=== PATIENT | female | born 1945 | race Caucasian/White ===

== ENCOUNTER 2018-03-16 12:27 | Emergency (ER) | payer MEDICARE, SELFPAY ==
[2018-03-16] VITALS (16 sets, daily range): BP systolic 123–196; BP diastolic 74–99; PULSE 57–81; RESP 15–23; TEMP 36.7; O2SAT 93–97; BMI 28.3
--- NOTE | 2018-03-16 12:49 | CT_ITS ---
STUDY: CTA CHEST REASON FOR EXAM: Female, 73 years old. Sudden onset of severe back pain. Possible aortic dissection. RADIATION DOSAGE (If Supplied By Facility): CTDIvol = ( 11.83 ) mGy, DLP = ( 514.22 ) mGycm TECHNIQUE: The examination was performed with the intravenous administration of 100CC ml of Isovue 300 contrast material. Post-processing of the angiographic images was performed, with multiplanar reformation and 3D reconstruction. Individualized dose optimization techniques were used for this CT. COMPARISON: None. FINDINGS: Normal enhancement of the main pulmonary artery and right and left pulmonary arteries. Normal enhancement of the bilateral peripheral pulmonary arteries. There is no demonstrated pulmonary embolism. There is atherosclerotic calcification of the aortic arch with tortuosity. There is ectasia of the ascending thoracic aorta measuring about 4.1 cm in AP diameter. There is no demonstrated aortic dissection. There is however fluid likely representing clots around the descending thoracic aorta extending from the aortic arch to the upper abdomen. There is also fluid extending in the region of the superior pericardial recess. Normal heart and pericardium. There is no evidence of pericardial effusion. Normal mediastinum. Normal hilar regions. The trachea is somewhat tortuous. The lungs are well expanded. The lungs are emphysematous with scattered bullae bilaterally. No focal infiltrate is seen. There is mild stranding/atelectasis in the right lower lobe. There are no pleural effusions. Normal chest wall structures. There are degenerative changes of thoracic spine. The visualized portions of the upper abdomen demonstrate well-defined low-density lesion in the left lobe of the liver measuring by 3.5 cm low attenuation values system with cysts. The patient is status post cholecystectomy. CT/CTA Chest W/WO Contrast IMPRESSION: No evidence of aortic dissection however there is fluid around the aorta and in the superior pericardial recess. Correlation with echocardiogram is recommended. No evidence of acute extravasation of contrast. No evidence of pulmonary embolism. Emphysematous and bullous changes bilaterally. Electronically Signed: Riki Gill MD at 13:59 EDT Tel , Service support ,
--- NOTE | 2018-03-16 12:49 | EKG12_ITS ---
Test Reason : Blood Pressure : / mmHG Vent. Rate : 066 BPM Atrial Rate : 066 BPM P-R Int : 154 ms QRS Dur : 086 ms QT Int : 392 ms P-R-T Axes : 084 066 055 degrees QTc Int : 410 ms Normal sinus rhythm Normal ECG Confirmed by TAL TAYLOR, TORY ([id number]), proposal editor OLGA PARKS ([id number] on 03/19/2018 2:41:53 PM Referred By: SANDRA Confirmed By:TORY PARADA MD
[2018-03-16 12:57] LABS: Absolute Lymphocyte Count 1.65 X10^3/ul (0.83-4.51); Basophil# 0.04 X10^3/uL; Basophil% 0.5 % (0-1); Eosinophil# 0.14 X10^3/uL; Eosinophils% 1.9 % (0-5); Hemoglobin 15.3 g/dl (12.0-15.0); Lymphocyte # 1.65 X10^3/ul (4.0); Lymphocyte % 21.9 % (19-41); Mean Corp Hgb Conc 35.6 g/gl (32-36); Mean Corpuscular Hgb 32.9 pg (27.0-32.0); Mean Corpuscular Volume 92.5 fL (81-99); Mean Platelet Vol. 13.1 fl (6.2-12.0); Monocyte# 0.69 X10^3/uL; Monocyte% 9.2 % (0-10); Neutrophil # 4.99 X10^3/uL (2.7-7.7); Neutrophil % 66.1 % (47-70); Platelet Count 155 K/mm3 (150-450); RBC Distribution Width CV 12.6 % (11.6-14.6); RBC Distribution Width SD 41.9 fl (35.1-43.9); Red Blood Count 4.65 M/mm3 (4.2-5.4); White Blood Count 7.5 K/mm3 (4.4-11.0)
[2018-03-16 12:58] LABS: POSITIVE COUNT NO; POSITIVE DIFFERENTIAL NO; POSITIVE MORPHOLOGY NO
[2018-03-16] MEDS: HYDROmorphone 1 MG/ML Syringe IV (13:01)
[2018-03-16] MEDS: Ondansetron 4 MG/2 ML Vial IV ×2 (13:02→15:20)
[2018-03-16] MEDS: 0.9% Normal Saline 1,000 ML 1000 ML IV (13:02)
[2018-03-16 13:10] LABS: AST(SGOT) 37 U/L (15-37); Alanine Aminotransfer ALT/SGPT 18 U/L (13-56); Albumin, Serum 4.1 g/dL (3.2-5.0); Alkaline Phosphatase 82 U/L (45-117); Anion Gap 8 (5-15); BUN 10 mg/dL (7-18); Calcium,Total 9.3 mg/dL (8.5-10.1); Chloride 107 mmol/L (98-107); EST Glomerular Filtration Rate 58 mL/min (>60); Est Glom Filt Rate - Afr Amer 70 mL/min (>60); Estimated Creatinine Clearance 40.21 ml/min; Globulin 3.4 g/dL (2.2-4.2); Glucose 104 mg/dL (74-106); Lipase 211 U/L (73-393); Potassium 3.8 mmol/L (3.5-5.1); Protein, Total 7.5 g/dL (6.4-8.2); Sodium Level 140 mmol/L (136-145)
--- NOTE | 2018-03-16 13:18 | ED.VISSUMM ---
- ER Visit Summary Date of Service: 03/16/18 Chief Complaint: Upper back pain History of Present Illness: The patient is a [address] Giuseppe dangelo. She reports that she was taking a trash bag out to the garbage when she had the onset of a sharp upper back pain. Is 10 out of 10 at worst 910 currently. Is worsened by breathing or movement. Is relieved by nothing. She has never had anything like this before. States this is not unusual activity for her. Patient reports that she also has a sharp epigastric pain senna 10 severity that began at the same time. She denies any fever, chills, chest pain, cough. She does report that she is short of breath. Physical Examination: Vitals: Stable. Afebrile. General: Well-nourished and well-developed. Head: Normocephalic atraumatic. Neck: Supple, no lymphadenopathy. No JVD. Nontender. Cardiovascular: Regular rate and rhythm. No murmurs. Respiratory: No respiratory distress. Clear to auscultation bilaterally. Abdominal: Soft, mild epigastric tenderness to palpation, nondistended, normal bowel sounds. No guarding, rebound, or peritoneal signs. Back: Nontender. I am unable to reproduce her upper back pain with palpation. No vertebral tenderness. No paraspinous muscular tenderness. Extremities: Nontender, no edema. Skin: Normal color, no rash. Neurologic: Alert and oriented ?3. Cranial nerves II through XII are intact. Normal strength and sensation. Psych: Normal affect. Test Results: EKG is sinus at [address] changes. Troponin is negative. LFTs marked total bili 1.2. Lipase normal. Chem-7 is normal. CBC is marked for hemoglobin of 15.3. Clinical Impression(s) from Imaging Studies Chest CTA 03/16/18 12:49 IMPRESSION: No evidence of aortic dissection however there is fluid around the aorta and in the superior pericardial recess. Correlation with echocardiogram is recommended. No evidence of acute extravasation of contrast. No evidence of pulmonary embolism. Emphysematous and bullous changes bilaterally. Electronically Signed: Riki Gill MD at 13:59 EDT Tel , Service support , Emergency Department Course and Treatment: Patient had an IV placed. She is given a dose of Dilaudid and Zofran IV. Her pain has improved. She was given a dose of labetalol IV. Ultimately she was placed on a nipride drip. Treatment Plan: The patient asked for transfer to [facility]. She was discussed with them and giving the fact that this is from her ascending aneurysm they asked that she be transferred to [facility]. Patient was then discussed with Dr. Hancock at [facility] who asked that we bring her systolic blood pressure down in the 120s. Due to the weather the patient cannot be flown to [place]. Disposition: Transferred in serious condition. Impression: 1. Thoracic aortic aneurysm with leak. 2. Critical care time 30 minutes. This note was generated with [employer] dictation software. It may contain incorrect words, spelling, and punctuation that were not noted in review of the chart prior to signing ED Disposition - Plan for ED Patient: Chief Complaint: Back Referrals: Chicho Ronquillo MD [Primary Care Provider] -
[2018-03-16] MEDS: Morphine 4 MG/ML Syringe IV (14:00)
[2018-03-16 14:25] LABS: International Normalized Ratio 1.1; Prothrombin Time (Protime)PT. 13.8 SECONDS (11.7-14.9)
[2018-03-16 14:26] LABS: Partial Thromboplast Time 38.1 Seconds (24.1-36.2)
--- NOTE | 2018-03-16 15:07 | NURSING ---
[facility] MAIN [id number] BED 3 REPORT [phone] [facility] MOBILE ICU EN ROUTE
--- NOTE | 2018-03-16 16:23 | ED.RN ---
[facility] GROUND AT BEDSIDE AT 1600. 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 BEDSIDE REPORT GIVEN. STAFF DENIES QUESTIONS. PT DENIES NEEDS. DIRECTIONS GIVEN TO FAMILY. GROUND CREW DEPARTED AT 1613 WITH PATIENT.
--- NOTE | 2018-03-16 18:14 | ED.RN ---
Spoke with Nicky at [facility] to verify we were sending correct CD from [facility]. I was unable to give them an ETA.
== END 2018-03-16 16:13 | disposition short-term general hospital (02) ==
PROVIDERS: Emergency Provider Emergency Medicine; Family Provider Family Medicine; PCP Family Medicine
DX: I71.1 Thoracic aortic aneurysm, ruptured (principal); K59.00 Constipation, unspecified; J44.9 Chronic obstructive pulmonary disease, unspecified; I10 Essential (primary) hypertension; E78.00 Pure hypercholesterolemia, unspecified; Z90.89 Acquired absence of other organs; Z90.49 Acquired absence of other specified parts of digestive tract; Z90.710 Acquired absence of both cervix and uterus; F17.200 Nicotine dependence, unspecified, uncomplicated; Z79.82 Long term (current) use of aspirin; Z79.899 Other long term (current) drug therapy; R06.02 Shortness of breath
CPT/HCPCS: 71275; 80048; 80076; 83690; 84484; 85025; 85610; 85730; 93005; 96361; 96365; 96374; 96375; 96376; 99285; J7030; Q9967; A4216; J2405

== ENCOUNTER → 2018-08-19 08:21 | Outpatient (CLI) | payer MEDICARE, SELFPAY ==
[2018-08-19 09:43] LABS: Prothrombin Time (Protime)PT. 36.7 SECONDS (11.7-14.9)
[2018-08-19 09:49] LABS: International Normalized Ratio 3.7
== END ==
PROVIDERS: Family Provider Family Medicine; PCP Family Medicine; Referring Provider Family Medicine; Visit Provider Family Medicine
DX: I48.0 Paroxysmal atrial fibrillation (principal)
CPT/HCPCS: 85610

== ENCOUNTER 2018-11-17 11:30 | Emergency (ER) | payer MEDICARE, SELFPAY ==
[2018-11-17] VITALS (9 sets, daily range): BP systolic 149–192; BP diastolic 80–106; PULSE 60–69; RESP 15–26; TEMP 36.6–36.7; O2SAT 91–96; BMI 29.4
--- NOTE | 2018-11-17 11:40 | RAD_ITS ---
STUDY: X-RAY CHEST REASON FOR EXAM: Female, 73 years old. Coughing congestion TECHNIQUE: PA and lateral views of the chest. COMPARISON: None. FINDINGS: There is hyperinflation of the lungs consistent with chronic obstructive lung disease (COPD). There is nodule in the right upper lobe is compatible with a granuloma. Normal size heart. Normal mediastinum and larissa. Normal visualized pulmonary arteries. There is atherosclerotic calcification of the aortic arch with tortuosity. There are diffuse degenerative changes of the visualized thoracic spine. Normal visualized ribs, clavicles, and shoulders. There is no demonstrated abnormality of the visualized soft tissue structures of the upper abdomen. RAD/Chest PA and Lateral IMPRESSION: 1. No acute cardiopulmonary process. 2. Chronic obstructive airway disease. Electronically Signed: Gabe Charlton MD at 12:56 EST , Service support ,
--- NOTE | 2018-11-17 11:45 | ED.VISSUMM ---
- ER Visit Summary Date of Service: 11/17/18 Chief Complaint: Shortness of breath History of Present Illness: The patient is a 73 F with a history of COPD, not on home oxygen, presenting with 2 days of gradual onset cough, congestion, and wheezing. Her cough has been productive of yellow sputum. She denies recent antibiotic use. Denies chest pain. No lower extremity pain or swelling. Physical Examination: Vitals are within normal limits except for hypertension at 192/106. She denies chest pain, headache, or any confusion. Pulse ox is 96% on room air. She does have diffuse wheezing in all lung crespo but still moving air well. No clinical evidence of DVT Test Results: Observe within normal limits. INR 2.6. Chest x-ray negative for infiltrate Emergency Department Course and Treatment: No evidence of infiltrate on x-ray. She was given a full round of nebulizers and IV Medrol. On reexamination, she feels much better. Wheezing has resolved. No respiratory distress. She ambulated with a pulse oximeter on room air and she remained at 95% and feels well. 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 She had a productive cough and wheezing. No chest pain at all. Blood pressure was elevated on arrival but is 156/83 on reevaluation. She states that her aneurysm has been stable and she was cleared from her specialist except for yearly follow-ups. She is certain that this has nothing to do with her aneurysm. It does seem fairly classic for COPD and seems quite clearly infectious. No chest pain, clinical evidence of DVT, or other findings to suggest pulmonary embolism. Because she has had a change in her sputum production pattern, I do think treatment with antibiotics is reasonable. I will start her on doxycycline. She will also be treated with prednisone. She will follow closely with her doctor and return here if she is any worse. Disposition: Home stable Impression: Initial encounter COPD exacerbation, initial encounter lower respiratory tract infection This note was generated with [employer] dictation software. It may contain incorrect words, spelling, and punctuation that were not noted in review of the chart prior to signing ED Disposition - Plan for ED Patient: Chief Complaint: Shortness of Breath Instructions: ED COPD Flare, Acute Bronchitis Prescriptions: Prednisone [Deltasone] 40 mg PO DAILY #10 tablet Doxycycline Monohydrate 100 mg PO BID #14 tablet Referrals: Chicho Ronquillo MD [Primary Care Provider] -
[2018-11-17] MEDS: MethylPREDNISolone 125 MG/2 ML Vial IV (11:50)
[2018-11-17] MEDS: Ipratropium/Albuterol Sulfate 3 ML AMPUL.NEB INHALATION (11:55)
[2018-11-17] MEDS: Albuterol 2.5 MG/3 ML VIAL.NEB. INHALATION ×3 (11:55→12:17)
[2018-11-17 11:57] LABS: Absolute Lymphocyte Count 0.87 X10^3/ul (0.83-4.51); Absolute Neutrophil Count 2.8 X10^3/uL (2.0-7.7); Basophil# 0.03 X10^3/uL; Basophil% 0.7 % (0-1); Eosinophil# 0.14 X10^3/uL; Eosinophils% 3.1 % (0-5); Hematocrit 43.2 % (37-47); Hemoglobin 14.9 g/dl (12.0-15.0); Lymphocyte # 0.87 X10^3/ul (4.0); Lymphocyte % 19.4 % (19-41); Mean Corp Hgb Conc 34.5 g/gl (32-36); Mean Corpuscular Hgb 31.7 pg (27.0-32.0); Mean Corpuscular Volume 91.9 fL (81-99); Mean Platelet Vol. 12.6 fl (6.2-12.0); Monocyte# 0.63 X10^3/uL; Neutrophil # 2.81 X10^3/uL (2.7-7.7); Neutrophil % 62.6 % (47-70); Platelet Count 136 K/mm3 (150-450); RBC Distribution Width SD 42.7 fl (35.1-43.9); White Blood Count 4.5 K/mm3 (4.4-11.0)
[2018-11-17 11:58] LABS: POSITIVE COUNT NO; POSITIVE DIFFERENTIAL NO; POSITIVE MORPHOLOGY NO
[2018-11-17 12:08] LABS: Anion Gap 7 (5-15); BUN 11 mg/dL (7-18); BUN/Creat Ratio 13.6 RATIO (10-20); Calcium,Total 8.5 mg/dL (8.5-10.1); Chloride 108 mmol/L (98-107); Creatinine, Serum 0.81 mg/dL (0.55-1.02); EST Glomerular Filtration Rate 73 mL/min (>60); Est Glom Filt Rate - Afr Amer 89 mL/min (>60); Estimated Creatinine Clearance 49.64 ml/min; Glucose 85 mg/dL (74-106); Sodium Level 141 mmol/L (136-145)
[2018-11-17 13:35] LABS: International Normalized Ratio 2.6; Prothrombin Time (Protime)PT. 28.1 SECONDS (11.7-14.9)
[2018-11-17] MEDS: Doxycycline 100 MG CAPSULE PO (14:05)
--- OUTSIDE RECORDS SUMMARY | 2019-01-20 11:18 | XMS RPT_ITS ---
:1945 Author Organization OHIP Care Team Providers Name Role Phone PONCHO MARTÍNEZOPAL Admitting Unavailable SANDRINE BAPTISTE Attending Unavailable SANDRINE BAPTISTE Referring Unavailable DAVIS RONQUILLO) Attending Unavailable TABATHA GARCIA Referring Unavailable TIKATABATHA LOUIS Attending Unavailable TIKA, TABATHA Referring Unavailable PODKATELYN NEAL (WILBUR) Attending Unavailable KATELYN NUÑEZ (WILBUR) Referring Unavailable DAVIS RONQUILLO) Referring Unavailable DAVIS RONQUILLO) Referring Unavailable DAVIS RONQUILLO) Attending Unavailable DAVIS RONQUILLO) Referring Unavailable CALI ALY Attending Unavailable DAVIS RONQUILLO) Referring Unavailable DAVIS RONQUILLO) Referring Unavailable DAVIS RONQUILLO) Referring Unavailable DAVIS RONQUILLO) Referring Unavailable DAVIS RONQUILLO) Referring Unavailable DAVIS RONQUILLO) Referring Unavailable PODLOGKATELYN HOWELL (SCIENTIFIC RESEARCH ASSOCIATE) Attending Unavailable DAVIS RONQUILLO () Referring Unavailable BURSDAVIS VICTOR () Referring Unavailable BURSDAVIS VICTOR () Referring Unavailable PODLOGAR, KATELYN (SCIENTIFIC RESEARCH ASSOCIATE) Referring Unavailable DAVIS RONQUILLO () Referring Unavailable ALVARO CROWLEY (OD) Attending Unavailable DAVIS RONQUILLO () Referring Unavailable SHEEBA, CALI E Attending Unavailable CALI ALY E Referring Unavailable CALI ALY E Referring Unavailable TAVON TRONCOSO Attending Unavailable TAVON TRONCOSO Referring Unavailable PODLOGAR, KATELYN (SCIENTIFIC RESEARCH ASSOCIATE) Referring Unavailable PODLOGAR, KATELYN (SCIENTIFIC RESEARCH ASSOCIATE) Referring Unavailable BEACH, JAYJAY K Attending Unavailable MEFALVARO WYNN (OD) Referring Unavailable Bursley, Chicho Primary Care Unavailable Davis Car Attending Unavailable Bursley, Chicho Primary Care Unavailable Sebastien Lane Attending Unavailable Yg Chicho Attending Unavailable Bursluiza, Chicho Referring Unavailable Bursluiza, Chicho Primary Care Unavailable PROBLEMS PROBLEMS DATE TYPE CONDITION / CODE ATTENDING STATUS SOURCE 11/13/2018 Active Other abnormal and NA Active [facility] inconclusive [facility] Main findings on [place] diagnostic imaging Repository of breast / R92.8(ICD-10) 11/07/2018 Active Centrilobular NA Active [facility] emphysema / Clinic Main J43.2(ICD-10) [place] Repository 11/01/2018 Active Dizziness and NA Active [facility] giddiness / Clinic Main R42(ICD-10) [place] Repository 10/11/2018 Active Encounter for NA Active [facility] screening mammogram Clinic Main for malignant [place] neoplasm of breast Repository / Z12.31(ICD-10) 03/21/2018 Active Paroxysmal atrial NA Active [facility] fibrillation / Clinic Main I48.0(ICD-10) [place] Repository 08/19/2018 Unknown I48.0 - Paroxysmal Bursley, Active [place] atrial fibrillation [facility] / I48.0(ICD-10) Hospital Repository 04/15/2018 Active 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 After-cataract obscuring vision, right - ICD9: 366.53, ICD10: H26.491 Return 1 to 2 weeks for Yag laser right eye 3. Dry eye syndrome of both eyes - ICD9: 375.15, ICD10: H04.123 Continue Refresh Optive Artificial tears, 1 drop, three times a day, Both eyes 4. Pseudophakia, both eyes - ICD9: V43.1, ICD10: Z96.1 Jayjay Beach MD I have confirmed and edited as necessary the relevant ophthalmic history, review of systems, surgical history, and ophthalmological examination findings as obtained by the ophthalmic technical staff. I have seen and examined Elizabeth Méndez. I have discussed the examination findings, diagnosis, and treatment options with Elizabeth Méndez and/or her family. I have also reviewed and agree with the assessment and plan as stated above and agree with all its relevant components. I gave the patient the opportunity to ask questions about the findings, diagnosis, and treatment options. EMERGENCY DEPARTMENT Observed: 11/17/2018 Status: F Source: [place] SUMMARY 1:56 PM [facility] REPOSITORY [facility] Medical Records Department [address] [place] [id number] Emergency Department Summary 11/17/18 1145 MR#: [id number] Acct: [id number] Name: ELIZABETH MÉNDEZ Rep #: [id number] : 1945 73 From: Chicho Car MD PCP: Chicho Ronquillo MD Status: REG ER - ER Visit Summary Date of Service: 11/17/18 Chief Complaint: Shortness of breath History of Present Illness: The patient is a 73 F with a history of COPD, not on home oxygen, presenting with 2 days of gradual onset cough, congestion, and wheezing. Her cough has been productive of yellow sputum. She denies recent antibiotic use. Denies chest pain. No lower extremity pain or swelling. Physical Examination: Vitals are within normal limits except for hypertension at 192/106. She denies chest pain, headache, or any confusion. Pulse ox is 96% on room air. She does have diffuse wheezing in all lung crespo but still moving air well. No clinical evidence of DVT Test Results: Observe within normal limits. INR 2.6. Chest x-ray negative for infiltrate Emergency Department Course and Treatment: No evidence of infiltrate on x-ray. She was given a full round of nebulizers and IV Medrol. On reexamination, she feels much better. Wheezing has resolved. No respiratory distress. She ambulated with a pulse oximeter on room air and she remained at 95% and feels well. 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 She had a productive cough and wheezing. No chest pain at all. Blood pressure was elevated on arrival but is 156/83 on reevaluation. She states that her aneurysm has been stable and she was cleared from her specialist except for yearly follow-ups. She is certain that this has nothing to do with her aneurysm. It does seem fairly classic for COPD and seems quite clearly infectious. No chest pain, clinical evidence of DVT, or other findings to suggest pulmonary embolism. Because she has had a change in her sputum production pattern, I do think treatment with antibiotics is reasonable. I will start her on doxycycline. She will also be treated with prednisone. She will follow closely with her doctor and return here if she is any worse. Disposition: Home stable Impression: Initial encounter COPD exacerbation, initial encounter lower respiratory tract infection This note was generated with [employer] dictation software. It may contain incorrect words, spelling, and punctuation that were not noted in review of the chart prior to signing ED Disposition - Plan for ED Patient: Chief Complaint: Shortness of Breath Instructions: ED COPD Flare, Acute Bronchitis Prescriptions: Prednisone [Deltasone] 40 mg PO DAILY #10 tablet Doxycycline Monohydrate 100 mg PO BID #14 tablet Referrals: Chicho Ronquillo MD [Primary Care Provider] - What to do if you have Problems For any increased pain, shortness of breath, bleeding, nausea or vomiting, chest pain, or any unexpected problems, contact your Primary Care Provider. Call [facility] ([phone]) or report to the closest Emergency Room. Call 911 if necessary. 11/17/18 1356 <Electronically signed by Chicho Car MD> Date Chicho Car MD Cosigner Signature (If Indicated): Date CC: Chicho Ronquillo MD CBC W/DIFF, AUTOMATED Collected: 11/17/2018 Status: F Source: [place] 11:48 AM [facility] REPOSITORY TYPE CODE TESTS RESULT OUT OF RANGE REFERENCE UNITS LAB L100.1000 4.4-11.0 K/mm3 Normal WBC 4.5 LAB L100.1200 4.2-5.4 M/mm3 Normal RBC 4.70 LAB L100.1300 12.0-15.0 g/dl Normal HGB 14.9 LAB L100.1400 37-47 % Normal HCT 43.2 LAB L100.1500 81-99 fL Normal MCV 91.9 LAB L100.1600 27.0-32.0 pg Normal MCH 31.7 LAB L100.1700 32-36 g/gl Normal MCHC 34.5 LAB L100.1810 11.6-14.6 % Normal RDW CV 13.0 LAB L100.1820 35.1-43.9 fl Normal RDW SD 42.7 LAB L100.1900 150-450 K/mm3 Low PLT 136 LAB L100.2000 6.2-12.0 fl High MPV 12.6 LAB L100.2100 47-70 % Normal NEUT% 62.6 LAB L100.2200 19-41 % Normal LY% 19.4 LAB L100.2300 0-10 % High MONO% 14.0 LAB L100.2400 0-5 % Normal EO% 3.1 LAB L100.2500 0-1 % Normal BASO% 0.7 LAB L100.2550 0.0-0.9 % Normal IM GRAN % 0.200 Result Comment: IG% - Immature Granulocytes (promyelocytes, myelocytes and metamyelocytes) > 1% indicates that a LEFT SHIFT is Present. LAB L100.2620 2.0-7.7 X10 3/uL Normal Absolute Neut 2.8 LAB L100.2720 0.83-4.51 X10 3/ul Normal Absolute Lymph 0.87 Performed By: #### L100.0100 #### [facility] [address] [place], [place], [address] BASIC METABOLIC Collected: 11/17/2018 Status: F Source: [place] PROFILE (BMP) 11:48 AM [facility] REPOSITORY TYPE CODE TESTS RESULT OUT OF RANGE REFERENCE UNITS LAB L501.0100 74-106 mg/dL Normal GLU 85 Result Comment: Please note revised GLUCOSE reference range effective 2017. LAB L501.1000 7-18 mg/dL Normal BUN 11 LAB L501.1100 0.55-1.02 mg/dL Normal CREAT,SERUM 0.81 Result Comment: The validity of the calculated GFR AND GFRAA in patients over 70 years has not been determined. Clinical correlation is essential. LAB L501.1110 >60 mL/min Normal EST GFR 73 Result Comment: Non- GFR Calc LAB L501.1115 >60 mL/min Normal EST GFR - AA 89 Result Comment: GFR Calc LAB L501.1255 ml/min Normal Estimated CRCL 49.64 LAB L501.1300 10-20 RATIO Normal BUN/CRE 13.6 LAB L501.2200 8.5-10 mg/dL Normal .1 CA 8.5 LAB L501.5300 136-14 mmol/L Normal 5 NA 141 LAB L501.5600 3.5-5. mmol/L Normal 1 K 4.0 LAB L501.5900 98-107 mmol/L High CL 108 LAB L501.6100 21.0-3 mmol/L Normal 2.0 CO2 26.0 LAB L501.6200 5-15 Normal GAP 7 Performed By: #### L500.2500 #### [facility] [address] [place], [address] Observed: 11/17/2018 Status: F Source: [place] INFLUENZA A+B (RAPID 11:48 AM [facility]) REPOSITORY FLU A/B Rapid Negative test results should be confirmed with FLU PANEL MOLECULAR if indicated. Influenza Ag, Direct Presumptive NEGATIVE for Influenza A/B Antigen (See Note) Performed By: #### M101.0101 #### [facility] [address] [place], [address] PROTHROMBIN TIME W/INR Collected: 11/17/2018 Status: F Source: [place] 11:48 AM [facility] REPOSITORY TYPE CODE TESTS RESULT OUT OF RANGE REFERENCE UNITS LAB L300.4150 11.7-14.9 SECONDS High PROTIME 28.1 LAB L300.4200 Normal INR 2.6 Performed By: #### L300.3900 #### [facility] [address] [place], [address] CHEST PA AND LATERAL Observed: 11/17/2018 Status: F Source: [place] 11:41 AM [facility] REPOSITORY [facility] Imaging Services [address] [place] [address] Chest PA and Lateral MR#: [id number] Acct: [id number] Name: ELIZABETH MÉNDEZ Rep #: [id number] : 1945 F 73 From: Gabe Charlton MD PCP: Chicho Ronquillo MD Status: [facility] ER Study: Chest PA and Lateral Date of Exam: 11/17/18 Exam# [id number] Ordering Dr: Chicho Car MD STUDY: X-RAY CHEST REASON FOR EXAM: Female, 73 years old. Coughing congestion TECHNIQUE: PA and lateral views of the chest. COMPARISON: None. FINDINGS: There is hyperinflation of the lungs consistent with chronic obstructive lung disease (COPD). There is nodule in the right upper lobe is compatible with a granuloma. Normal size heart. Normal mediastinum and larissa. Normal visualized pulmonary arteries. There is atherosclerotic calcification of the aortic arch with tortuosity. There are diffuse degenerative changes of the visualized thoracic spine. Normal visualized ribs, clavicles, and shoulders. There is no demonstrated abnormality of the visualized soft tissue structures of the upper abdomen. RAD/Chest PA and Lateral IMPRESSION: 1. No acute cardiopulmonary process. 2. Chronic obstructive airway disease. Electronically Signed: Gabe Charlton MD at 12:56 EST , Service support , CC: Chicho Ronquillo MD; Davis Car MD 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: Signed PROGRESS Observed: 11/13/2018 Status: COMPLETED Source: [place] 11:41 AM [facility] REPOSITORY HNO ID: [id number] Author: Sweta Mcnulty Rdms Service: (none) Author Type: (none) Type: Progress Notes Filed: 11/13/2018 11:41 AM Note Text: Radiology Service Progress Note PATIENT NAME: Elizabeth Méndez DATE OF SERVICE: November 13, 2018 TIME: 11:41 AM PATIENT IDENTITY VERIFICATION COMPLETED USING TWO (2) METHODS: Patient confirmed name verbally and Date of . PATIENT GENDER DATA: Female. status: : No status: NO. PATIENT RELEVANT IMPLANT DATA REVIEWED: Not Applicable RADIOLOGY DEPARTMENT: Ultrasound PERIPHERAL IV DATA: Not applicable SIGNED BY: Sweta Mcnulty Rdms November 13, 2018 11:41 AM [facility] Observed: 11/13/2018 Status: COMPLETED Source: [place] 11:35 AM [facility] REPOSITORY HNO ID: [id number] Author: Mammography Coordinator Service: (none) Author Type: Physician Type: Letter Filed: 11/14/2018 11:31 PM Note Text: November 13, 2018 PID: [id number] Elizabeth Méndez [facility] [address] Dear Ms. Méndez, Your recent breast imaging examination performed on 11/13/2018 showed an area that we believe is probably benign (not cancer). A six month follow-up is recommended to ensure your breast health. Please call [phone] to schedule an appointment for these tests if you have not already done so. Early detection of cancer is very important. We also understand recommendations regarding breast cancer screening are controversial. Please discuss with your primary care provider which strategy is best for you and whether a mammogram is right for you. Your breast images and report will be kept on file here as part of your permanent medical record and are available for your continuing care. Thank you for allowing us to help in meeting your health care needs. Sincerely, Dr. Cardona Interpreting Radiologist [facility] (# mo Follow-up) [facility] Observed: 11/13/2018 Status: COMPLETED Source: [place] 11:35 AM [facility] REPOSITORY HNO ID: [id number] Author: Mammography Coordinator Service: (none) Author Type: Physician Type: Letter Filed: 11/14/2018 11:31 PM Note Text: November 13, 2018 PID: [id number] Elizabeth Santoscharias [address] [place] [address] Dear Sushant SantosHoney, Your recent breast imaging examination performed on 11/13/2018 showed an area that we believe is probably benign (not cancer). A six month follow-up is recommended to ensure your breast health. Please call [phone] to schedule an appointment for these tests if you have not already done so. Early detection of cancer is very important. We also understand recommendations regarding breast cancer screening are controversial. Please discuss with your primary care provider which strategy is best for you and whether a mammogram is right for you. Your breast images and report will be kept on file here as part of your permanent medical record and are available for your continuing care. Thank you for allowing us to help in meeting your health care needs. Sincerely, Dr. Cardona Interpreting Radiologist [facility] (# mo Follow-up) [facility] US BREAST LTD Observed: 11/13/2018 Status: F Source: [facility] 11:28 AM [facility] REPOSITORY * * *Final Report* * * DATE OF EXAM: Nov 13 2018 11:28AM [facility] [id number] - [facility] US BREAST LTD LT / PROCEDURE REASON: Abnormal mammogram * * * * Physician Interpretation * * * * #[id number] - [facility] DIAGNOSTIC LT #[id number] - [facility] US BREAST LTD LT UNILATERAL LEFT DIGITAL DIAGNOSTIC MAMMOGRAM WITH CAD: 11/13/2018 HISTORY: Diagnostic Mammogram /Call back/abnormal mamm: Left Abnormal Mammogram. RESULT: TECHNIQUE: The study was acquired using full field digital technology and interpreted from soft copy. Current study was also evaluated with a Computer Aided Detection (CAD). Comparison is made to exams dated: 10/11/2018 mammogram, 10/09/2017 mammogram, 09/28/2016 mammogram, and 09/27/2015 mammogram - [facility]. There are scattered fibroglandular elements in left breast. There is an 8 mm oval fat containing focal asymmetry with a circumscribed margin in the left breast at 2 o'clock posterior depth. The asymmetry is new since 2017. No other significant masses or calcifications are seen in the breast. IMPRESSION: PROBABLY BENIGN - SHORT TERM INTERVAL FOLLOW-UP RECOMMENDED The 8 mm oval fat containing focal asymmetry in the left breast resembles a lymph node and is probably benign. LIMITED ULTRASOUND OF LEFT BREAST: 11/13/2018 RESULT: Comparison is made to exams dated: 10/11/2018 mammogram, 10/09/2017 mammogram, 09/28/2016 mammogram, and 09/27/2015 mammogram - [facility]. Color flow and real-time ultrasound of the left breast upper outer quadrant were performed. Peters scale images of the real-time examination were reviewed. There is 0.8 cm x 0.3 cm x 0.5 cm oval lymph node with a circumscribed margin in the left breast at 2 o'clock 8 cm from the nipple. This oval lymph node displays fatty hilum. This correlates with mammography findings. IMPRESSION: PROBABLY BENIGN - SHORT TERM INTERVAL FOLLOW-UP RECOMMENDED The 0.8 cm x 0.3 cm x 0.5 cm oval lymph node in the left breast is consistent with a lymph node and is probably benign. A follow-up mammogram and an ultrasound in 6 months is recommended to demonstrate stability. Nils smith/cielo:11/13/2018 11:35:40 Multiple national specialty organizations have released breast cancer screening guidelines for women at average risk for developing breast cancer - guidelines that are based on both evidence and opinion, yet differ on when to start and how often to screen for breast cancer. With representation from Breast Imaging, Internal Medicine, Women's Health, Family Medicine, and Medical/Surgical Oncology, the [facility] has carefully reviewed the data and reached the following consensus: 1) All women should engage in shared decision-making with their providers to decide when to start and how often to screen; 2) All women should have the opportunity to start screening mammography at age 40; 3) For women ages 45-55, we recommend annual screening mammograms; 4) For women ages 55 and over, we support both the transition from an annual to a biennial interval if this aligns more with patient's values and preferences, or continuation with annual screening; 5) All women should discuss with their providers when to stop screening mammograms. Ship Pilot Dispatcher(s): RT Nain(R)(M), [facility]; Sweta Mcnulty, [facility] letter sent: # Mo FU OVERALL STUDY BIRADS: 3 Probably benign finding - short term interval follow-up recommended 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: Cielo Transcribe Date/Time: Nov 13 2018 10:53A Dictated by : NILS CARDONA MD This examination was interpreted and the report reviewed and electronically signed by: NILS CARDONA MD on Nov 13 2018 11:35AM EST [id number] Observed: 11/13/2018 Status: COMPLETED Source: [place] 11:14 AM [facility] REPOSITORY HNO ID: [id number] Author: Arely Jones Service: (none) Author Type: (none) Type: Progress Notes Filed: 11/13/2018 11:15 AM Note Text: Radiology Service Progress Note PATIENT NAME: Elizabeth Méndez DATE OF SERVICE: November 13, 2018 TIME: 11:14 AM PATIENT IDENTITY VERIFICATION COMPLETED USING TWO (2) METHODS: Patient confirmed name verbally and Date of . PATIENT GENDER DATA: Female. status: : No status: NO. PATIENT RELEVANT IMPLANT DATA REVIEWED: Not Applicable RADIOLOGY DEPARTMENT: [facility] diagnostic mammogram PERIPHERAL IV DATA: Not applicable SIGNED BY: Arely Jones November 13, 2018 11:14 AM [facility] DIAGNOSTIC LT Observed: 11/13/2018 Status: F Source: [place] 11:05 AM [facility] REPOSITORY * * *Final Report* * * DATE OF EXAM: Nov 13 2018 11:05AM [facility] 0621 - [facility] DIAGNOSTIC LT / PROCEDURE REASON: Abnormal mammogram * * * * Physician Interpretation * * * * RESULT: #[id number] - [facility] DIAGNOSTIC LT #[id number] - [facility] US BREAST LTD LT UNILATERAL LEFT DIGITAL DIAGNOSTIC MAMMOGRAM WITH CAD: 11/13/2018 HISTORY: Diagnostic Mammogram /Call back/abnormal mamm: Left Abnormal Mammogram. RESULT: TECHNIQUE: The study was acquired using full field digital technology and interpreted from soft copy. Current study was also evaluated with a Computer Aided Detection (CAD). Comparison is made to exams dated: 10/11/2018 mammogram, 10/09/2017 mammogram, 09/28/2016 mammogram, and 09/27/2015 mammogram - [facility]. There are scattered fibroglandular elements in left breast. There is an 8 mm oval fat containing focal asymmetry with a circumscribed margin in the left breast at 2 o'clock posterior depth. The asymmetry is new since 2017. No other significant masses or calcifications are seen in the breast. IMPRESSION: PROBABLY BENIGN - SHORT TERM INTERVAL FOLLOW-UP RECOMMENDED The 8 mm oval fat containing focal asymmetry in the left breast resembles a lymph node and is probably benign. LIMITED ULTRASOUND OF LEFT BREAST: 11/13/2018 RESULT: Comparison is made to exams dated: 10/11/2018 mammogram, 10/09/2017 mammogram, 09/28/2016 mammogram, and 09/27/2015 mammogram - [facility]. Color flow and real-time ultrasound of the left breast upper outer quadrant were performed. Peters scale images of the real-time examination were reviewed. There is 0.8 cm x 0.3 cm x 0.5 cm oval lymph node with a circumscribed margin in the left breast at 2 o'clock 8 cm from the nipple. This oval lymph node displays fatty hilum. This correlates with mammography findings. IMPRESSION: PROBABLY BENIGN - SHORT TERM INTERVAL FOLLOW-UP RECOMMENDED The 0.8 cm x 0.3 cm x 0.5 cm oval lymph node in the left breast is consistent with a lymph node and is probably benign. A follow-up mammogram and an ultrasound in 6 months is recommended to demonstrate stability. Nils smith/cielo:11/13/2018 11:35:40 Multiple national specialty organizations have released breast cancer screening guidelines for women at average risk for developing breast cancer - guidelines that are based on both evidence and opinion, yet differ on when to start and how often to screen for breast cancer. With representation from Breast Imaging, Internal Medicine, Women's Health, Family Medicine, and Medical/Surgical Oncology, the [facility] has carefully reviewed the data and reached the following consensus: 1) All women should engage in shared decision-making with their providers to decide when to start and how often to screen; 2) All women should have the opportunity to start screening mammography at age 40; 3) For women ages 45-55, we recommend annual screening mammograms; 4) For women ages 55 and over, we support both the transition from an annual to a biennial interval if this aligns more with patient's values and preferences, or continuation with annual screening; 5) All women should discuss with their providers when to stop screening mammograms. Ship Pilot Dispatcher(s): RT Nain(R)(M), [facility]; Sweta Mcnulty, [facility] Center letter sent: # Mo FU OVERALL STUDY BIRADS: 3 Probably benign finding - short term interval follow-up recommended 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: Cielo Transcribe Date/Time: Nov 13 2018 10:53A Dictated by: NILS CARDONA MD This examination was interpreted and the report reviewed and electronically signed by: NILS CARDONA MD on Nov 13 2018 11:35AM EST [id number] PROGRESS Observed: 11/07/2018 Status: COMPLETED Source: [place] 1:[address] [facility] REPOSITORY HNO ID: [id number] Author: Tavon Troncoso Service: (none) Author Type: Physician Type: Progress Notes Filed: 11/07/2018 4:50 PM Note Text: [facility] [place], 11/07/2018: HPI: The patient is here for follow up of COPD. The last Pulmonary Clinic visit was 04/2017. Since then the patient has not required ED or hospital admission for exacerbation. Claims to be consistently compliant with prescribed maintenance daily Spiriva. I know my COPD is a little worse, maybe it's the shortness of breath on stairs, paces housework. Little chronic cough. Sputum volume (small) and color(clear) have not changed. No wheezing. Ventolin is helpful, uses daily. Sometimes shortness of breath wakes from sleep. PMH: Updated with patient today. FAMH: Updated with patient today. SOCH: Updated with patient today. Immunization History Administered Date(s) Administered Influenza Seasonal - High Dose - Age 65+ 09/01/2014 07/20/2015 07/21/2016 07/29/2018 Pneumococcal-13 Vac Conjugate 12/29/2014 Pneumovax 01/30/2013 Tdap (Age 7+) 03/02/2014 ROS: Reviewed with patient, confirmed as documented by Reviewed with patient, confirmed as documented by Janie Ortiz LPN. TO . TO Allergies were reviewed and updated, and medications were reconciled with the patient. PHYSICAL EXAMINATION: BP 122/62 Pulse 62 Resp 15 Wt 167 lb (75.8kg) SpO2 95% at rest on room air. Gen: No acute distress. Cooperative with examination. ENT: Oral hygeine and dentition good. Pharynx clear. No halitosis. Resp: No stridor, accessory respiratory muscle use, supra- sternal or intercostal retractions. No wheezes, crackles. CV: Regular rythm. Heart tones normal. No carotid bruit. Radial pulses normal. Abd: Not distended. MSK: No kyphoscoliosis. Ext: Warm and well perfused. No clubbing, cyanosis, edema. Skin: No rash. Neuro: Mental status normal. Affect normal. No tremor. DATA REVIEW: PFT not repeated at this visit. CXR 03/21/2018 IMPRESSION: Lines, tubes, and devices: ?None. Lungs and pleura: ?Emphysema. ?Small pleural effusions and bibasilar atelectasis. ?Right mid lung calcified granuloma. ?No definite pneumothorax. Cardiomediastinal silhouette: ?Stable cardiomediastinal silhouette. Echocardiogram 02/2018 with good LV function and no pulmonary hypertension. PHYSICAL EXAMINATION: BP 122/62 Pulse 62 Resp 15 Wt 167 lb (75.8kg) SpO2 95% Gen: No acute distress. Cooperative with examination. Pleasant. ENT: Sclerae clear. Nares clear. Oral hygeine/dentition good. Pharynx clear. No halitosis. Resp: No stridor, accessory respiratory muscle use, supra- sternal or intercostal retractions. A-P diameter normal. No crackles, wheezes, rubs. CV: Regular rythm. Heart tones normal. No JVP, HJR, carotid bruit. Radial pulses normal. Abd: Non distended. MSK: No kyphoscoliosis, joint deformities. Ext: Warm and well perfused. No clubbing, cyanosis, edema. No sclerodactyly. No Raynaud's. Skin: Color normal. Texture normal. No rash, eczema, urticaria, petechiae, telangiectasia, ecchymoses. Lymph: No adenopathy in neck, supra-clavicular fossae. Endo: No goiter, exophthalmos, onycholysis. Neuro: Mental status normal. Affect normal. Muscle tone normal. No tremor. ? DATA REVIEW: No new PFTs today. CT chest 04/15/2018 IMPRESSION: 1. 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 ? Again seen is a very shallow ulcer on the lateral wall of the proximal descending aorta. ?Stable maximum dimensions in the retrocardiac segment (4.2 x 3.8 cm; 4.3 x 4.[address]). ?No rupture or new dissection. 2. ?Mildly ectatic ascending thoracic aorta 3. ?Stable infrarenal aortic ectasia (3.0cm) 4. ?Bilateral paraseptal and centrilobular emphysematous changes with diffuse bronchiectasis. ? IMPRESSION/RECOMMEND: 1. Chronic obstructive pulmonary disease, emphysema and bronchiectasis. Describing more exertional shortness of breath. - Continue Spiriva, and inhaling contents of 1 capsule once daily. - Continue Albuterol inhaler 2 puffs up to every 4 hours as needed for wheezing/shortness of breath. - Current spirometry in light of worsening shortness of breath. --> If significant decline measured, consider addition of long acting beta agonist bronchodilator to long acting anti-cholinergic bronchodilator (Spiriva). Anoro may be better choice. - Recommend annual influenza vaccination, ideally between August 12 and September 12. - Follow up based on current PFT. I addressed the questions of the patient, and she expressed understanding and acceptance of my answers. Tavon Troncoso MD, [facility] [place] [facility] [address] [place] [id number] P: [phone] F: [phone] ? Addendum, 11/07/2018: PFT 11/07/18 03/02/17 FVC ? ?Liters ? 3.17,?118% 3.43, 120% FEV1 Liters ? ? 1.57,?78% 1.90, 88% FEV1% ? ? ? 0.50 0.55 ? IMPRESSION AND RECOMMENDATIONS: No significant change in Pulmonary Function Testing results. No indication to change from single long acting anti-cholinergic bronchodilator Spiriva to combination long acting anti-cholinergic bronchodilator/long acting beta agonist bronchodilator Anoro at this time. Tavon Troncoso MD, [facility] [place] CNOV Observed: 11/07/2018 Status: COMPLETED Source: [place] 1:30 PM [facility] REPOSITORY Office Visit (PULMWS) ELIZABETH MÉNDEZ ([id number]) 1945 F Date Time Provider Department 11/07/18 1:30 PM TAVON TRONCOSO During your visit today, we recorded the following information about you: Pulse Respiration Blood pressure Weight 62/minute 15/minute 122/62 75.8 kg Janie Ortiz LPN 11/07/2018 1:51 PM Attested Attestation signed by Tavon Troncoso at 11/07/2018 1:57 PM Reviewed with patient, confirmed as documented by Janie Ortiz LPN. TO ROS: General: Generally feels well. Appetite good. Eyes, Ears, nose, throat: denies post nasal drip. denies rhinorrhea. denies purulent nasal discharge. denies epistaxis. denies hoarseness. Vision stable. Cardiac: denies angina, denies edema, denies orthopnea. GI: denies heartburn. denies dysphagia. denies diarrhea. 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 denies hesitancy. denies nocturia. Menses: post menopausal Musculoskeletal: denies pain. Neuro: denies headache, denies focal weakness. denies tremor. Skin: denies rash. Otherwise negative. Tavon Troncoso MD 11/07/2018 4:50 PM Signed [facility] [place], 11/07/2018: HPI: The patient is here for follow up of COPD. The last Pulmonary Clinic visit was 04/2017. Since then the patient has not required ED or hospital admission for exacerbation. Claims to be consistently compliant with prescribed maintenance daily Spiriva. I know my COPD is a little worse, maybe it's the shortness of breath on stairs, paces housework. Little chronic cough. Sputum volume (small) and color(clear) have not changed. No wheezing. Ventolin is helpful, uses daily. Sometimes shortness of breath wakes from sleep. PMH: Updated with patient today. FAMH: Updated with patient today. SOCH: Updated with patient today. Immunization History Administered Date(s) Administered Influenza Seasonal - High Dose - Age 65+ 09/01/2014 07/20/2015 07/21/2016 07/29/2018 Pneumococcal-13 Vac Conjugate 12/29/2014 Pneumovax 01/30/2013 Tdap (Age 7+) 03/02/2014 ROS: Reviewed with patient, confirmed as documented by Reviewed with patient, confirmed as documented by Janie Ortiz LPN. TO . TO Allergies were reviewed and updated, and medications were reconciled with the patient. PHYSICAL EXAMINATION: BP 122/62 Pulse 62 Resp 15 Wt 167 lb (75.8kg) SpO2 95% at rest on room air. Gen: No acute distress. Cooperative with examination. ENT: Oral hygeine and dentition good. Pharynx clear. No halitosis. Resp: No stridor, accessory respiratory muscle use, supra- sternal or intercostal retractions. No wheezes, crackles. CV: Regular rythm. Heart tones normal. No carotid bruit. Radial pulses normal. Abd: Not distended. MSK: No kyphoscoliosis. Ext: Warm and well perfused. No clubbing, cyanosis, edema. Skin: No rash. Neuro: Mental status normal. Affect normal. No tremor. DATA REVIEW: PFT not repeated at this visit. CXR 03/21/2018 IMPRESSION: Lines, tubes, and devices: ?None. Lungs and pleura: ?Emphysema. ?Small pleural effusions and bibasilar atelectasis. ?Right mid lung calcified granuloma. ?No definite pneumothorax. Cardiomediastinal silhouette: ?Stable cardiomediastinal silhouette. Echocardiogram 02/2018 with good LV function and no pulmonary hypertension. PHYSICAL EXAMINATION: BP 122/62 Pulse 62 Resp 15 Wt 167 lb (75.8kg) SpO2 95% Gen: No acute distress. Cooperative with examination. Pleasant. ENT: Sclerae clear. Nares clear. Oral hygeine/dentition good. Pharynx clear. No halitosis. Resp: No stridor, accessory respiratory muscle use, supra- sternal or intercostal retractions. A-P diameter normal. No crackles, wheezes, rubs. CV: Regular rythm. Heart tones normal. No JVP, HJR, carotid bruit. Radial pulses normal. Abd: Non distended. MSK: No kyphoscoliosis, joint deformities. Ext: Warm and well perfused. No clubbing, cyanosis, edema. No sclerodactyly. No Raynaud's. Skin: Color normal. Texture normal. No rash, eczema, urticaria, petechiae, telangiectasia, ecchymoses. Lymph: No adenopathy in neck, supra-clavicular fossae. Endo: No goiter, exophthalmos, onycholysis. Neuro: Mental status normal. Affect normal. Muscle tone normal. No tremor. ? DATA REVIEW: No new PFTs today. CT chest 04/15/2018 IMPRESSION: 1. 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 ? Again seen is a very shallow ulcer on the lateral wall of the proximal descending aorta. ?Stable maximum dimensions in the retrocardiac segment (4.2 x 3.8 cm; 4.3 x 4.[address]). ?No rupture or new dissection. 2. ?Mildly ectatic ascending thoracic aorta 3. ?Stable infrarenal aortic ectasia (3.0cm) 4. ?Bilateral paraseptal and centrilobular emphysematous changes with diffuse bronchiectasis. ? IMPRESSION/RECOMMEND: 1. Chronic obstructive pulmonary disease, emphysema and bronchiectasis. Describing more exertional shortness of breath. - Continue Spiriva, and inhaling contents of 1 capsule once daily. - Continue Albuterol inhaler 2 puffs up to every 4 hours as needed for wheezing/shortness of breath. - Current spirometry in light of worsening shortness of breath. --> If significant decline measured, consider addition of long acting beta agonist bronchodilator to long acting anti-cholinergic bronchodilator (Spiriva). Anoro may be better choice. - Recommend annual influenza vaccination, ideally between August 12 and September 12. - Follow up based on current PFT. I addressed the questions of the patient, and she expressed understanding and acceptance of my answers. Tavon Troncoso MD, [facility] [address] [place] [address] P: [phone] F: [phone] [email or web address] ? Addendum, 11/07/2018: PFT 11/07/18 03/02/17 FVC ? ?Liters ? 3.17,?118% 3.43, 120% FEV1 Liters ? ? 1.57,?78% 1.90, 88% FEV1% ? ? ? 0.50 0.55 ? IMPRESSION AND RECOMMENDATIONS: No significant change in Pulmonary Function Testing results. No indication to change from single long acting anti-cholinergic bronchodilator Spiriva to combination long acting anti-cholinergic bronchodilator/long acting beta agonist bronchodilator Anoro at this time. Tavon Troncoso MD, [facility] [place] Referring Provider: SELF [[id number]] Allergies As of Date: 11/07/2018 Noted Allergy Reaction CEFTIN (CEFUROXIME) 10/30/2008 1 - Mental Status Change LISINOPRIL 08/26/2009 3 - Cough VOLTAREN (DICLOFENAC) 05/17/2017 14 - Other: See Comments Comments: Increased liver enzymes. Date Reviewed: 11/07/2018 Reviewed by: Tavon Troncoso - Fully Assessed Reason for Visit: Established Patient [175] Cmt: cough Primary Visit Diagnosis:Centrilobular emphysema (HCC) [J43.2] Order(s):SPIROMETRY BASELINE ONLY [6984309] Order #: [id number] FUTURE Prescriptions as of 11/07/2018 Sig: WARFARIN 1 MG TABLET Take 1 tablet by mouth once d* ALBUTEROL SULFATE HFA 90 MCG/* Inhale 2 Puffs as instructed * CARVEDILOL 25 MG TABLET 25 mg in morning and 12.5mg i* HYDRALAZINE 10 MG TABLET Take 1 tablet by mouth every * WARFARIN 5 MG TABLET Take 1 tablet by mouth once d* SIMVASTATIN 10 MG TABLET TAKE 1 TABLET EVERY DAY AT BE* TIOTROPIUM BROMIDE 18 MCG CAP* Inhale 1 capsule as instructe* ACETAMINOPHEN 325 MG TABLET Take 2 tablets by mouth every* ASPIRIN 81 MG TABLET,DELAYED * Take 1 tablet by mouth once d* CALCIUM + D ORAL Take 2 tablets by mouth once * DOCUSATE SODIUM 100 MG CAPSULE Take 1 capsule by mouth twice* ESTRADIOL 0.01% (0.1 MG/GRAM)* Apply small amount at vaginal* Problem List As Of Date 11/07/2018 Noted Resolved SKIN DISORDER NOS [L98.9] INVALID FOR*01/12/2009 SEBORRHEIC KERATOSIS NOS [L82.1] INVALID FOR*01/12/2009 SCREENING MAL NEOP-COLON [Z12.11] INVALID FOR*01/12/2009 BENIGN NEOPLASM LG BOWEL [D12.6] INVALID FOR*01/12/2009 Diverticulosis of large intestine [K57.30] INVALID FOR* EXT HEMORRHOID W/O COMPL [K64.4] INVALID FOR* INT HEMORRHOID W/O COMPL [K64.8] INVALID FOR* Essential hypertension [I10] INVALID FOR* More... Mixed hyperlipidemia [E78.2] INVALID FOR* More... ATHEROSCLEROSIS NOS [I70.90] INVALID FOR* Hematoma [T14.8XXA] INVALID FOR*03/02/2014 COPD (chronic obstructive pulmonary disease) (H*INVALID FOR* More... Hyperplastic colon polyp [K63.5] INVALID FOR* More... 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*INVALID FOR* Posterior subcapsular polar senile cataract - B*INVALID FOR*11/16/2015 Growth of eyelid - Left Eye [D49.2] INVALID FOR*11/16/2015 Combined form of senile cataract of left eye [H*INVALID FOR*11/16/2015 Astigmatism of left eye [H52.202] INVALID FOR*11/16/2015 Dry eye syndrome [H04.129] INVALID FOR* Meibomian gland dysfunction [H02.889] INVALID FOR* Pseudophakia, right eye [Z96.1] INVALID FOR*11/16/2015 Pseudophakia of both eyes [Z96.1] INVALID FOR* Pseudophakia of left eye [Z96.1] INVALID FOR*11/16/2015 Postmenopausal atrophic vaginitis [N95.2] INVALID FOR* Vitreous floaters of both eyes [H43.393] INVALID FOR* After-cataract of both eyes [H26.40] INVALID FOR* DDD (degenerative disc disease), cervical [M50.*INVALID FOR* Cervical spondylosis with myelopathy [M47.12] INVALID FOR* After-cataract obscuring vision [H26.499] INVALID FOR* Thrombocytopenia (HCC) [D69.6] INVALID FOR* More... CKD (chronic kidney disease), stage III [N18.3] More... Intramural aortic hematoma (HCC) [I71.00] INVALID FOR* More... Thoracoabdominal aortic aneurysm (TAAA) (HCC) [*INVALID FOR* More... Nicotine use disorder, F17.2 [F17.200] INVALID FOR* Paroxysmal atrial fibrillation (HCC) [I48.0] INVALID FOR* More... Punctate keratitis, bilateral [H16.143] INVALID FOR* Notes for Staff Call patient with results Visit Notes: >> Janie Ortiz LPN [facility] Nov 07, 2018 1:42 PM Status: Attested ROS: General: Generally feels well. Appetite good. Eyes, Ears, nose, throat: denies post nasal drip. denies rhinorrhea. denies purulent nasal discharge. denies epistaxis. denies hoarseness. Vision stable. Cardiac: denies angina, denies edema, denies orthopnea. GI: denies heartburn. denies dysphagia. denies diarrhea. 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 denies hesitancy. denies nocturia. Menses: post menopausal Musculoskeletal: denies pain. Neuro: denies headache, denies focal weakness. denies tremor. Skin: denies rash. Otherwise negative. Follow Up: Call patient with results Disposition: Return in about 6 months (around 05/07/2019). Follow-up and Disposition History Recorded Encounter Status:Closed by TAVON TRONCOSO MD on 11/07/18 PROGRESS Observed: 11/01/2018 Status: COMPLETED Source: [place] 10:[address] [facility] [place] REPOSITORY HNO ID: [id number] Author: Cali Aly Service: (none) Author Type: Physician Type: Progress Notes Filed: 11/03/2018 1:19 PM Note Text: PERTINENT CARDIAC HISTORY PAF - C-V 3 Aortic dissection - type B Thoracic aortic aneurysm - 4.3 cm HTN HL ADHERENCE TO GUIDELINES UDAY-I or ARB for HF with prior LVEF<40 (NQF 0081) - N/A ASA or Plavix for ASHD (NQF 0067) - met Beta hardy for ASHD with prior NE or prior LVEF<40 (NQF 0070) - N/A Beta hardy for HF with prior LVEF<40 (NQF 0083) - N/A UDAY-I or ARB for ASHD with DM or prior LVEF<40 (NQF 0066) - N/A Statin therapy for ASHD or FHL or DM - met BMI documented and plan if >25 (NQF 0421) - lifestyle recommendation form Tobacco use screening and referral (NQF 0028) - lifestyle recommendation form Recommendation for whole food, plant based diet - lifestyle recommendation form CLINICAL IMPRESSION/PLAN: Elizabeth Méndez has stable aortic disease. She is tolerating anticoagulation well. She's had no abnormal bleeding. She has had no palpitations. INR is followed in primary care. She has follow-up planned with cardiothoracic surgery in March. She will undergo evaluation of her carotid and vertebral arteries. Subclavian flows will be assessed for evidence of possible steal. If these symptoms continue, further studies and neurologic evaluation may be helpful. I recommend 6 month follow-up visit. Written and verbal health teaching given to patient, patient verbalizes understanding and agrees with treatment plan. DIAGNOSIS FOR VISIT: PAF Hypertension HISTORY OF PRESENT ILLNESS Elizabeth Méndez returns for follow-up of her hypertension and aortic disease. She reports stable exercise tolerance. She has had some no orthopnea or edema. She denies syncope, palpitations, TIAs, amaurosis and claudication. She notes that she is occasionally having a feeling of lightheadedness when raising her arms above her head. These symptoms could not be reproduced today. ALLERGIES: ALLERGIES Allergen Reactions - Ceftin [Cefuroxime] Mental Status Change - Lisinopril Cough - Voltaren [Diclofena* Other: See Comments Increased liver enzymes. CURRENT OUTPATIENT MEDICATIONS: albuterol HFA (VENTOLIN HFA) 90 mcg/actuation inhaler Inhale 2 Puffs as instructed every 6 hours as needed. carvedilol (COREG) 25 mg tablet 25 mg in morning and 12.5mg in evening hydrALAZINE (APRESOLINE) 10 mg tablet Take 1 tablet by mouth every 8 hours. warfarin (COUMADIN) 5 mg tablet Take 1 tablet by mouth once daily. simvastatin (ZOCOR) 10 mg tablet TAKE 1 TABLET EVERY DAY AT BEDTIME tiotropium (SPIRIVA WITH HANDIHALER) 18 mcg inhalation capsule Inhale 1 capsule as instructed once daily. Use with handihaler. acetaminophen (TYLENOL) 325 mg tablet Take 2 tablets by mouth every 6 hours as needed. aspirin, enteric coated (ASPIR-81) 81 mg EC tablet Take 1 tablet by mouth once daily. CALCIUM CARBONATE/VITAMIN D3 (CALCIUM + D ORAL) Take 2 tablets by mouth once daily. Taking 550 + 2001 unit tablets docusate sodium (COLACE) 100 mg capsule Take 1 capsule by mouth twice daily as needed for Constipation. estradiol (ESTRACE) 0.01 % (0.1 mg/gram) vaginal cream Apply small amount at vaginal opening 3 nights per week warfarin (COUMADIN) 1 mg tablet Take 1 tablet by mouth once daily. PHYSICAL EXAMINATION: VITAL SIGNS: BP 139/79 Pulse 73 Ht 5' 3 (1.60m) Wt 168 lb 8 oz (76.4kg) BMI 29.86 kg/(m2). Chest: Clear to auscultation. Trachea is midline. Air entry is equal. Cardiac: Regular rhythm. S1 and S2 are normal. PMI is nondisplaced. There are no murmurs, rubs or gallops. Carotids are brisk without bruits. JVP is less than 10 cm. Abdomen: Soft and nontender. There are no pulsatile masses or bruits. No liver enlargement. Bowel sounds are active. Extremities: No edema. Pulses are intact and symmetrical. Blood pressures at home have been in the 120-130 systolic range. Electronically Signed: Cali Aly MD November 01, 2018 10:59 AM CC: Davis Ronquillo MD CNOV Observed: 11/01/2018 Status: COMPLETED Source: [place] 10:45 AM [facility] REPOSITORY Office Visit (CAWSTR) ELIZABETH MÉNDEZ ([id number]) 1945 F Date Time Provider Department 11/01/18 10:45 AM CALI ALY CAWSTR During your visit today, we recorded the following information about you: Pulse Blood pressure Weight Height 73/minute 139/79 76.4 kg 1.6 m Cali lAy MD 11/03/2018 1:19 PM Signed PERTINENT CARDIAC HISTORY PAF - C-V 3 Aortic dissection - type B Thoracic aortic aneurysm - 4.3 cm HTN HL ADHERENCE TO GUIDELINES UDAY-I or ARB for HF with prior LVEF<40 (NQF 0081) - N/A ASA or Plavix for ASHD (NQF 0067) - met Beta hardy for ASHD with prior NE or prior LVEF<40 (NQF 0070) - N/A Beta hardy for HF with prior LVEF<40 (NQF 0083) - N/A UDAY-I or ARB for ASHD with DM or prior LVEF<40 (NQF 0066) - N/A Statin therapy for ASHD or FHL or DM - met BMI documented and plan if >25 (NQF 0421) - lifestyle recommendation form Tobacco use screening and referral (NQF 0028) - lifestyle recommendation form Recommendation for whole food, plant based diet - lifestyle recommendation form CLINICAL IMPRESSION/PLAN: Elizabeth Méndez has stable aortic disease. She is tolerating anticoagulation well. She's had no abnormal bleeding. She has had no palpitations. INR is followed in primary care. She has follow-up planned with cardiothoracic surgery in March. She will undergo evaluation of her carotid and vertebral arteries. Subclavian flows will be assessed for evidence of possible steal. If these symptoms continue, further studies and neurologic evaluation may be helpful. I recommend 6 month follow-up visit. Written and verbal health teaching given to patient, patient verbalizes understanding and agrees with treatment plan. DIAGNOSIS FOR VISIT: PAF Hypertension HISTORY OF PRESENT ILLNESS Elizabeth Méndez returns for follow-up of her hypertension and aortic disease. She reports stable exercise tolerance. She has had some no orthopnea or edema. She denies syncope, palpitations, TIAs, amaurosis and claudication. She notes that she is occasionally having a feeling of lightheadedness when raising her arms above her head. These symptoms could not be reproduced today. ALLERGIES: ALLERGIES Allergen Reactions - Ceftin [Cefuroxime] Mental Status Change - Lisinopril Cough - Voltaren [Diclofena* Other: See Comments Increased liver enzymes. CURRENT OUTPATIENT MEDICATIONS: albuterol HFA (VENTOLIN HFA) 90 mcg/actuation inhaler Inhale 2 Puffs as instructed every 6 hours as needed. carvedilol (COREG) 25 mg tablet 25 mg in morning and 12.5mg in evening hydrALAZINE (APRESOLINE) 10 mg tablet Take 1 tablet by mouth every 8 hours. warfarin (COUMADIN) 5 mg tablet Take 1 tablet by mouth once daily. simvastatin (ZOCOR) 10 mg tablet TAKE 1 TABLET EVERY DAY AT BEDTIME tiotropium (SPIRIVA WITH HANDIHALER) 18 mcg inhalation capsule Inhale 1 capsule as instructed once daily. Use with handihaler. acetaminophen (TYLENOL) 325 mg tablet Take 2 tablets by mouth every 6 hours as needed. aspirin, enteric coated (ASPIR-81) 81 mg EC tablet Take 1 tablet by mouth once daily. CALCIUM CARBONATE/VITAMIN D3 (CALCIUM + D ORAL) Take 2 tablets by mouth once daily. Taking 550 + 2001 unit tablets docusate sodium (COLACE) 100 mg capsule Take 1 capsule by mouth twice daily as needed for Constipation. estradiol (ESTRACE) 0.01 % (0.1 mg/gram) vaginal cream Apply small amount at vaginal opening 3 nights per week warfarin (COUMADIN) 1 mg tablet Take 1 tablet by mouth once daily. PHYSICAL EXAMINATION: VITAL SIGNS: BP 139/79 Pulse 73 Ht 5' 3 (1.60m) Wt 168 lb 8 oz (76.4kg) BMI 29.86 kg/(m2). Chest: Clear to auscultation. Trachea is midline. Air entry is equal. Cardiac: Regular rhythm. S1 and S2 are normal. PMI is nondisplaced. There are no murmurs, rubs or gallops. Carotids are brisk without bruits. JVP is less than 10 cm. Abdomen: Soft and nontender. There are no pulsatile masses or bruits. No liver enlargement. Bowel sounds are active. Extremities: No edema. Pulses are intact and symmetrical. Blood pressures at home have been in the 120-130 systolic range. Electronically Signed: Cali Aly MD November 01, 2018 10:59 AM CC: MD Cali Ryan MD 11/01/2018 10:59 AM Signed LIFESTYLE CHANGE A healthy lifestyle is the most important component of your overall treatment plan. Please give serious thought to the following areas and commit to making rn long term care changes. EAT A WHOLE FOOD, PLANT BASED DIET The nutrition your body gets is more important than the medicine you take. What matters most is the overall way you eat. We encourage you to minimize the use of animal products (which include dairy and all meats except fatty fish) and use whole, unprocessed plant foods to provide your protein, vitamins and other nutrients. We have a lot of information to share with you on this topic. This is not a diet. It is a way of life that you will keep with you. EXERCISE REGULARLY It is not important to spend hours in the gym, lifting weights and perspiring heavily. A total of 2-3 hours per week of aerobic (causing you to be moderately short of breath) exercise is sufficient to improve your health. Talk to us before you begin a new exercise program, if you have heart disease or experience shortness of breath or chest pain. REDUCE STRESS Chronic emotional and physical stress leads to disease. Ways of reducing stress include meditation, visualization, prayer, yoga and other forms of relaxation therapy. Consistency is the mc. Find a technique that works for you and do it every day. CULTIVATE RELATIONSHIPS Loneliness and isolation have a major negative impact on health. Seek out others who can love, care for and nurture you. Avoid hurtful relationships. MAINTAIN IDEAL BODY WEIGHT The best way to do this is to do all the things above. Our bodies naturally find the right weight if we keep moving and feed ourselves the right food. If your BMI is greater than 25, we strongly recommend a referral to a weight management program. Please speak to us or your family physician about available programs. AVOID NICOTINE IN ALL FORMS This includes all tobacco products, whether chewed, smoked, vaped, or rubbed on the skin. Smoking cessation programs, which can make use of tobacco substitutes, medications to suppress cravings and behavior management, are available. Please contact your family physician about programs in your area. Referring Provider: CALI ALY [[id number]] Allergies As of Date: 11/01/2018 Noted Allergy Reaction CEFTIN (CEFUROXIME) 10/30/2008 1 - Mental Status Change LISINOPRIL 08/26/2009 3 - Cough VOLTAREN (DICLOFENAC) 05/17/2017 14 - Other: See Comments Comments: Increased liver enzymes. Date Reviewed: 11/01/2018 Reviewed by: Maddison Cornejo MA - Fully Assessed Reason for Visit: Established Patient [175] Primary Visit Diagnosis:Dizziness and giddiness [R42] Other Visit Diagnosis:PAF (paroxysmal atrial fibrillation) (FORMERLY [facility]) [I48.0] Order(s): CAROTID ARTERIES [facility] [[id number]] Order #: [id number] FUTURE Prescriptions as of 11/01/2018 Sig: ALBUTEROL SULFATE HFA 90 MCG/* Inhale 2 Puffs as instructed * CARVEDILOL 25 MG TABLET 25 mg in morning and 12.5mg i* HYDRALAZINE 10 MG TABLET Take 1 tablet by mouth every * WARFARIN 5 MG TABLET Take 1 tablet by mouth once d* SIMVASTATIN 10 MG TABLET TAKE 1 TABLET EVERY DAY AT BE* TIOTROPIUM BROMIDE 18 MCG CAP* Inhale 1 capsule as instructe* ACETAMINOPHEN 325 MG TABLET Take 2 tablets by mouth every* ASPIRIN 81 MG TABLET,DELAYED * Take 1 tablet by mouth once d* CALCIUM + D ORAL Take 2 tablets by mouth once * DOCUSATE SODIUM 100 MG CAPSULE Take 1 capsule by mouth twice* ESTRADIOL 0.01% (0.1 MG/GRAM)* Apply small amount at vaginal* WARFARIN 1 MG TABLET Take 1 tablet by mouth once d* Patient not taking: Reported on 10/23/2018 Problem List As Of Date 11/01/2018 Noted Resolved SKIN DISORDER NOS [L98.9] INVALID FOR*01/12/2009 SEBORRHEIC KERATOSIS NOS [L82.1] INVALID FOR*01/12/2009 SCREENING MAL NEOP-COLON [Z12.11] INVALID FOR*01/12/2009 BENIGN NEOPLASM LG BOWEL [D12.6] INVALID FOR*01/12/2009 Diverticulosis of large intestine [K57.30] INVALID FOR* EXT HEMORRHOID W/O COMPL [K64.4] INVALID FOR* INT HEMORRHOID W/O COMPL [K64.8] INVALID FOR* Essential hypertension [I10] INVALID FOR* More... Mixed hyperlipidemia [E78.2] INVALID FOR* More... ATHEROSCLEROSIS NOS [I70.90] INVALID FOR* Hematoma [T14.8XXA] INVALID FOR*03/02/2014 COPD (chronic obstructive pulmonary disease) (H*INVALID FOR* More... Hyperplastic colon polyp [K63.5] INVALID FOR* More... 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*INVALID FOR* Posterior subcapsular polar senile cataract - B*INVALID FOR*11/16/2015 Growth of eyelid - Left Eye [D49.2] INVALID FOR*11/16/2015 Combined form of senile cataract of left eye [H*INVALID FOR*11/16/2015 Astigmatism of left eye [H52.202] INVALID FOR*11/16/2015 Dry eye syndrome [H04.129] INVALID FOR* Meibomian gland dysfunction [H02.889] INVALID FOR* Pseudophakia, right eye [Z96.1] INVALID FOR*11/16/2015 Pseudophakia of both eyes [Z96.1] INVALID FOR* Pseudophakia of left eye [Z96.1] INVALID FOR*11/16/2015 Postmenopausal atrophic vaginitis [N95.2] INVALID FOR* Vitreous floaters of both eyes [H43.393] INVALID FOR* After-cataract of both eyes [H26.40] INVALID FOR* DDD (degenerative disc disease), cervical [M50.*INVALID FOR* Cervical spondylosis with myelopathy [M47.12] INVALID FOR* After-cataract obscuring vision [H26.499] INVALID FOR* Thrombocytopenia (HCC) [D69.6] INVALID FOR* More... CKD (chronic kidney disease), stage III [N18.3] More... Intramural aortic hematoma (HCC) [I71.00] INVALID FOR* More... Thoracoabdominal aortic aneurysm (TAAA) (HCC) [*INVALID FOR* More... Nicotine use disorder, F17.2 [F17.200] INVALID FOR* Paroxysmal atrial fibrillation (HCC) [I48.0] INVALID FOR* More... Punctate keratitis, bilateral [H16.143] INVALID FOR* Other instructions from your clinician: LIFESTYLE CHANGE A healthy lifestyle is the most important component of your overall treatment plan. Please give serious thought to the following areas and commit to making usp changes. EAT A WHOLE FOOD, PLANT BASED DIET The nutrition your body gets is more important than the medicine you take. What matters most is the overall way you eat. We encourage you to minimize the use of animal products (which include dairy and all meats except fatty fish) and use whole, unprocessed plant foods to provide your protein, vitamins and other nutrients. We have a lot of information to share with you on this topic. This is not a diet. It is a way of life that you will keep with you. EXERCISE REGULARLY It is not important to spend hours in the gym, lifting weights and perspiring heavily. A total of 2-3 hours per week of aerobic (causing you to be moderately short of breath) exercise is sufficient to improve your health. Talk to us before you begin a new exercise program, if you have heart disease or experience shortness of breath or chest pain. REDUCE STRESS Chronic emotional and physical stress leads to disease. Ways of reducing stress include meditation, visualization, prayer, yoga and other forms of relaxation therapy. Consistency is the mc. Find a technique that works for you and do it every day. CULTIVATE RELATIONSHIPS Loneliness and isolation have a major negative impact on health. Seek out others who can love, care for and nurture you. Avoid hurtful relationships. MAINTAIN IDEAL BODY WEIGHT The best way to do this is to do all the things above. Our bodies naturally find the right weight if we keep moving and feed ourselves the right food. If your BMI is greater than 25, we strongly recommend a referral to a weight management program. Please speak to us or your family physician about available programs. AVOID NICOTINE IN ALL FORMS This includes all tobacco products, whether chewed, smoked, vaped, or rubbed on the skin. Smoking cessation programs, which can make use of tobacco substitutes, medications to suppress cravings and behavior management, are available. Please contact your family physician about programs in your area. Encounter Status:Closed by CALI ALY MD on 11/03/18 PROGRESS Observed: 10/24/2018 Status: COMPLETED Source: [place] 5:53 PM [facility] REPOSITORY HNO ID: [id number] Author: Cesar Sharp Ma Service: (none) Author Type: (none) Type: Progress Notes Filed: 10/24/2018 5:53 PM Note Text: Patient notified - verbalized understanding. Rescheduled INR for 4 weeks. PROGRESS Observed: 10/24/2018 Status: COMPLETED Source: [place] 12:21 PM [facility] REPOSITORY HNO ID: [id number] Author: Davis Mclaughlin) Yg Service: (none) Author Type: Physician Type: Progress Notes Filed: 10/24/2018 12:21 PM Note Text: INR therapeutic. Continue current coumadin dosage and follow up in 4 weeks. PROGRESS Observed: 10/24/2018 Status: COMPLETED Source: [place] 11:48 AM [facility] REPOSITORY HNO ID: [id number] Author: Daniela Mg RN Service: (none) Author Type: (none) Type: Progress Notes Filed: 10/24/2018 11:50 AM Note Text: patient had inr completed at [facility] patients inr is 2.4 (patients inr range is 2.0-3.0) patient is currently taking 5mg daily patients last dose change was on 10/16/18 due to a low level of 1.9 (dose at that time was 3.5mg Tues and 5mg all other days) patient has had no changes in medication except for coumadin and no missed doses and no change in diet Advised patient to continue on the same dose(s) and that they would only be contacted regarding dosage and follow up instructions after review with provider, if a change is needed. Written instructions given and patient verbalized understanding. Presently scheduled in 2 weeks (11/05/18) for follow up INR since this is the first normal reading since dose change. PROGRESS Observed: 10/23/2018 Status: COMPLETED Source: [place] 9:33 AM [facility] REPOSITORY HNO ID: [id number] Author: Alvaro Crowley Service: (none) Author Type: PROPERTY ADJUSTER Type: Progress Notes Filed: 10/23/2018 9:35 AM Note Text: ASSESSMENT/PLAN: 1. After-cataract with vision obscured of both eyes - ICD9: 366.53, ICD10: H26.493 (primary diagnosis) Consult Dr. Beach for YAG Laser Capsulotomy both eyes 2. Punctate keratitis, bilateral - ICD9: 370.21, ICD10: H16.143 Continue: Refresh Optive Artificial Tears, 1 drop, three times a day, both eyes. 3. Vitreous floaters of both eyes - ICD9: 379.24, ICD10: H43.393 Patient was given both written and verbal information on flashes and floaters. Patient was instructed to call the office immediately upon noticing flashes of light, increase in floaters, or changes in vision. 4. Pseudophakia of both eyes - ICD9: V43.1, ICD10: Z96.1 Intraocular lens implant in good position both eyes. Alvaro Crowley, OD I have confirmed and edited as necessary the relevant ophthalmic history, review of systems, surgical history, and ophthalmological examination findings as obtained by the ophthalmic technical staff. I have seen and examined Elizabeth Méndez. I have discussed the examination findings, diagnosis, and treatment options with Elizabeth Méndez and/or her family. I have also reviewed and agree with the assessment and plan as stated above and agree with all its relevant components. I gave the patient the opportunity to ask questions about the findings, diagnosis, and treatment options. PROGRESS Observed: 10/16/2018 Status: COMPLETED Source: [place] 2:12 PM [facility] REPOSITORY HNO ID: [id number] Author: Yolanda Ng RN Service: (none) Author Type: (none) Type: Progress Notes Filed: 10/16/2018 2:14 PM Note Text: Patient notified of PCP instruction. Verbalized understanding. Yolanda Ng RN PROGRESS Observed: 10/16/2018 Status: COMPLETED Source: [place] 9:44 AM [facility] REPOSITORY HNO ID: [id number] Author: Davis Mclaughlin) Yg Service: (none) Author Type: Physician Type: Progress Notes Filed: 10/16/2018 9:45 AM Note Text: INR slightly subtherapeutic. Increase coumadin to 5 mg daily and recheck in 1 week. PROGRESS Observed: 10/16/2018 Status: COMPLETED Source: [place] 8:50 AM [facility] REPOSITORY HNO ID: [id number] Author: Yolanda Ng RN Service: (none) Author Type: (none) Type: Progress Notes Filed: 10/16/2018 8:51 AM Note Text: Patient had INR completed at [facility] Patient's INR is 1.9 Patient is currently taking 3.5mg Tues and 5mg all other days Patient's last dose change was 10/08/18 due to low INR at 1.8 Patient has had no medication and no change in diet. Advised patient that they would be contacted regarding medication dose and follow-up once reviewed by provider. After provider review, please contact patient with information and schedule follow-up appointment with coumadin clinic. Patient has been scheduled for 1 week follow up on 10/24/18. CNCO Observed: 10/11/2018 Status: COMPLETED Source: [place] 11:06 AM [facility] REPOSITORY HNO ID: [id number] Author: Mammography Coordinator Service: (none) Author Type: Physician Type: Letter Filed: 10/14/2018 11:33 PM Note Text: October 11, 2018 PID: [id number] Elizabeth Méndez [facility] [place] [id number] Dear Ms. Méndez, Your recent breast imaging exam on 10/11/2018 showed a possible finding that requires additional imaging studies for a complete evaluation. Most such findings are probably benign (not cancer). Please call [phone] or [phone] to schedule an appointment for your additional imaging if you have not already done so. Your breast images and report will be kept on file here as part of your permanent medical record and are available for your continuing care. Thank you for allowing us to help in meeting your health care needs. Sincerely, Dr. Parks Interpreting Radiologist [facility] (Additional imaging) [facility] SCREENING Observed: 10/11/2018 Status: F Source: [place] 8:[address] [facility] REPOSITORY * * *Final Report* * * DATE OF EXAM: Oct 11 2018 8:59AM WOW [id number] - [facility] SCREENING / PROCEDURE REASON: Encounter for screening mammogram for breast cancer * * * * Physician Interpretation * * * * RESULT: #[id number] - [facility] SCREENING BILATERAL DIGITAL SCREENING MAMMOGRAM WITH CAD: 10/11/2018 HISTORY: Encounter For Screening Mammogram For Breast Cancer /Screening Mammogram - patient reports NO breast symptoms /Priors available for comparison. RESULT: TECHNIQUE: The study was acquired using full field digital technology and interpreted from soft copy. Current study was also evaluated with a Computer Aided Detection (CAD). Comparison is made to exams dated: 10/09/2017 mammogram, 09/28/2016 mammogram, 09/27/2015 mammogram, 09/22/2014 mammogram, 08/29/2013 mammogram - [facility], and 08/29/2013 mammogram. There are scattered fibroglandular elements in both breasts. There is an asymmetry in the left breast posterior depth upper region seen on the mediolateral oblique view only. No other significant masses, calcifications, or other findings are seen in either breast. IMPRESSION: INCOMPLETE: NEEDS ADDITIONAL IMAGING EVALUATION The asymmetry in the left breast is indeterminate. Additional views are recommended. The exam was reviewed by a staff physician. Heaven Lopez M.D. ,[facility]/[place]:10/11/2018 11:06:51 Ship Pilot Dispatcher(s): RT Nain(R)(M), [facility] letter sent: Additional Imaging Needed Mammogram BI-RADS: 0 Incomplete: needs additional imaging evaluation If this report indicates you need additional imaging, and it has NOT yet been performed, please call , to schedule. We sincerely thank you for choosing the [facility] for your breast imaging needs. Multiple national specialty organizations have released breast cancer screening guidelines for women at average risk for developing breast cancer - guidelines that are based on both evidence and opinion, yet differ on when to start and how often to screen for breast cancer. With representation from Breast Imaging, Internal Medicine, Women's Health, Family Medicine, and Medical/Surgical Oncology, the [facility] has carefully reviewed the data and reached the following consensus: 1) All women should engage in shared decision-making with their providers to decide when to start and how often to screen; 2) All women should have the opportunity to start screening mammography at age 40; 3) For women ages 45-55, we recommend annual screening mammograms; 4) For women ages 55 and over, we support both the transition from an annual to a biennial interval if this aligns more with patient's values and preferences, or continuation with annual screening; 5) All women should discuss with their providers when to stop screening mammograms. 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: Cielo Transcribe Date/Time: Oct 11 2018 8:48A Dictated by: CARTER LOPEZ MD This examination was interpreted and the report reviewed and electronically signed by: HEAVEN PARKS MD on Oct 11 2018 11:06AM EST [id number] PROGRESS Observed: 10/08/2018 Status: COMPLETED Source: [place] 4:12 PM [facility] REPOSITORY HNO ID: [id number] Author: Divine Gay LPN Service: (none) Author Type: (none) Type: Progress Notes Filed: 10/08/2018 4:13 PM Note Text: patient notified with understanding, correctly stated new dose. Patient aware rx sent to pharmacy . Appointment scheduled for 1 week. PROGRESS Observed: 10/08/2018 Status: COMPLETED Source: [place] 11:49 AM [facility] REPOSITORY HNO ID: [id number] Author: Davis Ronquillo Service: (none) Author Type: Physician Type: Progress Notes Filed: 10/08/2018 11:50 AM Note Text: INR subtherapeutic. Increase coumadin to 3.5 mg Tues and 5 mg all other days. New rx for 1 mg coumadin called in. To take with 1/2 tablet of 5 mg coumadin for total of 3.5 mg. Recheck INR in 1 week. PROGRESS Observed: 10/08/2018 Status: COMPLETED Source: [place] 9:52 AM [facility] REPOSITORY HNO ID: [id number] Author: Daniela Mg RN Service: (none) Author Type: (none) Type: Progress Notes Filed: 10/08/2018 9:53 AM Note Text: patient had inr completed at [facility] patients inr is 1.8 (patients inr range is 2.0-3.0) patient is currently taking 2.5mg Tues and 5mg all other days patients last dose change was on 08/19/18 due to a high level of 4.9 (dose at that time was 5mg daily) patient has had no changes in medication and no missed doses and no change in diet Advised patient that they would be contacted regarding medication dose and when to follow up after information is reviewed by provider. After provider review please contact the patient with information and schedule follow up appointment with coumadin clinic. FYI - patient has been scheduled for a 2 week follow up inr on 10/24/18 PROGRESS Observed: 09/10/2018 Status: COMPLETED Source: [place] 10:55 AM [facility] REPOSITORY HNO ID: [id number] Author: Davis Ronquillo Service: (none) Author Type: Physician Type: Progress Notes Filed: 09/10/2018 10:55 AM Note Text: INR therapeutic. Continue current coumadin dosage and follow up in 4 weeks. PROGRESS Observed: 09/10/2018 Status: COMPLETED Source: [place] 8:26 AM [facility] REPOSITORY HNO ID: [id number] Author: Daniela Mg RN Service: (none) Author Type: (none) Type: Progress Notes Filed: 09/10/2018 8:27 AM Note Text: patient had inr completed at [facility] patients inr is 2.5 (patients inr range is 2.0-3.0) patient is currently taking 2.5mg Tues and 5mg all other days patients last dose change was on 08/19/18 due to a high level of 3.7 (dose at that time was 5mg daily) patient has had no changes in medication and no missed doses and no change in diet Advised patient to continue on the same dose(s) and that they would only be contacted regarding dosage and follow up instructions after review with provider, if a change is needed. Written instructions given and patient verbalized understanding. Presently scheduled in 4 weeks (10/08/18) for follow up INR. PROGRESS Observed: 09/05/2018 Status: COMPLETED Source: [place] 10:[address] [facility] REPOSITORY HNO ID: [id number] Author: Katelyn Molina) Podlogar Service: (none) Author Type: Nurse Practitioner Type: Progress Notes Filed: 09/05/2018 3:54 PM Note Text: 09/05/2018 Patient presents with: Recheck: month SUBJECTIVE: This is a 73 year old that is here today for Above Complaints. Last saw Dr. Ronquillo May 29, 2018. Has resumed blood pressure medications and reports feeling fine. Is requesting Symbicort inhaler that Dr. Santillan hs prescribed in past. Denies increased SOB, coughing, dyspnea, or wheezing Following with Dr. Aly for paroxysmal A-Fib and anticoagulation control. Last office visit on 07/23/2018. Denies chest pain, palpitations, leg swelling, bleeding gums, hematochezia, melena, hematuria or recent falls. Is to follow-up with vascular next year regarding type intramural aortic hematoma. Past medical history, appointment medications, and allergies reviewed. PAST MEDICAL HISTORY Diagnosis Date - Aortic aneurysm (HCC) - Benign neoplasm of colon 06/08/2008 - Cataracts, bilateral Seeing Dr. Beach - Cervical spondylosis without myelopathy Seeing Dr. jean - Chronic obstructive pulmonary disease (COPD) (HCC) mild - CKD (chronic kidney disease), stage III (HCC) - Diverticulosis of colon (without mention of hemorrhage) - Epistaxis 2/2 high dose ASA - Hemorrhoids - Hypertension - Osteopenia - Other seborrheic keratosis 01/24/2007 - Paroxysmal atrial fibrillation (HCC) 03/19/2018 - Snoring - Special screening for malignant neoplasms, colon 06/08/2008 - Unspecified disorder of skin and subcutaneous tissue 01/16/2007 - Varicose vein of leg ALLERGIES Ceftin [Cefuroxime]; Lisinopril; Voltaren [Diclofenac] MEDICATIONS Current Outpatient Prescriptions: carvedilol (COREG) 25 mg tablet 25 mg in morning and 12.5mg in evening hydrALAZINE (APRESOLINE) 10 mg tablet Take 1 tablet by mouth every 8 hours. warfarin (COUMADIN) 5 mg tablet Take 1 tablet by mouth once daily. simvastatin (ZOCOR) 10 mg tablet TAKE 1 TABLET EVERY DAY AT BEDTIME tiotropium (SPIRIVA WITH HANDIHALER) 18 mcg inhalation capsule Inhale 1 capsule as instructed once daily. Use with handihaler. acetaminophen (TYLENOL) 325 mg tablet Take 2 tablets by mouth every 6 hours as needed. aspirin, enteric coated (ASPIR-81) 81 mg EC tablet Take 1 tablet by mouth once daily. VENTOLIN HFA 90 mcg/actuation inhaler INHALE 2 PUFFS INSTRUCTED EVERY 6 HOURS NEEDED. CALCIUM CARBONATE/VITAMIN D3 (CALCIUM + D ORAL) Take 2 tablets by mouth once daily. Taking 550 + 2001 unit tablets docusate sodium (COLACE) 100 mg capsule Take 1 capsule by mouth twice daily as needed for Constipation. estradiol (ESTRACE) 0.01 % (0.1 mg/gram) vaginal cream Apply small amount at vaginal opening 3 nights per week No current facility-administered medications for this visit. Medications and allergies reviewed by this provider. SOCIAL HISTORY Social History Marital status: Spouse name: Years of education: Number of children: Social History Main Topics Smoking status: Former Smoker Packs/day: 0.50 Years: 0.00 Types: Cigarettes Start date: 1961 Quit date: 12/27/2015 Smokeless tobacco: Never Used Comment: Parents smoked in home; patient has cheated a few times and smoked; Smoked last week Alcohol use: Yes Comment: rarely Drug use: No Sexual activity: Yes Partners with: Male Comment: no concerns Social History Narrative No known exposure to TB. REVIEW OF SYSTEMS All other reviewed and negative other than HPI. OBJECTIVE: BP 136/72 (BP Site: Left Arm, BP Position: Sitting, BP Cuff Size: Regular Adult) Pulse 68 Resp 16 Wt 74.4 kg (164 lb 1.9 oz) BMI 29.07 kg/m? . Vital signs reviewed by this provider. APPEARANCE Well appearing, alert, in no acute distress, well-hydrated, well nourished. HEART RRR with normal S1 and S2, no murmurs, no gallops, no JVD appreciated LUNG clear to auscultation EXTREMITIES Extremities normal, No deformities, No skin discoloration and No edema Component Latest Ref Rng AND Units 03/16/2018 Cholesterol, Total <200 mg/dL 93 Triglyceride <150 mg/dL 50 HDL Cholesterol >39 mg/dL 44 LDL Cholesterol <100 mg/dL 39 Non HDL Cholesterol <130 mg/dL 49 Fasting Time hrs Unknown VLDL Cholesterol <30 mg/dL 10 TC:HDL Ratio <5.10 2.11 LDL:HDL Ratio <2.54 0.89 PAP EVERY 3 YEARS (65-80 YEARS OLD) due on 02/07/2008 SERUM CREATININE due on 03/21/2019 ANNUAL PCP TEAM CHRONIC DISEASE VISIT due on 05/29/2019 BP CONTROLLED (<130/80) due on 07/23/2019 DIABETES SCREEN due on 03/21/2021 LIPID SCREEN due on 03/16/2023 DTAP,TDAP,TD(2 - Td) due on 03/02/2024 COLORECTAL CANCER SCREENING,SEE MODIFIER due on 01/15/2027 BONE DENSITY Completed ADULT PREVNAR-13 Completed INFLUENZA Completed PNEUMOVAX AGE 65 AND OVER WITH 5YR LOOKBACK Completed ASSESSMENT/PLAN: 1. Chronic obstructive pulmonary disease, unspecified COPD type (HCC) - ICD9: 496, ICD10: J44.9 (primary diagnosis) _ last appointment with pulm was 03/02/2017- was recommended she have follow-up PFT in 1 year - SPIROMETRY WITH DILATOR IF OBSTRUCTED - ALBUTEROL SULFATE HFA 90 MCG/ACTUATION AEROSOL INHALE - follow-up in 6 months, sooner if needed 2. Essential hypertension - ICD9: 401.9, ICD10: I10 - good control - Continue current medication(s) - Encouraged dietary sodium restriction/DASH diet - Recommended regular aerobic exercise. - Recommend home blood pressure monitoring, to bring results in on next visit - Recheck in 6 months, sooner should new symptoms or problems arise. - Goal of BP <130/80 - Recommended no refined sugar, low refined starch, healthy oil intake (olive oil), healthy protein (fish) along the lines of the Mediterranean diet. 3. Paroxysmal atrial fibrillation (HCC) - ICD9: 427.31, ICD10: I48.0 - continue to follow with cardiology 4. Intramural aortic hematoma (HCC) - ICD9: 441.00, ICD10: I71.00 - continue to follow with vascular 6. Mixed hyperlipidemia - ICD9: 272.2, ICD10: E78.2 - good control - Encouraged following a low fat, low cholesterol diet. - Discussed the benefits of regular aerobic exercise and weight loss. - Follow up in 6 months. Katelyn Nuñez APRN.SCIENTIFIC RESEARCH ASSOCIATE Prescription instructions reviewed with patient as applicable. Patient advised if symptoms do not improve or if symptoms worsen sooner, to contact their primary care physician. Potential red flag symptoms discussed with the patient. Reviewed appropriate action plan to take if red flag symptoms occur. Patient agreeable to treatment plan. KIMMY Observed: 09/05/2018 Status: COMPLETED Source: [place] 9:40 AM [facility] REPOSITORY Office Visit (FAMPWS) HONEYELIZABETH Amezquita ([id number]) 1945 F Date Time Provider Department 09/05/18 9:40 AM KATELYN NU[facility]EZ [facility] During your visit today, we recorded the following information about you: Pulse Respiration Blood pressure Weight 68/minute 16/minute 136/72 74.4 kg Katelyn Nuñez APRN.CNP 09/05/2018 3:54 PM Signed 09/05/2018 Patient presents with: Recheck: month SUBJECTIVE: This is a 73 year old that is here today for Above Complaints. Last saw Dr. Ronquillo May 29, 2018. Has resumed blood pressure medications and reports feeling fine. Is requesting Symbicort inhaler that Dr. Santillan hs prescribed in past. Denies increased SOB, coughing, dyspnea, or wheezing Following with Dr. Aly for paroxysmal A-Fib and anticoagulation control. Last office visit on 07/23/2018. Denies chest pain, palpitations, leg swelling, bleeding gums, hematochezia, melena, hematuria or recent falls. Is to follow-up with vascular next year regarding type intramural aortic hematoma. Past medical history, appointment medications, and allergies reviewed. PAST MEDICAL HISTORY Diagnosis Date - Aortic aneurysm (HCC) - Benign neoplasm of colon 06/08/2008 - Cataracts, bilateral Seeing Dr. Beach - Cervical spondylosis without myelopathy Seeing Dr. jean - Chronic obstructive pulmonary disease (COPD) (HCC) mild - CKD (chronic kidney disease), stage III (HCC) - Diverticulosis of colon (without mention of hemorrhage) - Epistaxis 2/2 high dose ASA - Hemorrhoids - Hypertension - Osteopenia - Other seborrheic keratosis 01/24/2007 - Paroxysmal atrial fibrillation (HCC) 03/19/2018 - Snoring - Special screening for malignant neoplasms, colon 06/08/2008 - Unspecified disorder of skin and subcutaneous tissue 01/16/2007 - Varicose vein of leg ALLERGIES Ceftin [Cefuroxime]; Lisinopril; Voltaren [Diclofenac] MEDICATIONS Current Outpatient Prescriptions: carvedilol (COREG) 25 mg tablet 25 mg in morning and 12.5mg in evening hydrALAZINE (APRESOLINE) 10 mg tablet Take 1 tablet by mouth every 8 hours. warfarin (COUMADIN) 5 mg tablet Take 1 tablet by mouth once daily. simvastatin (ZOCOR) 10 mg tablet TAKE 1 TABLET EVERY DAY AT BEDTIME tiotropium (SPIRIVA WITH HANDIHALER) 18 mcg inhalation capsule Inhale 1 capsule as instructed once daily. Use with handihaler. acetaminophen (TYLENOL) 325 mg tablet Take 2 tablets by mouth every 6 hours as needed. aspirin, enteric coated (ASPIR-81) 81 mg EC tablet Take 1 tablet by mouth once daily. VENTOLIN HFA 90 mcg/actuation inhaler INHALE 2 PUFFS INSTRUCTED EVERY 6 HOURS NEEDED. CALCIUM CARBONATE/VITAMIN D3 (CALCIUM + D ORAL) Take 2 tablets by mouth once daily. Taking 550 + 2001 unit tablets docusate sodium (COLACE) 100 mg capsule Take 1 capsule by mouth twice daily as needed for Constipation. estradiol (ESTRACE) 0.01 % (0.1 mg/gram) vaginal cream Apply small amount at vaginal opening 3 nights per week No current facility-administered medications for this visit. Medications and allergies reviewed by this provider. SOCIAL HISTORY Social History Marital status: Spouse name: Years of education: Number of children: Social History Main Topics Smoking status: Former Smoker Packs/day: 0.50 Years: 0.00 Types: Cigarettes Start date: 1961 Quit date: 12/27/2015 Smokeless tobacco: Never Used Comment: Parents smoked in home; patient has cheated a few times and smoked; Smoked last week Alcohol use: Yes Comment: rarely Drug use: No Sexual activity: Yes Partners with: Male Comment: no concerns Social History Narrative No known exposure to TB. REVIEW OF SYSTEMS All other reviewed and negative other than HPI. OBJECTIVE: BP 136/72 (BP Site: Left Arm, BP Position: Sitting, BP Cuff Size: Regular Adult) Pulse 68 Resp 16 Wt 74.4 kg (164 lb 1.9 oz) BMI 29.07 kg/m? . Vital signs reviewed by this provider. APPEARANCE Well appearing, alert, in no acute distress, well- hydrated, well nourished. HEART RRR with normal S1 and S2, no murmurs, no gallops, no JVD appreciated LUNG clear to auscultation EXTREMITIES Extremities normal, No deformities, No skin discoloration and No edema Component Latest Ref Rng AND Units 03/16/2018 Cholesterol, Total <200 mg/dL 93 Triglyceride <150 mg/dL 50 HDL Cholesterol >39 mg/dL 44 LDL Cholesterol <100 mg/dL 39 Non HDL Cholesterol <130 mg/dL 49 Fasting Time hrs Unknown VLDL Cholesterol <30 mg/dL 10 TC:HDL Ratio <5.10 2.11 LDL:HDL Ratio <2.54 0.89 PAP EVERY 3 YEARS (65-80 YEARS OLD) due on 02/07/2008 SERUM CREATININE due on 03/21/2019 ANNUAL PCP TEAM CHRONIC DISEASE VISIT due on 05/29/2019 BP CONTROLLED (<130/80) due on 07/23/2019 DIABETES SCREEN due on 03/21/2021 LIPID SCREEN due on 03/16/2023 DTAP,TDAP,TD(2 - Td) due on 03/02/2024 COLORECTAL CANCER SCREENING,SEE MODIFIER due on 01/15/2027 BONE DENSITY Completed ADULT PREVNAR-13 Completed INFLUENZA Completed PNEUMOVAX AGE 65 AND OVER WITH 5YR LOOKBACK Completed ASSESSMENT/PLAN: 1. Chronic obstructive pulmonary disease, unspecified COPD type (HCC) - ICD9: 496, ICD10: J44.9 (primary diagnosis) _ last appointment with pulm was 03/02/2017- was recommended she have follow-up PFT in 1 year - SPIROMETRY WITH DILATOR IF OBSTRUCTED - ALBUTEROL SULFATE HFA 90 MCG/ACTUATION AEROSOL INHALE - follow-up in 6 months, sooner if needed 2. Essential hypertension - ICD9: 401.9, ICD10: I10 - good control - Continue current medication(s) - Encouraged dietary sodium restriction/DASH diet - Recommended regular aerobic exercise. - Recommend home blood pressure monitoring, to bring results in on next visit - Recheck in 6 months, sooner should new symptoms or problems arise. - Goal of BP <130/80 - Recommended no refined sugar, low refined starch, healthy oil intake (olive oil), healthy protein (fish) along the lines of the Mediterranean diet. 3. Paroxysmal atrial fibrillation (HCC) - ICD9: 427.31, ICD10: I48.0 - continue to follow with cardiology 4. Intramural aortic hematoma (HCC) - ICD9: 441.00, ICD10: I71.00 - continue to follow with vascular 6. Mixed hyperlipidemia - ICD9: 272.2, ICD10: E78.2 - good control - Encouraged following a low fat, low cholesterol diet. - Discussed the benefits of regular aerobic exercise and weight loss. - Follow up in 6 months. Katelyn LemuslogNEGRITO howell.SCIENTIFIC RESEARCH ASSOCIATE Prescription instructions reviewed with patient as applicable. Patient advised if symptoms do not improve or if symptoms worsen sooner, to contact their primary care physician. Potential red flag symptoms discussed with the patient. Reviewed appropriate action plan to take if red flag symptoms occur. Patient agreeable to treatment plan. Referring Provider: DAVIS RONQUILLO) [[id number]] Allergies As of Date: 09/05/2018 Noted Allergy Reaction CEFTIN (CEFUROXIME) 10/30/2008 1 - Mental Status Change LISINOPRIL 08/26/2009 3 - Cough VOLTAREN (DICLOFENAC) 05/17/2017 14 - Other: See Comments Comments: Increased liver enzymes. Date Reviewed: 09/05/2018 Reviewed by: Rachel Frost ([place]) FORD Deleon - Fully Assessed Reason for Visit: Recheck [92] Cmt: month Primary Visit Diagnosis:Chronic obstructive pulmonary disease, unspecified COPD type (HCC) [J44.9] Other Visit Diagnoses:Essential hypertension [I10] Paroxysmal atrial fibrillation (HCC) [I48.0] Intramural aortic hematoma (HCC) [I71.00] Mixed hyperlipidemia [E78.2] Order(s):SPIROMETRY WITH DILATOR IF OBSTRUCTED [[id number]] Order #: [id number] FUTURE albuterol HFA (VENTOLIN HFA) 90 mcg/actuation inhalerInhale 2 Puffs as instructed every 6 hours as needed.Disp: 54 gRfl: 3 Prescriptions as of 09/05/2018 Sig: CARVEDILOL 25 MG TABLET 25 mg in morning and 12.5mg i* HYDRALAZINE 10 MG TABLET Take 1 tablet by mouth every * WARFARIN 5 MG TABLET Take 1 tablet by mouth once d* SIMVASTATIN 10 MG TABLET TAKE 1 TABLET EVERY DAY AT BE* TIOTROPIUM BROMIDE 18 MCG CAP* Inhale 1 capsule as instructe* ACETAMINOPHEN 325 MG TABLET Take 2 tablets by mouth every* ASPIRIN 81 MG TABLET,DELAYED * Take 1 tablet by mouth once d* CALCIUM + D ORAL Take 2 tablets by mouth once * DOCUSATE SODIUM 100 MG CAPSULE Take 1 capsule by mouth twice* ESTRADIOL 0.01% (0.1 MG/GRAM)* Apply small amount at vaginal* ALBUTEROL SULFATE HFA 90 MCG/* Inhale 2 Puffs as instructed * Problem List As Of Date 09/05/2018 Noted Resolved SKIN DISORDER NOS [L98.9] INVALID FOR*01/12/2009 SEBORRHEIC KERATOSIS NOS [L82.1] INVALID FOR*01/12/2009 SCREENING MAL NEOP-COLON [Z12.11] INVALID FOR*01/12/2009 BENIGN NEOPLASM LG BOWEL [D12.6] INVALID FOR*01/12/2009 Diverticulosis of large intestine [K57.30] INVALID FOR* EXT HEMORRHOID W/O COMPL [K64.4] INVALID FOR* INT HEMORRHOID W/O COMPL [K64.8] INVALID FOR* Essential hypertension [I10] INVALID FOR* Priority: Mild More... Mixed hyperlipidemia [E78.2] INVALID FOR* More... ATHEROSCLEROSIS NOS [I70.90] INVALID FOR* Hematoma [T14.8XXA] INVALID FOR*03/02/2014 COPD (chronic obstructive pulmonary disease) (H*INVALID FOR* Priority: E More... Hyperplastic colon polyp [K63.5] INVALID FOR* More... 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*INVALID FOR* Priority: B Posterior subcapsular polar senile cataract - B*INVALID FOR*11/16/2015 Growth of eyelid - Left Eye [D49.2] INVALID FOR*11/16/2015 Combined form of senile cataract of left eye [H*INVALID FOR*11/16/2015 Astigmatism of left eye [H52.202] INVALID FOR*11/16/2015 Dry eye syndrome [H04.129] INVALID FOR* Meibomian gland dysfunction [H02.889] INVALID FOR* Pseudophakia, right eye [Z96.1] INVALID FOR*11/16/2015 Pseudophakia of both eyes [Z96.1] INVALID FOR* Pseudophakia of left eye [Z96.1] INVALID FOR*11/16/2015 Postmenopausal atrophic vaginitis [N95.2] INVALID FOR* Vitreous floaters of both eyes [H43.393] INVALID FOR* After-cataract of both eyes [H26.40] INVALID FOR* DDD (degenerative disc disease), cervical [M50.*INVALID FOR* Cervical spondylosis with myelopathy [M47.12] INVALID FOR* After-cataract obscuring vision [H26.499] INVALID FOR* Thrombocytopenia (HCC) [D69.6] INVALID FOR* Priority: A More... CKD (chronic kidney disease), stage III [N18.3] Priority: C More... Intramural aortic hematoma (HCC) [I71.00] INVALID FOR* Priority: Severe More... Thoracoabdominal aortic aneurysm (TAAA) (HCC) [*INVALID FOR* Priority: Moderate More... Nicotine use disorder, F17.2 [F17.200] INVALID FOR* Paroxysmal atrial fibrillation (HCC) [I48.0] INVALID FOR* More... Prescriptions ordered this encounter Disp Refills Start End ALBUTEROL SULFATE HFA 90 MCG/ACTUATI* 54 g 3 09/05/2018 09/05/2018 Route: INHALATION Sig: Inhale 2 Puffs as instructed every 6 hours as needed. Disc: Other ALBUTEROL SULFATE HFA 90 MCG/ACTUATI* 54 g 3 09/05/2018 Route: INHALATION Sig: Inhale 2 Puffs as instructed every 6 hours as needed. Medications Discontinued During This Encounter VENTOLIN HFA 90 mcg/actuation inhaler 54 g 3 12/17/2017 09/05/2018 Sig: INHALE 2 PUFFS INSTRUCTED EVERY 6 HOURS NEEDED. Disc: Reason for discontinue is not on file. albuterol HFA (VENTOLIN HFA) 90 mcg/* 54 g 3 09/05/2018 09/05/2018 Route: INHALATION Sig: Inhale 2 Puffs as instructed every 6 hours as needed. Disc: Other Follow-up and Disposition History Recorded Encounter Status:Closed by ZAINALOGKATELYN HOWELL CNP on 09/05/18 PROGRESS Observed: 08/26/2018 Status: COMPLETED Source: [place] 10:27 AM [facility] HNO ID: [id number] Author: Davis Ronquillo Service: (none) Author Type: Physician Type: Progress Notes Filed: 08/26/2018 10:27 AM Note Text: INR therapeutic. Continue current coumadin dosage and follow up in 2 weeks. PROGRESS Observed: 08/26/2018 Status: COMPLETED Source: [place] 9:54 AM [facility] RE[facility] HNO ID: [id number] Author: Daniela Mg RN Service: (none) Author Type: (none) Type: Progress Notes Filed: 08/26/2018 9:54 AM Note Text: patient had inr completed at [facility] patients inr is 3.0 (patients inr range is 2.0-3.0) patient is currently taking 2.5mg Tues and 5mg all other days patients last dose change was on 08/19/18 due to a high level of 3.7 (dose at that time was 5mg daily) patient has had no changes in medication except for coumadin and no missed doses and no change in diet Advised patient to continue on the same dose(s) and that they would only be contacted regarding dosage and follow up instructions after review with provider, if a change is needed. Written instructions given and patient verbalized understanding. Presently scheduled in 2 weeks (09/10/18) for follow up INR. PROGRESS Observed: 08/19/2018 Status: COMPLETED Source: [place] 4:36 PM [facility] HNO ID: [id number] Author: Daniela Mg RN Service: (none) Author Type: (none) Type: Progress Notes Filed: 08/19/2018 4:36 PM Note Text: see phone message PROGRESS Observed: 08/19/2018 Status: COMPLETED Source: [place] 9:53 AM [facility] HNO ID: [id number] Author: Deyanira Ordaz MA Service: (none) Author Type: Manager Contact Type: Progress Notes Filed: 08/19/2018 4:36 PM Note Text: Critical Values Notification Note ? [facility] ([place]) called and notified of the Critical Test AND result of Pro time AND INR ? These results were received (date) 08/19/2018 at (time) 9:50am. PROTIME:36.7 INR: 3.7 Signature: Deyanira Ordaz MA Date: August 19, 2018 Time: 9:53 AM PROGRESS Observed: 08/19/2018 Status: COMPLETED Source: [place] 8:53 AM [facility] HNO ID: [id number] Author: Daniela Mg RN Service: (none) Author Type: (none) Type: Progress Notes Filed: 08/19/2018 8:55 AM Note Text: patient had inr completed at [facility] patients inr is 4.9 (patients inr range is 2.0-3.0) patient is currently taking 5mg daily patients last dose change no change at this time as patient is a new start to coumadin on 07/31/18 on 5mg daily patient has had no changes in medication and no missed doses and no change in diet FYI - Patient has been sent to the lab for a stat lab draw pre new protocol with the current test strips we are using. Protocol right now states that any level over 4.5 must have a follow up lab draw to confirm out of range level. Patient has been been sent for a stat lab draw and notified he would be contacted later today with information. Patient has been instructed on bleeding precautions and to hold coumadin until contacted PROTHROMBIN TIME W/INR Collected: 08/19/2018 Status: F Source: [place] 8:50 AM [facility] REPOSITORY TYPE CODE TESTS RESULT OUT OF REFERENCE UNITS RANGE LAB L300.4150 11.7-14.9 SECONDS High PROTIME 36.7 LAB L300.4200 High alert INR 3.7 Result Comment: CRITICAL VALUE VERIFIED. CALLED TO KEVIN MIRAMONTES. 08/19/18 0949 Abraham De Leon. RESULTS READ BACK BY SAME. Performed By: #### L300.3900 #### [facility] [address] [place], [place], [id number] PROTIME Collected: 08/19/2018 Status: F Source: [place] 8:35 AM [facility] RE[facility] TYPE CODE TESTS RESULT OUT OF REFERENCE UNITS RANGE LAB PSEC 9.7-13.0 sec Test PT sent to [facility]. Result Comment: Account Credited HIDE LAB INR 0.9-1.3 Test sent to PT INR [facility]. Result Comment: Account Credited HIDE PROGRESS Observed: 08/08/2018 Status: COMPLETED Source: [place] 5:40 PM [facility] HNO ID: [id number] Author: Cesar Sharp Ma Service: (none) Author Type: (none) Type: Progress Notes Filed: 08/08/2018 5:41 PM Note Text: Patient aware - patient prefers to keep previously scheduled appt on 08/19 since she is knew to coumadin. Tracker updated. PROGRESS Observed: 08/08/2018 Status: COMPLETED Source: [place] 10:02 AM [facility] RE[facility] HNO ID: [id number] Author: Davis Mclaughlin) Yg Service: (none) Author Type: Physician Type: Progress Notes Filed: 08/08/2018 10:02 AM Note Text: INR therapeutic. Continue current coumadin dosage and follow up in 4 weeks. PROGRESS Observed: 08/08/2018 Status: COMPLETED Source: [place] 9:07 AM [facility] HNO ID: [id number] Author: Danieal Mg RN Service: (none) Author Type: (none) Type: Progress Notes Filed: 08/08/2018 9:08 AM Note Text: patient had inr completed at [facility] patients inr is 2.9 (patients inr range is 2.0-3.0) patient is currently taking 5mg daily patients last dose change was on 08/05/18 due to a low level of 1.4 (dose at that time was 5mg daily - pt was instructed to take 7.5mg for one dose and then resume 5mg daily) patient has had no changes in medication and no missed doses and no change in diet Advised patient to continue on the same dose(s) and that they would only be contacted regarding dosage and follow up instructions after review with provider, if a change is needed. Written instructions given and patient verbalized understanding. Presently scheduled in 1 week (08/19/18 - spouse has appt this day also) for follow up INR. PROGRESS Observed: 08/05/2018 Status: COMPLETED Source: [place] 3:03 PM [facility] HNO ID: [id number] Author: Divine Gay LPN Service: (none) Author Type: (none) Type: Progress Notes Filed: 08/05/2018 3:06 PM Note Text: patient notified of instructions with understanding and correctly read back instructions , appointment scheduled for 08/08 Tracker updated. PROGRESS Observed: 08/05/2018 Status: COMPLETED Source: [place] 8:56 AM [facility] HNO ID: [id number] Author: Davis Mclaughlin) Yg Service: (none) Author Type: Physician Type: Progress Notes Filed: 08/05/2018 8:57 AM Note Text: INR subtherapeutic. Take 7.5 mg tomorrow 5 mg all other days. Recheck INR on 08/08. PROGRESS Observed: 08/05/2018 Status: COMPLETED Source: [place] 8:51 AM [facility] HNO ID: [id number] Author: Daniela Mg RN Service: (none) Author Type: (none) Type: Progress Notes Filed: 08/05/2018 8:53 AM Note Text: patient had inr completed at [facility] patients inr is 1.4 (patients inr range is 2.0-3.0) patient is currently taking 5mg daily (times 3 dose only) patients last dose change unknown at this time as patient is a new start, started coumadin on 08/02/18 patient has had no changes in medication except for coumadin and no missed doses and no change in diet Advised patient that they would be contacted regarding medication dose and when to follow up after information is reviewed by provider. After provider review please contact the patient with information and schedule follow up appointment with coumadin clinic. FYI - patient has been scheduled for a 2 week follow up inr on 08/19/18 PROGRESS Observed: 07/23/2018 Status: COMPLETED Source: [place] 1:59 PM [facility] HNO ID: [id number] Author: Cali Aly Service: (none) Author Type: Physician Type: Progress Notes Filed: 07/23/2018 5:33 PM Note Text: PERTINENT CARDIAC HISTORY PAF - C-V 3 Aortic dissection - type B Thoracic aortic aneurysm - 4.3 cm HTN HL ADHERENCE TO GUIDELINES UDAY-I or ARB for HF with prior LVEF<40 (NQF 0081) - N/A ASA or Plavix for ASHD (NQF 0067) - met Beta hardy for ASHD with prior NE or prior LVEF<40 (NQF 0070) - N/A Beta hardy for HF with prior LVEF<40 (NQF 0083) - N/A UDAY-I or ARB for ASHD with DM or prior LVEF<40 (NQF 0066) - N/A Statin therapy for ASHD or FHL or DM - met BMI documented and plan if >25 (NQF 0421) - lifestyle recommendation form Tobacco use screening and referral (NQ 0028) - lifestyle recommendation form Recommendation for whole food, plant based diet - lifestyle recommendation form CLINICAL IMPRESSION/PLAN: Elizabeth Méndez has a resolving type B thoracic aortic dissection. This is reportedly healing. She would benefit from an alteration of her medication to better control her contractility. Nifedipine is counterproductive as her blood pressure is already well controlled and this may produce some reflex tachycardia and actually increase contractility. I recommend that her nifedipine be weaned and discontinued. She will be given a prescription for 30 milligram tablets to be used next week and then she will update me with vital signs. At that time, I will discontinue her Procardia and adjust her carvedilol. We may also be able to eliminate her hydralazine. She's been advised to take vital signs on a daily basis. She has a Chads-Vasc score of 3 and likely has asymptomatic atrial fibrillation. I recommend initiation of anticoagulation, if okay with primary care and vascular surgery. I will send copies of the this note to Dr. Ronquillo and Dr. Garcia for comment. There is no evidence of active ischemic heart disease. She had no ST depression during her rapid atrial fibrillation. I've asked her to watch for symptoms of shortness of breath and chest tightness. I'll see her in 3 months or as needed. She was advised to contact me if she has increasing heart rate, chest discomfort or shortness of breath. She is reminded not to do any weight lifting or isometric exercise. There is no contraindication to walking Written and verbal health teaching given to patient, patient verbalizes understanding and agrees with treatment plan. DIAGNOSIS FOR VISIT: Type B thoracic aortic dissection PAF HISTORY OF PRESENT ILLNESS Elizabeth Méndez is a 73-year-old woman who was seen in consultation at the request of Dr. Ronquillo, for recommendations regarding history of PAF and thoracic aortic dissection. She is known to have a thoracic aneurysm. She developed back pain in February and was found to have a type B dissection. This was treated conservatively with aggressive blood pressure management and stabilized. By CT scan, she is healing with a small intramural hematoma. Follow-up has been offered in vascular surgery for next year. While hospitalized, she had an episode of PAF, which is documented by ECG. Reportedly, she converted spontaneously after being given amiodarone. She was not discharged on anticoagulant due to her recent dissection with intramural hematoma. She reports that she was unaware of her heart rhythm while hospitalized. She has had no prior history of atrial fibrillation. Prior Holter monitor showed no atrial fibrillation, but she did have episodes of SVT. She does not remember why the study was performed. Her blood pressure has been as low as 90 systolic at home. She reports pulse rates between 60 and 90. She's had no chest discomfort. She has no known ischemic heart disease. She denies orthopnea, edema, TIAs, amaurosis, claudication. She had no syncope or near syncope. ALLERGIES: ALLERGIES Allergen Reactions - Ceftin [Cefuroxime] Mental Status Change - Lisinopril Cough - Voltaren [Diclofena* Other: See Comments Increased liver enzymes. CURRENT OUTPATIENT MEDICATIONS: carvedilol (COREG) 25 mg tablet Take 0.5 tablets by mouth twice daily with meals. NIFEdipine ER (PROCARDIA XL) 60 mg 24 hr tablet Take 1 tablet by mouth once daily. hydrALAZINE (APRESOLINE) 10 mg tablet Take 1 tablet by mouth every 8 hours. simvastatin (ZOCOR) 10 mg tablet TAKE 1 TABLET EVERY DAY AT BEDTIME tiotropium (SPIRIVA WITH HANDIHALER) 18 mcg inhalation capsule Inhale 1 capsule as instructed once daily. Use with handihaler. acetaminophen (TYLENOL) 325 mg tablet Take 2 tablets by mouth every 6 hours as needed. aspirin, enteric coated (ASPIR-81) 81 mg EC tablet Take 1 tablet by mouth once daily. VENTOLIN HFA 90 mcg/actuation inhaler INHALE 2 PUFFS INSTRUCTED EVERY 6 HOURS NEEDED. CALCIUM CARBONATE/VITAMIN D3 (CALCIUM + D ORAL) Take 2 tablets by mouth once daily. Taking 550 + 2001 unit tablets docusate sodium (COLACE) 100 mg capsule Take 1 capsule by mouth twice daily as needed for Constipation. estradiol (ESTRACE) 0.01 % (0.1 mg/gram) vaginal cream Apply small amount at vaginal opening 3 nights per week PAST MEDICAL HISTORY Diagnosis Date - Aortic aneurysm (HCC) - Benign neoplasm of colon 06/08/2008 - Cataracts, bilateral Seeing Dr. Beach - Cervical spondylosis without myelopathy Seeing Dr. jean - Chronic obstructive pulmonary disease (COPD) (HCC) mild - CKD (chronic kidney disease), stage III (HCC) - Diverticulosis of colon (without mention of hemorrhage) - Epistaxis 2/2 high dose ASA - Hemorrhoids - Hypertension - Osteopenia - Other seborrheic keratosis 01/24/2007 - Paroxysmal atrial fibrillation (HCC) 03/19/2018 - Snoring - Special screening for malignant neoplasms, colon 06/08/2008 - Unspecified disorder of skin and subcutaneous tissue 01/16/2007 - Varicose vein of leg PAST SURGICAL HISTORY Procedure Laterality Date - APPENDECTOMY - COLONOSCOP W/ OR W/O BRSH SPEC 06/08/2008 Colonoscopy - DANDC, DIAG AND/OR THERAPEUTIC Dilation AND curettage - LIGATE FALLOPIAN TUBE - PAST SURGICAL HISTORY OF hysterectomy - REMOVAL GALLBLADDER - REMOVAL OF TONSILS,<12 Y/O Tonsillectomy - REMV CATARACT EXTRACAP,INSERT LENS Right 09/01/15 Cataract Extraction with PC IOL - REMV CATARACT EXTRACAP,INSERT LENS Left 10/13/2015 Cataract Extraction with PC IOL/Femto/LRI - REVISE SECONDARY VARICOSITY Varicose Vein Surgery - SIGMOIDOSCOPY FLEX DIAG 1997 Sigmoidoscopy FAMILY HISTORY Problem Relation Age of Onset - Emphysema Mother smoker - Heart Mother - Emphysema Father smoker - Heart Father Social History Marital status: Spouse name: Years of education: Number of children: Social History Main Topics Smoking status: Former Smoker Packs/day: 0.50 Years: 0.00 Types: Cigarettes Start date: 1961 Quit date: 12/27/2015 Smokeless tobacco: Never Used Comment: Parents smoked in home; patient has cheated a few times and smoked; Smoked last week Alcohol use: Yes Comment: rarely Drug use: No Sexual activity: Yes Partners with: Male Comment: no concerns Social History Narrative No known exposure to TB. REVIEW OF SYSTEMS: General: No chills, fever, weight loss, night sweats. SHEENT: No change in vision or auditory acuity. Respiratory: No productive cough. Cardiac: As noted above. GI: No melena. : No dysuria. Musculoskeletal: No myalgias. Neurologic: No strokes. Psychiatric: No depression. Endocrine: No diabetes. Hematologic: No anemia. PHYSICAL EXAMINATION: S/he is alert and in no distress VITAL SIGNS: BP 110/72 Pulse 64 Wt 165 lb 8 oz (75.1kg) SHEENT: Skin is warm and dry. Pupils are round and reactive. Retinal vessels are grossly unremarkable. No xanthelasmas appreciated. Pharynx is benign. There is no oral cyanosis. Neck: supple. No adenopathy or thyroid enlargement. Chest: Clear to auscultation. Trachea is midline. Air entry is equal. There is no chest wall tenderness. Cardiac: Regular rhythm. S1 and S2 are normal. PMI is nondisplaced. There are no murmurs, rubs or gallops. No click is heard. Carotids are brisk without bruits. JVP is less than 10 cm. Abdomen: Soft and nontender. There are no pulsatile masses or bruits. No liver enlargement. Bowel sounds are active. : Deferred. Extremities: No edema. Pulses are slightly diminished in the lower extremities, but symmetrical. No clubbing or cyanosis. No femoral bruits. Neurologic: Grossly normal motor and sensory. S/he is alert and oriented x4. Musculoskeletal: No joint deformities. EKGs show sinus rhythm and are within normal limits. She had an episode of atrial fibrillation which is documented on 12-lead ECG. Echocardiogram showed normal LV function. There is no significant valvular disease. She has mild bilateral carotid plaque. Remote stress test showed no evidence of ischemia. Recent labs were reviewed. Renal function is normal. Electronically Signed: Cali Aly MD July 23, 2018 1:59 PM CC: Davis Ronquillo MD CNOV Observed: 07/23/2018 Status: COMPLETED Source: [place] 12:45 PM [facility] REPOSITORY Office Visit (CAWSTR) ELIZABETH MÉNDEZ ([id number]) 1945 F Date Time Provider Department 07/23/18 12:45 PM CALI ALYWSTR During your visit today, we recorded the following information about you: Pulse Blood pressure Weight 64/minute 110/72 75.1 kg Cali Aly MD 07/23/2018 5:33 PM Signed PERTINENT CARDIAC HISTORY PAF - C-V 3 Aortic dissection - type B Thoracic aortic aneurysm - 4.3 cm HTN HL ADHERENCE TO GUIDELINES UDAY-I or ARB for HF with prior LVEF<40 (NQF 0081) - N/A ASA or Plavix for ASHD (NQF 0067) - met Beta hardy for ASHD with prior NE or prior LVEF<40 (NQF 0070) - N/A Beta hardy for HF with prior LVEF<40 (NQF 0083) - N/A UDAY-I or ARB for ASHD with DM or prior LVEF<40 (NQF 0066) - N/A Statin therapy for ASHD or FHL or DM - met BMI documented and plan if >25 (NQF 0421) - lifestyle recommendation form Tobacco use screening and referral (NQF 0028) - lifestyle recommendation form Recommendation for whole food, plant based diet - lifestyle recommendation form CLINICAL IMPRESSION/PLAN: Elizabeth Méndez has a resolving type B thoracic aortic dissection. This is reportedly healing. She would benefit from an alteration of her medication to better control her contractility. Nifedipine is counterproductive as her blood pressure is already well controlled and this may produce some reflex tachycardia and actually increase contractility. I recommend that her nifedipine be weaned and discontinued. She will be given a prescription for 30 milligram tablets to be used next week and then she will update me with vital signs. At that time, I will discontinue her Procardia and adjust her carvedilol. We may also be able to eliminate her hydralazine. She's been advised to take vital signs on a daily basis. She has a Chads-Vasc score of 3 and likely has asymptomatic atrial fibrillation. I recommend initiation of anticoagulation, if okay with primary care and vascular surgery. I will send copies of the this note to Dr. Ronquillo and Dr. Garcia for comment. There is no evidence of active ischemic heart disease. She had no ST depression during her rapid atrial fibrillation. I've asked her to watch for symptoms of shortness of breath and chest tightness. I'll see her in 3 months or as needed. She was advised to contact me if she has increasing heart rate, chest discomfort or shortness of breath. She is reminded not to do any weight lifting or isometric exercise. There is no contraindication to walking Written and verbal health teaching given to patient, patient verbalizes understanding and agrees with treatment plan. DIAGNOSIS FOR VISIT: Type B thoracic aortic dissection PAF HISTORY OF PRESENT ILLNESS Elizabeth Méndez is a 73-year-old woman who was seen in consultation at the request of Dr. Ronquillo, for recommendations regarding history of PAF and thoracic aortic dissection. She is known to have a thoracic aneurysm. She developed back pain in February and was found to have a type B dissection. This was treated conservatively with aggressive blood pressure management and stabilized. By CT scan, she is healing with a small intramural hematoma. Follow-up has been offered in vascular surgery for next year. While hospitalized, she had an episode of PAF, which is documented by ECG. Reportedly, she converted spontaneously after being given amiodarone. She was not discharged on anticoagulant due to her recent dissection with intramural hematoma. She reports that she was unaware of her heart rhythm while hospitalized. She has had no prior history of atrial fibrillation. Prior Holter monitor showed no atrial fibrillation, but she did have episodes of SVT. She does not remember why the study was performed. Her blood pressure has been as low as 90 systolic at home. She reports pulse rates between 60 and 90. She's had no chest discomfort. She has no known ischemic heart disease. She denies orthopnea, edema, TIAs, amaurosis, claudication. She had no syncope or near syncope. ALLERGIES: ALLERGIES Allergen Reactions - Ceftin [Cefuroxime] Mental Status Change - Lisinopril Cough - Voltaren [Diclofena* Other: See Comments Increased liver enzymes. CURRENT OUTPATIENT MEDICATIONS: carvedilol (COREG) 25 mg tablet Take 0.5 tablets by mouth twice daily with meals. NIFEdipine ER (PROCARDIA XL) 60 mg 24 hr tablet Take 1 tablet by mouth once daily. hydrALAZINE (APRESOLINE) 10 mg tablet Take 1 tablet by mouth every 8 hours. simvastatin (ZOCOR) 10 mg tablet TAKE 1 TABLET EVERY DAY AT BEDTIME tiotropium (SPIRIVA WITH HANDIHALER) 18 mcg inhalation capsule Inhale 1 capsule as instructed once daily. Use with handihaler. acetaminophen (TYLENOL) 325 mg tablet Take 2 tablets by mouth every 6 hours as needed. aspirin, enteric coated (ASPIR-81) 81 mg EC tablet Take 1 tablet by mouth once daily. VENTOLIN HFA 90 mcg/actuation inhaler INHALE 2 PUFFS INSTRUCTED EVERY 6 HOURS NEEDED. CALCIUM CARBONATE/VITAMIN D3 (CALCIUM + D ORAL) Take 2 tablets by mouth once daily. Taking 550 + 2001 unit tablets docusate sodium (COLACE) 100 mg capsule Take 1 capsule by mouth twice daily as needed for Constipation. estradiol (ESTRACE) 0.01 % (0.1 mg/gram) vaginal cream Apply small amount at vaginal opening 3 nights per week PAST MEDICAL HISTORY Diagnosis Date - Aortic aneurysm (HCC) - Benign neoplasm of colon 06/08/2008 - Cataracts, bilateral Seeing Dr. Beach - Cervical spondylosis without myelopathy Seeing Dr. jean - Chronic obstructive pulmonary disease (COPD) (HCC) mild - CKD (chronic kidney disease), stage III (HCC) - Diverticulosis of colon (without mention of hemorrhage) - Epistaxis 2/2 high dose ASA - Hemorrhoids - Hypertension - Osteopenia - Other seborrheic keratosis 01/24/2007 - Paroxysmal atrial fibrillation (HCC) 03/19/2018 - Snoring - Special screening for malignant neoplasms, colon 06/08/2008 - Unspecified disorder of skin and subcutaneous tissue 01/16/2007 - Varicose vein of leg PAST SURGICAL HISTORY Procedure Laterality Date - APPENDECTOMY - COLONOSCOP W/ OR W/O BRSH SPEC 06/08/2008 Colonoscopy - DANDC, DIAG AND/OR THERAPEUTIC Dilation AND curettage - LIGATE FALLOPIAN TUBE - PAST SURGICAL HISTORY OF hysterectomy - REMOVAL GALLBLADDER - REMOVAL OF TONSILS,<12 Y/O Tonsillectomy - REMV CATARACT EXTRACAP,INSERT LENS Right 09/01/15 Cataract Extraction with PC IOL - REMV CATARACT EXTRACAP,INSERT LENS Left 10/13/2015 Cataract Extraction with PC IOL/Femto/LRI - REVISE SECONDARY VARICOSITY Varicose Vein Surgery - SIGMOIDOSCOPY FLEX DIAG 1997 Sigmoidoscopy FAMILY HISTORY Problem Relation Age of Onset - Emphysema Mother smoker - Heart Mother - Emphysema Father smoker - Heart Father Social History Marital status: Spouse name: Years of education: Number of children: Social History Main Topics Smoking status: Former Smoker Packs/day: 0.50 Years: 0.00 Types: Cigarettes Start date: 1961 Quit date: 12/27/2015 Smokeless tobacco: Never Used Comment: Parents smoked in home; patient has cheated a few times and smoked; Smoked last week Alcohol use: Yes Comment: rarely Drug use: No Sexual activity: Yes Partners with: Male Comment: no concerns Social History Narrative No known exposure to TB. REVIEW OF SYSTEMS: General: No chills, fever, weight loss, night sweats. SHEENT: No change in vision or auditory acuity. Respiratory: No productive cough. Cardiac: As noted above. GI: No melena. : No dysuria. Musculoskeletal: No myalgias. Neurologic: No strokes. Psychiatric: No depression. Endocrine: No diabetes. Hematologic: No anemia. PHYSICAL EXAMINATION: S/he is alert and in no distress VITAL SIGNS: BP 110/72 Pulse 64 Wt 165 lb 8 oz (75.1kg) SHEENT: Skin is warm and dry. Pupils are round and reactive. Retinal vessels are grossly unremarkable. No xanthelasmas appreciated. Pharynx is benign. There is no oral cyanosis. Neck: supple. No adenopathy or thyroid enlargement. Chest: Clear to auscultation. Trachea is midline. Air entry is equal. There is no chest wall tenderness. Cardiac: Regular rhythm. S1 and S2 are normal. PMI is nondisplaced. There are no murmurs, rubs or gallops. No click is heard. Carotids are brisk without bruits. JVP is less than 10 cm. Abdomen: Soft and nontender. There are no pulsatile masses or bruits. No liver enlargement. Bowel sounds are active. : Deferred. Extremities: No edema. Pulses are slightly diminished in the lower extremities, but symmetrical. No clubbing or cyanosis. No femoral bruits. Neurologic: Grossly normal motor and sensory. S/he is alert and oriented x4. Musculoskeletal: No joint deformities. EKGs show sinus rhythm and are within normal limits. She had an episode of atrial fibrillation which is documented on 12-lead ECG. Echocardiogram showed normal LV function. There is no significant valvular disease. She has mild bilateral carotid plaque. Remote stress test showed no evidence of ischemia. Recent labs were reviewed. Renal function is normal. Electronically Signed: Cali Aly MD July 23, 2018 1:59 PM CC: MD Cali Ryan MD 07/23/2018 2:09 PM Signed LIFESTYLE CHANGE A healthy lifestyle is the most important component of your overall treatment plan. Please give serious thought to the following areas and commit to making usp changes. EAT A WHOLE FOOD, PLANT BASED DIET The nutrition your body gets is more important than the medicine you take. What matters most is the overall way you eat. We encourage you to minimize the use of animal products (which include dairy and all meats except fatty fish) and use whole, unprocessed plant foods to provide your protein, vitamins and other nutrients. We have a lot of information to share with you on this topic. This is not a diet. It is a way of life that you will keep with you. EXERCISE REGULARLY It is not important to spend hours in the gym, lifting weights and perspiring heavily. A total of 2-3 hours per week of aerobic (causing you to be moderately short of breath) exercise is sufficient to improve your health. Talk to us before you begin a new exercise program, if you have heart disease or experience shortness of breath or chest pain. REDUCE STRESS Chronic emotional and physical stress leads to disease. Ways of reducing stress include meditation, visualization, prayer, yoga and other forms of relaxation therapy. Consistency is the mc. Find a technique that works for you and do it every day. CULTIVATE RELATIONSHIPS Loneliness and isolation have a major negative impact on health. Seek out others who can love, care for and nurture you. Avoid hurtful relationships. MAINTAIN IDEAL BODY WEIGHT The best way to do this is to do all the things above. Our bodies naturally find the right weight if we keep moving and feed ourselves the right food. If your BMI is greater than 25, we strongly recommend a referral to a weight management program. Please speak to us or your family physician about available programs. AVOID NICOTINE IN ALL FORMS This includes all tobacco products, whether chewed, smoked, vaped, or rubbed on the skin. Smoking cessation programs, which can make use of tobacco substitutes, medications to suppress cravings and behavior management, are available. Please contact your family physician about programs in your area. Davis Ronquillo MD 07/31/2018 5:03 PM Signed Addended by: DAVIS RONQUILLO MD on: 07/31/2018 05:03 PM Modules accepted: Orders Referring Provider: DAVIS RONQUILLO) [[id number]] Allergies As of Date: 07/23/2018 Noted Allergy Reaction CEFTIN (CEFUROXIME) 10/30/2008 1 - Mental Status Change LISINOPRIL 08/26/2009 3 - Cough VOLTAREN (DICLOFENAC) 05/17/2017 14 - Other: See Comments Comments: Increased liver enzymes. Date Reviewed: 07/23/2018 Reviewed by: Marian Bell - Fully Assessed Reason for Visit: New Patient [[id number]] Primary Visit Diagnosis:Aortic dissection, thoracic (HCC) [I71.01] Other Visit Diagnoses:Hypertension, essential [I10] PAF (paroxysmal atrial fibrillation) (HCC) [I48.0] Prescriptions as of 07/23/2018 Sig: X NIFEDIPINE ER 30 MG TABLET,EX* Take 1 tablet by mouth once d* X CARVEDILOL 25 MG TABLET Take 0.5 tablets by mouth twi* HYDRALAZINE 10 MG TABLET Take 1 tablet by mouth every * SIMVASTATIN 10 MG TABLET TAKE 1 TABLET EVERY DAY AT BE* TIOTROPIUM BROMIDE 18 MCG CAP* Inhale 1 capsule as instructe* ACETAMINOPHEN 325 MG TABLET Take 2 tablets by mouth every* ASPIRIN 81 MG TABLET,DELAYED * Take 1 tablet by mouth once d* VENTOLIN HFA 90 MCG/ACTUATION* INHALE 2 PUFFS INSTRUCTED * CALCIUM + D ORAL Take 2 tablets by mouth once * DOCUSATE SODIUM 100 MG CAPSULE Take 1 capsule by mouth twice* ESTRADIOL 0.01% (0.1 MG/GRAM)* Apply small amount at vaginal* Problem List As Of Date 07/23/2018 Noted Resolved SKIN DISORDER NOS [L98.9] INVALID FOR*01/12/2009 SEBORRHEIC KERATOSIS NOS [L82.1] INVALID FOR*01/12/2009 SCREENING MAL NEOP-COLON [Z12.11] INVALID FOR*01/12/2009 BENIGN NEOPLASM LG BOWEL [D12.6] INVALID FOR*01/12/2009 Diverticulosis of large intestine [K57.30] INVALID FOR* EXT HEMORRHOID W/O COMPL [K64.4] INVALID FOR* INT HEMORRHOID W/O COMPL [K64.8] INVALID FOR* Essential hypertension [I10] INVALID FOR* Priority: Mild More... Mixed hyperlipidemia [E78.2] INVALID FOR* More... ATHEROSCLEROSIS NOS [I70.90] INVALID FOR* Hematoma [T14.8XXA] INVALID FOR*03/02/2014 COPD (chronic obstructive pulmonary disease) (H*INVALID FOR* Priority: E More... Hyperplastic colon polyp [K63.5] INVALID FOR* More... 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*INVALID FOR* Priority: B Posterior subcapsular polar senile cataract - B*INVALID FOR*11/16/2015 Growth of eyelid - Left Eye [D49.2] INVALID FOR*11/16/2015 Combined form of senile cataract of left eye [H*INVALID FOR*11/16/2015 Astigmatism of left eye [H52.202] INVALID FOR*11/16/2015 Dry eye syndrome [H04.129] INVALID FOR* Meibomian gland dysfunction [H02.889] INVALID FOR* Pseudophakia, right eye [Z96.1] INVALID FOR*11/16/2015 Pseudophakia of both eyes [Z96.1] INVALID FOR* Pseudophakia of left eye [Z96.1] INVALID FOR*11/16/2015 Postmenopausal atrophic vaginitis [N95.2] INVALID FOR* Vitreous floaters of both eyes [H43.393] INVALID FOR* After-cataract of both eyes [H26.40] INVALID FOR* DDD (degenerative disc disease), cervical [M50.*INVALID FOR* Cervical spondylosis with myelopathy [M47.12] INVALID FOR* After-cataract obscuring vision [H26.499] INVALID FOR* Thrombocytopenia (HCC) [D69.6] INVALID FOR* Priority: A More... CKD (chronic kidney disease), stage III [N18.3] Priority: C More... Intramural aortic hematoma (HCC) [I71.00] INVALID FOR* Priority: Severe More... Thoracoabdominal aortic aneurysm (TAAA) (HCC) [*INVALID FOR* Priority: Moderate More... Nicotine use disorder, F17.2 [F17.200] INVALID FOR* Paroxysmal atrial fibrillation (HCC) [I48.0] INVALID FOR* More... Other instructions from your clinician: LIFESTYLE CHANGE A healthy lifestyle is the most important component of your overall treatment plan. Please give serious thought to the following areas and commit to making usp changes. EAT A WHOLE FOOD, PLANT BASED DIET The nutrition your body gets is more important than the medicine you take. What matters most is the overall way you eat. We encourage you to minimize the use of animal products (which include dairy and all meats except fatty fish) and use whole, unprocessed plant foods to provide your protein, vitamins and other nutrients. We have a lot of information to share with you on this topic. This is not a diet. It is a way of life that you will keep with you. EXERCISE REGULARLY It is not important to spend hours in the gym, lifting weights and perspiring heavily. A total of 2-3 hours per week of aerobic (causing you to be moderately short of breath) exercise is sufficient to improve your health. Talk to us before you begin a new exercise program, if you have heart disease or experience shortness of breath or chest pain. REDUCE STRESS Chronic emotional and physical stress leads to disease. Ways of reducing stress include meditation, visualization, prayer, yoga and other forms of relaxation therapy. Consistency is the mc. Find a technique that works for you and do it every day. CULTIVATE RELATIONSHIPS Loneliness and isolation have a major negative impact on health. Seek out others who can love, care for and nurture you. Avoid hurtful relationships. MAINTAIN IDEAL BODY WEIGHT The best way to do this is to do all the things above. Our bodies naturally find the right weight if we keep moving and feed ourselves the right food. If your BMI is greater than 25, we strongly recommend a referral to a weight management program. Please speak to us or your family physician about available programs. AVOID NICOTINE IN ALL FORMS This includes all tobacco products, whether chewed, smoked, vaped, or rubbed on the skin. Smoking cessation programs, which can make use of tobacco substitutes, medications to suppress cravings and behavior management, are available. Please contact your family physician about programs in your area. Prescriptions ordered this encounter Disp Refills Start End NIFEDIPINE ER 30 MG TABLET,EXTENDED * 7 ta* 1 07/23/2018 07/29/2018 Route: ORAL Sig: Take 1 tablet by mouth once daily. WARFARIN 5 MG TABLET 30 t* 1 07/31/2018 07/31/2018 Route: ORAL Sig: Take 1 tablet by mouth once daily. Medications Discontinued During This Encounter NIFEdipine ER (PROCARDIA XL) 60 mg 2* 30 t* 2 05/20/2018 07/23/2018 Route: ORAL Sig: Take 1 tablet by mouth once daily. Disc: Reason for discontinue is not on file. warfarin (COUMADIN) 5 mg tablet 30 t* 1 07/31/2018 07/31/2018 Route: ORAL Sig: Take 1 tablet by mouth once daily. Disc: Reason for discontinue is not on file. Follow-up and Disposition History Recorded Encounter Status:Closed by CALI ALY MD on 07/23/18 PROGRESS Observed: 05/29/2018 Status: COMPLETED Source: [place] 11:[address] [facility] [place] REPOSITORY O ID: [id number] Author: Davis Mclaughlin) gY Service: (none) Author Type: Physician Type: Progress Notes Filed: 05/29/2018 2:01 PM Note Text: Chief Complaint Patient presents with: 2 month follow up HPI Elizabeth Méndez is a 73 year old female who presents here today for 2 month follow up of intramural hematoma. Since last OV, patient has followed up with vascular Dr. Garcia who recommended monitoring of her hematoma which was stable at 4 cm. Advised to follow up in 1 year and see us for BP control. Patient states that she was told about a week ago after a [place] BP check, that she was to stop all of her BP medications. Reviewing note from last visit she was told to hold BP medication if her BP was <100/60. Discussed restarting her medications as previously prescribed. Checking at home at least daily and getting readings up to 140/80. Discussed risks of high and low BP. Patient still only taking ASA despite CHADS2+Vasc score >2. No mention of anticoagulation at appointment with vascular. Not seeing cardiology. HR controlled. Denies new palpitations. Strength in lower extremities has been improving slowly since last OV. Not seeing PT at this time and doesn't feel she needs it. Past medical history, appointments, medications, allergies reviewed. Previous Medical History PAST MEDICAL HISTORY Diagnosis Date - Aortic aneurysm (HCC) - Benign neoplasm of colon 06/08/2008 - Cataracts, bilateral Seeing Dr. Beach - Cervical spondylosis without myelopathy Seeing Dr. jean - Chronic obstructive pulmonary disease (COPD) (HCC) mild - CKD (chronic kidney disease), stage III (HCC) - Diverticulosis of colon (without mention of hemorrhage) - Epistaxis 2/2 high dose ASA - Hemorrhoids - Hypertension - Osteopenia - Other seborrheic keratosis 01/24/2007 - Paroxysmal atrial fibrillation (HCC) 03/19/2018 - Snoring - Special screening for malignant neoplasms, colon 06/08/2008 - Unspecified disorder of skin and subcutaneous tissue 01/16/2007 - Varicose vein of leg Previous Surgical History PAST SURGICAL HISTORY Procedure Laterality Date - APPENDECTOMY - COLONOSCOP W/ OR W/O [facility] SPEC 06/08/2008 Colonoscopy - DANDC, DIAG AND/OR THERAPEUTIC Dilation AND curettage - LIGATE FALLOPIAN TUBE - PAST SURGICAL HISTORY OF hysterectomy - REMOVAL GALLBLADDER - REMOVAL OF TONSILS,<12 Y/O Tonsillectomy - REMV CATARACT EXTRACAP,INSERT LENS Right 09/01/15 Cataract Extraction with PC IOL - REMV CATARACT EXTRACAP,INSERT LENS Left 10/13/2015 Cataract Extraction with PC IOL/Femto/LRI - REVISE SECONDARY VARICOSITY Varicose Vein Surgery - SIGMOIDOSCOPY FLEX DIAG 1997 Sigmoidoscopy Family History FAMILY HISTORY Problem Relation Age of Onset - Emphysema Mother smoker - Heart Mother - Emphysema Father smoker - Heart Father Patient Allergies ALLERGIES Allergen Reactions - Ceftin [Cefuroxime] Mental Status Change - Lisinopril Cough - Voltaren [Diclofena* Other: See Comments Increased liver enzymes. Current Medications Current Outpatient Prescriptions on File Prior to Visit: NIFEdipine ER (PROCARDIA XL) 60 mg 24 hr tablet Take 1 tablet by mouth once daily. hydrALAZINE (APRESOLINE) 10 mg tablet Take 1 tablet by mouth every 8 hours. carvedilol (COREG) 25 mg tablet Take 0.5 tablets by mouth twice daily with meals. simvastatin (ZOCOR) 10 mg tablet TAKE 1 TABLET EVERY DAY AT BEDTIME tiotropium (SPIRIVA WITH HANDIHALER) 18 mcg inhalation capsule Inhale 1 capsule as instructed once daily. Use with handihaler. acetaminophen (TYLENOL) 325 mg tablet Take 2 tablets by mouth every 6 hours as needed. aspirin, enteric coated (ASPIR-81) 81 mg EC tablet Take 1 tablet by mouth once daily. VENTOLIN HFA 90 mcg/actuation inhaler INHALE 2 PUFFS INSTRUCTED EVERY 6 HOURS NEEDED. CALCIUM CARBONATE/VITAMIN D3 (CALCIUM + D ORAL) Take 2 tablets by mouth once daily. Taking 550 + 2001 unit tablets docusate sodium (COLACE) 100 mg capsule Take 1 capsule by mouth twice daily as needed for Constipation. estradiol (ESTRACE) 0.01 % (0.1 mg/gram) vaginal cream Apply small amount at vaginal opening 3 nights per week No current facility-administered medications on file prior to visit. Social History Social History Marital status: Spouse name: Years of education: Number of children: Social History Main Topics Smoking status: Former Smoker Packs/day: 0.50 Years: 0.00 Types: Cigarettes Start date: 1961 Quit date: 12/27/2015 Smokeless tobacco: Never Used Comment: Parents smoked in home; patient has cheated a few times and smoked; Smoked last week Alcohol use: Yes Comment: rarely Drug use: No Sexual activity: Yes Partners with: Male Comment: no concerns Social History Narrative No known exposure to TB. Review of Symptoms REVIEW OF SYSTEMS GENERAL: No weight loss, malaise or fevers RESPIRATORY: Negative for cough, hemoptysis, wheezing, COPD, dyspnea or shortness of breath CARDIOVASCULAR: Negative for chest pain, leg swelling, hypertension, CHF or palpitations GI: No nausea, vomiting, or diarrhea SKIN: Negative for lesions, rash, and itching EXAM: BP 132/76 Pulse (!) 58 Resp 12 Wt 73.5 kg (162 lb) BMI 28.70 kg/m? General Appearance: Well appearing, alert, in no acute distress, well-hydrated, well nourished.. Skin: Skin color, texture, turgor normal, no suspicious rashes or lesions. Lungs: Lungs clear to auscultation. No wheezing, rhonchi, rales. Heart: RRR without murmur, gallop, or rubs. No ectopy. Abdomen: Normal abdominal exam, Abdomen soft, non-tender. Bowel sounds normal. No masses, organomegaly. Extremities: No deformities, edema, skin discoloration, clubbing or cyanosis. Good capillary refill. . Health Maintenance List INFLUENZA(1) due on 06/29/2018 SERUM CREATININE due on 03/21/2019 ANNUAL PCP TEAM CHRONIC DISEASE VISIT due on 04/16/2019 BLOOD PRESSURE CONTROLLED due on 05/21/2019 DIABETES SCREEN due on 03/21/2021 LIPID SCREEN due on 03/16/2023 DTAP,TDAP,TD(2 - Td) due on 03/02/2024 COLORECTAL CANCER SCREENING,SEE MODIFIER due on 01/15/2027 BONE DENSITY Completed ADULT PREVNAR-13 Completed PNEUMOVAX AGE 65 AND OVER WITH 5YR LOOKBACK Completed ASSESSMENT/PLAN: 1. Intramural aortic hematoma (HCC) - ICD9: 441.00, ICD10: I71.00 (primary diagnosis) Follow up in 1 year with vascular as recommended. Will send message to Dr. Garcia to clarify concerns about anticoagulation with this condition. - CONSULT TO CARDIOLOGY 2. 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 3. Paroxysmal atrial fibrillation (HCC) - ICD9: 427.31, ICD10: I48.0 Continue ASA, restart BP medications including carvedilol, and will refer to cardiology for further workup. - CONSULT TO CARDIOLOGY 4. Essential hypertension - ICD9: 401.9, ICD10: I10 - suboptimal control - Restart previous BP medications as noted under medication list - Encouraged dietary sodium restriction/DASH diet - Recommended regular aerobic exercise. - Reviewed risks of HTN and principles of treatment - Goal of BP <120/80 5. CKD (chronic kidney disease), stage III (HCC) - ICD9: 585.3, ICD10: N18.3 Stable, will monitor. Work to control BP and diet. Avoid NSAIDs. Davis Ronquillo MD CNOV Observed: 05/29/2018 Status: COMPLETED Source: [place] 11:20 AM [facility] REPOSITORY Office Visit (FAMPWS) HONEYELIZABETH K ([id number]) 1945 F Date Time Provider Department 05/29/18 11:20 AM DAVIS RONQUILLO) FAMPWS During your visit today, we recorded the following information about you: Pulse Respiration Blood pressure Weight 58/minute 12/minute 132/76 73.5 kg Davis Ronquillo MD 05/29/2018 2:01 PM Signed Chief Complaint Patient presents with: 2 month follow up HPI Elizabeth Méndez is a 73 year old female who presents here today for 2 month follow up of intramural hematoma. Since last OV, patient has followed up with vascular Dr. Garcia who recommended monitoring of her hematoma which was stable at 4 cm. Advised to follow up in 1 year and see us for BP control. Patient states that she was told about a week ago after a [place] BP check, that she was to stop all of her BP medications. Reviewing note from last visit she was told to hold BP medication if her BP was <100/60. Discussed restarting her medications as previously prescribed. Checking at home at least daily and getting readings up to 140/80. Discussed risks of high and low BP. Patient still only taking ASA despite CHADS2+Vasc score >2. No mention of anticoagulation at appointment with vascular. Not seeing cardiology. HR controlled. Denies new palpitations. Strength in lower extremities has been improving slowly since last OV. Not seeing PT at this time and doesn't feel she needs it. Past medical history, appointments, medications, allergies reviewed. Previous Medical History PAST MEDICAL HISTORY Diagnosis Date - Aortic aneurysm (HCC) - Benign neoplasm of colon 06/08/2008 - Cataracts, bilateral Seeing Dr. Beach - Cervical spondylosis without myelopathy Seeing Dr. jean - Chronic obstructive pulmonary disease (COPD) (HCC) mild - CKD (chronic kidney disease), stage III (HCC) - Diverticulosis of colon (without mention of hemorrhage) - Epistaxis 2/2 high dose ASA - Hemorrhoids - Hypertension - Osteopenia - Other seborrheic keratosis 01/24/2007 - Paroxysmal atrial fibrillation (HCC) 03/19/2018 - Snoring - Special screening for malignant neoplasms, colon 06/08/2008 - Unspecified disorder of skin and subcutaneous tissue 01/16/2007 - Varicose vein of leg Previous Surgical History PAST SURGICAL HISTORY Procedure Laterality Date - APPENDECTOMY - COLONOSCOP W/ OR W/O [facility] SPEC 06/08/2008 Colonoscopy - DANDC, DIAG AND/OR THERAPEUTIC Dilation AND curettage - LIGATE FALLOPIAN TUBE - PAST SURGICAL HISTORY OF hysterectomy - REMOVAL GALLBLADDER - REMOVAL OF TONSILS,<12 Y/O Tonsillectomy - REMV CATARACT EXTRACAP,INSERT LENS Right 09/01/15 Cataract Extraction with PC IOL - REMV CATARACT EXTRACAP,INSERT LENS Left 10/13/2015 Cataract Extraction with PC IOL/Femto/LRI - REVISE SECONDARY VARICOSITY Varicose Vein Surgery - SIGMOIDOSCOPY FLEX DIAG 1997 Sigmoidoscopy Family History FAMILY HISTORY Problem Relation Age of Onset - Emphysema Mother smoker - Heart Mother - Emphysema Father smoker - Heart Father Patient Allergies ALLERGIES Allergen Reactions - Ceftin [Cefuroxime] Mental Status Change - Lisinopril Cough - Voltaren [Diclofena* Other: See Comments Increased liver enzymes. Current Medications Current Outpatient Prescriptions on File Prior to Visit: NIFEdipine ER (PROCARDIA XL) 60 mg 24 hr tablet Take 1 tablet by mouth once daily. hydrALAZINE (APRESOLINE) 10 mg tablet Take 1 tablet by mouth every 8 hours. carvedilol (COREG) 25 mg tablet Take 0.5 tablets by mouth twice daily with meals. simvastatin (ZOCOR) 10 mg tablet TAKE 1 TABLET EVERY DAY AT BEDTIME tiotropium (SPIRIVA WITH HANDIHALER) 18 mcg inhalation capsule Inhale 1 capsule as instructed once daily. Use with handihaler. acetaminophen (TYLENOL) 325 mg tablet Take 2 tablets by mouth every 6 hours as needed. aspirin, enteric coated (ASPIR-81) 81 mg EC tablet Take 1 tablet by mouth once daily. VENTOLIN HFA 90 mcg/actuation inhaler INHALE 2 PUFFS INSTRUCTED EVERY 6 HOURS NEEDED. CALCIUM CARBONATE/VITAMIN D3 (CALCIUM + D ORAL) Take 2 tablets by mouth once daily. Taking 550 + 2001 unit tablets docusate sodium (COLACE) 100 mg capsule Take 1 capsule by mouth twice daily as needed for Constipation. estradiol (ESTRACE) 0.01 % (0.1 mg/gram) vaginal cream Apply small amount at vaginal opening 3 nights per week No current facility-administered medications on file prior to visit. Social History Social History Marital status: Spouse name: Years of education: Number of children: Social History Main Topics Smoking status: Former Smoker Packs/day: 0.50 Years: 0.00 Types: Cigarettes Start date: 1961 Quit date: 12/27/2015 Smokeless tobacco: Never Used Comment: Parents smoked in home; patient has cheated a few times and smoked; Smoked last week Alcohol use: Yes Comment: rarely Drug use: No Sexual activity: Yes Partners with: Male Comment: no concerns Social History Narrative No known exposure to TB. Review of Symptoms REVIEW OF SYSTEMS GENERAL: No weight loss, malaise or fevers RESPIRATORY: Negative for cough, hemoptysis, wheezing, COPD, dyspnea or shortness of breath CARDIOVASCULAR: Negative for chest pain, leg swelling, hypertension, CHF or palpitations GI: No nausea, vomiting, or diarrhea SKIN: Negative for lesions, rash, and itching EXAM: BP 132/76 Pulse (!) 58 Resp 12 Wt 73.5 kg (162 lb) BMI 28.70 kg/m? General Appearance: Well appearing, alert, in no acute distress, well-hydrated, well nourished.. Skin: Skin color, texture, turgor normal, no suspicious rashes or lesions. Lungs: Lungs clear to auscultation. No wheezing, rhonchi, rales. Heart: RRR without murmur, gallop, or rubs. No ectopy. Abdomen: Normal abdominal exam, Abdomen soft, non-tender. Bowel sounds normal. No masses, organomegaly. Extremities: No deformities, edema, skin discoloration, clubbing or cyanosis. Good capillary refill. . Health Maintenance List INFLUENZA(1) due on 06/29/2018 SERUM CREATININE due on 03/21/2019 ANNUAL PCP TEAM CHRONIC DISEASE VISIT due on 04/16/2019 BLOOD PRESSURE CONTROLLED due on 05/21/2019 DIABETES SCREEN due on 03/21/2021 LIPID SCREEN due on 03/16/2023 DTAP,TDAP,TD(2 - Td) due on 03/02/2024 COLORECTAL CANCER SCREENING,SEE MODIFIER due on 01/15/2027 BONE DENSITY Completed ADULT PREVNAR-13 Completed PNEUMOVAX AGE 65 AND OVER WITH 5YR LOOKBACK Completed ASSESSMENT/PLAN: 1. Intramural aortic hematoma (HCC) - ICD9: 441.00, ICD10: I71.00 (primary diagnosis) Follow up in 1 year with vascular as recommended. Will send message to Dr. Garcia to clarify concerns about anticoagulation with this condition. - CONSULT TO CARDIOLOGY 2. 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 3. Paroxysmal atrial fibrillation (HCC) - ICD9: 427.31, ICD10: I48.0 Continue ASA, restart BP medications including carvedilol, and will refer to cardiology for further workup. - CONSULT TO CARDIOLOGY 4. Essential hypertension - ICD9: 401.9, ICD10: I10 - suboptimal control - Restart previous BP medications as noted under medication list - Encouraged dietary sodium restriction/DASH diet - Recommended regular aerobic exercise. - Reviewed risks of HTN and principles of treatment - Goal of BP <120/80 5. CKD (chronic kidney disease), stage III (HCC) - ICD9: 585.3, ICD10: N18.3 Stable, will monitor. Work to control BP and diet. Avoid NSAIDs. Davis Ronquillo MD Referring Provider: DAVIS RONQUILLO () [[id number]] Allergies As of Date: 05/29/2018 Noted Allergy Reaction CEFTIN (CEFUROXIME) 10/30/2008 1 - Mental Status Change LISINOPRIL 08/26/2009 3 - Cough VOLTAREN (DICLOFENAC) 05/17/2017 14 - Other: See Comments Comments: Increased liver enzymes. 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) [I71.6] Paroxysmal atrial fibrillation (HCC) [I48.0] Essential hypertension [I10] CKD (chronic kidney disease), stage III (HCC) [N18.3] Order(s):CONSULT TO CARDIOLOGY [9004] Order #: [id number]: 1 Prescriptions as of 05/29/2018 Sig: NIFEDIPINE ER 60 MG TABLET,EX* Take 1 tablet by mouth once d* HYDRALAZINE 10 MG TABLET Take 1 tablet by mouth every * CARVEDILOL 25 MG TABLET Take 0.5 tablets by mouth twi* SIMVASTATIN 10 MG TABLET TAKE 1 TABLET EVERY DAY AT BE* TIOTROPIUM BROMIDE 18 MCG CAP* Inhale 1 capsule as instructe* ACETAMINOPHEN 325 MG TABLET Take 2 tablets by mouth every* ASPIRIN 81 MG TABLET,DELAYED * Take 1 tablet by mouth once d* VENTOLIN HFA 90 MCG/ACTUATION* INHALE 2 PUFFS INSTRUCTED * CALCIUM + D ORAL Take 2 tablets by mouth once * DOCUSATE SODIUM 100 MG CAPSULE Take 1 capsule by mouth twice* ESTRADIOL 0.01% (0.1 MG/GRAM)* Apply small amount at vaginal* Problem List As Of Date 05/29/2018 Noted Resolved SKIN DISORDER NOS [L98.9] INVALID FOR*01/12/2009 SEBORRHEIC KERATOSIS NOS [L82.1] INVALID FOR*01/12/2009 SCREENING MAL NEOP-COLON [Z12.11] INVALID FOR*01/12/2009 BENIGN NEOPLASM LG BOWEL [D12.6] INVALID FOR*01/12/2009 Diverticulosis of large intestine [K57.30] INVALID FOR* EXT HEMORRHOID W/O COMPL [K64.4] INVALID FOR* INT HEMORRHOID W/O COMPL [K64.8] INVALID FOR* Essential hypertension [I10] INVALID FOR* Priority: Mild More... Mixed hyperlipidemia [E78.2] INVALID FOR* More... ATHEROSCLEROSIS NOS [I70.90] INVALID FOR* Hematoma [T14.8XXA] INVALID FOR*03/02/2014 COPD (chronic obstructive pulmonary disease) (H*INVALID FOR* Priority: E More... Hyperplastic colon polyp [K63.5] INVALID FOR* More... 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*INVALID FOR* Priority: B Posterior subcapsular polar senile cataract - B*INVALID FOR*11/16/2015 Growth of eyelid - Left Eye [D49.2] INVALID FOR*11/16/2015 Combined form of senile cataract of left eye [H*INVALID FOR*11/16/2015 Astigmatism of left eye [H52.202] INVALID FOR*11/16/2015 Dry eye syndrome [H04.129] INVALID FOR* Meibomian gland dysfunction [H02.89] INVALID FOR* Pseudophakia, right eye [Z96.1] INVALID FOR*11/16/2015 Pseudophakia of both eyes [Z96.1] INVALID FOR* Pseudophakia of left eye [Z96.1] INVALID FOR*11/16/2015 Postmenopausal atrophic vaginitis [N95.2] INVALID FOR* Vitreous floaters of both eyes [H43.393] INVALID FOR* After-cataract of both eyes [H26.40] INVALID FOR* DDD (degenerative disc disease), cervical [M50.*INVALID FOR* Cervical spondylosis with myelopathy [M47.12] INVALID FOR* After-cataract obscuring vision [H26.499] INVALID FOR* Thrombocytopenia (HCC) [D69.6] INVALID FOR* Priority: A More... CKD (chronic kidney disease), stage III [N18.3] Priority: C More... Intramural aortic hematoma (HCC) [I71.00] INVALID FOR* Priority: Severe More... Thoracoabdominal aortic aneurysm (TAAA) (HCC) [*INVALID FOR* Priority: Moderate More... Nicotine use disorder, F17.2 [F17.200] INVALID FOR* Paroxysmal atrial fibrillation (HCC) [I48.0] INVALID FOR* More... Disposition: Return in about 3 months (around 08/29/2018). Follow-up and Disposition History Recorded Encounter Status:Closed by DAVIS RONQUILLO MD on 05/29/18 PROGRESS Observed: 05/21/2018 Status: COMPLETED Source: [place] 9:15 AM [facility] RE[facility] HNO ID: [id number] Author: Doris Cohn LPN Service: (none) Author Type: (none) Type: Progress Notes Filed: 05/21/2018 9:22 AM Note Text: Manual Readin/70 Pulse: 58 (right arm) 114/70 (left arm) Reason for blood pressure check - Medication adjustment Patient is: Taking medication as prescribed Yes Took medication today Yes If no, date medication last taken N/A Experiencing side effects No BP was low at nurse visit 05/07/18. Hydralazine was decreased to 10mg three times daily. Tolerating medication change well. Home readings have ranged 93-130/52-78. Denies any chest pain, shortness of breath, or headaches. Daily caffeine use with tea; none today. Past personal history of tobacco use; current passive exposure. Alert and oriented. Pt has been identified by name and birthdate: Yes Allergies reviewed: Yes Latex allergy: no. Medication - prescribed and OTC reviewed and updated: Yes Do you need any prescription refills prior to your next visit: No Health Maintenance: Reviewed and up to date Patient advised to continue with current medications and would be contacted with any further instructions after review by Dr environmental aid. Doris Cohn LPN CNNURSE Observed: 05/21/2018 Status: COMPLETED Source: [place] 9:15 AM [facility] Nurse Visit (FAMPWS) ELIZABETH MÉNDEZ ([id number]) 1945 F Date Time Provider Department 05/21/18 9:15 AM NE NURSE OGWS During your visit today, we recorded the following information about you: Pulse Blood pressure 58/minute 112/70 Doris Cohn LPN 05/21/2018 9:22 AM Signed Manual Readin/70 Pulse: 58 (right arm) 114/70 (left arm) Reason for blood pressure check - Medication adjustment Patient is: Taking medication as prescribed Yes Took medication today Yes If no, date medication last taken N/A Experiencing side effects No BP was low at nurse visit 05/07/18. Hydralazine was decreased to 10mg three times daily. Tolerating medication change well. Home readings have ranged 93-130/52-78. Denies any chest pain, shortness of breath, or headaches. Daily caffeine use with tea; none today. Past personal history of tobacco use; current passive exposure. Alert and oriented. Pt has been identified by name and birthdate: Yes Allergies reviewed: Yes Latex allergy: no. Medication - prescribed and OTC reviewed and updated: Yes Do you need any prescription refills prior to your next visit: No Health Maintenance: Reviewed and up to date Patient advised to continue with current medications and would be contacted with any further instructions after review by Dr environmental aid. Doris Cohn LPN Referring Provider: DAVIS RONQUILLO) [[id number]] Allergies As of Date: 05/21/2018 Noted Allergy Reaction CEFTIN (CEFUROXIME) 10/30/2008 1 - Mental Status Change LISINOPRIL 08/26/2009 3 - Cough VOLTAREN (DICLOFENAC) 05/17/2017 14 - Other: See Comments Comments: Increased liver enzymes. Date Reviewed: 04/28/2018 Reviewed by: Eun Adan Ma - Fully Assessed Reason for Visit: Blood Pressure Check [195] Primary Visit Diagnosis:Essential hypertension [I10] Prescriptions as of 05/21/2018 Sig: NIFEDIPINE ER 60 MG TABLET,EX* Take 1 tablet by mouth once d* HYDRALAZINE 10 MG TABLET Take 1 tablet by mouth every * CARVEDILOL 25 MG TABLET Take 0.5 tablets by mouth twi* SIMVASTATIN 10 MG TABLET TAKE 1 TABLET EVERY DAY AT BE* TIOTROPIUM BROMIDE 18 MCG CAP* Inhale 1 capsule as instructe* ACETAMINOPHEN 325 MG TABLET Take 2 tablets by mouth every* ASPIRIN 81 MG TABLET,DELAYED * Take 1 tablet by mouth once d* VENTOLIN HFA 90 MCG/ACTUATION* INHALE 2 PUFFS INSTRUCTED * CALCIUM + D ORAL Take 2 tablets by mouth once * DOCUSATE SODIUM 100 MG CAPSULE Take 1 capsule by mouth twice* ESTRADIOL 0.01% (0.1 MG/GRAM)* Apply small amount at vaginal* Problem List As Of Date 05/21/2018 Noted Resolved SKIN DISORDER NOS [L98.9] INVALID FOR*01/12/2009 SEBORRHEIC KERATOSIS NOS [L82.1] INVALID FOR*01/12/2009 SCREENING MAL NEOP-COLON [Z12.11] INVALID FOR*01/12/2009 BENIGN NEOPLASM LG BOWEL [D12.6] INVALID FOR*01/12/2009 Diverticulosis of large intestine [K57.30] INVALID FOR* EXT HEMORRHOID W/O COMPL [K64.4] INVALID FOR* INT HEMORRHOID W/O COMPL [K64.8] INVALID FOR* Essential hypertension [I10] INVALID FOR* Priority: Mild More... Mixed hyperlipidemia [E78.2] INVALID FOR* More... ATHEROSCLEROSIS NOS [I70.90] INVALID FOR* Hematoma [T14.8XXA] INVALID FOR*03/02/2014 COPD (chronic obstructive pulmonary disease) (H*INVALID FOR* Priority: E More... Hyperplastic colon polyp [K63.5] INVALID FOR* More... 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*INVALID FOR* Priority: B Posterior subcapsular polar senile cataract - B*INVALID FOR*11/16/2015 Growth of eyelid - Left Eye [D49.2] INVALID FOR*11/16/2015 Combined form of senile cataract of left eye [H*INVALID FOR*11/16/2015 Astigmatism of left eye [H52.202] INVALID FOR*11/16/2015 Dry eye syndrome [H04.129] INVALID FOR* Meibomian gland dysfunction [H02.89] INVALID FOR* Pseudophakia, right eye [Z96.1] INVALID FOR*11/16/2015 Pseudophakia of both eyes [Z96.1] INVALID FOR* Pseudophakia of left eye [Z96.1] INVALID FOR*11/16/2015 Postmenopausal atrophic vaginitis [N95.2] INVALID FOR* Vitreous floaters of both eyes [H43.393] INVALID FOR* After-cataract of both eyes [H26.40] INVALID FOR* DDD (degenerative disc disease), cervical [M50.*INVALID FOR* Cervical spondylosis with myelopathy [M47.12] INVALID FOR* After-cataract obscuring vision [H26.499] INVALID FOR* Thrombocytopenia (HCC) [D69.6] INVALID FOR* Priority: A More... CKD (chronic kidney disease), stage III [N18.3] Priority: C More... Intramural aortic hematoma (HCC) [I71.00] INVALID FOR* Priority: Severe More... Thoracoabdominal aortic aneurysm (TAAA) (HCC) [*INVALID FOR* Priority: Moderate More... Nicotine use disorder, F17.2 [F17.200] INVALID FOR* Paroxysmal atrial fibrillation (HCC) [I48.0] INVALID FOR* More... Encounter Status:Closed by DORIS COHN LPN on 05/21/18 PROGRESS Observed: 05/07/2018 Status: COMPLETED Source: [place] 10:38 AM [facility] REPOSITORY [facility] ID: [id number] Author: Doris Cohn LPN Service: (none) Author Type: (none) Type: Progress Notes Filed: 05/07/2018 10:46 AM Note Text: Manual Readin/60 Pulse: 62 Home Cuff: 102/59 P: 60 Reason for blood pressure check - Medication adjustment Patient is: Taking medication as prescribed Yes Took medication today Yes If no, date medication last taken N/A Experiencing side effects No BP was running low at nurse visit 04/23/18. Hydralazine was decreased to 25mg three times daily. Tolerating medication change well. Does state that she has noticed some swelling in her ankles throughout the day; non-pitting. Also has had some episodes where she notes some dizziness when she is doing activities that require her to raise her arms above her head. Home readings have ranged 92-143/58-77. Denies any chest pain, shortness of breath, or headaches. Daily caffeine use with tea. Past personal history of tobacco use; current passive exposure. Alert and oriented. Pt has been identified by name and birthdate: Yes Allergies reviewed: Yes Latex allergy: no. Medication - prescribed and OTC reviewed and updated: Yes Do you need any prescription refills prior to your next visit: No Health Maintenance: Reviewed and not up to date and provider notified Patient advised that she would be contacted after review by PCP. Doris Cohn LPN CNNURSE Observed: 05/07/2018 Status: COMPLETED Source: [place] 10:30 AM [facility] REPOSITORY [facility] ELIZABETH MÉNDEZ ([id number]) 1945 F Date Time Provider Department 05/07/18 10:30 AM [facility] During your visit today, we recorded the following information about you: Pulse Blood pressure 62/minute 96/60 Doris Cohn LPN 05/07/2018 10:46 AM Signed Manual Readin/60 Pulse: 62 Home Cuff: 102/59 P: 60 Reason for blood pressure check - Medication adjustment Patient is: Taking medication as prescribed Yes Took medication today Yes If no, date medication last taken N/A Experiencing side effects No BP was running low at nurse visit 04/23/18. Hydralazine was decreased to 25mg three times daily. Tolerating medication change well. Does state that she has noticed some swelling in her ankles throughout the day; non- pitting. Also has had some episodes where she notes some dizziness when she is doing activities that require her to raise her arms above her head. Home readings have ranged 92-143/58-77. Denies any chest pain, shortness of breath, or headaches. Daily caffeine use with tea. Past personal history of tobacco use; current passive exposure. Alert and oriented. Pt has been identified by name and birthdate: Yes Allergies reviewed: Yes Latex allergy: no. Medication - prescribed and OTC reviewed and updated: Yes Do you need any prescription refills prior to your next visit: No Health Maintenance: Reviewed and not up to date and provider notified Patient advised that she would be contacted after review by PCP. Doris Cohn LPN Referring Provider: DAVIS RONQUILLO) [[id number]] Allergies As of Date: 05/07/2018 Noted Allergy Reaction CEFTIN (CEFUROXIME) 10/30/2008 1 - Mental Status Change LISINOPRIL 08/26/2009 3 - Cough VOLTAREN (DICLOFENAC) 05/17/2017 14 - Other: See Comments Comments: Increased liver enzymes. Date Reviewed: 04/28/2018 Reviewed by: Eun Adan Ma - Fully Assessed Reason for Visit: Blood Pressure Check [195] Primary Visit Diagnosis:Essential hypertension [I10] Prescriptions as of 05/07/2018 Sig: HYDRALAZINE 25 MG TABLET Take 1 tablet by mouth every * CARVEDILOL 25 MG TABLET Take 0.5 tablets by mouth twi* SIMVASTATIN 10 MG TABLET TAKE 1 TABLET EVERY DAY AT BE* TIOTROPIUM BROMIDE 18 MCG CAP* Inhale 1 capsule as instructe* ACETAMINOPHEN 325 MG TABLET Take 2 tablets by mouth every* NIFEDIPINE ER 60 MG TABLET,EX* Take 1 tablet by mouth once d* ASPIRIN 81 MG TABLET,DELAYED * Take 1 tablet by mouth once d* VENTOLIN HFA 90 MCG/ACTUATION* INHALE 2 PUFFS INSTRUCTED * CALCIUM + D ORAL Take 2 tablets by mouth once * DOCUSATE SODIUM 100 MG CAPSULE Take 1 capsule by mouth twice* ESTRADIOL 0.01% (0.1 MG/GRAM)* Apply small amount at vaginal* Problem List As Of Date 05/07/2018 Noted Resolved SKIN DISORDER NOS [L98.9] INVALID FOR*01/12/2009 SEBORRHEIC KERATOSIS NOS [L82.1] INVALID FOR*01/12/2009 SCREENING MAL NEOP-COLON [Z12.11] INVALID FOR*01/12/2009 BENIGN NEOPLASM LG BOWEL [D12.6] INVALID FOR*01/12/2009 Diverticulosis of large intestine [K57.30] INVALID FOR* EXT HEMORRHOID W/O COMPL [K64.4] INVALID FOR* INT HEMORRHOID W/O COMPL [K64.8] INVALID FOR* Essential hypertension [I10] INVALID FOR* Priority: Mild More... Mixed hyperlipidemia [E78.2] INVALID FOR* More... ATHEROSCLEROSIS NOS [I70.90] INVALID FOR* Hematoma [T14.8XXA] INVALID FOR*03/02/2014 COPD (chronic obstructive pulmonary disease) (H*INVALID FOR* Priority: E More... Hyperplastic colon polyp [K63.5] INVALID FOR* More... 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*INVALID FOR* Priority: B Posterior subcapsular polar senile cataract - B*INVALID FOR*11/16/2015 Growth of eyelid - Left Eye [D49.2] INVALID FOR*11/16/2015 Combined form of senile cataract of left eye [H*INVALID FOR*11/16/2015 Astigmatism of left eye [H52.202] INVALID FOR*11/16/2015 Dry eye syndrome [H04.129] INVALID FOR* Meibomian gland dysfunction [H02.89] INVALID FOR* Pseudophakia, right eye [Z96.1] INVALID FOR*11/16/2015 Pseudophakia of both eyes [Z96.1] INVALID FOR* Pseudophakia of left eye [Z96.1] INVALID FOR*11/16/2015 Postmenopausal atrophic vaginitis [N95.2] INVALID FOR* Vitreous floaters of both eyes [H43.393] INVALID FOR* After-cataract of both eyes [H26.40] INVALID FOR* DDD (degenerative disc disease), cervical [M50.*INVALID FOR* Cervical spondylosis with myelopathy [M47.12] INVALID FOR* After-cataract obscuring vision [H26.499] INVALID FOR* Thrombocytopenia (HCC) [D69.6] INVALID FOR* Priority: A More... CKD (chronic kidney disease), stage III [N18.3] Priority: C More... Intramural aortic hematoma (HCC) [I71.00] INVALID FOR* Priority: Severe More... Thoracoabdominal aortic aneurysm (TAAA) (HCC) [*INVALID FOR* Priority: Moderate More... Nicotine use disorder, F17.2 [F17.200] INVALID FOR* Paroxysmal atrial fibrillation (HCC) [I48.0] INVALID FOR* More... Encounter Status:Closed by DORIS COHN LPN on 05/07/18 PROGRESS Observed: 04/28/2018 Status: COMPLETED Source: [place] 8:[address] [facility] REPOSITORY [facility] ID: [id number] Author: Marcella Bolton Service: (none) Author Type: Nurse Practitioner Type: Progress Notes Filed: 04/28/2018 9:40 AM Note Text: Subjective HPI 4 weeks ago was a [facility] for a tear in her Aorta. 5 days ago pt began coughing up green phlegm. She notes some shortness of breath. Pt uses spirava and a rescue inhaler. Pt has been using rescue inhaler 1-2x per hour, normally once every 4 hours. Review of Systems Constitutional: Negative. HENT: Negative. Respiratory: Positive for cough, sputum production and shortness of breath. Cardiovascular: Negative. Gastrointestinal: Negative. Neurological: Negative. Objective Physical Exam Constitutional: She is oriented to person, place, and time and well-developed, well-nourished, and in no distress. Cardiovascular: Normal rate and regular rhythm. Pulmonary/Chest: Effort normal. She has wheezes. She has no rales. Musculoskeletal: Normal range of motion. Neurological: She is alert and oriented to person, place, and time. Gait normal. Skin: Skin is warm and dry. Psychiatric: Affect and judgment normal. Nursing note and vitals reviewed. BP 120/64 Pulse 70 Temp 36.8 ?C (98.2 ?F) (Tympanic) Wt 72.1 kg (159 lb) SpO2 94% BMI 28.17 kg/m? .Patient presents with: Cough: cough, wheezing, chest congestion X 5 days PAST MEDICAL HISTORY Diagnosis Date - Aortic aneurysm (HCC) - Benign neoplasm of colon 06/08/2008 - Cataracts, bilateral Seeing Dr. Beach - Cervical spondylosis without myelopathy Seeing Dr. jean - Chronic obstructive pulmonary disease (COPD) (HCC) mild - CKD (chronic kidney disease), stage III (HCC) - Diverticulosis of colon (without mention of hemorrhage) - Epistaxis 2/2 high dose ASA - Hemorrhoids - Hypertension - Osteopenia - Other seborrheic keratosis 01/24/2007 - Paroxysmal atrial fibrillation (HCC) 03/19/2018 - Snoring - Special screening for malignant neoplasms, colon 06/08/2008 - Unspecified disorder of skin and subcutaneous tissue 01/16/2007 - Varicose vein of leg PAST SURGICAL HISTORY Procedure Laterality Date - APPENDECTOMY - COLONOSCOP W/ OR W/O BRSH SPEC 06/08/2008 Colonoscopy - DANDC, DIAG AND/OR THERAPEUTIC Dilation AND curettage - LIGATE FALLOPIAN TUBE - PAST SURGICAL HISTORY OF hysterectomy - REMOVAL GALLBLADDER - REMOVAL OF TONSILS,<12 Y/O Tonsillectomy - REMV CATARACT EXTRACAP,INSERT LENS Right 09/01/15 Cataract Extraction with PC IOL - REMV CATARACT EXTRACAP,INSERT LENS Left 10/13/2015 Cataract Extraction with PC IOL/Femto/LRI - REVISE SECONDARY VARICOSITY Varicose Vein Surgery - SIGMOIDOSCOPY FLEX DIAG 1997 Sigmoidoscopy ALLERGIES Ceftin [Cefuroxime]; Lisinopril; Voltaren [Diclofenac] MEDICATIONS hydrALAZINE (APRESOLINE) 25 mg tablet Take 1 tablet by mouth every 8 hours. carvedilol (COREG) 25 mg tablet Take 0.5 tablets by mouth twice daily with meals. simvastatin (ZOCOR) 10 mg tablet TAKE 1 TABLET EVERY DAY AT BEDTIME tiotropium (SPIRIVA WITH HANDIHALER) 18 mcg inhalation capsule Inhale 1 capsule as instructed once daily. Use with handihaler. acetaminophen (TYLENOL) 325 mg tablet Take 2 tablets by mouth every 6 hours as needed. NIFEdipine ER (PROCARDIA XL) 60 mg 24 hr tablet Take 1 tablet by mouth once daily. aspirin, enteric coated (ASPIR-81) 81 mg EC tablet Take 1 tablet by mouth once daily. VENTOLIN HFA 90 mcg/actuation inhaler INHALE 2 PUFFS INSTRUCTED EVERY 6 HOURS NEEDED. CALCIUM CARBONATE/VITAMIN D3 (CALCIUM + D ORAL) Take 2 tablets by mouth once daily. Taking 550 + 2001 unit tablets docusate sodium (COLACE) 100 mg capsule Take 1 capsule by mouth twice daily as needed for Constipation. estradiol (ESTRACE) 0.01 % (0.1 mg/gram) vaginal cream Apply small amount at vaginal opening 3 nights per week azithromycin (ZITHROMAX Z-RIKY) 250 mg tablet Take 2 tablets day one, then, 1 tablet daily until gone. predniSONE (DELTASONE) 50 mg tab Take 1 tablet by mouth once daily for 5 days. FAMILY HISTORY Problem Relation Age of Onset - Emphysema Mother smoker - Heart Mother - Emphysema Father smoker - Heart Father Social History Substance Use Topics - Smoking status: Former Smoker Packs/day: 0.50 Types: Cigarettes Start date: 1963 Quit date: 12/27/2015 - Smokeless tobacco: Never Used Comment: Parents smoked in home; patient has cheated a few times and smoked; Smoked last week - Alcohol use Yes Comment: rarely ASSESSMENT/PLAN: 1. Acute bronchitis with chronic obstructive pulmonary disease (COPD) ([facility]LY [facility]) - ICD9: 491.22, ICD10: J44.0, J20.9 Plan: as pt does note history of COPD I will treat with a zpack and prednisone. Discussed with pt that her symptoms were likely viral in nature but due to her co morbidities I felt it was reasonable to treat with ATBs. Pt was instructed to follow up with PCP in 2-3 days and go immediately to the ER for any new or worsening symptoms. - PREDNISONE 50 MG TABLET - AZITHROMYCIN 250 MG TABLET - PREDNISONE 50 MG TABLET Marcella Bolton APRN.CNP Prescription instructions reviewed with patient as applicable. Patient advised if symptoms do not improve or if symptoms worsen sooner, to contact the office for further evaluation by either myself or their primary care physician. Potential red flag symptoms discussed with the patient. Reviewed appropriate action plan to take if red flag symptoms occur. Patient agreeable to treatment plan. Marcella Bolton APRN.CNP CNOV Observed: 04/28/2018 Status: COMPLETED Source: [place] 8:45 AM [facility] REPOSITORY Office Visit ([facility]) ELIZABETH MÉNDEZ ([id number]) 1945 F Date Time Provider Department 04/28/18 8:45 AM MARCELLA BOLTON) [facility] During your visit today, we recorded the following information about you: Temperature Pulse Blood pressure Weight 98.2 degrees 70/minute 120/64 72.1 kg Marcella Bolton APRN.CNP 04/28/2018 9:40 AM Signed Subjective HPI 4 weeks ago was a [facility] for a tear in her Aorta. 5 days ago pt began coughing up green phlegm. She notes some shortness of breath. Pt uses spirava and a rescue inhaler. Pt has been using rescue inhaler 1-2x per hour, normally once every 4 hours. Review of Systems Constitutional: Negative. HENT: Negative. Respiratory: Positive for cough, sputum production and shortness of breath. Cardiovascular: Negative. Gastrointestinal: Negative. Neurological: Negative. Objective Physical Exam Constitutional: She is oriented to person, place, and time and well-developed, well-nourished, and in no distress. Cardiovascular: Normal rate and regular rhythm. Pulmonary/Chest: Effort normal. She has wheezes. She has no rales. Musculoskeletal: Normal range of motion. Neurological: She is alert and oriented to person, place, and time. Gait normal. Skin: Skin is warm and dry. Psychiatric: Affect and judgment normal. Nursing note and vitals reviewed. BP 120/64 Pulse 70 Temp 36.8 ?C (98.2 ?F) (Tympanic) Wt 72.1 kg (159 lb) SpO2 94% BMI 28.17 kg/m? .Patient presents with: Cough: cough, wheezing, chest congestion X 5 days PAST MEDICAL HISTORY Diagnosis Date - Aortic aneurysm (HCC) - Benign neoplasm of colon 06/08/2008 - Cataracts, bilateral Seeing Dr. Beach - Cervical spondylosis without myelopathy Seeing Dr. jena - Chronic obstructive pulmonary disease (COPD) (HCC) mild - CKD (chronic kidney disease), stage III (HCC) - Diverticulosis of colon (without mention of hemorrhage) - Epistaxis 2/2 high dose ASA - Hemorrhoids - Hypertension - Osteopenia - Other seborrheic keratosis 01/24/2007 - Paroxysmal atrial fibrillation (HCC) 03/19/2018 - Snoring - Special screening for malignant neoplasms, colon 06/08/2008 - Unspecified disorder of skin and subcutaneous tissue 01/16/2007 - Varicose vein of leg PAST SURGICAL HISTORY Procedure Laterality Date - APPENDECTOMY - COLONOSCOP W/ OR W/O BRSH SPEC 06/08/2008 Colonoscopy - DANDC, DIAG AND/OR THERAPEUTIC Dilation AND curettage - LIGATE FALLOPIAN TUBE - PAST SURGICAL HISTORY OF hysterectomy - REMOVAL GALLBLADDER - REMOVAL OF TONSILS,<12 Y/O Tonsillectomy - REMV CATARACT EXTRACAP,INSERT LENS Right 09/01/15 Cataract Extraction with PC IOL - REMV CATARACT EXTRACAP,INSERT LENS Left 10/13/2015 Cataract Extraction with PC IOL/Femto/LRI - REVISE SECONDARY VARICOSITY Varicose Vein Surgery - SIGMOIDOSCOPY FLEX DIAG 1997 Sigmoidoscopy ALLERGIES Ceftin [Cefuroxime]; Lisinopril; Voltaren [Diclofenac] MEDICATIONS hydrALAZINE (APRESOLINE) 25 mg tablet Take 1 tablet by mouth every 8 hours. carvedilol (COREG) 25 mg tablet Take 0.5 tablets by mouth twice daily with meals. simvastatin (ZOCOR) 10 mg tablet TAKE 1 TABLET EVERY DAY AT BEDTIME tiotropium (SPIRIVA WITH HANDIHALER) 18 mcg inhalation capsule Inhale 1 capsule as instructed once daily. Use with handihaler. acetaminophen (TYLENOL) 325 mg tablet Take 2 tablets by mouth every 6 hours as needed. NIFEdipine ER (PROCARDIA XL) 60 mg 24 hr tablet Take 1 tablet by mouth once daily. aspirin, enteric coated (ASPIR-81) 81 mg EC tablet Take 1 tablet by mouth once daily. VENTOLIN HFA 90 mcg/actuation inhaler INHALE 2 PUFFS INSTRUCTED EVERY 6 HOURS NEEDED. CALCIUM CARBONATE/VITAMIN D3 (CALCIUM + D ORAL) Take 2 tablets by mouth once daily. Taking 550 + 2001 unit tablets docusate sodium (COLACE) 100 mg capsule Take 1 capsule by mouth twice daily as needed for Constipation. estradiol (ESTRACE) 0.01 % (0.1 mg/gram) vaginal cream Apply small amount at vaginal opening 3 nights per week azithromycin (ZITHROMAX Z-RIKY) 250 mg tablet Take 2 tablets day one, then, 1 tablet daily until gone. predniSONE (DELTASONE) 50 mg tab Take 1 tablet by mouth once daily for 5 days. FAMILY HISTORY Problem Relation Age of Onset - Emphysema Mother smoker - Heart Mother - Emphysema Father smoker - Heart Father Social History Substance Use Topics - Smoking status: Former Smoker Packs/day: 0.50 Types: Cigarettes Start date: 1963 Quit date: 12/27/2015 - Smokeless tobacco: Never Used Comment: Parents smoked in home; patient has cheated a few times and smoked; Smoked last week - Alcohol use Yes Comment: rarely ASSESSMENT/PLAN: 1. Acute bronchitis with chronic obstructive pulmonary disease (COPD) (FORMERLY [facility]) - ICD9: 491.22, ICD10: J44.0, J20.9 Plan: as pt does note history of COPD I will treat with a zpack and prednisone. Discussed with pt that her symptoms were likely viral in nature but due to her co morbidities I felt it was reasonable to treat with ATBs. Pt was instructed to follow up with PCP in 2-3 days and go immediately to the ER for any new or worsening symptoms. - PREDNISONE 50 MG TABLET - AZITHROMYCIN 250 MG TABLET - PREDNISONE 50 MG TABLET Marcella Bolton APRN.CNP Prescription instructions reviewed with patient as applicable. Patient advised if symptoms do not improve or if symptoms worsen sooner, to contact the office for further evaluation by either myself or their primary care physician. Potential red flag symptoms discussed with the patient. Reviewed appropriate action plan to take if red flag symptoms occur. Patient agreeable to treatment plan. MISSAEL Morton APRN.CNP 04/28/2018 9:02 AM Signed [facility] [address] [place], [place] [address] Emergency Department Diagnosis: Assessment ACUTE BRONCHITIS: You have acute bronchitis. This means the airway passages in your lungs are inflamed. Bronchitis may be caused by viruses or bacteria. Inhaling cigarette smoke will always make it worse. Exposure to irritating chemicals or second hand smoke as well as allergies can contribute to bronchitis. Repeat episodes of bronchitis may cause lifelong lung problems. Acute bronchitis is usually treated with rest, fluids, cough medicine, and possibly antibiotics or inhaled medicine to open up the small airways. It is very important that you avoid smoke and drink increased amounts of fluids. A cool air vaporizer can help thin bronchial secretions. This makes it easier to cough and clear your chest. If you are a cigarette smoker, consider using nicotine gum or skin patches to help you withdraw. Recovery from bronchitis is often slow, but you should start feeling better after 2-3 days of treatment. Please call your doctor or return here if you have any of the following symptoms: - Increased fever, chills, or chest pain. - Severe shortness of breath or bloody sputum. - Do not improve after 3 days of proper treatment. Referring Provider: SELF [[id number]] Allergies As of Date: 04/28/2018 Noted Allergy Reaction CEFTIN (CEFUROXIME) 10/30/2008 1 - Mental Status Change LISINOPRIL 08/26/2009 3 - Cough VOLTAREN (DICLOFENAC) 05/17/2017 14 - Other: See Comments Comments: Increased liver enzymes. Date Reviewed: 04/28/2018 Reviewed by: Eun Adan Ma - Fully Assessed Reason for Visit: Cough [28] Cmt: cough, wheezing, chest congestion X 5 days Primary Visit Diagnosis:Acute bronchitis with chronic obstructive pulmonary disease (COPD) (FORMERLY [facility]) [J44.0, J20.9] Order(s):azithromycin (ZITHROMAX Z-RIKY) 250 mg tabletTake 2 tablets day one, then, 1 tablet daily until gone.Disp: 1 PackageRfl: 0 predniSONE (DELTASONE) 50 mg tabTake 1 tablet by mouth once daily for 5 days.Disp: 5 tabletRfl: 0 Prescriptions as of 04/28/2018 Sig: HYDRALAZINE 25 MG TABLET Take 1 tablet by mouth every * CARVEDILOL 25 MG TABLET Take 0.5 tablets by mouth twi* SIMVASTATIN 10 MG TABLET TAKE 1 TABLET EVERY DAY AT BE* TIOTROPIUM BROMIDE 18 MCG CAP* Inhale 1 capsule as instructe* ACETAMINOPHEN 325 MG TABLET Take 2 tablets by mouth every* NIFEDIPINE ER 60 MG TABLET,EX* Take 1 tablet by mouth once d* ASPIRIN 81 MG TABLET,DELAYED * Take 1 tablet by mouth once d* VENTOLIN HFA 90 MCG/ACTUATION* INHALE 2 PUFFS INSTRUCTED * CALCIUM + D ORAL Take 2 tablets by mouth once * DOCUSATE SODIUM 100 MG CAPSULE Take 1 capsule by mouth twice* ESTRADIOL 0.01% (0.1 MG/GRAM)* Apply small amount at vaginal* AZITHROMYCIN 250 MG TABLET Take 2 tablets day one, then,* PREDNISONE 50 MG TABLET Take 1 tablet by mouth once d* Problem List As Of Date 04/28/2018 Noted Resolved SKIN DISORDER NOS [L98.9] INVALID FOR*01/12/2009 SEBORRHEIC KERATOSIS NOS [L82.1] INVALID FOR*01/12/2009 SCREENING MAL NEOP-COLON [Z12.11] INVALID FOR*01/12/2009 BENIGN NEOPLASM LG BOWEL [D12.6] INVALID FOR*01/12/2009 Diverticulosis of large intestine [K57.30] INVALID FOR* EXT HEMORRHOID W/O COMPL [K64.4] INVALID FOR* INT HEMORRHOID W/O COMPL [K64.8] INVALID FOR* Essential hypertension [I10] INVALID FOR* Priority: Mild More... Mixed hyperlipidemia [E78.2] INVALID FOR* More... ATHEROSCLEROSIS NOS [I70.90] INVALID FOR* Hematoma [T14.8XXA] INVALID FOR*03/02/2014 COPD (chronic obstructive pulmonary disease) (H*INVALID FOR* Priority: E More... Hyperplastic colon polyp [K63.5] INVALID FOR* More... 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*INVALID FOR* Priority: B Posterior subcapsular polar senile cataract - B*INVALID FOR*11/16/2015 Growth of eyelid - Left Eye [D49.2] INVALID FOR*11/16/2015 Combined form of senile cataract of left eye [H*INVALID FOR*11/16/2015 Astigmatism of left eye [H52.202] INVALID FOR*11/16/2015 Dry eye syndrome [H04.129] INVALID FOR* Meibomian gland dysfunction [H02.89] INVALID FOR* Pseudophakia, right eye [Z96.1] INVALID FOR*11/16/2015 Pseudophakia of both eyes [Z96.1] INVALID FOR* Pseudophakia of left eye [Z96.1] INVALID FOR*11/16/2015 Postmenopausal atrophic vaginitis [N95.2] INVALID FOR* Vitreous floaters of both eyes [H43.393] INVALID FOR* After-cataract of both eyes [H26.40] INVALID FOR* DDD (degenerative disc disease), cervical [M50.*INVALID FOR* Cervical spondylosis with myelopathy [M47.12] INVALID FOR* After-cataract obscuring vision [H26.499] INVALID FOR* Thrombocytopenia (HCC) [D69.6] INVALID FOR* Priority: A More... CKD (chronic kidney disease), stage III [N18.3] Priority: C More... Intramural aortic hematoma (HCC) [I71.00] INVALID FOR* Priority: Severe More... Thoracoabdominal aortic aneurysm (TAAA) (HCC) [*INVALID FOR* Priority: Moderate More... Nicotine use disorder, F17.2 [F17.200] INVALID FOR* Paroxysmal atrial fibrillation (HCC) [I48.0] INVALID FOR* More... Other instructions from your clinician: [facility] [address] [place], [place] [address] Emergency Department Diagnosis: Assessment ACUTE BRONCHITIS: You have acute bronchitis. This means the airway passages in your lungs are inflamed. Bronchitis may be caused by viruses or bacteria. Inhaling cigarette smoke will always make it worse. Exposure to irritating chemicals or second hand smoke as well as allergies can contribute to bronchitis. Repeat episodes of bronchitis may cause lifelong lung problems. Acute bronchitis is usually treated with rest, fluids, cough medicine, and possibly antibiotics or inhaled medicine to open up the small airways. It is very important that you avoid smoke and drink increased amounts of fluids. A cool air vaporizer can help thin bronchial secretions. This makes it easier to cough and clear your chest. If you are a cigarette smoker, consider using nicotine gum or skin patches to help you withdraw. Recovery from bronchitis is often slow, but you should start feeling better after 2-3 days of treatment. Please call your doctor or return here if you have any of the following symptoms: - Increased fever, chills, or chest pain. - Severe shortness of breath or bloody sputum. - Do not improve after 3 days of proper treatment. Prescriptions ordered this encounter Disp Refills Start End PREDNISONE 50 MG TABLET 04/28/2018 04/28/2018 Route: ORAL AZITHROMYCIN 250 MG TABLET 1 Pa* 0 04/28/2018 05/03/2018 Sig: Take 2 tablets day one, then, 1 tablet daily until gone. PREDNISONE 50 MG TABLET 5 ta* 0 04/28/2018 05/03/2018 Route: ORAL Sig: Take 1 tablet by mouth once daily for 5 days. Medications Discontinued During This Encounter predniSONE 50 mg tab(s) (DELTASONE) 04/28/2018 04/28/2018 Route: ORAL Sig: Disc: Reason for discontinue is not on file. Encounter Status:Closed by MARCELLA BOLTON CNP on 04/28/18 PROGRESS Observed: 04/23/2018 Status: COMPLETED Source: [place] 1:58 PM [facility] RE[facility] HNO ID: [id number] Author: Doris Cohn LPN Service: (none) Author Type: (none) Type: Progress Notes Filed: 04/23/2018 2:27 PM Note Text: Manual Readin/62 Pulse: 64 Home Cuff: 105/64 P:61 Reason for blood pressure check - Medication adjustment Patient is: Taking medication as prescribed Yes Took medication today Yes If no, date medication last taken N/A Experiencing side effects No BP was low at last appt with Katelyn Nuñez CNP, on 04/16/18. Coreg was decreased to 12.5mg twice daily. Tolerating medication change well. Home readings have ranged 87-180/51-83. Denies any chest pain, unusual shortness of breath, or headaches. Does note intermittent dizziness with positional changes. Daily caffeine use with tea. Past personal history of tobacco use; current passive exposure. Alert and oriented. Pt has been identified by name and birthdate: Yes Allergies reviewed: Yes Latex allergy: no. Medication - prescribed and OTC reviewed and updated: Yes Do you need any prescription refills prior to your next visit: No Health Maintenance: Reviewed and not up to date and provider notified Patient advised to continue with current medications and would be contacted with any further instructions after review by PCP. Doris Cohn LPN CNNURSE Observed: 04/23/2018 Status: COMPLETED Source: [place] 1:45 PM [facility] REPOSITORY Nurse Visit ([facility]WS) ELIZABETH MÉNDEZ ([id number]) 1945 F Date Time Provider Department 04/23/18 1:45 PM [place] NURSE [facility]AMPWS During your visit today, we recorded the following information about you: Pulse Blood pressure 64/minute 106/62 Doris Cohn LPN 04/23/2018 2:27 PM Signed Manual Readin/62 Pulse: 64 Home Cuff: 105/64 P:61 Reason for blood pressure check - Medication adjustment Patient is: Taking medication as prescribed Yes Took medication today Yes If no, date medication last taken N/A Experiencing side effects No BP was low at last appt with Katelyn Nuñez CNP, on 04/16/18. Coreg was decreased to 12.5mg twice daily. Tolerating medication change well. Home readings have ranged 87-180/51-83. Denies any chest pain, unusual shortness of breath, or headaches. Does note intermittent dizziness with positional changes. Daily caffeine use with tea. Past personal history of tobacco use; current passive exposure. Alert and oriented. Pt has been identified by name and birthdate: Yes Allergies reviewed: Yes Latex allergy: no. Medication - prescribed and OTC reviewed and updated: Yes Do you need any prescription refills prior to your next visit: No Health Maintenance: Reviewed and not up to date and provider notified Patient advised to continue with current medications and would be contacted with any further instructions after review by PCP. Doris Cohn LPN Referring Provider: AKTELYN NUÑEZ ([facility]) [[id number]] Allergies As of Date: 04/23/2018 Noted Allergy Reaction CEFTIN (CEFUROXIME) 10/30/2008 1 - Mental Status Change LISINOPRIL 08/26/2009 3 - Cough VOLTAREN (DICLOFENAC) 05/17/2017 14 - Other: See Comments Comments: Increased liver enzymes. Date Reviewed: 04/16/2018 Reviewed by: Rachel Rankin LPN - Fully Assessed Reason for Visit: Blood Pressure Check [195] Primary Visit Diagnosis:Essential hypertension [I10] Prescriptions as of 04/23/2018 Sig: CARVEDILOL 25 MG TABLET Take 0.5 tablets by mouth twi* SIMVASTATIN 10 MG TABLET TAKE 1 TABLET EVERY DAY AT BE* TIOTROPIUM BROMIDE 18 MCG CAP* Inhale 1 capsule as instructe* ACETAMINOPHEN 325 MG TABLET Take 2 tablets by mouth every* HYDRALAZINE 50 MG TABLET Take 1 tablet by mouth every * NIFEDIPINE ER 60 MG TABLET,EX* Take 1 tablet by mouth once d* ASPIRIN 81 MG TABLET,DELAYED * Take 1 tablet by mouth once d* VENTOLIN HFA 90 MCG/ACTUATION* INHALE 2 PUFFS INSTRUCTED * CALCIUM + D ORAL Take 2 tablets by mouth once * DOCUSATE SODIUM 100 MG CAPSULE Take 1 capsule by mouth twice* ESTRADIOL 0.01% (0.1 MG/GRAM)* Apply small amount at vaginal* Problem List As Of Date 04/23/2018 Noted Resolved SKIN DISORDER NOS [L98.9] INVALID FOR*01/12/2009 SEBORRHEIC KERATOSIS NOS [L82.1] INVALID FOR*01/12/2009 SCREENING MAL NEOP-COLON [Z12.11] INVALID FOR*01/12/2009 BENIGN NEOPLASM LG BOWEL [D12.6] INVALID FOR*01/12/2009 Diverticulosis of large intestine [K57.30] INVALID FOR* EXT HEMORRHOID W/O COMPL [K64.4] INVALID FOR* INT HEMORRHOID W/O COMPL [K64.8] INVALID FOR* Essential hypertension [I10] INVALID FOR* Priority: Mild More... Mixed hyperlipidemia [E78.2] INVALID FOR* More... ATHEROSCLEROSIS NOS [I70.91] INVALID FOR* Hematoma [T14.8XXA] INVALID FOR*03/02/2014 COPD (chronic obstructive pulmonary disease) (H*INVALID FOR* Priority: E More... Hyperplastic colon polyp [K63.5] INVALID FOR* More... 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*INVALID FOR* Priority: B Posterior subcapsular polar senile cataract - B*INVALID FOR*11/16/2015 Growth of eyelid - Left Eye [D49.2] INVALID FOR*11/16/2015 Combined form of senile cataract of left eye [H*INVALID FOR*11/16/2015 Astigmatism of left eye [H52.202] INVALID FOR*11/16/2015 Dry eye syndrome [H04.129] INVALID FOR* Meibomian gland dysfunction [H02.89] INVALID FOR* Pseudophakia, right eye [Z96.1] INVALID FOR*11/16/2015 Pseudophakia of both eyes [Z96.1] INVALID FOR* Pseudophakia of left eye [Z96.1] INVALID FOR*11/16/2015 Postmenopausal atrophic vaginitis [N95.2] INVALID FOR* Vitreous floaters of both eyes [H43.393] INVALID FOR* After-cataract of both eyes [H26.40] INVALID FOR* DDD (degenerative disc disease), cervical [M50.*INVALID FOR* Cervical spondylosis with myelopathy [M47.12] INVALID FOR* After-cataract obscuring vision [H26.499] INVALID FOR* Thrombocytopenia (HCC) [D69.6] INVALID FOR* Priority: A More... CKD (chronic kidney disease), stage III [N18.3] Priority: C More... Intramural aortic hematoma (HCC) [I71.00] INVALID FOR* Priority: Severe More... Thoracoabdominal aortic aneurysm (TAAA) (HCC) [*INVALID FOR* Priority: Moderate More... Nicotine use disorder, F17.2 [F17.200] INVALID FOR* Paroxysmal atrial fibrillation (HCC) [I48.0] INVALID FOR* More... Encounter Status:Closed by DORIS COHN LPN on 04/23/18 PROGRESS Observed: 04/16/2018 Status: COMPLETED Source: [place] 3:[address] [facility] [place] REPOSITORY O ID: [id number] Author: Katelyn Molina) Podlogar Service: (none) Author Type: Nurse Practitioner Type: Progress Notes Filed: 04/16/2018 3:54 PM Note Text: 04/16/2018 Patient presents with: Discussion: b/p medication making her very groggy , dizziness, sob, pretty much ever side effect on list SUBJECTIVE: This is a 73 year old that is here today for Above Complaints. Was placed on several different BP meds when hospitalized with transabdominal aortic aneurysm. Patient was hospitia lied in January for this- no surgical repair at that time. Reports she has felt groggy, dizzy, SOB and has muscle aches since starting medications. Wanting to see if adjustment can be made that may alleviate some of these symptoms. HTN: Patient is compliant with meds Yes Monitors bp at home: Yes. Averages about 116/55 Denies side effects: No. Chest pain: No. Dyspnea: No. Edema: No. Palpitations: No. Syncope: No. Headache: No. Dizziness: Yes. Orthostatics: BP P LYIN/68 52 SITTIN/61 52 STANDIN/58 57 Positive for patient report of some dizziness with position change PAST MEDICAL HISTORY Diagnosis Date - Aortic aneurysm (HCC) - Benign neoplasm of colon 06/08/2008 - Cataracts, bilateral Seeing Dr. Beach - Cervical spondylosis without myelopathy Seeing Dr. jean - Chronic obstructive pulmonary disease (COPD) (HCC) mild - CKD (chronic kidney disease), stage III - Diverticulosis of colon (without mention of hemorrhage) - Epistaxis 2/2 high dose ASA - Hemorrhoids - Hypertension - Osteopenia - Other seborrheic keratosis 01/24/2007 - Paroxysmal atrial fibrillation (HCC) 03/19/2018 - Snoring - Special screening for malignant neoplasms, colon 06/08/2008 - Unspecified disorder of skin and subcutaneous tissue 01/16/2007 - Varicose vein of leg ALLERGIES Ceftin [Cefuroxime]; Lisinopril; Voltaren [Diclofenac] MEDICATIONS Current Outpatient Prescriptions: simvastatin (ZOCOR) 10 mg tablet TAKE 1 TABLET EVERY DAY AT BEDTIME tiotropium (SPIRIVA WITH HANDIHALER) 18 mcg inhalation capsule Inhale 1 capsule as instructed once daily. Use with handihaler. carvedilol (COREG) 25 mg tablet Take 1 tablet by mouth twice daily with meals. acetaminophen (TYLENOL) 325 mg tablet Take 2 tablets by mouth every 6 hours as needed. hydrALAZINE (APRESOLINE) 50 mg tablet Take 1 tablet by mouth every 8 hours. NIFEdipine ER (PROCARDIA XL) 60 mg 24 hr tablet Take 1 tablet by mouth once daily. aspirin, enteric coated (ASPIR-81) 81 mg EC tablet Take 1 tablet by mouth once daily. VENTOLIN HFA 90 mcg/actuation inhaler INHALE 2 PUFFS INSTRUCTED EVERY 6 HOURS NEEDED. CALCIUM CARBONATE/VITAMIN D3 (CALCIUM + D ORAL) Take 2 tablets by mouth once daily. Taking 550 + 2001 unit tablets docusate sodium (COLACE) 100 mg capsule Take 1 capsule by mouth twice daily as needed for Constipation. estradiol (ESTRACE) 0.01 % (0.1 mg/gram) vaginal cream Apply small amount at vaginal opening 3 nights per week No current facility-administered medications for this visit. Medications and allergies reviewed by this provider. SOCIAL HISTORY Social History Marital status: Spouse name: Years of education: Number of children: Social History Main Topics Smoking status: Former Smoker Packs/day: 0.50 Years: 0.00 Types: Cigarettes Start date: 1961 Quit date: 12/27/2015 Smokeless tobacco: Never Used Comment: Parents smoked in home; patient has cheated a few times and smoked; Smoked last week Alcohol use: Yes Comment: rarely Drug use: No Sexual activity: Yes Partners with: Male Comment: no concerns Social History Narrative No known exposure to TB. REVIEW OF SYSTEMS GENERAL: No weight loss, malaise or fevers RESPIRATORY: See HPI CARDIOVASCULAR: See HPI GI: No nausea, vomiting, or diarrhea All other reviewed and negative other than HPI. OBJECTIVE: BP 108/60 (BP Site: Left Arm, BP Position: Sitting, BP Cuff Size: Regular Adult) Pulse 72 Resp 16 Wt 73.5 kg (162 lb 0.6 oz) BMI 28.70 kg/m? . Vital signs reviewed by this provider. APPEARANCE Well appearing, alert, in no acute distress, well-hydrated, well nourished. HEART RRR with normal S1 and S2, no murmurs, no gallops, no JVD appreciated. Bradycardia with rate of 56. LUNG clear to auscultation EXTREMITIES Extremities normal, No deformities, No skin discoloration, No edema and Normal pulses bilaterally. ASSESSMENT/PLAN: 1. Essential hypertension - ICD9: 401.9, ICD10: I10 - good control - Decrease carvedilol to 12.5 mg twice daily with meals - Recommended regular aerobic exercise. - Recommend home blood pressure monitoring, to bring results in on next visit - Goal of BP <120/80 - Recommend home or pharmacy blood pressure monitoring - Recommended no refined sugar, low refined starch, healthy oil intake (olive oil), healthy protein (fish) along the lines of the Mediterranean diet. - Return to office next week for nurse visit for BP check, discussed to report to ER with chest pain and/or difficulty breathing or passing out. Katelyn Nuñez APRN.SCIENTIFIC RESEARCH ASSOCIATE Spoke with Dr. Ronquillo regarding change in medications. Plan developed with his input. Prescription instructions reviewed with patient as applicable. Patient advised if symptoms do not improve or if symptoms worsen sooner, to contact their primary care physician. Potential red flag symptoms discussed with the patient. Reviewed appropriate action plan to take if red flag symptoms occur. Patient agreeable to treatment plan. KIMMY Observed: 04/16/2018 Status: COMPLETED Source: [place] 3:00 PM [facility] REPOSITORY [facility] ELIZABETH MÉNDEZ ([id number]) 1945 F Date Time Provider Department 04/16/18 3:00 PM KATELYN NUÑEZ ([facility]) KOTA During your visit today, we recorded the following information about you: Pulse Respiration Blood pressure Weight 72/minute 16/minute 108/60 73.5 kg Katelyn Nuñez APRN.CNP 04/16/2018 3:54 PM Signed 04/16/2018 Patient presents with: Discussion: b/p medication making her very groggy , dizziness, sob, pretty much ever side effect on list SUBJECTIVE: This is a 73 year old that is here today for Above Complaints. Was placed on several different BP meds when hospitalized with transabdominal aortic aneurysm. Patient was hospitia lied in January for this- no surgical repair at that time. Reports she has felt groggy, dizzy, SOB and has muscle aches since starting medications. Wanting to see if adjustment can be made that may alleviate some of these symptoms. HTN: Patient is compliant with meds Yes Monitors bp at home: Yes. Averages about 116/55 Denies side effects: No. Chest pain: No. Dyspnea: No. Edema: No. Palpitations: No. Syncope: No. Headache: No. Dizziness: Yes. Orthostatics: BP P LYIN/68 52 SITTIN/61 52 STANDIN/58 57 Positive for patient report of some dizziness with position change PAST MEDICAL HISTORY Diagnosis Date - Aortic aneurysm (HCC) - Benign neoplasm of colon 06/08/2008 - Cataracts, bilateral Seeing Dr. Beach - Cervical spondylosis without myelopathy Seeing Dr. jean - Chronic obstructive pulmonary disease (COPD) (HCC) mild - CKD (chronic kidney disease), stage III - Diverticulosis of colon (without mention of hemorrhage) - Epistaxis 2/2 high dose ASA - Hemorrhoids - Hypertension - Osteopenia - Other seborrheic keratosis 01/24/2007 - Paroxysmal atrial fibrillation (HCC) 03/19/2018 - Snoring - Special screening for malignant neoplasms, colon 06/08/2008 - Unspecified disorder of skin and subcutaneous tissue 01/16/2007 - Varicose vein of leg ALLERGIES Ceftin [Cefuroxime]; Lisinopril; Voltaren [Diclofenac] MEDICATIONS Current Outpatient Prescriptions: simvastatin (ZOCOR) 10 mg tablet TAKE 1 TABLET EVERY DAY AT BEDTIME tiotropium (SPIRIVA WITH HANDIHALER) 18 mcg inhalation capsule Inhale 1 capsule as instructed once daily. Use with handihaler. carvedilol (COREG) 25 mg tablet Take 1 tablet by mouth twice daily with meals. acetaminophen (TYLENOL) 325 mg tablet Take 2 tablets by mouth every 6 hours as needed. hydrALAZINE (APRESOLINE) 50 mg tablet Take 1 tablet by mouth every 8 hours. NIFEdipine ER (PROCARDIA XL) 60 mg 24 hr tablet Take 1 tablet by mouth once daily. aspirin, enteric coated (ASPIR-81) 81 mg EC tablet Take 1 tablet by mouth once daily. VENTOLIN HFA 90 mcg/actuation inhaler INHALE 2 PUFFS INSTRUCTED EVERY 6 HOURS NEEDED. CALCIUM CARBONATE/VITAMIN D3 (CALCIUM + D ORAL) Take 2 tablets by mouth once daily. Taking 550 + 2001 unit tablets docusate sodium (COLACE) 100 mg capsule Take 1 capsule by mouth twice daily as needed for Constipation. estradiol (ESTRACE) 0.01 % (0.1 mg/gram) vaginal cream Apply small amount at vaginal opening 3 nights per week No current facility-administered medications for this visit. Medications and allergies reviewed by this provider. SOCIAL HISTORY Social History Marital status: Spouse name: Years of education: Number of children: Social History Main Topics Smoking status: Former Smoker Packs/day: 0.50 Years: 0.00 Types: Cigarettes Start date: 1961 Quit date: 12/27/2015 Smokeless tobacco: Never Used Comment: Parents smoked in home; patient has cheated a few times and smoked; Smoked last week Alcohol use: Yes Comment: rarely Drug use: No Sexual activity: Yes Partners with: Male Comment: no concerns Social History Narrative No known exposure to TB. REVIEW OF SYSTEMS GENERAL: No weight loss, malaise or fevers RESPIRATORY: See HPI CARDIOVASCULAR: See HPI GI: No nausea, vomiting, or diarrhea All other reviewed and negative other than HPI. OBJECTIVE: BP 108/60 (BP Site: Left Arm, BP Position: Sitting, BP Cuff Size: Regular Adult) Pulse 72 Resp 16 Wt 73.5 kg (162 lb 0.6 oz) BMI 28.70 kg/m? . Vital signs reviewed by this provider. APPEARANCE Well appearing, alert, in no acute distress, well- hydrated, well nourished. HEART RRR with normal S1 and S2, no murmurs, no gallops, no JVD appreciated. Bradycardia with rate of 56. LUNG clear to auscultation EXTREMITIES Extremities normal, No deformities, No skin discoloration, No edema and Normal pulses bilaterally. ASSESSMENT/PLAN: 1. Essential hypertension - ICD9: 401.9, ICD10: I10 - good control - Decrease carvedilol to 12.5 mg twice daily with meals - Recommended regular aerobic exercise. - Recommend home blood pressure monitoring, to bring results in on next visit - Goal of BP <120/80 - Recommend home or pharmacy blood pressure monitoring - Recommended no refined sugar, low refined starch, healthy oil intake (olive oil), healthy protein (fish) along the lines of the Mediterranean diet. - Return to office next week for nurse visit for BP check, discussed to report to ER with chest pain and/or difficulty breathing or passing out. Katelyn Nuñez, NEGRITO.SCIENTIFIC RESEARCH ASSOCIATE Spoke with Dr. Ronquillo regarding change in medications. Plan developed with his input. Prescription instructions reviewed with patient as applicable. Patient advised if symptoms do not improve or if symptoms worsen sooner, to contact their primary care physician. Potential red flag symptoms discussed with the patient. Reviewed appropriate action plan to take if red flag symptoms occur. Patient agreeable to treatment plan. Katelyn Nuñez, NEGRITO.[facility] 04/16/2018 3:33 PM Signed Decrease carvedilol to 12.5 mg twice a day with meals. You can split current tablet in half. Referring Provider: SELF [[id number]] Allergies As of Date: 04/16/2018 Noted Allergy Reaction CEFTIN (CEFUROXIME) 10/30/2008 1 - Mental Status Change LISINOPRIL 08/26/2009 3 - Cough VOLTAREN (DICLOFENAC) 05/17/2017 14 - Other: See Comments Comments: Increased liver enzymes. Date Reviewed: 04/16/2018 Reviewed by: Rachel Rankin LPN - Fully Assessed Reason for Visit: Discussion [813] Cmt: b/p medication making her very groggy , dizziness, sob, pretty much ever side effect on list Primary Visit Diagnosis:Essential hypertension [I10] Order(s):carvedilol (COREG) 25 mg tabletTake 0.5 tablets by mouth twice daily with meals.Disp: 60 tabletRfl: 1 Prescriptions as of 04/16/2018 Sig: CARVEDILOL 25 MG TABLET Take 0.5 tablets by mouth twi* SIMVASTATIN 10 MG TABLET TAKE 1 TABLET EVERY DAY AT BE* TIOTROPIUM BROMIDE 18 MCG CAP* Inhale 1 capsule as instructe* ACETAMINOPHEN 325 MG TABLET Take 2 tablets by mouth every* HYDRALAZINE 50 MG TABLET Take 1 tablet by mouth every * NIFEDIPINE ER 60 MG TABLET,EX* Take 1 tablet by mouth once d* ASPIRIN 81 MG TABLET,DELAYED * Take 1 tablet by mouth once d* VENTOLIN HFA 90 MCG/ACTUATION* INHALE 2 PUFFS INSTRUCTED * CALCIUM + D ORAL Take 2 tablets by mouth once * DOCUSATE SODIUM 100 MG CAPSULE Take 1 capsule by mouth twice* ESTRADIOL 0.01% (0.1 MG/GRAM)* Apply small amount at vaginal* Problem List As Of Date 04/16/2018 Noted Resolved SKIN DISORDER NOS [L98.9] INVALID FOR*01/12/2009 SEBORRHEIC KERATOSIS NOS [L82.1] INVALID FOR*01/12/2009 SCREENING MAL NEOP-COLON [Z12.11] INVALID FOR*01/12/2009 BENIGN NEOPLASM LG BOWEL [D12.6] INVALID FOR*01/12/2009 Diverticulosis of large intestine [K57.30] INVALID FOR* EXT HEMORRHOID W/O COMPL [K64.4] INVALID FOR* INT HEMORRHOID W/O COMPL [K64.8] INVALID FOR* Essential hypertension [I10] INVALID FOR* Priority: Mild More... Mixed hyperlipidemia [E78.2] INVALID FOR* More... ATHEROSCLEROSIS NOS [I70.91] INVALID FOR* Hematoma [T14.8XXA] INVALID FOR*03/02/2014 COPD (chronic obstructive pulmonary disease) (H*INVALID FOR* Priority: E More... Hyperplastic colon polyp [K63.5] INVALID FOR* More... 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*INVALID FOR* Priority: B Posterior subcapsular polar senile cataract - B*INVALID FOR*11/16/2015 Growth of eyelid - Left Eye [D49.2] INVALID FOR*11/16/2015 Combined form of senile cataract of left eye [H*INVALID FOR*11/16/2015 Astigmatism of left eye [H52.202] INVALID FOR*11/16/2015 Dry eye syndrome [H04.129] INVALID FOR* Meibomian gland dysfunction [H02.89] INVALID FOR* Pseudophakia, right eye [Z96.1] INVALID FOR*11/16/2015 Pseudophakia of both eyes [Z96.1] INVALID FOR* Pseudophakia of left eye [Z96.1] INVALID FOR*11/16/2015 Postmenopausal atrophic vaginitis [N95.2] INVALID FOR* Vitreous floaters of both eyes [H43.393] INVALID FOR* After-cataract of both eyes [H26.40] INVALID FOR* DDD (degenerative disc disease), cervical [M50.*INVALID FOR* Cervical spondylosis with myelopathy [M47.12] INVALID FOR* After-cataract obscuring vision [H26.499] INVALID FOR* Thrombocytopenia (HCC) [D69.6] INVALID FOR* Priority: A More... CKD (chronic kidney disease), stage III [N18.3] Priority: C More... Intramural aortic hematoma (HCC) [I71.00] INVALID FOR* Priority: Severe More... Thoracoabdominal aortic aneurysm (TAAA) (HCC) [*INVALID FOR* Priority: Moderate More... Nicotine use disorder, F17.2 [F17.200] INVALID FOR* Paroxysmal atrial fibrillation (HCC) [I48.0] INVALID FOR* More... Other instructions from your clinician: Decrease carvedilol to 12.5 mg twice a day with meals. You can split current tablet in half. Prescriptions ordered this encounter Disp Refills Start End CARVEDILOL 25 MG TABLET 60 t* 1 04/16/2018 Class: Med Update Route: ORAL Sig: Take 0.5 tablets by mouth twice daily with meals. Medications Discontinued During This Encounter carvedilol (COREG) 25 mg tablet 60 t* 1 03/21/2018 04/16/2018 Route: ORAL Sig: Take 1 tablet by mouth twice daily with meals. Disc: Reason for discontinue is not on file. Follow-up and Disposition History Recorded Encounter Status:Closed by PODLOGKATELYN HOWELL CNP on 04/16/18 PROGRESS Observed: 04/15/2018 Status: COMPLETED Source: [place] 11:[address] [facility] REPOSITORY HNO ID: [id number] Author: Tabatha Garcia Service: (none) Author Type: Physician Type: Progress Notes Filed: 04/15/2018 11:35 AM Note Text: [facility] ESTABLISHED PATIENT NOTE Patient Type: Established PCP: Davis Ronquillo MD Chief Complaint: [facility] HPI: Elizabeth Méndez is a 73 year old White female being seen for the above chief complaint. Seen in house, now doing well, BP under control. Ct shows stable size at 4cm. Impression: [facility] Plan: RTC [address] Will see her PCP for BP medications I spent more than 50% of the visit counseling the patient on the plan and treatment options. Face to Face time was 15 minutes. CNOV Observed: 04/15/2018 Status: COMPLETED Source: [place] 10:45 AM [facility] REPOSITORY Office Visit ([facility]) ELIZABETH MÉNDEZ ([id number]) 1945 F Date Time Provider Department 04/15/18 10:45 AM TABATHA GARCIA During your visit today, we recorded the following information about you: Temperature Pulse Respiration Blood pressure 98.1 degrees 56/minute 16/minute 129/77 Weight Height 73 kg 1.6 m Tabatha Garcia MD 04/15/2018 11:35 AM Signed [facility] ESTABLISHED PATIENT NOTE Patient Type: Established PCP: Davis Ronquillo MD Chief Complaint: [facility] HPI: Elizabeth Méndez is a 73 year old White female being seen for the above chief complaint. Seen in house, now doing well, BP under control. Ct shows stable size at 4cm. Impression: [facility] Plan: RTC [address] Will see her PCP for BP medications I spent more than 50% of the visit counseling the patient on the plan and treatment options. Face to Face time was 15 minutes. Referring Provider: TABATHA GARCIA [[id number]] Allergies As of Date: 04/15/2018 Noted Allergy Reaction CEFTIN (CEFUROXIME) 10/30/2008 1 - Mental Status Change LISINOPRIL 08/26/2009 3 - Cough VOLTAREN (DICLOFENAC) 05/17/2017 14 - Other: See Comments Comments: Increased liver enzymes. 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.6] Prescriptions as of 04/15/2018 Sig: SIMVASTATIN 10 MG TABLET TAKE 1 TABLET EVERY DAY AT BE* TIOTROPIUM BROMIDE 18 MCG CAP* Inhale 1 capsule as instructe* CARVEDILOL 25 MG TABLET Take 1 tablet by mouth twice * ACETAMINOPHEN 325 MG TABLET Take 2 tablets by mouth every* HYDRALAZINE 50 MG TABLET Take 1 tablet by mouth every * NIFEDIPINE ER 60 MG TABLET,EX* Take 1 tablet by mouth once d* ASPIRIN 81 MG TABLET,DELAYED * Take 1 tablet by mouth once d* VENTOLIN HFA 90 MCG/ACTUATION* INHALE 2 PUFFS INSTRUCTED * CALCIUM + D ORAL Take 2 tablets by mouth once * DOCUSATE SODIUM 100 MG CAPSULE Take 1 capsule by mouth twice* ESTRADIOL 0.01% (0.1 MG/GRAM)* Apply small amount at vaginal* Problem List As Of Date 04/15/2018 Noted Resolved SKIN DISORDER NOS [L98.9] INVALID FOR*01/12/2009 SEBORRHEIC KERATOSIS NOS [L82.1] INVALID FOR*01/12/2009 SCREENING MAL NEOP-COLON [Z12.11] INVALID FOR*01/12/2009 BENIGN NEOPLASM LG BOWEL [D12.6] INVALID FOR*01/12/2009 Diverticulosis of large intestine [K57.30] INVALID FOR* EXT HEMORRHOID W/O COMPL [K64.4] INVALID FOR* INT HEMORRHOID W/O COMPL [K64.8] INVALID FOR* Essential hypertension [I10] INVALID FOR* Priority: Mild More... Mixed hyperlipidemia [E78.2] INVALID FOR* More... ATHEROSCLEROSIS NOS [I70.91] INVALID FOR* Hematoma [T14.8XXA] INVALID FOR*03/02/2014 COPD (chronic obstructive pulmonary disease) (H*INVALID FOR* Priority: E More... Hyperplastic colon polyp [K63.5] INVALID FOR* More... 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*INVALID FOR* Priority: B Posterior subcapsular polar senile cataract - B*INVALID FOR*11/16/2015 Growth of eyelid - Left Eye [D49.2] INVALID FOR*11/16/2015 Combined form of senile cataract of left eye [H*INVALID FOR*11/16/2015 Astigmatism of left eye [H52.202] INVALID FOR*11/16/2015 Dry eye syndrome [H04.129] INVALID FOR* Meibomian gland dysfunction [H02.89] INVALID FOR* Pseudophakia, right eye [Z96.1] INVALID FOR*11/16/2015 Pseudophakia of both eyes [Z96.1] INVALID FOR* Pseudophakia of left eye [Z96.1] INVALID FOR*11/16/2015 Postmenopausal atrophic vaginitis [N95.2] INVALID FOR* Vitreous floaters of both eyes [H43.393] INVALID FOR* After-cataract of both eyes [H26.40] INVALID FOR* DDD (degenerative disc disease), cervical [M50.*INVALID FOR* Cervical spondylosis with myelopathy [M47.12] INVALID FOR* After-cataract obscuring vision [H26.499] INVALID FOR* Thrombocytopenia (HCC) [D69.6] INVALID FOR* Priority: A More... CKD (chronic kidney disease), stage III [N18.3] Priority: C More... Intramural aortic hematoma (HCC) [I71.00] INVALID FOR* Priority: Severe More... Thoracoabdominal aortic aneurysm (TAAA) (HCC) [*INVALID FOR* Priority: Moderate More... Nicotine use disorder, F17.2 [F17.200] INVALID FOR* Paroxysmal atrial fibrillation (HCC) [I48.0] INVALID FOR* More... Medications Discontinued During This Encounter iv contrast (will be provided with r* 1 Ea* 0 04/12/2018 04/15/2018 Class: In Office Sig: CT Chest W -Inject, intravenously, once for 1 dose.No IV access, insert saline lock prior to the beginning of sedation, infusion, injection of imaging exam. Discontinue saline lock post exam. If Pt. has a central line or IVAD, may access for administration according to line specific nursing protocol. Once exam is complete flush line and de-access according to line specific nursing protocol in the CT contrast administration guidelines link. Disc: Course of therapy completed Encounter Status:Closed by TABATHA GARCIA MD on 04/15/18 CTA C/A/P (NONGATED) W Observed: 04/15/2018 Status: F Source: [place] IVCON 10:39 AM [facility] REPOSITORY * * *Final Report* * * DATE OF EXAM: Apr 15 2018 10:39AM [facility] [place] C/A/P (NONGATED) W IVCON / PROCEDURE REASON: Abdominal aortic aneurysm, without rupture * * * * Physician Interpretation * * * * Examination: CTA chest, CTA abdomen and pelvis dated 04/15/2018 10:39 AM. Comparison: 03/19/2018 History: 73 years old Female with known type B intramural hematoma. Follow-up evaluation. Technique: Multi-detector CT technology was employed (Siemens Definition Flash dual source scanner ). High pitch prospectively gated Spiral imaging was performed following the IV administration of contrast material. In addition, delayed imaging was performed. A low-osmolar contrast agent was used (100 cc of Omnipaque 350). CT Dose-Length Product (DLP): [address] Dose Reduction Employed: Automated exposure control(AEC) and iterative recon For optimization of anatomic evaluation, multiplanar reconstruction, maximum intensity projections, and advanced 3-D off-line postprocessing were performed on a dedicated stand-alone workstation by the interpreting physician. RESULT: Potential study limitations: None. CHEST: The chest wall, mediastinum, pericardium, and pulmonary arteries are unremarkable. No significant adenopathy is identified in the axilla, mediastinum, and larissa. Stable calcified mediastinal (4:43) and hilar (4:46) lymph nodes. Lung windows reveal interval resolution of small left and trace right pleural effusions. Biapical pleural-parenchymal scarring. Moderate to severe diffuse bilateral centrilobular and paraseptal emphysematous changes, similar to the recent prior. Stable 7 mm granuloma in the right upper lobe, compatible with remote granulomatous disease. Bibasilar atelectasis/scarring (right greater), is unchanged. There is no pulmonary parenchymal mass or infiltrate. The cardiac chambers demonstrate normal atrioventricular and ventriculoarterial concordance, and systemic and pulmonary venous return. Mild left atrial enlargement, otherwise the cardiac chamber sizes are normal. The coronary arteries have normal origins and courses. Coronary calcifications are identified in the left main, LAD and RCA. The aortic valve is trileaflet, and free from calcifications. VASCULAR WITH ADVANCED 3-D OFF-LINE POSTPROCESSING: Almost complete regression of previously seen crescentic intramural hematoma in type B distribution, that involves aorta up to the level of diaphragm. Again seen is a very shallow ulcer on the lateral wall of the proximal descending aorta. Stable maximum dimensions in the retrocardiac segment (4.2 x 3.8 cm; 4.3 x 4.[address]). No rupture or new dissection. The aortic root and ascending aorta are mildly dilated with mild calcifications of ST junction. The arch vessel branching pattern is normal . All of the arch branch vessels appear widely patent in their proximal portions. The abdominal aorta shows atherosclerotic changes and mild infrarenal ectasia. There is no acute aortic pathology. Crew Lead dimensions of the thoracic aorta are as follows (excluding intramural hematoma): 2.3 cm at the aortic annulus 3.9 cm at the sinuses of Valsalva measured sinus to sinus (3.5 cm measured sinus to trigone)(the sinotubular junction is preserved) 4.1 cm at the mid ascending aorta 4.0 cm at the distal ascending aorta 3.4 cm at the mid transverse arch; 3.[address] 3.4 cm at the proximal descending thoracic aorta: 3.[address] 4.2 x 3.8 cm at the widest portion of retrocardiac segment; 4.3 x 4.[address] 3.1 cm at the diaphragmatic hiatus, stable The abdominal aorta is tortuous and measures: 3.0 cm at the supramesenteric segment 2.4 cm at the mesenteric segment 2.0 cm at the renal segment 3.0 cm at the mid infrarenal segment 1.7 cm at the aortic bifurcation The celiac axis, SMA, and OLLIE are patent. There are single renal arteries bilaterally, both of which appear patent. The pelvic arteries are tortuous, but otherwise normal in caliber and contour. ABDOMEN AND PELVIS: Liver: No mass. Stable 4.0 x 3.7 cm cm simple hepatic cyst in segment II (5:25) and 1.6 x 1.4 cm simple hepatic cyst in lateral segment III (5:34). Biliary: No bile duct dilation. Gallbladder is absent. Spleen: No mass. No splenomegaly.Calcific granuloma noted. Pancreas: No mass or duct dilation. Adrenals: No mass. Kidneys: No mass, calculus or hydronephrosis. GI tract: No dilation or wall thickening. Diverticulosis without diverticulitis. Lymph nodes: No abdominal or pelvic lymphadenopathy. Mesentery/Peritoneum: No ascites or mass. Pelvis: No mass, ascites or fluid collection. Normal urinary bladder. Bones/Soft Tissues: Degenerative changes throughout the thoracolumbar spine. IMPRESSION: : 1. Almost complete regression of previously seen crescentic intramural hematoma in type B distribution, that involves aorta up to the level of diaphragm. Again seen is a very shallow ulcer on the lateral wall of the proximal descending aorta. Stable maximum dimensions in the retrocardiac segment (4.2 x 3.8 cm; 4.3 x 4.[address]). No rupture or new dissection. 2. Mildly ectatic ascending thoracic aorta 3. Stable infrarenal aortic ectasia (3.0cm) 4. Bilateral paraseptal and centrilobular emphysematous changes with diffuse bronchiectasis. 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: OMID Transcribe Date/Time: Apr 15 2018 11:32A Dictated by : HASEEB PARR MD This examination was interpreted and the report reviewed and electronically signed by: HASEEB PARR MD on Apr 15 2018 11:54AM EST [id number] PROGRESS Observed: 04/15/2018 Status: COMPLETED Source: [place] 10:36 AM [facility] REPOSIT[facility] HNO ID: [id number] Author: Claudia Corbin Ct Service: (none) Author Type: (none) Type: Progress Notes Filed: 04/15/2018 10:36 AM Note Text: Radiology Service Progress Note PATIENT NAME: Elizabeth Méndez DATE OF SERVICE: April 15, 2018 TIME: 10:36 AM PATIENT IDENTITY VERIFICATION COMPLETED USING TWO (2) METHODS: Patient confirmed name verbally and ID band matches.. PATIENT GENDER DATA: Female. status: : No status: NO. PATIENT RELEVANT IMPLANT DATA REVIEWED: Yes RADIOLOGY DEPARTMENT: CT; Exam(s) Completed: Cardiac PERIPHERAL IV DATA: Site assessment: Clean,Dry and Intact, Site disposition Discontinued SIGNED BY: Claudia Gonzalez April 15, 2018 10:36 AM PROGRESS Observed: 04/15/2018 Status: COMPLETED Source: [place] 10:13 AM [facility] REPOSIT[facility] HNO ID: [id number] Author: Linda (Rn) BOB Coffman Service: Radiology Author Type: Registered Nurse Type: Progress Notes Filed: 04/15/2018 10:21 AM Note Text: Radiology Service Progress Note PATIENT NAME: Elizabeth Méndez DATE OF SERVICE: April 15, 2018 TIME: 10:13 AM PATIENT WEIGHT: 160 LBS PATIENT IDENTITY VERIFICATION COMPLETED USING TWO (2) METHODS: Patient confirmed name verbally and ID band matches.. PATIENT GENDER DATA: Female. status: : No status: NO. CONTRAST INDUCED NEPHROPATHY RISK FACTORS: Patient age > 60 years CREATININE: Creatinine Date Value Ref Range Status 03/21/2018 0.89 0.58 - 0.96 mg/dL Final 03/20/2018 0.83 0.58 - 0.96 mg/dL Final 03/20/2018 0.90 0.58 - 0.96 mg/dL Final eGFR-All Other Races Date Value Ref Range Status 03/21/2018 >60 . Final Comment: eGFR (Estimated GFR) Units of measure: mL/min/1.73 meters squared eGFR is derived from the reexpressed MDRD Study equation using the following parameters: serum creatinine, age, gender and race. The creatinine assay has been calibrated to be traceable to IDMS. An eGFR <60 mL/min/1.73m2 for >3 months is consistent with chronic kidney disease. Refer to KDOQI guidelines for clinical interpretation. In patients with unstable renal function, e.g. those with acute kidney injury, the eGFR may not accurately reflect actual GFR. eGFR- Date Value Ref Range Status 03/21/2018 >60 Final P.O.C.T. RESULTS: N/A April 15, 2018 TREATMENT: No Hydration needed. ALLERGIES: Reviewed and unchanged CONTRAST ALLERGY: NO. IV SITE: Ambulatory: A peripheral IV was started in the Left antecubital site with a Angio cath: 20g diffusics. and A Saline lock was inserted per protocol IV SITE APPEARANCE: Clean,Dry and Intact SIGNED BY: Linda Coffman RN April 15, 2018 10:13 AM CNPN Observed: 04/09/2018 Status: COMPLETED Source: [place] 12:00 AM [facility] REPOSIT[facility] Telephone (POD[facility]P) HONEYELIZABETH K ([id number]) 1945 F Date Time Provider Department 04/09/18 KANDY HERNANDEZ (BOB) PODCCP During your visit today, we recorded the following information about you: Kandy Hernandez RN, RN 04/09/2018 12:30 PM Signed SURVEY INFORMATION #1 Registered Nurse: Kandy Hernandez Date: 04/09/2018 12:28:28 PM Call Outcome: Urgent Call Day: 6 Summary: 1. We are calling to check on how you are doing since our last phone call. Are you having any medical concerns we can help you with today? (Standard Question) Yes lightheaded Overall Comments: pt states that she has constantly been feeling lightheaded constantly-not only upon standing but all the time: pt denies dizziness: states BP had been low a few times last bp was 107/52: pt also recently experienced bp of 97/55: not sure if she needs meds adjusted : but she is always lightheadedand is concerned regarding this constant feeling. Jose Estrada CNP 04/12/2018 3:39 PM Signed Spoke with Ms Méndez and her . She has been experiencing SBP mid 90's to 120's. HR mid 50's to low 60's. She is intermittently lightheaded whenever she gets up from sitting position and starts moving. The lightheadedness goes away with rest and moving more slowly. I instructed her to get up more slowly and and start moving more slowly to help with any drops in BP that may happen with standing. Hesitant to make medication changes at this time as she is well controlled. She will follow up on Sunday with Dr Garcia. Instructed to call back or go to ER if lightheadedness becomes worse or she loses consciousness. Jose Estrada CNP Allergies As of Date: 04/09/2018 Noted Allergy Reaction CEFTIN (CEFUROXIME) 10/30/2008 1 - Mental Status Change LISINOPRIL 08/26/2009 3 - Cough VOLTAREN (DICLOFENAC) 05/17/2017 14 - Other: See Comments Comments: Increased liver enzymes. Date Reviewed: 03/27/2018 Reviewed by: Lanny Lemon LPN - Fully Assessed Reason for Visit: Post Dc Program Call - Urgent [[id number]] Cmt: urgent needs attn Prescriptions as of 04/09/2018 Sig: SIMVASTATIN 10 MG TABLET TAKE 1 TABLET EVERY DAY AT BE* TIOTROPIUM BROMIDE 18 MCG CAP* Inhale 1 capsule as instructe* CARVEDILOL 25 MG TABLET Take 1 tablet by mouth twice * ACETAMINOPHEN 325 MG TABLET Take 2 tablets by mouth every* HYDRALAZINE 50 MG TABLET Take 1 tablet by mouth every * NIFEDIPINE ER 60 MG TABLET,EX* Take 1 tablet by mouth once d* ASPIRIN 81 MG TABLET,DELAYED * Take 1 tablet by mouth once d* VENTOLIN HFA 90 MCG/ACTUATION* INHALE 2 PUFFS INSTRUCTED * CALCIUM + D ORAL Take 2 tablets by mouth once * DOCUSATE SODIUM 100 MG CAPSULE Take 1 capsule by mouth twice* ESTRADIOL 0.01% (0.1 MG/GRAM)* Apply small amount at vaginal* Problem List As Of Date 04/09/2018 Noted Resolved SKIN DISORDER NOS [L98.9] INVALID FOR*01/12/2009 SEBORRHEIC KERATOSIS NOS [L82.1] INVALID FOR*01/12/2009 SCREENING MAL NEOP-COLON [Z12.11] INVALID FOR*01/12/2009 BENIGN NEOPLASM LG BOWEL [D12.6] INVALID FOR*01/12/2009 Diverticulosis of large intestine [K57.30] INVALID FOR* EXT HEMORRHOID W/O COMPL [K64.4] INVALID FOR* INT HEMORRHOID W/O COMPL [K64.8] INVALID FOR* Essential hypertension [I10] INVALID FOR* Priority: Mild More... Mixed hyperlipidemia [E78.2] INVALID FOR* More... ATHEROSCLEROSIS NOS [I70.91] INVALID FOR* Hematoma [T14.8XXA] INVALID FOR*03/02/2014 COPD (chronic obstructive pulmonary disease) (H*INVALID FOR* Priority: E More... Hyperplastic colon polyp [K63.5] INVALID FOR* More... 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*INVALID FOR* Priority: B Posterior subcapsular polar senile cataract - B*INVALID FOR*11/16/2015 Growth of eyelid - Left Eye [D49.2] INVALID FOR*11/16/2015 Combined form of senile cataract of left eye [H*INVALID FOR*11/16/2015 Astigmatism of left eye [H52.202] INVALID FOR*11/16/2015 Dry eye syndrome [H04.129] INVALID FOR* Meibomian gland dysfunction [H02.89] INVALID FOR* Pseudophakia, right eye [Z96.1] INVALID FOR*11/16/2015 Pseudophakia of both eyes [Z96.1] INVALID FOR* Pseudophakia of left eye [Z96.1] INVALID FOR*11/16/2015 Postmenopausal atrophic vaginitis [N95.2] INVALID FOR* Vitreous floaters of both eyes [H43.393] INVALID FOR* After-cataract of both eyes [H26.40] INVALID FOR* DDD (degenerative disc disease), cervical [M50.*INVALID FOR* Cervical spondylosis with myelopathy [M47.12] INVALID FOR* After-cataract obscuring vision [H26.499] INVALID FOR* Thrombocytopenia (HCC) [D69.6] INVALID FOR* Priority: A More... CKD (chronic kidney disease), stage III [N18.3] Priority: C More... Intramural aortic hematoma (HCC) [I71.00] INVALID FOR* Priority: Severe More... Thoracoabdominal aortic aneurysm (TAAA) (HCC) [*INVALID FOR* Priority: Moderate More... Nicotine use disorder, F17.2 [F17.200] INVALID FOR* Paroxysmal atrial fibrillation (HCC) [I48.0] INVALID FOR* More... Encounter Status:Closed by KANDY HERNANDEZ on 04/09/18 PROGRESS Observed: 03/27/2018 Status: COMPLETED Source: [place] 9:32 AM [facility] REPOSIT[facility] O ID: [id number] Author: Davis Mclaughlin) Yg Service: (none) Author Type: Physician Type: Progress Notes Filed: 03/27/2018 10:57 AM Note Text: Chief Complaint Patient presents with: Hospital F/U: TCM 7 - [facility] main intramural aortic hematoma HPI Elizabeth Méndez is a 73 year old female who presents here today for Hospital Discharge Follow up/TCM visit. Was hospitalized at [facility] from 03/16 to 03/21 for c/o chest pain with finding of intramural aortic hematoma. Hospital course and medication changes given in bold below: Patient Name: Elizabeth Méndez Patient ? Admission Date: 03/16/2018 Discharge Date: 03/21/2018 ? 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/Pa Admission Diagnosis: Intramural aortic hematoma, thoracoabdominal aortic aneurysm Discharge Diagnosis: Intramural aortic hematoma, thoracoabdominal aortic aneurysm Secondary Diagnoses: Patient Active Hospital Problem List: Intramural aortic hematoma (HCC) (03/16/2018) Thoracoabdominal aortic aneurysm (TAAA) ([facility]) (03/16/2018) Essential hypertension (01/12/2009) Thrombocytopenia ([facility]) (09/19/2017) COPD (chronic obstructive pulmonary disease) ([facility]) (01/30/2013) Nicotine use disorder, F17.2 (03/17/2018) Paroxysmal atrial fibrillation ([facility]) (03/19/2018) ? ? ? Reason for Hospitalization: 73 yo female with hx of ITP, TAA, CKD (cr 1.0), HTN who p/w acute chest pain with development of acute type B intramural hematoma on 03/16. ? Hospital Course: * How was the Reason for Hospitalization addressed; specific medication changes; pertinent issues; reasons for extended stay: Ms Méndez was transferred to [facility] after a CT scan revealed a intramural thrombus in descending and abdominal aorta. Vascular surgery was consulted and they recommended HR and BP control with no indication for surgical management at this time. Ms Méndez went into Afib-RVR resulting in chest pain and hypotension. She was transferred to the ICU and started on amiodarone. Vascular medicine again recommended continued surveilance of your aortic aneurysm and aortic hematoma. Her heart rate and blood pressure were under control for the remainder of your hospital stay. She will follow up with Dr Garcia (Vascular Surgeon) with a repeat CT scan to discuss optimal management of her aortic aneurysm and hematoma. ? ? Consults: Vascular Surgery ? Major Procedure or Operation: None Other Procedures, Testing AND Radiology: Echocardiogram CTA chest/abd/pelvis ? Patient Condition at Discharge: Stable Disposition: Home/Self Care ? Information Provided to the Patient: Patient given copy of After Visit Summary which included activity instructions, diet instructions, wound care instructions, medication instructions and follow up appointment Discharge Medications: Discharge Medication List as of 03/21/2018 2:02 PM ? START taking these medications ? carvedilol (COREG) 25 mg tablet Take 1 tablet by mouth twice daily with meals. Normal, Disp-60 tablet, R-1, Long-term ? acetaminophen (TYLENOL) 325 mg tablet Take 2 tablets by mouth every 6 hours as needed. Normal, Disp-60 tablet, R-1 ? amiodarone (PACERONE) 200 mg tablet Take 2 tablets by mouth three times daily for 14 doses. Normal, Disp-28 tablet, R-0, Long-term ? hydrALAZINE (APRESOLINE) 50 mg tablet Take 1 tablet by mouth every 8 hours. Normal, Disp-90 tablet, R-2, Long-term ? NIFEdipine ER (PROCARDIA XL) 60 mg 24 hr tablet Take 1 tablet by mouth once daily. Normal, Disp-30 tablet, R-2, Long-term ? ? CONTINUE these medications which have CHANGED ? aspirin, enteric coated (ASPIR-81) 81 mg EC tablet Take 1 tablet by mouth once daily. Normal, Disp-30 tablet, R-3, Long-term ? ? CONTINUE these medications which have NOT CHANGED ? VENTOLIN HFA 90 mcg/actuation inhaler INHALE 2 PUFFS INSTRUCTED EVERY 6 HOURS NEEDED. Normal, Disp-54 g, R-3, Long-term ? CALCIUM CARBONATE/VITAMIN D3 (CALCIUM + D ORAL) Take 2 tablets by mouth once daily. Taking 550 + 2001 unit tablets Historical Med ? docusate sodium (COLACE) 100 mg capsule Take 1 capsule by mouth twice daily as needed for Constipation. Normal, Disp-60 capsule, R-2 ? simvastatin (ZOCOR) 10 mg tablet Take 1 tablet by mouth daily at bedtime. Normal, Disp-90 tablet, R-3 ? tiotropium (SPIRIVA WITH HANDIHALER) 18 mcg inhalation capsule Inhale 1 capsule as instructed once daily. Use with handihaler. Normal, Disp-90 capsule, R-3 ? estradiol (ESTRACE) 0.01 % (0.1 mg/gram) vaginal cream Apply small amount at vaginal opening 3 nights per week Normal, Disp-1 Tube, R-1 ? ? STOP taking these medications ? losartan (COZAAR) 25 mg tablet Comments: Reason for Stopping: ? Outpatient Management: * Are there important medication changes and/or outstanding issues that need to be addressed: None * What is the plan for follow up: See Below ? Future Appointments: Future Appointments Date Time Provider Department Center 03/27/2018 9:20 AM [id number] RONQUILLO) [facility] 04/15/2018 10:15 AM [id number] MAIN F30 (I-STAT) [facility] (MAF30 04/15/2018 10:45 AM [id number] GARCIA LIZZIE Main F ? Since discharge, patient states that she is still having left lower chest pain and below left shoulder blade. Pain improved today compared to last few days. Taking tylenol OTC for pain which is cutting pain by 70%. Afib cause not determined while inpatient. Taking ASA instead of anticoagulation despite [id number] score >2, likely to prevent worsening of hematoma. Denies palpitations on current regimen. Was told to finish amiodarone at to stop after finishing, which she has done. Taking beta hardy and nifedipine as prescribed without side effects and has not had palpitations since discharge. Echo reviewed with normal EF and no significant valvular abnormalities or wall motion defects. Discussed follow up with cardiology to discuss stress testing and if/when she should be started on anticoagulation with hematoma. Monitoring BP multiple times per day at home and has been getting readings >120/80, but also noted that they are not taking it after resting, will check when she sits down from walking to restroom or kitchen. Has CT scan scheduled on 04/15 and follow up visit vascular surgery on same date. Aware of appointment date and times and plans to keep scheduled follow up. Was not seen/evaluated by PT while inpatient, told to rest at home and avoid strenuous activity until after she was seen by vascular. Admits to muscle fatigue and weakness in LE. Will place referral for PT to start after cleared by vascular. Denies new infection symptoms. helping with ADLs. Past medical history, appointments, medications, allergies reviewed. Previous Medical History PAST MEDICAL HISTORY Diagnosis Date - Benign neoplasm of colon 06/08/2008 - Cataracts, bilateral Seeing Dr. Beach - Cervical spondylosis without myelopathy Seeing Dr. jean - Chronic obstructive pulmonary disease (COPD) (HCC) mild - CKD (chronic kidney disease), stage III - Diverticulosis of colon (without mention of hemorrhage) - Epistaxis 2/ high dose ASA - Hemorrhoids - Hypertension - Osteopenia - Other seborrheic keratosis 01/24/2007 - Paroxysmal atrial fibrillation (HCC) 03/19/2018 - Snoring - Special screening for malignant neoplasms, colon 06/08/2008 - Unspecified disorder of skin and subcutaneous tissue 01/16/2007 - Varicose vein of leg Previous Surgical History PAST SURGICAL HISTORY Procedure Laterality Date - APPENDECTOMY - COLONOSCOP W/ OR W/O [facility] SPEC 06/08/2008 Colonoscopy - DANDC, DIAG AND/OR THERAPEUTIC Dilation AND curettage - LIGATE FALLOPIAN TUBE - PAST SURGICAL HISTORY OF hysterectomy - REMOVAL GALLBLADDER - REMOVAL OF TONSILS,<12 Y/O Tonsillectomy - REMV CATARACT EXTRACAP,INSERT LENS Right 09/01/15 Cataract Extraction with PC IOL - REMV CATARACT EXTRACAP,INSERT LENS Left 10/13/2015 Cataract Extraction with PC IOL/Femto/LRI - REVISE SECONDARY VARICOSITY Varicose Vein Surgery - SIGMOIDOSCOPY FLEX DIAG 1997 Sigmoidoscopy Family History FAMILY HISTORY Problem Relation Age of Onset - Emphysema Mother smoker - Heart Mother - Emphysema Father smoker - Heart Father Patient Allergies ALLERGIES Allergen Reactions - Ceftin [Cefuroxime] Mental Status Change - Lisinopril Cough - Voltaren [Diclofena* Other: See Comments Increased liver enzymes. Current Medications Current Outpatient Prescriptions on File Prior to Visit: carvedilol (COREG) 25 mg tablet Take 1 tablet by mouth twice daily with meals. acetaminophen (TYLENOL) 325 mg tablet Take 2 tablets by mouth every 6 hours as needed. hydrALAZINE (APRESOLINE) 50 mg tablet Take 1 tablet by mouth every 8 hours. NIFEdipine ER (PROCARDIA XL) 60 mg 24 hr tablet Take 1 tablet by mouth once daily. aspirin, enteric coated (ASPIR-81) 81 mg EC tablet Take 1 tablet by mouth once daily. CALCIUM CARBONATE/VITAMIN D3 (CALCIUM + D ORAL) Take 2 tablets by mouth once daily. Taking 550 + 2001 unit tablets docusate sodium (COLACE) 100 mg capsule Take 1 capsule by mouth twice daily as needed for Constipation. simvastatin (ZOCOR) 10 mg tablet Take 1 tablet by mouth daily at bedtime. tiotropium (SPIRIVA WITH HANDIHALER) 18 mcg inhalation capsule Inhale 1 capsule as instructed once daily. Use with handihaler. amiodarone (PACERONE) 200 mg tablet Take 2 tablets by mouth three times daily for 14 doses. VENTOLIN HFA 90 mcg/actuation inhaler INHALE 2 PUFFS INSTRUCTED EVERY 6 HOURS NEEDED. estradiol (ESTRACE) 0.01 % (0.1 mg/gram) vaginal cream Apply small amount at vaginal opening 3 nights per week No current facility-administered medications on file prior to visit. Social History Social History Marital status: Spouse name: Years of education: Number of children: Social History Main Topics Smoking status: Former Smoker Packs/day: 0.50 Years: 0.00 Types: Cigarettes Start date: 1961 Quit date: 12/27/2015 Smokeless tobacco: Never Used Comment: Parents smoked in home; patient has cheated a few times and smoked; Smoked last week Alcohol use: Yes Comment: rarely Drug use: No Sexual activity: Yes Partners with: Male Comment: no concerns Social History Narrative No known exposure to TB. Review of Symptoms REVIEW OF SYSTEMS GENERAL: No weight loss, malaise or fevers RESPIRATORY: Negative for cough, hemoptysis, wheezing, COPD, dyspnea or shortness of breath CARDIOVASCULAR: Negative for chest pain, leg swelling, hypertension, CHF or palpitations GI: No nausea, vomiting, or diarrhea : No history of dysuria, frequency or incontinence SKIN: Negative for lesions, rash, and itching EXAM: BP 108/62 (BP Site: Left Arm, BP Position: Sitting, BP Cuff Size: Regular Adult) Pulse 72 Resp 16 Wt 72.1 kg (159 lb) BMI 27.29 kg/m? General Appearance: Well appearing, alert, in no acute distress, well-hydrated, well nourished.. Skin: Skin color, texture, turgor normal, no suspicious rashes or lesions. Lungs: Lungs clear to auscultation. No wheezing, rhonchi, rales. Heart: RRR without murmur, gallop, or rubs. No ectopy. Abdomen: Abdomen soft. Bowel sounds normal. No masses, organomegaly, Positive findings: tenderness mild epigastric without guarding or rebound. Extremities: No deformities, edema, skin discoloration, clubbing or cyanosis. Good capillary refill. . Health Maintenance List DIABETES SCREEN due on 03/21/2021 LIPID SCREEN due on 03/16/2023 DTAP,TDAP,TD(2 - Td) due on 03/02/2024 COLORECTAL CANCER SCREENING,SEE MODIFIER due on 01/15/2027 BONE DENSITY Completed ADULT PREVNAR-13 Completed INFLUENZA Completed PNEUMOVAX AGE 65 AND OVER WITH 5YR LOOKBACK Completed Data reviewed Component Latest Ref Rng AND Units 03/16/2018 03/17/2018 03/17/2018 03/17/2018 03/21/2018 12:00 AM 6:55 AM 7:45 AM pH, Arterial 7.35 - 7.45 7.42 pCO2, Arterial 34 - 46 mm Hg 36 pO2, Arterial 85 - 95 mm Hg 72 (L) Base Excess, Arterial mmol/L 0 Bicarbonate, Arterial 22 - 26 mmol/L 23 CO2 Content, Arterial 22.0 - 28.0 mmol/L 24 Oxyhemoglobin, Arterial 95 - 98 % 93 (L) Carboxyhemoglobin, Arterial 0 - 5.0 % 1.8 Methemoglobin, Arterial 0.4 - 1.5 % 0.8 Temperature, Body, Arterial C 37.0 pH, Temp Corrected, Arterial 7.35 - 7.45 7.42 pCO2, Temp Corrected, Arterial 34 - 46 mm Hg 36 pO2, Temp Corrected, Arterial mm Hg 72 Sodium, Whole Blood 132 - 148 mmol/L 136 Potassium, Whole Blood 3.5 - 5.0 mmol/L 3.8 Hemoglobin Total, Whole Blood 11.5 - 15.5 g/dL 13.0 Hematocrit, Whole Blood 36.0 - 46.0 % 40 Calcium Ionized, Whole Blood 1.08 - 1.30 mmol/L 1.19 Glucose, Whole Blood 60 - 105 mg/dL 115 (H) Lactate 0.5 - 2.2 mmol/L 0.8 Color Yellow Yellow Clarity Clear Clear Glucose, Urine Negative mg/dL Negative Bilirubin, Urine Negative Negative Ketones, Urine Negative Negative Specific [place], Ur 1.005 - 1.030 >1.045 (H) Hemoglobin/Blood,Ur Negative Negative pH, Urine 4.5 - 8.0 7.0 Protein, Urine Negative mg/dL Negative Urobilinogen Normal Normal Nitrites Negative Negative Leukest Negative Negative Comments SEE COMMENT Urine Thaddeus Comment SEE COMMENT WBC, Urine 0 - 5 /HPF 0-5 RBC, Urine 0 - 3 /HPF 0-3 Epithelial Cells /HPF SEE COMMENT Protein, Total 6.3 - 8.0 g/dL 6.4 6.1 (L) 6.6 Albumin 3.9 - 4.9 g/dL 3.7 (L) 3.7 (L) 3.6 (L) Calcium 8.5 - 10.2 mg/dL 8.1 (L) 8.2 (L) 8.9 Bilirubin, Total 0.2 - 1.3 mg/dL 1.3 1.4 (H) 1.8 (H) Alkaline Phosphatase 32 - 117 U/L 60 60 65 AST 13 - 35 U/L 28 25 43 (H) Glucose 74 - 99 mg/dL 232 (H) 125 (H) 113 (H) BUN 7 - 21 mg/dL 9 10 13 Creatinine 0.58 - 0.96 mg/dL 0.91 0.84 0.89 Sodium 136 - 144 mmol/L 136 137 139 Potassium 3.7 - 5.1 mmol/L 3.9 3.9 3.7 Chloride 97 - 105 mmol/L 101 102 101 CO2 22 - 30 mmol/L 24 23 26 Anion Gap 9 - 18 mmol/L 11 12 12 ALT 7 - 38 U/L 13 11 20 eGFR- >60 >60 >60 eGFR-All Other Races . >60 >60 >60 WBC 3.70 - 11.00 k/uL 11.49 (H) 9.17 7.72 RBC 3.90 - 5.20 m/uL 4.16 3.91 4.23 Hemoglobin 11.5 - 15.5 g/dL 13.4 12.5 13.4 Hematocrit 36.0 - 46.0 % 39.0 36.6 38.6 MCV 80.0 - 100.0 fL 93.8 93.6 91.3 MCH 26.0 - 34.0 pG 32.2 32.0 31.7 MCHC 30.5 - 36.0 g/dL 34.4 34.2 34.7 RDW-CV 11.5 - 15.0 % 12.5 12.6 12.5 Platelet Count 150 - 400 k/uL 147 (L) 140 (L) 162 MPV 9.0 - 12.7 fL 12.9 (H) 13.0 (H) 13.0 (H) Absolute nRBC <0.01 k/uL <0.01 <0.01 <0.01 Cholesterol, Total <200 mg/dL 93 Triglyceride <150 mg/dL 50 HDL Cholesterol >39 mg/dL 44 LDL Cholesterol <100 mg/dL 39 Non HDL Cholesterol <130 mg/dL 49 Fasting Time hrs Unknown VLDL Cholesterol <30 mg/dL 10 TC:HDL Ratio <5.10 2.11 LDL:HDL Ratio <2.54 0.89 S aureus Specimen Source Nasal MRSA PCR Negative for MRSA by PCR. Staph aureus PCR Negative for Staphylococcus aureus by PCR. CK 42 - 196 U/L 38 (L) 39 (L) 93 MB <4.3 ng/mL 1.2 1.3 1.9 CK MB % 0.0 - 4.0 % CK MB % not reported with CK <100 U/L. CK MB % not reported with CK <100 U/L. CK MB % not reported with CK <100 U/L. Hemoglobin A1C 4.3 - 5.6 % 4.7 Estimated Average Glucose mg/dL 88 PT Sec 9.7 - 13.0 sec 11.9 PT INR 0.9 - 1.3 1.2 TSH 0.400 - 5.500 uU/mL 1.060 NT Pro BNP <450 pg/mL 76 Troponin T 0.000 - 0.029 ng/mL <0.010 <0.010 <0.010 APTT 23.0 - 32.4 sec 27.2 Magnesium 1.7 - 2.3 mg/dL 2.0 2.0 2.2 Phosphorus 2.7 - 4.8 mg/dL 3.2 3.4 d Dimer <500 ng/mL FEU 1,570 (H) ASSESSMENT/PLAN: 1. Intramural aortic hematoma (HCC) - ICD9: 441.00, ICD10: I71.00 (primary diagnosis) Pain improving. Denies sudden SOB, palpitationsContinue BP control, ASA, and follow up with vascular surgery. 2. 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 3. Paroxysmal atrial fibrillation (HCC) - ICD9: 427.31, ICD10: I48.0 Rate controlled, normal rhythm on exam today. Will refer to cardiology for further testing and discussion of anticoagulation if/when necessary. Continue current regimen. - CONSULT TO CARDIOLOGY - HOLTER MONITOR 48 HOUR 4. Essential hypertension - ICD9: 401.9, ICD10: I10 - good control - Continue current medication(s) - Encouraged dietary sodium restriction/DASH diet - Recommended regular aerobic exercise. - Reviewed risks of HTN and principles of treatment - Goal of BP <140/90 5. Mixed simple and mucopurulent chronic bronchitis (HCC) - ICD9: 491.1, ICD10: J41.8 Denies worsening COPD symptoms. Will discuss further at future OV. 6. CKD (chronic kidney disease), stage III - ICD9: 585.3, ICD10: N18.3 Stable while inpatient. Last GFR >60. Will monitor. 7. Hospital discharge follow-up - ICD9: V67.59, ICD10: Z09 Patient improving slowly. Will refer to PT once she is cleared by vascular surgery. Follow up with CT scan. Continue medication regimen and call with any further questions/concerns. Red flag symptoms discussed which she should be seen in ED for immediately. - CONSULT TO PHYSICAL THERAPY Davsi Ronquillo MD CNOV Observed: 03/27/2018 Status: COMPLETED Source: [place] 9:20 AM [facility] REPOSITORY Office Visit (FAMPWS) ELIZABETH MÉNDEZ ([id number]) 1945 F Date Time Provider Department 03/27/18 9:20 AM DAVIS RONQUILLO) FAMPWS During your visit today, we recorded the following information about you: Pulse Respiration Blood pressure Weight 72/minute 16/minute 108/62 72.1 kg Davis Ronquillo MD 03/27/2018 10:57 AM Signed Chief Complaint Patient presents with: Hospital F/U: TCM 7 - [facility] intramural aortic hematoma HPI Elizabeth Méndez is a 73 year old female who presents here today for Hospital Discharge Follow up/TCM visit. Was hospitalized at [facility] from 03/16 to 03/21 for c/o chest pain with finding of intramural aortic hematoma. Hospital course and medication changes given in bold below: Patient Name: Elizabeth Méndez Patient ? Admission Date: 03/16/2018 Discharge Date: 03/21/2018 ? 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 [employer]/Pa Admission Diagnosis: Intramural aortic hematoma, thoracoabdominal aortic aneurysm Discharge Diagnosis: Intramural aortic hematoma, thoracoabdominal aortic aneurysm Secondary Diagnoses: Patient Active Hospital Problem List: Intramural aortic hematoma (HCC) (03/16/2018) Thoracoabdominal aortic aneurysm (TAAA) ([facility]) (03/16/2018) Essential hypertension (01/12/2009) Thrombocytopenia ([facility]) (09/19/2017) COPD (chronic obstructive pulmonary disease) ([facility]) (01/30/2013) Nicotine use disorder, F17.2 (03/17/2018) Paroxysmal atrial fibrillation ([facility]) (03/19/2018) ? ? ? Reason for Hospitalization: 73 yo female with hx of ITP, TAA, CKD (cr 1.0), HTN who p/w acute chest pain with development of acute type B intramural hematoma on 03/16. ? Hospital Course: * How was the Reason for Hospitalization addressed; specific medication changes; pertinent issues; reasons for extended stay: Ms Méndez was transferred to [facility] after a CT scan revealed a intramural thrombus in descending and abdominal aorta. Vascular surgery was consulted and they recommended HR and BP control with no indication for surgical management at this time. Ms Méndez went into Afib-RVR resulting in chest pain and hypotension. She was transferred to the ICU and started on amiodarone. Vascular medicine again recommended continued surveilance of your aortic aneurysm and aortic hematoma. Her heart rate and blood pressure were under control for the remainder of your hospital stay. She will follow up with Dr Garcia (Vascular Surgeon) with a repeat CT scan to discuss optimal management of her aortic aneurysm and hematoma. ? ? Consults: Vascular Surgery ? Major Procedure or Operation: None Other Procedures, Testing AND Radiology: Echocardiogram CTA chest/abd/pelvis ? Patient Condition at Discharge: Stable Disposition: Home/Self Care ? Information Provided to the Patient: Patient given copy of After Visit Summary which included activity instructions, diet instructions, wound care instructions, medication instructions and follow up appointment Discharge Medications: Discharge Medication List as of 03/21/2018 2:02 PM ? START taking these medications ? carvedilol (COREG) 25 mg tablet Take 1 tablet by mouth twice daily with meals. Normal, Disp-60 tablet, R-1, Long-term ? acetaminophen (TYLENOL) 325 mg tablet Take 2 tablets by mouth every 6 hours as needed. Normal, Disp-60 tablet, R-1 ? amiodarone (PACERONE) 200 mg tablet Take 2 tablets by mouth three times daily for 14 doses. Normal, Disp-28 tablet, R-0, Long-term ? hydrALAZINE (APRESOLINE) 50 mg tablet Take 1 tablet by mouth every 8 hours. Normal, Disp-90 tablet, R-2, Long-term ? NIFEdipine ER (PROCARDIA XL) 60 mg 24 hr tablet Take 1 tablet by mouth once daily. Normal, Disp-30 tablet, R-2, Long-term ? ? CONTINUE these medications which have CHANGED ? aspirin, enteric coated (ASPIR-81) 81 mg EC tablet Take 1 tablet by mouth once daily. Normal, Disp-30 tablet, R-3, Long-term ? ? CONTINUE these medications which have NOT CHANGED ? VENTOLIN HFA 90 mcg/actuation inhaler INHALE 2 PUFFS INSTRUCTED EVERY 6 HOURS NEEDED. Normal, Disp-54 g, R-3, Long-term ? CALCIUM CARBONATE/VITAMIN D3 (CALCIUM + D ORAL) Take 2 tablets by mouth once daily. Taking 550 + 2001 unit tablets Historical Med ? docusate sodium (COLACE) 100 mg capsule Take 1 capsule by mouth twice daily as needed for Constipation. Normal, Disp-60 capsule, R-2 ? simvastatin (ZOCOR) 10 mg tablet Take 1 tablet by mouth daily at bedtime. Normal, Disp-90 tablet, R-3 ? tiotropium (SPIRIVA WITH HANDIHALER) 18 mcg inhalation capsule Inhale 1 capsule as instructed once daily. Use with handihaler. Normal, Disp-90 capsule, R-3 ? estradiol (ESTRACE) 0.01 % (0.1 mg/gram) vaginal cream Apply small amount at vaginal opening 3 nights per week Normal, Disp-1 Tube, R-1 ? ? STOP taking these medications ? losartan (COZAAR) 25 mg tablet Comments: Reason for Stopping: ? Outpatient Management: * Are there important medication changes and/or outstanding issues that need to be addressed: None * What is the plan for follow up: See Below ? Future Appointments: Future Appointments Date Time Provider Department Center 03/27/2018 9:20 AM [id number] RONQUILLO) [facility] 10:15 AM [id number] MAIN F30 (I-STAT) [facility] (MAF30 04/15/2018 10:45 AM [id number] GARCIA LIZZIE Main F ? Since discharge, patient states that she is still having left lower chest pain and below left shoulder blade. Pain improved today compared to last few days. Taking tylenol OTC for pain which is cutting pain by 70%. Afib cause not determined while inpatient. Taking ASA instead of anticoagulation despite [id number] score >2, likely to prevent worsening of hematoma. Denies palpitations on current regimen. Was told to finish amiodarone at to stop after finishing, which she has done. Taking beta hardy and nifedipine as prescribed without side effects and has not had palpitations since discharge. Echo reviewed with normal EF and no significant valvular abnormalities or wall motion defects. Discussed follow up with cardiology to discuss stress testing and if/when she should be started on anticoagulation with hematoma. Monitoring BP multiple times per day at home and has been getting readings >120/80, but also noted that they are not taking it after resting, will check when she sits down from walking to restroom or kitchen. Has CT scan scheduled on 04/15 and follow up visit vascular surgery on same date. Aware of appointment date and times and plans to keep scheduled follow up. Was not seen/evaluated by PT while inpatient, told to rest at home and avoid strenuous activity until after she was seen by vascular. Admits to muscle fatigue and weakness in LE. Will place referral for PT to start after cleared by vascular. Denies new infection symptoms. helping with ADLs. Past medical history, appointments, medications, allergies reviewed. Previous Medical History PAST MEDICAL HISTORY Diagnosis Date - Benign neoplasm of colon 06/08/2008 - Cataracts, bilateral Seeing Dr. Beach - Cervical spondylosis without myelopathy Seeing Dr. jean - Chronic obstructive pulmonary disease (COPD) (HCC) mild - CKD (chronic kidney disease), stage III - Diverticulosis of colon (without mention of hemorrhage) - Epistaxis 2/ high dose ASA - Hemorrhoids - Hypertension - Osteopenia - Other seborrheic keratosis 01/24/2007 - Paroxysmal atrial fibrillation (HCC) 03/19/2018 - Snoring - Special screening for malignant neoplasms, colon 06/08/2008 - Unspecified disorder of skin and subcutaneous tissue 01/16/2007 - Varicose vein of leg Previous Surgical History PAST SURGICAL HISTORY Procedure Laterality Date - APPENDECTOMY - COLONOSCOP W/ OR W/O [facility] SPEC 06/08/2008 Colonoscopy - DANDC, DIAG AND/OR THERAPEUTIC Dilation AND curettage - LIGATE FALLOPIAN TUBE - PAST SURGICAL HISTORY OF hysterectomy - REMOVAL GALLBLADDER - REMOVAL OF TONSILS,<12 Y/O Tonsillectomy - REMV CATARACT EXTRACAP,INSERT LENS Right 09/01/15 Cataract Extraction with PC IOL - REMV CATARACT EXTRACAP,INSERT LENS Left 10/13/2015 Cataract Extraction with PC IOL/Femto/LRI - REVISE SECONDARY VARICOSITY Varicose Vein Surgery - SIGMOIDOSCOPY FLEX DIAG 1997 Sigmoidoscopy Family History FAMILY HISTORY Problem Relation Age of Onset - Emphysema Mother smoker - Heart Mother - Emphysema Father smoker - Heart Father Patient Allergies ALLERGIES Allergen Reactions - Ceftin [Cefuroxime] Mental Status Change - Lisinopril Cough - Voltaren [Diclofena* Other: See Comments Increased liver enzymes. Current Medications Current Outpatient Prescriptions on File Prior to Visit: carvedilol (COREG) 25 mg tablet Take 1 tablet by mouth twice daily with meals. acetaminophen (TYLENOL) 325 mg tablet Take 2 tablets by mouth every 6 hours as needed. hydrALAZINE (APRESOLINE) 50 mg tablet Take 1 tablet by mouth every 8 hours. NIFEdipine ER (PROCARDIA XL) 60 mg 24 hr tablet Take 1 tablet by mouth once daily. aspirin, enteric coated (ASPIR-81) 81 mg EC tablet Take 1 tablet by mouth once daily. CALCIUM CARBONATE/VITAMIN D3 (CALCIUM + D ORAL) Take 2 tablets by mouth once daily. Taking 550 + 2001 unit tablets docusate sodium (COLACE) 100 mg capsule Take 1 capsule by mouth twice daily as needed for Constipation. simvastatin (ZOCOR) 10 mg tablet Take 1 tablet by mouth daily at bedtime. tiotropium (SPIRIVA WITH HANDIHALER) 18 mcg inhalation capsule Inhale 1 capsule as instructed once daily. Use with handihaler. amiodarone (PACERONE) 200 mg tablet Take 2 tablets by mouth three times daily for 14 doses. VENTOLIN HFA 90 mcg/actuation inhaler INHALE 2 PUFFS INSTRUCTED EVERY 6 HOURS NEEDED. estradiol (ESTRACE) 0.01 % (0.1 mg/gram) vaginal cream Apply small amount at vaginal opening 3 nights per week No current facility-administered medications on file prior to visit. Social History Social History Marital status: Spouse name: Years of education: Number of children: Social History Main Topics Smoking status: Former Smoker Packs/day: 0.50 Years: 0.00 Types: Cigarettes Start date: 1961 Quit date: 12/27/2015 Smokeless tobacco: Never Used Comment: Parents smoked in home; patient has cheated a few times and smoked; Smoked last week Alcohol use: Yes Comment: rarely Drug use: No Sexual activity: Yes Partners with: Male Comment: no concerns Social History Narrative No known exposure to TB. Review of Symptoms REVIEW OF SYSTEMS GENERAL: No weight loss, malaise or fevers RESPIRATORY: Negative for cough, hemoptysis, wheezing, COPD, dyspnea or shortness of breath CARDIOVASCULAR: Negative for chest pain, leg swelling, hypertension, CHF or palpitations GI: No nausea, vomiting, or diarrhea : No history of dysuria, frequency or incontinence SKIN: Negative for lesions, rash, and itching EXAM: BP 108/62 (BP Site: Left Arm, BP Position: Sitting, BP Cuff Size: Regular Adult) Pulse 72 Resp 16 Wt 72.1 kg (159 lb) BMI 27.29 kg/m? General Appearance: Well appearing, alert, in no acute distress, well-hydrated, well nourished.. Skin: Skin color, texture, turgor normal, no suspicious rashes or lesions. Lungs: Lungs clear to auscultation. No wheezing, rhonchi, rales. Heart: RRR without murmur, gallop, or rubs. No ectopy. Abdomen: Abdomen soft. Bowel sounds normal. No masses, organomegaly, Positive findings: tenderness mild epigastric without guarding or rebound. Extremities: No deformities, edema, skin discoloration, clubbing or cyanosis. Good capillary refill. . Health Maintenance List DIABETES SCREEN due on 03/21/2021 LIPID SCREEN due on 03/16/2023 DTAP,TDAP,TD(2 - Td) due on 03/02/2024 COLORECTAL CANCER SCREENING,SEE MODIFIER due on 01/15/2027 BONE DENSITY Completed ADULT PREVNAR-13 Completed INFLUENZA Completed PNEUMOVAX AGE 65 AND OVER WITH 5YR LOOKBACK Completed Data reviewed Component Latest Ref Rng AND Units 03/16/2018 03/17/2018 03/17/2018 03/17/2018 03/21/2018 12:00 AM 6:55 AM 7:45 AM pH, Arterial 7.35 - 7.45 7.42 pCO2, Arterial 34 - 46 mm Hg 36 pO2, Arterial 85 - 95 mm Hg 72 (L) Base Excess, Arterial mmol/L 0 Bicarbonate, Arterial 22 - 26 mmol/L 23 CO2 Content, Arterial 22.0 - 28.0 mmol/L 24 Oxyhemoglobin, Arterial 95 - 98 % 93 (L) Carboxyhemoglobin, Arterial 0 - 5.0 % 1.8 Methemoglobin, Arterial 0.4 - 1.5 % 0.8 Temperature, Body, Arterial C 37.0 pH, Temp Corrected, Arterial 7.35 - 7.45 7.42 pCO2, Temp Corrected, Arterial 34 - 46 mm Hg 36 pO2, Temp Corrected, Arterial mm Hg 72 Sodium, Whole Blood 132 - 148 mmol/L 136 Potassium, Whole Blood 3.5 - 5.0 mmol/L 3.8 Hemoglobin Total, Whole Blood 11.5 - 15.5 g/dL 13.0 Hematocrit, Whole Blood 36.0 - 46.0 % 40 Calcium Ionized, Whole Blood 1.08 - 1.30 mmol/L 1.19 Glucose, Whole Blood 60 - 105 mg/dL 115 (H) Lactate 0.5 - 2.2 mmol/L 0.8 Color Yellow Yellow Clarity Clear Clear Glucose, Urine Negative mg/dL Negative Bilirubin, Urine Negative Negative Ketones, Urine Negative Negative Specific [place], Ur 1.005 - 1.030 >1.045 (H) Hemoglobin/Blood,Ur Negative Negative pH, Urine 4.5 - 8.0 7.0 Protein, Urine Negative mg/dL Negative Urobilinogen Normal Normal Nitrites Negative Negative Leukest Negative Negative Comments SEE COMMENT Urine Thaddeus Comment SEE COMMENT WBC, Urine 0 - 5 /HPF 0-5 RBC, Urine 0 - 3 /HPF 0-3 Epithelial Cells /HPF SEE COMMENT Protein, Total 6.3 - 8.0 g/dL 6.4 6.1 (L) 6.6 Albumin 3.9 - 4.9 g/dL 3.7 (L) 3.7 (L) 3.6 (L) Calcium 8.5 - 10.2 mg/dL 8.1 (L) 8.2 (L) 8.9 Bilirubin, Total 0.2 - 1.3 mg/dL 1.3 1.4 (H) 1.8 (H) Alkaline Phosphatase 32 - 117 U/L 60 60 65 AST 13 - 35 U/L 28 25 43 (H) Glucose 74 - 99 mg/dL 232 (H) 125 (H) 113 (H) BUN 7 - 21 mg/dL 9 10 13 Creatinine 0.58 - 0.96 mg/dL 0.91 0.84 0.89 Sodium 136 - 144 mmol/L 136 137 139 Potassium 3.7 - 5.1 mmol/L 3.9 3.9 3.7 Chloride 97 - 105 mmol/L 101 102 101 CO2 22 - 30 mmol/L 24 23 26 Anion Gap 9 - 18 mmol/L 11 12 12 ALT 7 - 38 U/L 13 11 20 eGFR- >60 >60 >60 eGFR-All Other Races . >60 >60 >60 WBC 3.70 - 11.00 k/uL 11.49 (H) 9.17 7.72 RBC 3.90 - 5.20 m/uL 4.16 3.91 4.23 Hemoglobin 11.5 - 15.5 g/dL 13.4 12.5 13.4 Hematocrit 36.0 - 46.0 % 39.0 36.6 38.6 MCV 80.0 - 100.0 fL 93.8 93.6 91.3 MCH 26.0 - 34.0 pG 32.2 32.0 31.7 MCHC 30.5 - 36.0 g/dL 34.4 34.2 34.7 RDW-CV 11.5 - 15.0 % 12.5 12.6 12.5 Platelet Count 150 - 400 k/uL 147 (L) 140 (L) 162 MPV 9.0 - 12.7 fL 12.9 (H) 13.0 (H) 13.0 (H) Absolute nRBC <0.01 k/uL <0.01 <0.01 <0.01 Cholesterol, Total <200 mg/dL 93 Triglyceride <150 mg/dL 50 HDL Cholesterol >39 mg/dL 44 LDL Cholesterol <100 mg/dL 39 Non HDL Cholesterol <130 mg/dL 49 Fasting Time hrs Unknown VLDL Cholesterol <30 mg/dL 10 TC:HDL Ratio <5.10 2.11 LDL:HDL Ratio <2.54 0.89 S aureus Specimen Source Nasal MRSA PCR Negative for MRSA by PCR. Staph aureus PCR Negative for Staphylococcus aureus by PCR. CK 42 - 196 U/L 38 (L) 39 (L) 93 MB <4.3 ng/mL 1.2 1.3 1.9 CK MB % 0.0 - 4.0 % CK MB % not reported with CK <100 U/L. CK MB % not reported with CK <100 U/L. CK MB % not reported with CK <100 U/L. Hemoglobin A1C 4.3 - 5.6 % 4.7 Estimated Average Glucose mg/dL 88 PT Sec 9.7 - 13.0 sec 11.9 PT INR 0.9 - 1.3 1.2 TSH 0.400 - 5.500 uU/mL 1.060 NT Pro BNP <450 pg/mL 76 Troponin T 0.000 - 0.029 ng/mL <0.010 <0.010 <0.010 APTT 23.0 - 32.4 sec 27.2 Magnesium 1.7 - 2.3 mg/dL 2.0 2.0 2.2 Phosphorus 2.7 - 4.8 mg/dL 3.2 3.4 d Dimer <500 ng/mL FEU 1,570 (H) ASSESSMENT/PLAN: 1. Intramural aortic hematoma (HCC) - ICD9: 441.00, ICD10: I71.00 (primary diagnosis) Pain improving. Denies sudden SOB, palpitationsContinue BP control, ASA, and follow up with vascular surgery. 2. 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 3. Paroxysmal atrial fibrillation (HCC) - ICD9: 427.31, ICD10: I48.0 Rate controlled, normal rhythm on exam today. Will refer to cardiology for further testing and discussion of anticoagulation if/when necessary. Continue current regimen. - CONSULT TO CARDIOLOGY - HOLTER MONITOR 48 HOUR 4. Essential hypertension - ICD9: 401.9, ICD10: I10 - good control - Continue current medication(s) - Encouraged dietary sodium restriction/DASH diet - Recommended regular aerobic exercise. - Reviewed risks of HTN and principles of treatment - Goal of BP <140/90 5. Mixed simple and mucopurulent chronic bronchitis (HCC) - ICD9: 491.1, ICD10: J41.8 Denies worsening COPD symptoms. Will discuss further at future OV. 6. CKD (chronic kidney disease), stage III - ICD9: 585.3, ICD10: N18.3 Stable while inpatient. Last GFR >60. Will monitor. 7. Hospital discharge follow-up - ICD9: V67.59, ICD10: Z09 Patient improving slowly. Will refer to PT once she is cleared by vascular surgery. Follow up with CT scan. Continue medication regimen and call with any further questions/concerns. Red flag symptoms discussed which she should be seen in ED for immediately. - CONSULT TO PHYSICAL THERAPY Davis Ronquillo MD Referring Provider: SELF [[id number]] Allergies As of Date: 03/27/2018 Noted Allergy Reaction CEFTIN (CEFUROXIME) 10/30/2008 1 - Mental Status Change LISINOPRIL 08/26/2009 3 - Cough VOLTAREN (DICLOFENAC) 05/17/2017 14 - Other: See Comments Comments: Increased liver enzymes. 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) [I71.6] Paroxysmal atrial fibrillation (HCC) [I48.0] Essential hypertension [I10] Mixed simple and mucopurulent chronic bronchitis (HCC) [J41.8] CKD (chronic kidney disease), stage III [N18.3] Hospital discharge follow-up [Z09] Order(s):CONSULT TO CARDIOLOGY [9004] Order #: [id number]: 1 CONSULT TO PHYSICAL THERAPY [9032] Order #: [id number]: 1 Prescriptions as of 03/27/2018 Sig: CARVEDILOL 25 MG TABLET Take 1 tablet by mouth twice * ACETAMINOPHEN 325 MG TABLET Take 2 tablets by mouth every* HYDRALAZINE 50 MG TABLET Take 1 tablet by mouth every * NIFEDIPINE ER 60 MG TABLET,EX* Take 1 tablet by mouth once d* ASPIRIN 81 MG TABLET,DELAYED * Take 1 tablet by mouth once d* CALCIUM + D ORAL Take 2 tablets by mouth once * DOCUSATE SODIUM 100 MG CAPSULE Take 1 capsule by mouth twice* SIMVASTATIN 10 MG TABLET Take 1 tablet by mouth daily * TIOTROPIUM BROMIDE 18 MCG CAP* Inhale 1 capsule as instructe* VENTOLIN HFA 90 MCG/ACTUATION* INHALE 2 PUFFS INSTRUCTED * ESTRADIOL 0.01% (0.1 MG/GRAM)* Apply small amount at vaginal* Problem List As Of Date 03/27/2018 Noted Resolved SKIN DISORDER NOS [L98.9] INVALID FOR*01/12/2009 SEBORRHEIC KERATOSIS NOS [L82.1] INVALID FOR*01/12/2009 SCREENING MAL NEOP-COLON [Z12.11] INVALID FOR*01/12/2009 BENIGN NEOPLASM LG BOWEL [D12.6] INVALID FOR*01/12/2009 Diverticulosis of large intestine [K57.30] INVALID FOR* EXT HEMORRHOID W/O COMPL [K64.4] INVALID FOR* INT HEMORRHOID W/O COMPL [K64.8] INVALID FOR* Essential hypertension [I10] INVALID FOR* Priority: Mild More... Mixed hyperlipidemia [E78.2] INVALID FOR* More... ATHEROSCLEROSIS NOS [I70.91] INVALID FOR* Hematoma [T14.8XXA] INVALID FOR*03/02/2014 COPD (chronic obstructive pulmonary disease) (H*INVALID FOR* Priority: E More... Hyperplastic colon polyp [K63.5] INVALID FOR* More... 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*INVALID FOR* Priority: B Posterior subcapsular polar senile cataract - B*INVALID FOR*11/16/2015 Growth of eyelid - Left Eye [D49.2] INVALID FOR*11/16/2015 Combined form of senile cataract of left eye [H*INVALID FOR*11/16/2015 Astigmatism of left eye [H52.202] INVALID FOR*11/16/2015 Dry eye syndrome [H04.129] INVALID FOR* Meibomian gland dysfunction [H02.89] INVALID FOR* Pseudophakia, right eye [Z96.1] INVALID FOR*11/16/2015 Pseudophakia of both eyes [Z96.1] INVALID FOR* Pseudophakia of left eye [Z96.1] INVALID FOR*11/16/2015 Postmenopausal atrophic vaginitis [N95.2] INVALID FOR* Vitreous floaters of both eyes [H43.393] INVALID FOR* After-cataract of both eyes [H26.40] INVALID FOR* DDD (degenerative disc disease), cervical [M50.*INVALID FOR* Cervical spondylosis with myelopathy [M47.12] INVALID FOR* After-cataract obscuring vision [H26.499] INVALID FOR* Thrombocytopenia (HCC) [D69.6] INVALID FOR* Priority: A More... CKD (chronic kidney disease), stage III [N18.3] Priority: C More... Intramural aortic hematoma (HCC) [I71.00] INVALID FOR* Priority: Severe More... Thoracoabdominal aortic aneurysm (TAAA) (HCC) [*INVALID FOR* Priority: Moderate More... Nicotine use disorder, F17.2 [F17.200] INVALID FOR* Paroxysmal atrial fibrillation (HCC) [I48.0] INVALID FOR* More... Medications Discontinued During This Encounter amiodarone (PACERONE) 200 mg tablet 28 t* 0 03/21/2018 03/27/2018 Route: ORAL Sig: Take 2 tablets by mouth three times daily for 14 doses. Disc: Reason for discontinue is not on file. Disposition: Return in about 2 months (around 05/27/2018). Follow-up and Disposition History Recorded Encounter Status:Closed by DAVIS RONQUILLO MD on 03/27/18 PROGRESS Observed: 03/26/2018 Status: COMPLETED Source: [place] 5:52 PM [facility] REPOSITORY HNO ID: [id number] Author: Davis Mclaughlin) Yg Service: (none) Author Type: Physician Type: Progress Notes Filed: 03/26/2018 5:53 PM Note Text: Reviewed. Will discuss at appointment tomorrow as scheduled. PROGRESS Observed: 03/26/2018 Status: COMPLETED Source: [place] 5:06 PM [facility] REPOSITORY HNO ID: [id number] Author: Cinthia Luna LPN Service: (none) Author Type: (none) Type: Progress Notes Filed: 08/09/2018 6:36 AM Note Text: TRANSITION CARE MANAGEMENT (TCM) INITIAL CONTACT Manager Contact Outreach Provider Action/FYI: PT C/O of being in a lot of pain- when asked if she was prescribed anything for pain, pt got distraught. and pt both unwilling to review med list and discuss hospital discharge. Stating if we have an after visit summary we shouldn't be bothering them this evening. Initial contact with patient post discharge, spoke to patient. Patient identified by name and . SUMMARY: -Pt discharged from [facility] on 03/21/18. -Admitted for: intramural aortic hematoma Do you have a hospital follow up appointment with your PCP? Appointment on 03/27/[address] Ronquillo. Yes. Remind patient of appointment date, time, and location. MEDICATIONS: Many patients have questions or concerns about their medications once they are home. Were you prescribed any new medications? Yes, pt states she was prescribes Cardedilol 25 mg and confirmed pt is taking it twice daily. also confirmed pt was started on Amiodarone and finished her last dose today. Pt's states they are following the summary report and if we have that report we shouldn't be bothering them this evening with these questions. I advised its nice to go over the medications and address any possible issues before the OV with the PCP, so we can assure the pt is taking everything correctly and there is no discrepancy between the discharge summary and now. I stated it was not my intention to offend or to assume they are not following instructions correctly, I was just calling to check on pt. He states I have upset the pt and she needs to help her BP down. I told him we could end the conversation at that point and if he could please bring all meds tomorrow for the PCP to review. Were you told to hold any medications? NA- Pt refused to answer anymore questions Were any of your medications discontinued? NA- Pt refused to answer anymore questions Do you have any questions about getting or taking your medications? No Your discharge instructions/After visit Summary (AVS) are important in guiding you through the recovery process. Is there anything I might help you understand? No- Do you have all the necessary equipment and supplies at home? yes Medical records from recent hospitalization: Joey PASTRANA Observed: 03/26/2018 Status: COMPLETED Source: [place] 12:00 AM [facility] REPOSITORY Patient Outreach (FAMPWS) ELIZABETH MÉNDEZ ([id number]) 1945 F Date Time Provider Department 03/26/18 DAVIS RONQUILLO) NEHEMIAHWS During your visit today, we recorded the following information about you: Cinthia Luna FORD 08/09/2018 6:36 AM Signed TRANSITION CARE MANAGEMENT (TCM) INITIAL CONTACT Manager Contact Outreach Provider Action/FYI: PT C/O of being in a lot of pain- when asked if she was prescribed anything for pain, pt got distraught. and pt both unwilling to review med list and discuss hospital discharge. Stating if we have an after visit summary we shouldn't be bothering them this evening. Initial contact with patient post discharge, spoke to patient. Patient identified by name and . SUMMARY: -Pt discharged from [facility] on 03/21/18. -Admitted for: intramural aortic hematoma Do you have a hospital follow up appointment with your PCP? Appointment on 03/27/[address] Ronquillo. Yes. Remind patient of appointment date, time, and location. MEDICATIONS: Many patients have questions or concerns about their medications once they are home. Were you prescribed any new medications? Yes, pt states she was prescribes Cardedilol 25 mg and confirmed pt is taking it twice daily. also confirmed pt was started on Amiodarone and finished her last dose today. Pt's states they are following the summary report and if we have that report we shouldn't be bothering them this evening with these questions. I advised its nice to go over the medications and address any possible issues before the OV with the PCP, so we can assure the pt is taking everything correctly and there is no discrepancy between the discharge summary and now. I stated it was not my intention to offend or to assume they are not following instructions correctly, I was just calling to check on pt. He states I have upset the pt and she needs to help her BP down. I told him we could end the conversation at that point and if he could please bring all meds tomorrow for the PCP to review. Were you told to hold any medications? NA- Pt refused to answer anymore questions Were any of your medications discontinued? NA- Pt refused to answer anymore questions Do you have any questions about getting or taking your medications? No Your discharge instructions/After visit Summary (AVS) are important in guiding you through the recovery process. Is there anything I might help you understand? No- Do you have all the necessary equipment and supplies at home? yes Medical records from recent hospitalization: Joey Ronquillo MD 03/26/2018 5:53 PM Signed Reviewed. Will discuss at appointment tomorrow as scheduled. Allergies As of Date: 03/26/2018 Noted Allergy Reaction CEFTIN (CEFUROXIME) 10/30/2008 1 - Mental Status Change LISINOPRIL 08/26/2009 3 - Cough VOLTAREN (DICLOFENAC) 05/17/2017 14 - Other: See Comments Comments: Increased liver enzymes. Date Reviewed: 03/21/2018 Reviewed by: Lizzy PattersonRn) BOB Orellana - Fully Assessed Prescriptions as of 03/26/2018 Sig: ACETAMINOPHEN 325 MG TABLET Take 2 tablets by mouth every* ASPIRIN 81 MG TABLET,DELAYED * Take 1 tablet by mouth once d* X CARVEDILOL 25 MG TABLET Take 1 tablet by mouth twice * X AMIODARONE 200 MG TABLET Take 2 tablets by mouth three* X HYDRALAZINE 50 MG TABLET Take 1 tablet by mouth every * X NIFEDIPINE ER 60 MG TABLET,EX* Take 1 tablet by mouth once d* VENTOLIN HFA 90 MCG/ACTUATION* INHALE 2 PUFFS INSTRUCTED * CALCIUM + D ORAL Take 2 tablets by mouth once * DOCUSATE SODIUM 100 MG CAPSULE Take 1 capsule by mouth twice* X SIMVASTATIN 10 MG TABLET Take 1 tablet by mouth daily * X TIOTROPIUM BROMIDE 18 MCG CAP* Inhale 1 capsule as instructe* ESTRADIOL 0.01% (0.1 MG/GRAM)* Apply small amount at vaginal* Problem List As Of Date 03/26/2018 Noted Resolved SKIN DISORDER NOS [L98.9] INVALID FOR*01/12/2009 SEBORRHEIC KERATOSIS NOS [L82.1] INVALID FOR*01/12/2009 SCREENING MAL NEOP-COLON [Z12.11] INVALID FOR*01/12/2009 BENIGN NEOPLASM LG BOWEL [D12.6] INVALID FOR*01/12/2009 Diverticulosis of large intestine [K57.30] INVALID FOR* EXT HEMORRHOID W/O COMPL [K64.4] INVALID FOR* INT HEMORRHOID W/O COMPL [K64.8] INVALID FOR* Essential hypertension [I10] INVALID FOR* Priority: Mild More... Mixed hyperlipidemia [E78.2] INVALID FOR* More... ATHEROSCLEROSIS NOS [I70.90] INVALID FOR* Hematoma [T14.8XXA] INVALID FOR*03/02/2014 COPD (chronic obstructive pulmonary disease) (H*INVALID FOR* Priority: E More... Hyperplastic colon polyp [K63.5] INVALID FOR* More... 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*INVALID FOR* Priority: B Posterior subcapsular polar senile cataract - B*INVALID FOR*11/16/2015 Growth of eyelid - Left Eye [D49.2] INVALID FOR*11/16/2015 Combined form of senile cataract of left eye [H*INVALID FOR*11/16/2015 Astigmatism of left eye [H52.202] INVALID FOR*11/16/2015 Dry eye syndrome [H04.129] INVALID FOR* Meibomian gland dysfunction [H02.889] INVALID FOR* Pseudophakia, right eye [Z96.1] INVALID FOR*11/16/2015 Pseudophakia of both eyes [Z96.1] INVALID FOR* Pseudophakia of left eye [Z96.1] INVALID FOR*11/16/2015 Postmenopausal atrophic vaginitis [N95.2] INVALID FOR* Vitreous floaters of both eyes [H43.393] INVALID FOR* After-cataract of both eyes [H26.40] INVALID FOR* DDD (degenerative disc disease), cervical [M50.*INVALID FOR* Cervical spondylosis with myelopathy [M47.12] INVALID FOR* After-cataract obscuring vision [H26.499] INVALID FOR* Thrombocytopenia (HCC) [D69.6] INVALID FOR* Priority: A More... CKD (chronic kidney disease), stage III [N18.3] Priority: C More... Intramural aortic hematoma (HCC) [I71.00] INVALID FOR* Priority: Severe More... Thoracoabdominal aortic aneurysm (TAAA) (HCC) [*INVALID FOR* Priority: Moderate More... Nicotine use disorder, F17.2 [F17.200] INVALID FOR* Paroxysmal atrial fibrillation (HCC) [I48.0] INVALID FOR* More... Encounter Status:Closed by [employer], PRODUSER on 08/09/18 CNDS Observed: 03/21/2018 Status: COMPLETED Source: [place] 4:22 PM [facility] REPOSITORY O ID: [id number] Author: Vladimir PattersonStillman InfirmaryJayda Estrada Service: Cardiovascular Medicine Author Type: Nurse Practitioner Type: Discharge Summaries Filed: 03/22/2018 2:37 PM Note Text: Department of Cardiovascular Medicine Discharge Summary (Template ID [id number]) Patient Name: Elizabeth Méndez Patient Admission Date: 03/16/2018 Discharge Date: 03/21/2018 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 Admission Diagnosis: Intramural aortic hematoma, thoracoabdominal aortic aneurysm Discharge Diagnosis: Intramural aortic hematoma, thoracoabdominal aortic aneurysm Secondary Diagnoses: Patient Active Hospital Problem List: Intramural aortic hematoma (HCC) (03/16/2018) Thoracoabdominal aortic aneurysm (TAAA) ([facility]) (03/16/2018) Essential hypertension (01/12/2009) Thrombocytopenia (HCC) (09/19/2017) COPD (chronic obstructive pulmonary disease) (HCC) (01/30/2013) Nicotine use disorder, F17.2 (03/17/2018) Paroxysmal atrial fibrillation (HCC) (03/19/2018) Reason for Hospitalization: 73 yo female with hx of ITP, TAA, CKD (cr 1.0), HTN who p/w acute chest pain with development of acute type B intramural hematoma on 03/16. Hospital Course: * How was the Reason for Hospitalization addressed; specific medication changes; pertinent issues; reasons for extended stay: Ms Méndez was transferred to [facility] after a CT scan revealed a intramural thrombus in descending and abdominal aorta. Vascular surgery was consulted and they recommended HR and BP control with no indication for surgical management at this time. Ms Méndez went into Afib-RVR resulting in chest pain and hypotension. She was transferred to the ICU and started on amiodarone. Vascular medicine again recommended continued surveilance of your aortic aneurysm and aortic hematoma. Her heart rate and blood pressure were under control for the remainder of your hospital stay. She will follow up with Dr Garcia (Vascular Surgeon) with a repeat CT scan to discuss optimal management of her aortic aneurysm and hematoma. Consults: Vascular Surgery Major Procedure or Operation: None Other Procedures, Testing AND Radiology: Echocardiogram CTA chest/abd/pelvis Patient Condition at Discharge: Stable Disposition: Home/Self Care Information Provided to the Patient: Patient given copy of After Visit Summary which included activity instructions, diet instructions, wound care instructions, medication instructions and follow up appointment Discharge Medications: Discharge Medication List as of 03/21/2018 2:02 PM START taking these medications carvedilol (COREG) 25 mg tablet Take 1 tablet by mouth twice daily with meals. Normal, Disp-60 tablet, R-1, Long-term acetaminophen (TYLENOL) 325 mg tablet Take 2 tablets by mouth every 6 hours as needed. Normal, Disp-60 tablet, R-1 amiodarone (PACERONE) 200 mg tablet Take 2 tablets by mouth three times daily for 14 doses. Normal, Disp-28 tablet, R-0, Long-term hydrALAZINE (APRESOLINE) 50 mg tablet Take 1 tablet by mouth every 8 hours. Normal, Disp-90 tablet, R-2, Long-term NIFEdipine ER (PROCARDIA XL) 60 mg 24 hr tablet Take 1 tablet by mouth once daily. Normal, Disp-30 tablet, R-2, Long-term CONTINUE these medications which have CHANGED aspirin, enteric coated (ASPIR-81) 81 mg EC tablet Take 1 tablet by mouth once daily. Normal, Disp-30 tablet, R-3, Long-term CONTINUE these medications which have NOT CHANGED VENTOLIN HFA 90 mcg/actuation inhaler INHALE 2 PUFFS INSTRUCTED EVERY 6 HOURS NEEDED. Normal, Disp-54 g, R-3, Long-term CALCIUM CARBONATE/VITAMIN D3 (CALCIUM + D ORAL) Take 2 tablets by mouth once daily. Taking 550 + 2001 unit tablets Historical Med docusate sodium (COLACE) 100 mg capsule Take 1 capsule by mouth twice daily as needed for Constipation. Normal, Disp-60 capsule, R-2 simvastatin (ZOCOR) 10 mg tablet Take 1 tablet by mouth daily at bedtime. Normal, Disp-90 tablet, R-3 tiotropium (SPIRIVA WITH HANDIHALER) 18 mcg inhalation capsule Inhale 1 capsule as instructed once daily. Use with handihaler. Normal, Disp-90 capsule, R-3 estradiol (ESTRACE) 0.01 % (0.1 mg/gram) vaginal cream Apply small amount at vaginal opening 3 nights per week Normal, Disp-1 Tube, R-1 STOP taking these medications losartan (COZAAR) 25 mg tablet Comments: Reason for Stopping: Outpatient Management: * Are there important medication changes and/or outstanding issues that need to be addressed: None * What is the plan for follow up: See Below Future Appointments: Future Appointments Date Time Provider Department Center 03/27/2018 9:20 AM [id number] RONQUILLO) [facility]MIAHWS [facility] 04/15/2018 10:15 AM [id number] MAIN F30 (I-STAT) [facility] (MAF30 04/15/2018 10:45 AM [id number] GARCIA Main F Electronically SIGNED by Licensed Independent Practitioner: Jose Estrada CNP PLAN OF CARE Observed: 03/21/2018 Status: COMPLETED Source: [place] 2:[address] [facility] [place] REPOSITORY HNO ID: [id number] Author: Dominique Hogue (Zoom[employer]) Service: (none) Author Type: (none) Type: Plan of Care Filed: 03/21/2018 2:29 PM Note Text: Pharmacy Discharge Medication Service: This patient has elected to receive their discharge prescriptions through the [facility] Bedside Prescription Delivery program. The prescriptions are currently being processed. A follow-up note will be entered once the prescriptions have been filled and delivered to the patient. Please contact me with any questions or updates to the patient's discharge medications. Dominique Hogue ([employer]) DCT Contact Info: PLAN OF CARE Observed: 03/21/2018 Status: COMPLETED Source: [place] 2:28 PM [facility] REPOSITORY HNO ID: [id number] Author: Dominique Hogue ([employer]) Service: (none) Author Type: (none) Type: Plan of Care Filed: 03/21/2018 2:28 PM Note Text: [employer] BEDSIDE DELIVERY SURVEY 1. Patient to use [facility] Bedside Delivery - YES 2. If fax, patient would like us to fax prescriptions to Pharmacy of choice a. Pharmacy: b. Location: c. Phone: 3. Insurance card on file - YES 4. Credit card for payment - YES No prescriptions yet. Please page upon discharge. PROGRESS Observed: 03/21/2018 Status: COMPLETED Source: [place] 1:39 PM [facility] REPOSITORY HNO ID: [id number] Author: Vladimir Estrada Service: Cardiovascular Medicine Author Type: Nurse Practitioner Type: Progress Notes Filed: 03/21/2018 1:41 PM Note Text: [facility] CARDI[facility]ULAR [facility]ICINE PROGRESS NOTE (Template ID [id number]) Elizabeth Méndez [id number] PRIMARY SERVICE: [facility] [employer] HOSPITAL DAY: # 5 INTERVAL HISTORY Hemodynamically stable overnight. Breathing is better with scheduled inhalers. Will plan on discharge today. PHYSICAL EXAM BP 97/58 Pulse 64 Temp 36.7 ?C (98.1 ?F) (Oral) Resp 20 Ht 162.6 cm (5' 4) Wt 74.9 kg (165 lb 1.6 oz) SpO2 94% BMI 28.34 kg/m? Intake/Output Summary (Last 24 hours) at 03/21/18 1339 Last data filed at 03/21/18 1006 Gross per 24 hour Intake 1040 ml Output 3 ml Net 1037 ml General Appearance: No acute distress Lungs: Clear and Respiratory effort: normal Heart: Regular rate AND rhythm and S1, S2 normal Abdomen: Soft, Round and Non-tender Skin: Warm and Dry Neurologic/Psychiatric: Oriented to time, place AND person MEDICATIONS Current hospital medications: ipratropium-albuterol 3 mL nebulizer solution (DUONEB) 3 mL INHALATION ONCE carvedilol 25 mg tab(s) (COREG) 25 mg ORAL BID w MEALS acetaminophen 650 mg tab(s) (TYLENOL) 650 mg ORAL q 6 H PRN ipratropium 0.02 % 0.5 mg (ATROVENT) 0.5 mg INHALATION q 4 H while awake NIFEdipine ER 60 mg tab(s) (PROCARDIA XL) 60 mg ORAL DAILY amiodarone 400 mg tab(s) (PACERONE) 400 mg ORAL TID hydrALAZINE 50 mg tab(s) (APRESOLINE) 50 mg ORAL q 8 H diphenhydrAMINE 25 mg (BENADRYL) 25 mg ORAL HS PRN lidocaine 5 % 1 Patch (LIDODERM) 1 Patch TRANSDERMAL DAILY lidocaine patch - REMOVE OTHER AT BEDTIME lidocaine - VERIFY PATCH OTHER q 8 H bisacodyl 10 mg suppository (DULCOLAX) 10 mg RECTAL DAILY PRN aluminum-magnesium hydroxide-simethicone 200-200-20 mg/5 mL 30 mL (MAALOX,MYLANTA,MAG-AL PLUS) 30 mL ORAL q 6 H PRN simvastatin 10 mg tab(s) (ZOCOR) 10 mg ORAL AT BEDTIME docusate sodium 100 mg cap(s) (COLACE) 100 mg ORAL BID PRN aspirin, enteric coated 81 mg tab(s) (ASPIRIN, ENTERIC COATED) 81 mg ORAL DAILY 0.9% NaCl 2-10 mL 2-10 mL INTRAVENOUS q 12 H DATA Recent Labs 03/21/18 0652 03/20/18 0331 03/20/18 0115 WBC 7.72 8.82 Unable to assay. Clotted specimen. HB 13.4 12.3 Unable to assay. Clotted specimen. HCT 38.6 35.2* Unable to assay. Clotted specimen. PLT 162 120* Unable to assay. Clotted specimen. Recent Labs 03/21/18 0652 03/20/18 0331 03/20/18 0115 NA 139 140 140 K 3.7 3.8 4.0 CO2 26 24 24 BUN 13 12 12 CREAT 0.89 0.83 0.90 GLUC 113* 111* 113* MG 2.2 2.2 2.2 IMAGING Reviewed ASSESSMENT AND PLAN Presentation/Indication for admission/procedure: Acute aortic syndrome PMH/PSH: -COPD on ventolin and tiotropium -HTN on losartan, ASA and simvastatin -ITP -CKD stage III per chart, last creat 1.0 ?? Brief Hospital Course/Narrative: Elizabeth Méndez is a 73 year old F with a PMH of TAA, HTN and COPD who presented to an OSH with chest pain and CTA revealed intramural thrombus in descending and abdominal aorta, transferred to F for further management of acute aortic syndrome. Active Issues/New Events (dated): 03/16: admitted to CICU 03/18: transition to PO meds. Transfer to [facility] 03/19: 0537 AFib with RVR, readmit to CICU. Chest pain, SOB, low SBPs 03/20 transferred to [facility] in [place]. Endorsing SOB. ?? 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 Abdominal measuring 2.8 cm Plan: Impulse control Serial imaging - Essential hypertension On losartan, ASA and simvastatin Plan: Optimize oral BP meds - Thrombocytopenia (HCC) Likely ITP Plan: Monitor PLT daily - COPD (chronic obstructive pulmonary disease) (HCC) On tiotropium and ventolin at home Plan: Tiotropium Duonebs prn - Paroxysmal atrial fibrillation (HCC) One episode on 03/19 which resolved with amio infusion after 4 hours - Nicotine use disorder, F17.2 Case to be discussed with staff Josekrystyna Estrada CNP Pager [phone] After 5pm and on weekends please page the [employer] environmental aid, for J5's and J6's [phone], for J7's and J8's [phone] (please see below for after hours communication) 03/21/2018 1:39 PM For communication after 5 pm on weekdays and after 12 pm on weekends, please page the following: - Clinical Cardiology patients on all floors: page [phone] - Other Cardiology patients on J5 and J6: page [phone] - Other Cardiology patients on J7 and J8: page [phone] Jose Estrada CNP CBC Collected: 03/21/2018 Status: F Source: [place] 6:52 AM [facility] REPOSITORY TYPE CODE TESTS RESULT OUT OF REFERENCE UNITS RANGE LAB WBC 3.70-11.00 k/uL WBC 7.72 LAB RBC 3.90-5.20 m/uL RBC 4.23 LAB HGB 11.5-15.5 g/dL Hemoglobin 13.4 LAB HCT 36.0-46.0 % Hematocrit 38.6 LAB MCV 80.0-100.0 fL MCV 91.3 LAB MCH 26.0-34.0 pG MCH 31.7 LAB MCHC 30.5-36.0 g/dL MCHC 34.7 LAB RDWCV 11.5-15.0 % RDW-CV 12.5 LAB PLTCT 150-400 k/uL Platelet Count 162 LAB MPV 9.0-12.7 fL MPV High 13.0 LAB ABSNUC <0.01 k/uL Absolute nRBC <0.01 Performed By: #### CBC, CMP, MG1, PHOS #### [facility] [address] [place], [place] [address] COMP METABOLIC PANEL Collected: 03/21/2018 Status: F Source: [place] 6:52 AM [facility] REPOSITORY TYPE CODE TESTS RESULT OUT OF REFERENCE UNITS RANGE LAB TP 6.3-8.0 g/dL Protein, Total 6.6 LAB ALB 3.9-4.9 g/dL Low Albumin 3.6 LAB CA 8.5-10.2 mg/dL Calcium, Total 8.9 LAB TBIL 0.2-1.3 mg/dL Bilirubin, High Total 1.8 LAB ALKP 32-117 U/L Alkaline Phosphatase 65 LAB AST 13-35 U/L AST High 43 LAB GLU 74-99 mg/dL Glucose High 113 Result Comment: The [place] [employer] (ADA) provides guidance for cutoff values for fasting glucose and random glucose. The ADA defines fasting as no caloric intake for at least 8 hours. Fas ting plasma glucose results between 100 to 125 mg/dL indicate increased risk for diabetes (prediabetes). Fasting plasma glucose results greater than or equal to 126 mg/dL meet the criteria for diagnosis of diabetes. In the absence of unequivocal hyperglycemia, results should be confirmed by repeat testing. In a patient with classic symptoms of hyperglycemia or hyperglycemic crisis, random plasma glucose results greater than or equal to 200 mg/dL meet the criteria for diagnosis of diabetes. Reference: Standards of Medical Care in Diabetes 2016, [place] [employer]. Diabetes Care. 2016.39(Suppl 1). LAB BUN 7-21 mg/dL BUN 13 LAB CRET 0.58-0.96 mg/dL Creatinine 0.89 LAB NA 136-144 mmol/L Sodium 139 LAB K 3.7-5.1 mmol/L Potassium 3.7 LAB CL 97-105 mmol/L Chloride 101 LAB CO2 22-30 mmol/L CO2 26 LAB AGAP 9-18 mmol/L Anion Gap 12 LAB ALT 7-38 U/L ALT 20 LAB GFRAA eGFR- Amer. >60 LAB GFRNAA . eGFR-All Other Races >60 Result Comment: eGFR (Estimated GFR) Units of measure: mL/min/1.73 meters squared eGFR is derived from the reexpressed MDRD Study equation using the following parameters: serum creatinine, age, gender and race. The creatinine assay has been calibrated to be traceable to IDMS. An eGFR <60 mL/min/1.73m2 for >3 months is consistent with chronic kidney disease. Refer to KDOQI guidelines for clinical interpretation. In patients with unstable renal function, e.g. those with acute kidney injury, the eGFR may not accurately reflect actual GFR. Performed By: #### CBC, CMP, MG1, PHOS #### [facility] [address] [place], [place] [address] MAGNESIUM Collected: 03/21/2018 Status: F Source: [place] 6:[address] [facility] REPOSITORY TYPE CODE TESTS RESULT OUT OF REFERENCE UNITS RANGE LAB MG 1.7-2.3 mg/dL Magnesium 2.2 Performed By: #### CBC, CMP, MG1, PHOS #### [facility] [address] [place], [place] [address] PHOSPHORUS Collected: 03/21/2018 Status: F Source: [place] 6:52 AM [facility] REPOSITORY TYPE CODE TESTS RESULT OUT OF REFERENCE UNITS RANGE LAB PHOS 2.7-4.8 mg/dL Low Phosphorus 2.5 Performed By: #### CBC, CMP, MG1, PHOS #### [facility] [address] [place], [place] [address] XR CHEST 1V FRONTAL Observed: 03/21/2018 Status: F Source: [place] 5:50 AM [facility] REPOSITORY * * *Final Report* * * DATE OF EXAM: Mar 21 2018 5:50AM [id number] - XR CHEST 1V FRONTAL PORT / PROCEDURE REASON: Chest pain, AAS suspected, hemodynamically stable, no prior aorta intervention * * * * Physician Interpretation * * * * EXAMINATION: CHEST RADIOGRAPH (PORTABLE SINGLE VIEW AP) Exam Date/Time: 03/21/2018 5:50 AM Clinical History: Chest pain, AAS suspected, hemodynamically stable, no prior aorta intervention MQ: XCPMC_5 Comparison: 03/20/2018. RESULT: See impression. IMPRESSION: Lines, tubes, and devices: None. Lungs and pleura: Emphysema. Small pleural effusions and bibasilar atelectasis. Right mid lung calcified granuloma. No definite pneumothorax. Cardiomediastinal silhouette: Stable cardiomediastinal silhouette. 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: PSCB Transcribe Date/Time: Mar 21 2018 6:38A Dictated by : JESSICA SANCHEZ MD This examination was interpreted and the report reviewed and electronically signed by: FRED FRANCISOC MD on Mar 21 2018 8:16AM EST [id number] NURSING PROG Observed: 03/20/2018 Status: COMPLETED Source: [place] 4:53 PM [facility] REPOSITORY HNO ID: [id number] Author: Senia PattersonRn) BOB Arenas Service: (none) Author Type: Registered Nurse Type: Nursing Progress Note Filed: 03/20/2018 5:21 PM Note Text: Nursing Progress Note Patient Name: Elizabeth Méndez [address] Event(s) / Intervention Note: The patient complained of the following problems: persistent shortness of breath and chest/shoulder soreness, which she states originally caused her to seek medical attention and has been present throughout admission. Pt concerned about possible discharge with shortness of breath. Her current oxygen saturation is 96 on RA and she is on continuous pulse ox. The time of the event occurred at: 16:45. The following intervention(s) [place]: [place] [phone]. After the initiated interventions, the following observation(s) were made: Tramadol 50 mg one time dose ordered and atrovent scheduled q4h. Will continue to monitor. This note was completed by: Senia Arenas RN CASE MANAGEM Observed: 03/20/2018 Status: COMPLETED Source: [place] 11:51 AM [facility] REPOSITORY [facility] ID: [id number] Author: Awa (Bob) BOB Chirinos Service: Care Management Author Type: Registered Nurse Type: Care Mgt Progress Note Filed: 03/20/2018 2:20 PM Note Text: CARE MANAGEMENT PROGRESS NOTE SERVICE DATE: 03/20/2018 SERVICE TIME: 11:50 LOS: 4 days Transfer from ICU([facility]) Chart reviewed. 73 yr old female from [facility] admitted 03-16-18 with initial c/o acute onset chest pain with radiation to the back. PMH of TAA, HTN and COPD who presented to an OSH with chest pain and CTA revealed intramural thrombus in descending and abdominal aorta, transferred to F for further management of acute aortic syndrome. Transferred from ICU([facility]) this am. Vascular Surgery consult-no acute vascular surgical intervention. Follow up as an outpatient in 1 month. Met with pt re dc needs/planning and transition. ? DC home tomorrow per to tranport to home. Anticipate basic dc needs. SIGNATURE: Awa Chirinos RN PATIENT NAME: Elizabeth Méndez DATE: March 20, 2018 TIME: 11:51 AM PAGER/CONTACT #: [phone] PROGRESS Observed: 03/20/2018 Status: COMPLETED Source: [place] 11:31 AM [facility] REPOSITORY HNO ID: [id number] Author: Alvaro PattersonRtEd Vaca Service: Radiology Author Type: Director Of Cardiology Service Line Type: Progress Notes Filed: 03/20/2018 11:32 AM Note Text: Radiology Service Progress Note PATIENT NAME: Elizabeth Méndez DATE OF SERVICE: March 20, 2018 TIME: 11:32 AM PATIENT IDENTITY VERIFICATION COMPLETED USING TWO (2) METHODS: Patient confirmed name verbally and ID band matches.. PATIENT GENDER DATA: Female. status: : No status: NO. PATIENT RELEVANT IMPLANT DATA REVIEWED: Not Applicable RADIOLOGY DEPARTMENT: General X-ray: Exam(s) Completed: Chest X-Ray PERIPHERAL IV DATA: Not applicable SIGNED BY: Angel saleh RT March 20, 2018 11:32 AM XR CHEST 2V FRONTAL/LAT Observed: 03/20/2018 Status: F Source: [place] 11:30 AM [facility] REPOSITORY * * *Final Report* * * DATE OF EXAM: Mar 20 2018 11:30AM [id number] - XR CHEST 2V FRONTAL/LAT / PROCEDURE REASON: Shortness of breath * * * * Physician Interpretation * * * * EXAMINATION: CHEST RADIOGRAPH (2 VIEW FRONTAL and LATERAL) Clinical History: Shortness of breath MQ: XC2_5 Comparison: Portable chest 03/19/2018 RESULT: Lines, tubes, and devices: None. Lungs and pleura: Hyperlucent, hyperinflated lungs with vascular attenuation consistent with emphysema noted. There are small bilateral pleural effusions with adjacent mild basilar atelectasis. Calcified granuloma seen within the right midlung. There is biapical pleural-parenchymal thickening/scarring, right side greater than left. No overt pulmonary edema. No pneumothorax. Cardiomediastinal silhouette: Cardiomediastinal silhouette is stable in size. The thoracic aorta is tortuous and mildly ectatic. Atherosclerotic calcification of the aortic arch is noted. Other: Degenerative endplate changes with osteophyte formation present within the thoracic spine. There is accentuation of the normal thoracic kyphosis. IMPRESSION: See results. 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: OMID Transcribe Date/Time: Mar 20 2018 11:40A Dictated by : HEAVEN BEDOYA MD This examination was interpreted and the report reviewed and electronically signed by: HEAVEN BEDOYA MD on Mar 20 2018 11:44AM EST [id number] Observed: 03/20/2018 Status: COMPLETED Source: [place] 10:27 AM [facility] REPOSITORY HNO ID: [id number] Author: Sandrine Baptiste MD Service: Cardiovascular Medicine Author Type: Physician Type: Progress Notes Filed: 03/20/2018 4:17 PM Note Text: [facility] CARDIOVASCULAR MEDICINE PROGRESS NOTE (Template ID [id number]) Elizabeth Méndez [id number] PRIMARY SERVICE: [facility] [employer] HOSPITAL DAY: # 4 INTERVAL HISTORY Pt transferred from [facility]. Still endorsing shortness of breath. Will obtain x-ray and breathing treatments. Appreciate vascular surg consult. Will continue to monitor. PHYSICAL EXAM BP 102/59 Pulse 69 Temp 36.8 ?C (98.2 ?F) (Oral) Resp 18 Ht 162.6 cm (5' 4) Wt 74.2 kg (163 lb 8 oz) SpO2 96% BMI 28.06 kg/m? Intake/Output Summary (Last 24 hours) at 03/20/18 1027 Last data filed at 03/20/18 0923 Gross per 24 hour Intake 698 ml Output 1576 ml Net -878 ml General Appearance: No acute distress Lungs: Decreased breath sounds and Respiratory effort: normal Heart: Regular rate AND rhythm and S1, S2 normal Abdomen: Soft, Round and Non-tender Skin: Warm and Dry Neurologic/Psychiatric: Oriented to time, place AND person MEDICATIONS Current hospital medications: NIFEdipine ER 60 mg tab(s) (PROCARDIA XL) 60 mg ORAL DAILY ipratropium 0.02 % 0.5 mg (ATROVENT) 0.5 mg INHALATION q 4 H PRN amiodarone 400 mg tab(s) (PACERONE) 400 mg ORAL TID hydrALAZINE 50 mg tab(s) (APRESOLINE) 50 mg ORAL q 8 H carvedilol 12.5 mg tab(s) (COREG) 12.5 mg ORAL BID w MEALS diphenhydrAMINE 25 mg (BENADRYL) 25 mg ORAL HS PRN lidocaine 5 % 1 Patch (LIDODERM) 1 Patch TRANSDERMAL DAILY lidocaine patch - REMOVE OTHER AT BEDTIME lidocaine - VERIFY PATCH OTHER q 8 H bisacodyl 10 mg suppository (DULCOLAX) 10 mg RECTAL DAILY PRN aluminum-magnesium hydroxide-simethicone 200-200-20 mg/5 mL 30 mL (MAALOX,MYLANTA,MAG-AL PLUS) 30 mL ORAL q 6 H PRN simvastatin 10 mg tab(s) (ZOCOR) 10 mg ORAL AT BEDTIME docusate sodium 100 mg cap(s) (COLACE) 100 mg ORAL BID PRN aspirin, enteric coated 81 mg tab(s) (ASPIRIN, ENTERIC COATED) 81 mg ORAL DAILY 0.9% NaCl 2-10 mL 2-10 mL INTRAVENOUS q 12 H metoprolol 5 mg injection (LOPRESSOR) 5 mg INTRAVENOUS q 5 MIN PRN DATA Recent Labs 03/20/18 0331 03/20/18 0115 03/19/18 0333 WBC 8.82 Unable to assay. Clotted specimen. 8.43 HB 12.3 Unable to assay. Clotted specimen. 12.7 HCT 35.2* Unable to assay. Clotted specimen. 37.3 PLT 120* Unable to assay. Clotted specimen. 117* Recent Labs 03/20/18 0331 03/20/18 0115 03/19/18 195 NA 140 140 139 K 3.8 4.0 3.6* CO2 24 24 25 BUN 12 12 13 CREAT 0.83 0.90 0.81 GLUC 111* 113* 114* MG 2.2 2.2 2.1 IMAGING Reviewed ASSESSMENT AND PLAN Presentation/Indication for admission/procedure: Acute aortic syndrome PMH/PSH: -COPD on ventolin and tiotropium -HTN on losartan, ASA and simvastatin -ITP -CKD stage III per chart, last creat 1.0 ?? Brief Hospital Course/Narrative: Elizabeth Méndez is a 73 year old F with a PMH of TAA, HTN and COPD who presented to an OSH with chest pain and CTA revealed intramural thrombus in descending and abdominal aorta, transferred to [facility] for further management of acute aortic syndrome. Active Issues/New Events (dated): 03/16: admitted to CICU 03/18: transition to PO meds. Transfer to [facility] 03/19: 0537 AFib with RVR, readmit to CICU. Chest pain, SOB, low SBPs 03/20 transferred to [facility] in [place]. Endorsing SOB. ?? 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 Abdominal measuring 2.8 cm Plan: Impulse control Serial imaging - Essential hypertension On losartan, ASA and simvastatin Plan: Optimize oral BP meds - Thrombocytopenia (HCC) Likely ITP Plan: Monitor PLT daily - COPD (chronic obstructive pulmonary disease) (HCC) On tiotropium and ventolin at home Plan: Tiotropium Duonebs prn - Paroxysmal atrial fibrillation (HCC) One episode on 03/19 which resolved with amio infusion after 4 hours - Nicotine use disorder, F17.2 Case to be discussed with staff Jose Estrada CNP Pager [phone] After 5pm and on weekends please page the [employer] environmental aid, for J5's and J6's [phone], for J7's and J8's [phone] (please see below for after hours communication) 03/20/2018 10:27 AM For communication after 5 pm on weekdays and after 12 pm on weekends, please page the following: - Clinical Cardiology patients on all floors: page [phone] - Other Cardiology patients on J5 and J6: page [phone] - Other Cardiology patients on J7 and J8: page [phone] [facility] STAFF PHYSICIAN NOTE OF PERSONAL INVOLVEMENT IN CARE IMPRESSION: Patient is a 73 year old female who has been sent out of the ICU after afib, now in sinus with reasonable BP. She has dyspnea but has COPD. She has Thoracic aortic hematoma and an AAA. He BP is controlled. Traet BP. Discharge when stable and follow with vascular as an OP. PLAN: as above. I have reviewed the documentation obtained and documented by the Nurse Practitioner and have reviewed and updated the problem list as appropriate. I have personally performed a face to face assessment of the patient and have personally participated in the mc components. I have discussed the case and management of the patient's care. Counseling (Inpatient): I personally spent 20 total minutes involved in the care of this patient. Greater than 50% of the time was spent counseling and/or coordinating care for the patient, the nature of which is noted above. STAFF PHYSICIAN: Sandrine Baptiste MD DATE OF SERVICE: March 20, 2018 TIME OF SERVICE: 4:15 PM CONSULT PROG Observed: 03/20/2018 Status: COMPLETED Source: [place] 9:54 AM [facility] REPOSITORY O ID: [id number] Author: David Rivero (Thomas) Antolin Service: Vascular Surgery Author Type: Fellow Type: Consult Progress Note Filed: 03/20/2018 9:56 AM Note Text: [facility] VASCULAR [facility]GERY CONSULT PROGRESS NOTE Service Date: 03/20/2018Admit Date: 03/16/2018Service Time: 9:54 AM LOS: 4 day(s) Primary Service: Consult Requesting Service: Cardiology Vascular Physician: Tabatha Garcia MD Interval Events/Issues: no acute issues overnight, c/o SOB still Subjective Current hospital medications: NIFEdipine ER 60 mg tab(s) (PROCARDIA XL) 60 mg ORAL DAILY ipratropium 0.02 % 0.5 mg (ATROVENT) 0.5 mg INHALATION q 4 H PRN amiodarone 400 mg tab(s) (PACERONE) 400 mg ORAL TID hydrALAZINE 50 mg tab(s) (APRESOLINE) 50 mg ORAL q 8 H carvedilol 12.5 mg tab(s) (COREG) 12.5 mg ORAL BID w MEALS diphenhydrAMINE 25 mg (BENADRYL) 25 mg ORAL HS PRN lidocaine 5 % 1 Patch (LIDODERM) 1 Patch TRANSDERMAL DAILY lidocaine patch - REMOVE OTHER AT BEDTIME lidocaine - VERIFY PATCH OTHER q 8 H bisacodyl 10 mg suppository (DULCOLAX) 10 mg RECTAL DAILY PRN aluminum-magnesium hydroxide-simethicone 200-200-20 mg/5 mL 30 mL (MAALOX,MYLANTA,MAG-AL PLUS) 30 mL ORAL q 6 H PRN simvastatin 10 mg tab(s) (ZOCOR) 10 mg ORAL AT BEDTIME docusate sodium 100 mg cap(s) (COLACE) 100 mg ORAL BID PRN aspirin, enteric coated 81 mg tab(s) (ASPIRIN, ENTERIC COATED) 81 mg ORAL DAILY 0.9% NaCl 2-10 mL 2-10 mL INTRAVENOUS q 12 H metoprolol 5 mg injection (LOPRESSOR) 5 mg INTRAVENOUS q 5 MIN PRN ALLERGIES Allergen Reactions - Ceftin [Cefuroxime] Mental Status Change - Lisinopril Cough - Voltaren [Diclofena* Other: See Comments Increased liver enzymes. Objective PHYSICAL EXAM: Patient Vitals for the past 24 hrs: BP Temp Temp src Pulse Resp SpO2 Weight 03/20/18 0939 - - - 71 18 - - 03/20/18 0932 - - - 70 18 98 % - 03/20/18 0915 - - - - - 95 % - 03/20/18 0911 - - - - - 94 % - 03/20/18 0909 122/58 - - 73 - - - 03/20/18 0800 - - - - - - 74.2 kg (163 lb 8 oz) 03/20/18 0609 120/60 36.9 ?C (98.4 ?F) Oral 73 20 97 % - 03/20/18 0600 120/60 - - 72 - - - 03/20/18 0220 127/61 36.7 ?C (98.1 ?F) Oral 69 20 96 % - 03/20/18 0130 96/61 - - 79 22 96 % - 03/20/18 0100 99/58 - - (!) 59 19 97 % - 03/20/18 0030 110/58 - - 62 20 96 % - 03/20/18 0000 111/59 - - 63 20 96 % - 03/19/18 2330 109/56 - - 66 29 100 % - 03/19/18 2321 - - - 69 20 98 % - 03/19/18 2300 105/54 36.9 ?C (98.4 ?F) Oral 65 20 97 % - 03/19/18 2230 121/76 - - 72 28 97 % - 03/19/18 2200 114/68 - - 66 25 96 % - 03/19/18 2130 117/55 - - (!) 58 19 98 % - 03/19/18 2100 117/62 - - (!) 59 20 98 % - 03/19/18 2030 119/57 - - 62 20 98 % - 03/19/182024 - - - 64 - 98 % - 03/19/181999 108/58 - - 61 20 97 % - 03/19/18 1930 94/53 - - 60 24 98 % - 03/19/18 1900 93/50 36.9 ?C (98.4 ?F) Oral 65 19 97 % - 03/19/18 1830 100/54 - - 67 (!) 39 100 % - 03/19/18 1800 - - - 74 - 97 % - 03/19/18 1730 - - - 72 21 99 % - 03/19/18 1700 112/56 - - 66 24 98 % - 03/19/18 1650 - - - 65 23 100 % - 03/19/18 1638 - - - 67 (!) 33 97 % - 03/19/18 1630 113/55 - - 66 22 98 % - 03/19/18 1600 117/56 - - 67 20 97 % - 03/19/18 1530 121/59 - - 62 21 97 % - 03/19/18 1500 105/53 36.7 ?C (98.1 ?F) Oral 64 26 98 % - 03/19/18 1430 106/58 - - 64 22 98 % - 03/19/18 1400 111/57 - - 66 25 98 % - 03/19/18 1330 99/59 - - 61 23 98 % - 03/19/18 1321 - - - 62 28 99 % - 03/19/18 1307 - - - 61 30 97 % - 03/19/18 1300 120/59 - - 61 25 98 % - 03/19/18 1230 113/56 - - (!) 59 23 98 % - 03/19/18 1200 91/55 - - 63 29 97 % - 03/19/18 1130 105/63 - - 62 26 98 % - 03/19/18 1100 101/64 36.9 ?C (98.5 ?F) Oral 60 28 98 % - 03/19/18 1030 97/58 - - 65 29 98 % - 03/19/18 1000 92/50 - - 62 22 97 % - Intake/Output Summary (Last 24 hours) at 03/20/18 0954 Last data filed at 03/20/18 0923 Gross per 24 hour Intake 578 ml Output 1576 ml Net -998 ml CONSTITUTIONAL: Well developed NEUROLOGIC/PSYCHIATRIC: Oriented to time, place AND person HEENT: PERRLA LUNGS: CTAB HEART: Regular rate AND rhythm ABDOMEN: Soft, non-tender INTEGUMENTARY: Wound - No SURGICAL SITES: None MUSCULOSKELETAL: No deformities Pulses/Signals: B/L femoral, DP and PT palpable DATA: Laboratory: Recent Labs 03/20/1833003/20/1811403/19/18332 WBC 8.82 Unable to assay. Clotted specimen. 8.43 HB 12.3 Unable to assay. Clotted specimen. 12.7 HCT 35.2* Unable to assay. Clotted specimen. 37.3 PLT 120* Unable to assay. Clotted specimen. 117* Recent Labs 03/20/1833003/20/[id number] NA 140 140 139 K 3.8 4.0 3.6* BUN 12 12 13 CREAT 0.83 0.90 0.81 GLUC 111* 113* 114* MG 2.2 2.2 2.1 Recent Labs 03/20/18114 APTT Unable to assay. Clotted specimen. INR Unable to assay. Clotted specimen. Assessment/Plan Impression: This is a 73 year old female with acute Type B IMH, with no evidence of malperfusion ? Plan: Strong HR and BP control Repeated CTA chest/abdomen/pelvis was reviewed with Dr. Garcia, no acute vascular surgical intervention Follow up as an outpatient in 1 month No problems updated. SIGNATURE: David Dangelo MD PHD PATIENT NAME: Elizabeth Méndez DATE: March 20, 2018 TIME: 9:54 AM PAGER/CONTACT #: [phone] CBC Collected: 03/20/2018 Status: F Source: [place] 3:[address] [facility] REPOSITORY TYPE CODE TESTS RESULT OUT OF REFERENCE UNITS RANGE LAB WBC 3.70-11.00 k/uL WBC 8.82 LAB RBC 3.90-5.20 m/uL Low RBC 3.82 LAB HGB 11.5-15.5 g/dL Hemoglobin 12.3 LAB HCT 36.0-46.0 % Low Hematocrit 35.2 LAB MCV 80.0-100.0 fL MCV 92.1 LAB MCH 26.0-34.0 pG MCH 32.2 LAB MCHC 30.5-36.0 g/dL MCHC 34.9 LAB RDWCV 11.5-15.0 % RDW-CV 12.6 LAB PLTCT 150-400 k/uL Low Platelet Count 120 Result Comment: Result checked and verified No clot detected. LAB MPV 9.0-12.7 fL MPV High 13.7 LAB ABSNUC <0.01 k/uL Absolute nRBC <0.01 Performed By: #### CBC #### [facility] [address] [place], [place] [address] COMP METABOLIC PANEL Collected: 03/20/2018 Status: F Source: [place] 3:[address] [facility] REPOSITORY TYPE CODE TESTS RESULT OUT OF REFERENCE UNITS RANGE LAB TP 6.3-8.0 g/dL Low Protein, Total 6.2 LAB ALB 3.9-4.9 g/dL Low Albumin 3.5 LAB CA 8.5-10.2 mg/dL Calcium, Total 8.5 LAB TBIL 0.2-1.3 mg/dL Bilirubin, High Total 1.5 LAB ALKP 32-117 U/L Alkaline Phosphatase 57 LAB AST 13-35 U/L AST High 43 LAB GLU 74-99 mg/dL Glucose High 111 Result Comment: The [place] [employer] (ADA) provides guidance for cutoff values for fasting glucose and random glucose. The ADA defines fasting as no caloric intake for at least 8 hours. Fas ting plasma glucose results between 100 to 125 mg/dL indicate increased risk for diabetes (prediabetes). Fasting plasma glucose results greater than or equal to 126 mg/dL meet the criteria for diagnosis of diabetes. In the absence of unequivocal hyperglycemia, results should be confirmed by repeat testing. In a patient with classic symptoms of hyperglycemia or hyperglycemic crisis, random plasma glucose results greater than or equal to 200 mg/dL meet the criteria for diagnosis of diabetes. Reference: Standards of Medical Care in Diabetes 2016, [place] [employer]. Diabetes Care. 2016.39(Suppl 1). LAB BUN 7-21 mg/dL BUN 12 LAB CRET 0.58-0.96 mg/dL Creatinine 0.83 LAB NA 136-144 mmol/L Sodium 140 LAB K 3.7-5.1 mmol/L Potassium 3.8 LAB CL 97-105 mmol/L Chloride 103 LAB CO2 22-30 mmol/L CO2 24 LAB AGAP 9-18 mmol/L Anion Gap 13 LAB ALT 7-38 U/L ALT 18 LAB GFRAA eGFR- Amer. >60 LAB GFRNAA . eGFR-All Other Races >60 Result Comment: eGFR (Estimated GFR) Units of measure: mL/min/1.73 meters squared eGFR is derived from the reexpressed MDRD Study equation using the following parameters: serum creatinine, age, gender and race. The creatinine assay has been calibrated to be traceable to IDMS. An eGFR <60 mL/min/1.73m2 for >3 months is consistent with chronic kidney disease. Refer to KDOQI guidelines for clinical interpretation. In patients with unstable renal function, e.g. those with acute kidney injury, the eGFR may not accurately reflect actual GFR. Performed By: #### CMP, MG1, PHOS #### [facility] [employer] [address] [address] MAGNESIUM Collected: 03/20/2018 Status: F Source: [place] 3:31 AM [facility] REPOSITORY TYPE CODE TESTS RESULT OUT OF REFERENCE UNITS RANGE LAB MG 1.7-2.3 mg/dL Magnesium 2.2 Performed By: #### CMP, MG1, PHOS #### [facility] [address] [address] PHOSPHORUS Collected: 03/20/2018 Status: F Source: [place] 3:31 AM [facility] REPOSITORY TYPE CODE TESTS RESULT OUT OF REFERENCE UNITS RANGE LAB PHOS 2.7-4.8 mg/dL Low Phosphorus 2.1 Performed By: #### CMP, MG1, PHOS #### [facility] [address] [address] NURSING PROG Observed: 03/20/2018 Status: COMPLETED Source: [place] 2:04 AM [facility] REPOSITORY HNO ID: [id number] Author: Hipolito (Bob) BOB Dorsey Service: Nursing Author Type: Registered Nurse Type: Nursing Progress Note Filed: 03/20/2018 2:39 AM Note Text: Nursing Progress Note Patient Name: Elizabeth Méndez Patient Location: [address] Transfer Note: Patient transferred into room/unit j52-07 in stable condition. Actions taken: Skin assessed with TC RN. No futher actions taken at this time. Will continue to monitor and check with patient. This note was completed by: Hipolito Dorsey RN CBC Collected: 03/20/2018 Status: F Source: [place] 1:[address] [facility] REPOSITORY TYPE CODE TESTS RESULT OUT OF REFERENCE UNITS RANGE LAB WBC 3.70-11.00 k/uL WBC Unable to assay. Clotted specimen. Result Comment: Account Credited Called to Ragini J52 0203 03/20/18 K.S LAB RBC 3.90-5.20 m/uL Unable to RBC assay. Clotted specimen. Result Comment: Account Credited Called to Rgaini J52 0203 03/20/18 K.S LAB HGB 11.5-15.5 g/dL Hemoglobin Unable to assay. Clotted specimen. Result Comment: Account Credited Called to Ragini J52 0203 03/20/18 K.S LAB HCT 36.0-46.0 % Hematocrit Unable to assay. Clotted specimen. Result Comment: Account Credited Called to Ragini J52 0203 03/20/18 K.S LAB MCV 80.0-100.0 fL Unable to MCV assay. Clotted specimen. Result Comment: Account Credited Called to Blade.Stephany J52 0203 03/20/18 K.S LAB MCH 26.0-34.0 pG Unable to MCH assay. Clotted specimen. Result Comment: Account Credited Called to Blade.Stephany J52 0203 03/20/18 K.S LAB MCHC 30.5-36.0 g/dL Unable MCHC to assay. Clotted specimen. Result Comment: Account Credited Called to Blade.Stephany J52 0203 03/20/18 K.S LAB RDWCV 11.5-15.0 % Unable RDW-CV to assay. Clotted specimen. Result Comment: Account Credited Called to Blade.Stephany J52 02003/20/18 K.S LAB PLTCT 150-400 k/uL Unable Platelet Count to assay. Clotted specimen. Result Comment: Account Credited Called to Ragini Mariscal 02003/20/18 K.S LAB MPV 9.0-12.7 fL Unable to MPV assay. Clotted specimen. Result Comment: Account Credited Called to Ragini Dacosta52 20203/20/18 K.S LAB MEENAKHSI Recheck Unable to assay. Clotted specimen. Result Comment: Account Credited Called to Ragini Mariscal 20203/20/18 K.S LAB REVW Unable to Review assay. Clotted specimen. Result Comment: Account Credited Called to Ragini Dacosta52 20203/20/18 K.S LAB CBCCOM Comment Unable to assay. Clotted specimen. Result Comment: Account Credited Called to Ragini Mariscal 20203/20/18 K.S LAB ABSNUC <0.01 k/uL Unable Absolute nRBC to assay. Clotted specimen. Result Comment: Account Credited Called to Ragini Mariscal 02003/20/18 K.S Performed By: #### CBC, PT, PTT, CKCKMB, CMP, MG1, PHOS, MAYA #### [facility] [employer] [address] [id number] PROTIME Collected: 03/20/2018 Status: F Source: [place] 1:15 [facility] REPOSITORY TYPE CODE TESTS RESULT OUT OF REFERENCE UNITS RANGE LAB PSEC 9.7-13.0 sec PT Sec Unable to assay. Clotted specimen. Result Comment: Account Credited Called to Ragini Dacosta52 0203 03/20/18 K.S LAB INR 0.9-1.3 Unable to PT INR assay. Clotted specimen. Result Comment: Account Credited Called to Ragini Dacosta52 02003/20/18 K.S Performed By: #### CBC, PT, PTT, CKCKMB, CMP, MG1, PHOS, MAYA #### [facility] [employer] [address] [place], [place] [address] APTT Collected: 03/20/2018 Status: F Source: [place] 1:15 [facility] REPOSITORY TYPE CODE TESTS RESULT OUT OF REFERENCE UNITS RANGE LAB APTT 23.0-32.4 sec APTT Unable to assay. Clotted specimen. Result Comment: Account Credited Called to BladeChandu J52 0203 03/20/18 K.S Performed By: #### CBC, PT, PTT, CKCKMB, CMP, MG1, PHOS, MAYA #### [facility] [address] [place], [place] [address] CK, TOTAL AND CKMB Collected: 03/20/2018 Status: F Source: [place] 1:15 [facility] REPOSITORY TYPE CODE TESTS RESULT OUT OF RANGE REFERENCE UNITS LAB CK 42-196 U/L CK 85 Result Comment: Please note the updated, gender-specific reference range for this test (effective 10/12/2016). LAB MB <4.3 ng/mL 1.8 MB LAB CKMBRI 0.0-4.0 % CK MB % not reported CK MB % with CK <100 U/L. Performed By: #### CBC, PT, PTT, CKCKMB, CMP, MG1, PHOS, MAYA #### [facility] [address] [place], [place] [address] COMP METABOLIC PANEL Collected: 03/20/2018 Status: F Source: [place] 1:[address] [place] [address] REPOSITORY TYPE CODE TESTS RESULT OUT OF REFERENCE UNITS RANGE LAB TP 6.3-8.0 g/dL Protein, Total 6.3 LAB ALB 3.9-4.9 g/dL Low Albumin 3.4 LAB CA 8.5-10.2 mg/dL Low Calcium, Total 8.4 LAB TBIL 0.2-1.3 mg/dL Bilirubin, Total 1.3 LAB ALKP 32-117 U/L Alkaline Phosphatase 54 LAB AST 13-35 U/L AST High 41 LAB GLU 74-99 mg/dL Glucose High 113 Result Comment: The [place] Diabetes [employer] (ADA) provides guidance for cutoff values for fasting glucose and random glucose. The ADA defines fasting as no caloric intake for at least 8 hours. Fas ting plasma glucose results between 100 to 125 mg/dL indicate increased risk for diabetes (prediabetes). Fasting plasma glucose results greater than or equal to 126 mg/dL meet the criteria for diagnosis of diabetes. In the absence of unequivocal hyperglycemia, results should be confirmed by repeat testing. In a patient with classic symptoms of hyperglycemia or hyperglycemic crisis, random plasma glucose results greater than or equal to 200 mg/dL meet the criteria for diagnosis of diabetes. Reference: Standards of Medical Care in Diabetes 2016, [place] [employer]. Diabetes Care. 2016.39(Suppl 1). LAB BUN 7-21 mg/dL BUN 12 LAB CRET 0.58-0.96 mg/dL Creatinine 0.90 LAB NA 136-144 mmol/L Sodium 140 LAB K 3.7-5.1 mmol/L Potassium 4.0 LAB CL 97-105 mmol/L Chloride High 106 LAB CO2 22-30 mmol/L CO2 24 LAB AGAP 9-18 mmol/L Anion Gap 10 LAB ALT 7-38 U/L ALT 16 LAB GFRAA eGFR- Amer. >60 LAB GFRNAA . eGFR-All Other Races >60 Result Comment: eGFR (Estimated GFR) Units of measure: mL/min/1.73 meters squared eGFR is derived from the reexpressed MDRD Study equation using the following parameters: serum creatinine, age, gender and race. The creatinine assay has been calibrated to be traceable to IDMS. An eGFR <60 mL/min/1.73m2 for >3 months is consistent with chronic kidney disease. Refer to KDOQI guidelines for clinical interpretation. In patients with unstable renal function, e.g. those with acute kidney injury, the eGFR may not accurately reflect actual GFR. Performed By: #### CBC, PT, PTT, CKCKMB, CMP, MG1, PHOS, MAYA #### [facility] [employer] [address] [address] MAGNESIUM Collected: 03/20/2018 Status: F Source: [place] 1:15 AM [facility] REPOSITORY TYPE CODE TESTS RESULT OUT OF REFERENCE UNITS RANGE LAB MG 1.7-2.3 mg/dL Magnesium 2.2 Performed By: #### CBC, PT, PTT, CKCKMB, CMP, MG1, PHOS, MAYA #### [facility] [employer] [address] [place], [place] [id number] PHOSPHORUS Collected: 03/20/2018 Status: F Source: [place] 1:15 AM [facility] REPOSITORY TYPE CODE TESTS RESULT OUT OF REFERENCE UNITS RANGE LAB PHOS 2.7-4.8 mg/dL Low Phosphorus 2.4 Performed By: #### CBC, PT, PTT, CKCKMB, CMP, MG1, PHOS, MAYA #### [facility] [employer] [address] [place], [place] [address] TROPONIN T Collected: 03/20/2018 Status: F Source: [place] 1:15 AM [facility] REPOSITORY TYPE CODE TESTS RESULT OUT OF REFERENCE UNITS RANGE LAB TROPT 0.000-0.029 ng/mL Troponin T <0.010 Performed By: #### CBC, PT, PTT, CKCKMB, CMP, MG1, PHOS, MAYA #### [facility] [employer] [address] [place], [place] [address] BASIC METABOLIC PANL Collected: 03/19/2018 Status: F Source: [place] 7:55 PM [facility] REPOSITORY TYPE CODE TESTS RESULT OUT OF REFERENCE UNITS RANGE LAB GLU 74-99 mg/dL High Glucose 114 Result Comment: The [place] [employer] (ADA) provides guidance for cutoff values for fasting glucose and random glucose. The ADA defines fasting as no caloric intake for at least 8 hours. Fas ting plasma glucose results between 100 to 125 mg/dL indicate increased risk for diabetes (prediabetes). Fasting plasma glucose results greater than or equal to 126 mg/dL meet the criteria for diagnosis of diabetes. In the absence of unequivocal hyperglycemia, results should be confirmed by repeat testing. In a patient with classic symptoms of hyperglycemia or hyperglycemic crisis, random plasma glucose results greater than or equal to 200 mg/dL meet the criteria for diagnosis of diabetes. Reference: Standards of Medical Care in Diabetes 2016, [place] [employer]. Diabetes Care. 2016.39(Suppl 1). LAB BUN 7-21 mg/dL BUN 13 LAB CRET 0.58-0.96 mg/dL Creatinine 0.81 LAB NA 136-144 mmol/L Sodium 139 LAB K 3.7-5.1 mmol/L Potassium Low 3.6 LAB CL 97-105 mmol/L Chloride 102 LAB CO2 22-30 mmol/L CO2 25 LAB AGAP 9-18 mmol/L Anion Gap 12 LAB CA 8.5-10.2 mg/dL Calcium, Low Total 7.9 LAB GFRAA eGFR- Amer. >60 LAB GFRNAA . eGFR-All Other Races >60 Result Comment: eGFR (Estimated GFR) Units of measure: mL/min/1.73 meters squared eGFR is derived from the reexpressed MDRD Study equation using the following parameters: serum creatinine, age, gender and race. The creatinine assay has been calibrated to be traceable to IDOR. An eGFR <60 mL/min/1.73m2 for >3 months is consistent with chronic kidney disease. Refer to KDOQI guidelines for clinical interpretation. In patients with unstable renal function, e.g. those with acute kidney injury, the eGFR may not accurately reflect actual GFR. Performed By: #### BMP, MG1, PHOS #### [facility] [employer] [address] [place] [address] MAGNESIUM Collected: 03/19/2018 Status: F Source: [place] 7:55 PM [facility] REPOSITORY TYPE CODE TESTS RESULT OUT OF REFERENCE UNITS RANGE LAB MG 1.7-2.3 mg/dL Magnesium 2.1 Performed By: #### BMP, MG1, PHOS #### [facility] [employer] [address] [place] [address] PHOSPHORUS Collected: 03/19/2018 Status: F Source: [place] 7:55 PM [facility] REPOSITORY TYPE CODE TESTS RESULT OUT OF REFERENCE UNITS RANGE LAB PHOS 2.7-4.8 mg/dL Low Phosphorus 2.0 Performed By: #### BMP, MG1, PHOS #### [facility] [employer] [address] [place] [id number] CTA C/A/P (GATED) W Observed: 03/19/2018 Status: F Source: [place] IVCON 6:35 PM [facility] REPOSITORY * * *Final Report* * * DATE OF EXAM: Mar 19 2018 6:35PM JQC 0133 - CTA C/A/P (GATED) W IVCON / PROCEDURE REASON: Thoracoabdominal aortic dissection, known, follow up * * * * Physician Interpretation * * * * CTA chest, CTA abdomen and pelvis dated 03/19/2018 at 6:20 PM Comparison: CTA chest/abdomen/pelvis 03/16/2018 at 8:32 PM History: 73-year-old female with known type B intramural hematoma. Follow-up evaluation. Technique: Multi-detector CT technology was employed (Rema Brilliance 64-slice scanner). Spiral imaging with retrospective gating was performed of the chest, followed by non-gated spiral imaging of the abdomen and pelvis, both following the IV administration of contrast material. A low-osmolar contrast agent was used (100 cc of Omnipaque 350). CT Dose-Length Product (DLP): [address] Dose Reduction Employed: Yes For optimization of anatomic evaluation, multiplanar reconstruction, maximum intensity projections, and advanced 3-D off-line postprocessing were performed on a dedicated stand-alone workstation by the interpreting physician. RESULT: Potential study limitations: None. CHEST: The chest wall, mediastinum, pericardium, and pulmonary arteries are unremarkable. No significant adenopathy is identified in the axilla, mediastinum, and larissa. Stable calcified mediastinal (4:43) and hilar (4:46) lymph nodes. Lung windows reveal small left and trace right pleural effusions. Biapical pleural-parenchymal scarring. Moderate to severe diffuse bilateral centrilobular and paraseptal emphysematous changes, similar to the recent prior. Stable 6-7 mm granuloma in the right upper lobe (4:43 and punctate calcified granuloma in the right medial apex (4:16), compatible with remote granulomatous disease. Bibasilar atelectasis/scarring (right greater), is unchanged. There is no pulmonary parenchymal mass or infiltrate. The cardiac chambers demonstrate normal atrioventricular and ventriculoarterial concordance, and systemic and pulmonary venous return. Mild left atrial enlargement, otherwise the cardiac chamber sizes are normal. The coronary arteries have normal origins and courses. Coronary calcifications are identified in the left main, LAD and RCA. The aortic valve is trileaflet, and free from calcifications. VASCULAR WITH ADVANCED 3-D OFF-LINE POSTPROCESSING: Stable crescentic wall thickening within the descending aortic wall (4:29-4:73) up to 7 mm in thickness at the mid descending aorta, compatible with known intramural hematoma. No significant interval change, no rupture or new dissection. The aortic root and ascending aorta are dilated. The arch vessel branching pattern is normal . All of the arch branch vessels appear widely patent in their proximal portions. The abdominal aorta shows atherosclerotic changes and infrarenal ectasia. There is no acute aortic pathology. Crew Lead dimensions of the thoracic aorta are as follows (excluding intramural hematoma): 2.3 cm at the aortic annulus 3.9 cm at the sinuses of Valsalva measured sinus to sinus (3.5 cm measured sinus to trigone)(the sinotubular junction is preserved) 4.1 cm at the mid ascending aorta 4.0 cm at the distal ascending aorta 2.9 cm at the mid transverse arch 3.9 cm at the proximal descending thoracic aorta 2.7 cm at the diaphragmatic hiatus The abdominal aorta is tortuous and measures: 3.0 cm at the supramesenteric segment 2.4 cm at the mesenteric segment 2.0 cm at the renal segment 3.0 cm at the mid infrarenal segment 1.7 cm at the aortic bifurcation The celiac axis, SMA, and OLLIE are patent. There are single renal arteries bilaterally, both of which appear patent. The pelvic arteries are tortuous, but otherwise normal in caliber and contour. ABDOMEN AND PELVIS: Liver: No mass. Stable 4.1 x 3.7 cm cm simple hepatic cyst in segment II (5:25) and 1.6 x 1.4 cm simple hepatic cyst in lateral segment III (5:34). Biliary: No bile duct dilation. Gallbladder is absent. Spleen: No mass. No splenomegaly.Calcific granuloma noted. Pancreas: No mass or duct dilation. Adrenals: No mass. Kidneys: No mass, calculus or hydronephrosis. GI tract: No dilation or wall thickening. Diverticulosis without diverticulitis. Lymph nodes: No abdominal or pelvic lymphadenopathy. Mesentery/Peritoneum: No ascites or mass. Pelvis: No mass, ascites or fluid collection. Normal urinary bladder. Bones/Soft Tissues: Degenerative changes throughout the thoracolumbar spine. IMPRESSION: Interval development of small left and trace right pleural effusions. Otherwise no significant interval change since 03/16/2018 with: 1. Stable type B aortic intramural hematoma. No dissection flap seen. 2. Ectatic ascending thoracic aorta without dissection. Stable infrarenal aortic ectasia (3.0cm) 3. Bilateral paraseptal and centrilobular emphysematous changes with diffuse bronchiectasis. 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: OMID Transcribe Date/Time: Mar 19 2018 6:40P Dictated by : KALEB JONES MD This examination was interpreted and the report reviewed and electronically signed by: KENNEDY WALTERS MD on Mar 19 2018 7:38PM EST [id number] NURSING PROG Observed: 03/19/2018 Status: COMPLETED Source: [place] 6:26 PM [facility] REPOSITORY [facility] ID: [id number] Author: Padmini (Rn) BOB Lainez Service: (none) Author Type: Registered Nurse Type: Nursing Progress Note Filed: 03/19/2018 6:27 PM Note Text: Radiology Service Progress Note PATIENT NAME: Elizabeth Méndez DATE OF SERVICE: March 19, 2018 TIME: 6:26 PM PATIENT WEIGHT: 166 LBS PATIENT IDENTITY VERIFICATION COMPLETED USING TWO (2) METHODS: Patient confirmed name verbally and ID band matches.. PATIENT GENDER DATA: Female. status: : No status: NO. CONTRAST INDUCED NEPHROPATHY RISK FACTORS: Patient age > 60 years CREATININE: Creatinine Date Value Ref Range Status 03/19/2018 0.90 0.58 - 0.96 mg/dL Final 03/18/2018 0.83 0.58 - 0.96 mg/dL Final 03/17/2018 0.84 0.58 - 0.96 mg/dL Final eGFR-All Other Races Date Value Ref Range Status 03/19/2018 >60 . Final Comment: eGFR (Estimated GFR) Units of measure: mL/min/1.73 meters squared eGFR is derived from the reexpressed MDRD Study equation using the following parameters: serum creatinine, age, gender and race. The creatinine assay has been calibrated to be traceable to IDMS. An eGFR <60 mL/min/1.73m2 for >3 months is consistent with chronic kidney disease. Refer to KDOQI guidelines for clinical interpretation. In patients with unstable renal function, e.g. those with acute kidney injury, the eGFR may not accurately reflect actual GFR. eGFR- Date Value Ref Range Status 03/19/2018 >60 Final P.O.C.T. RESULTS: POC done: Yes, See Lab Tab March 19, 2018 TREATMENT: No Hydration needed. ALLERGIES: Reviewed and unchanged CONTRAST ALLERGY: NO. IV SITE: Inpatient - refer to LDA documentation IV SITE APPEARANCE: Clean,Dry and Intact SIGNED BY: Padmini Lainez RN March 19, 2018 6:26 PM 12 LEAD ELECTROCARDIOGRAM Observed: 03/19/2018 Status: F Source: [place] 2:42 PM [facility] REPOSITORY [facility] [place] [address] 12 Lead EKG 03/16/18 1238 MR#: [id number] Acct: [id number] Name: ELIZABETH MÉNDEZ Rep #: [id number] : 1945 73 From: Kee Goyal MD Attending Dr: Status: DEP ER Ordering Dr: Sebastien Lane MD Date: 03/16/18 Location: ED Sex: F C Admitted: Test Reason : Blood Pressure : / mmHG Vent. Rate : 066 BPM Atrial Rate : 066 BPM P-R Int : 154 ms QRS Dur : 086 ms QT Int : 392 ms P-R-T Axes : 084 066 055 degrees QTc Int : 410 ms Normal sinus rhythm Normal ECG Confirmed by TAL TAYLOR, KEE ([id number]), editorial director OLGA PARKS ([id number]) on 03/19/2018 2:41:53 PM Referred By: SANDRA Confirmed By:KEE GOYAL MD 03/19/18 1441 Date Kee Goyal MD CC: Chicho Ronquillo MD; Sebastien Lane MD Signed NURSING PROG Observed: 03/19/2018 Status: COMPLETED Source: [place] 11:24 AM [facility] REPOSITORY O ID: [id number] Author: Lizzie PattersonRn) BOB Virgen Service: Nursing Author Type: Registered Nurse Type: Nursing Progress Note Filed: 03/19/2018 3:47 PM Note Text: Nursing Progress Note Patient Name: Elizabeth Méndez Patient Location: J031 020/J3-1-20 Daily Note: Pt admitted to [facility] for AFib RVR. HR 140's. SBP 90's. IVP Metoprolol with 150 mg Amio bolus and gttn. See EMAR. States she feels 'OK'. Not lightheaded or dizzy. Pulses palpable, no edema. Denies pain/CP. Denies SOB. Non productive cough. LS clear on NC. Abd soft, distended, slightly tender transverse abd. PIV patent will continue to monitor. Pt converted to NSR/SB in 60's. SBP remains 90-100. No changes 1213: Some c/o mild SOB, updated resident, see eMAR. 1500: Re-assessment, no acute changes. Remains in NSR. Will continue to monitor. This note was completed by: Lizzie Virgen RN NURSING PROG Observed: 03/19/2018 Status: COMPLETED Source: [place] 8:56 AM [facility] REPOSITORY HNO ID: [id number] Author: Hannah (Rn) BOB Reyes Service: Cardiovascular Medicine Author Type: Registered Nurse Type: Nursing Progress Note Filed: 03/19/2018 8:56 AM Note Text: Nursing Progress Note Patient Name: [facility] Patient transferred into room/unit 31- in stable condition. Actions taken: No futher actions taken at this time. Will continue to monitor and check with patient. This note was completed by: Hannah Reyes RN HISTORY PHYSICAL Observed: 03/19/2018 Status: COMPLETED Source: [place] 8:52 AM [facility] REPOSITORY HNO ID: [id number] Author: Ricki Martínez Service: Cardiovascular Medicine Author Type: Physician Type: HANDP Filed: 03/22/2018 4:52 PM Note Text: [facility] HISTORY AND PHYSICAL Elizabeth Méndez [id number] PRIMARY SERVICE: Cardiology: Coronary Intensive Care Unit CHIEF COMPLAINT: AFib with RVR HPI: 73 yo female with hx of ITP, TAA, CKD (cr 1.0), HTN who p/w acute chest pain with development of acute type B intramural hematoma on 03/16. She was transferred to the [facility] after impulse control to keep SBP <140 and transitioned to oral medications. On 03/19 at 0537 am she developed AFib with RVR with rates in the 140s with chest pain, shortness of breath, and BPs in the 90s/50s. She was transferred to the CICU after being given metoprolol. Upon transfer, she is chest pain free but rates still 130s. Her BP is 98/54. ? HISTORY History obtained from: Patient PAST MEDICAL HISTORY: PAST MEDICAL HISTORY Diagnosis Date - Benign neoplasm of colon 06/08/2008 - Cataracts, bilateral Seeing Dr. Beach - Cervical spondylosis without myelopathy Seeing Dr. jean - Chronic obstructive pulmonary disease (COPD) (HCC) mild - CKD (chronic kidney disease), stage III - Diverticulosis of colon (without mention of hemorrhage) - Epistaxis 2/2 high dose ASA - Hemorrhoids - Hypertension - Osteopenia - Other seborrheic keratosis 01/24/2007 - Snoring - Special screening for malignant neoplasms, colon 06/08/2008 - Unspecified disorder of skin and subcutaneous tissue 01/16/2007 - Varicose vein of leg PAST SURGICAL HISTORY: PAST SURGICAL HISTORY Procedure Laterality Date - APPENDECTOMY - COLONOSCOP W/ OR W/O [facility] SPEC 06/08/2008 Colonoscopy - DANDC, DIAG AND/OR THERAPEUTIC Dilation AND curettage - LIGATE FALLOPIAN TUBE - PAST SURGICAL HISTORY OF hysterectomy - REMOVAL GALLBLADDER - REMOVAL OF TONSILS,<12 Y/O Tonsillectomy - REMV CATARACT EXTRACAP,INSERT LENS Right 09/01/15 Cataract Extraction with PC IOL - REMV CATARACT EXTRACAP,INSERT LENS Left 10/13/2015 Cataract Extraction with PC IOL/Femto/LRI - REVISE SECONDARY VARICOSITY Varicose Vein Surgery - SIGMOIDOSCOPY FLEX DIAG 1997 Sigmoidoscopy FAMILY HISTORY: FAMILY HISTORY Problem Relation Age of Onset - Emphysema Mother smoker - Heart Mother - Emphysema Father smoker - Heart Father SOCIAL HISTORY: Social History Substance Use Topics - Smoking status: Former Smoker Packs/day: 0.50 Types: Cigarettes Start date: 1963 Quit date: 12/27/2015 - Smokeless tobacco: Never Used Comment: Parents smoked in home; patient has cheated a few times and smoked; Smoked last week - Alcohol use Yes Comment: rarely MEDICATIONS: Prior to Admission Medications: VENTOLIN HFA 90 mcg/actuation inhaler INHALE 2 PUFFS INSTRUCTED EVERY 6 HOURS NEEDED. CALCIUM CARBONATE/VITAMIN D3 (CALCIUM + D ORAL) Take 2 tablets by mouth once daily. Taking 550 + 2001 unit tablets docusate sodium (COLACE) 100 mg capsule Take 1 capsule by mouth twice daily as needed for Constipation. losartan (COZAAR) 25 mg tablet TAKE 1 TABLET EVERY DAY simvastatin (ZOCOR) 10 mg tablet Take 1 tablet by mouth daily at bedtime. tiotropium (SPIRIVA WITH HANDIHALER) 18 mcg inhalation capsule Inhale 1 capsule as instructed once daily. Use with handihaler. estradiol (ESTRACE) 0.01 % (0.1 mg/gram) vaginal cream Apply small amount at vaginal opening 3 nights per week aspirin, enteric coated (ASPIR-81) 81 mg ORAL EC tablet Take 2 tablets by mouth once daily. Current hospital medications: iv contrast (radiology procedure) INTRAVENOUS DIRECTED PRN metoprolol 5 mg injection (LOPRESSOR) 5 mg INTRAVENOUS ONCE amiodarone 150 mg in D5W 100 mL (NEXTERONE) 150 mg INTRAVENOUS ONCE NIFEdipine ER 90 mg tab(s) (PROCARDIA XL) 90 mg ORAL DAILY hydrALAZINE 50 mg tab(s) (APRESOLINE) 50 mg ORAL q 8 H carvedilol 12.5 mg tab(s) (COREG) 12.5 mg ORAL BID w MEALS diphenhydrAMINE 25 mg (BENADRYL) 25 mg ORAL HS PRN lidocaine 5 % 1 Patch (LIDODERM) 1 Patch TRANSDERMAL DAILY lidocaine patch - REMOVE OTHER AT BEDTIME lidocaine - VERIFY PATCH OTHER q 8 H bisacodyl 10 mg suppository (DULCOLAX) 10 mg RECTAL DAILY PRN aluminum-magnesium hydroxide-simethicone 200-200-20 mg/5 mL 30 mL (MAALOX,MYLANTA,MAG-AL PLUS) 30 mL ORAL q 6 H PRN tiotropium 18 mcg cap(s) and device for inhalation (SPIRIVA) 18 mcg INHALATION DAILY simvastatin 10 mg tab(s) (ZOCOR) 10 mg ORAL AT BEDTIME docusate sodium 100 mg cap(s) (COLACE) 100 mg ORAL BID PRN aspirin, enteric coated 81 mg tab(s) (ASPIRIN, ENTERIC COATED) 81 mg ORAL DAILY 0.9% NaCl 2-10 mL 2-10 mL INTRAVENOUS q 12 H metoprolol 5 mg injection (LOPRESSOR) 5 mg INTRAVENOUS q 5 MIN PRN ipratropium-albuterol 3 mL nebulizer solution (DUONEB) 3 mL INHALATION q 4 H PRN ALLERGIES: ALLERGIES Allergen Reactions - Ceftin [Cefuroxime] Mental Status Change - Lisinopril Cough - Voltaren [Diclofena* Other: See Comments Increased liver enzymes. COMPLETE REVIEW OF SYSTEMS: Gen: No weight loss, fevers, or chills Neuro: No headaches HEENT: No visions changes Resp: No cough or SOB Cardiac: No chest pain, no edema Abd: No nausea, vomiting, blood in stool or change in bowel habits Urinary: No dysuria or hematuria Skin: no recent rashes Extremities: No edema MSK: No swelling See HPI: Remaining ROS reviewed and negative. PHYSICAL EXAM: BP 102/69 Pulse 114 Temp 36.8 ?C (98.3 ?F) (Oral) Resp 22 Ht 162.6 cm (5' 4) Wt 74.1 kg (163 lb 4.8 oz) SpO2 97% BMI 28.03 kg/m? General: Well developed and well nourished appearance. No acute distress. Skin: No rash on chest, arms or legs. Warm, dry. Head/Eyes: Sclera clear, normal conjunctiva. EOMI. Mouth/Pharynx: Teeth: Fair dentition. No lesions. Neck: No JVD. Supple. Lungs: Normal respiratory effort. Clear lungs without rhonchi, rales, wheezing. On 2L NC Breasts: Deferred Heart: Normal PMI. No lifts or thrills. Tachycardic, irregular. Normal S1, S2. No S3. No S4. No murmurs. No rubs. Peripheral Vascular/Arteries: Carotid pulse normal without bruit. No abdominal bruits. No femoral bruits or hematoma. DP/Radial pulses normal. Abdomen: Soft abdomen, nontender, nondistended without mass. No hepatosplenomegaly. Normal bowel sounds. Musculoskeletal: No kyphoscoliosis. No joint deformities. Extremities: No clubbing or cyanosis. No edema. Warm digits. Neurologic/Psychiatric: Oriented to person, place, time. Normal affect. No gross focal neurologic deficits. DATA: Laboratory: Recent Labs 03/19/18 0333 03/18/18 0210 03/17/18 0000 WBC 8.43 11.22* 9.17 HB 12.7 13.6 12.5 HCT 37.3 39.2 36.6 PLT 117* 117* 140* Recent Labs 03/19/18 0333 03/18/18 0210 03/17/18 0000 NA 141 137 137 K 3.5* 4.2 3.9 BUN 12 12 10 CREAT 0.90 0.83 0.84 GLUC 89 114* 125* MG 2.0 2.2 2.0 Recent Labs 03/17/18 0745 03/17/18 0000 03/16/18 1806 CK 93 39* 38* MB 1.9 1.3 1.2 TROPT <0.010 <0.010 <0.010 Recent Labs 03/16/18 1806 APTT 27.2 INR 1.2 EKG: most recent report reviewed TELE: most recent recordings reviewed CXR: most recent image reviewed Echocardiogram: most recent report reviewed Cardiac Catheterization: N/a ASSESSMENT AND PLAN: 73 yo female with hx of ITP, TAA, CKD (cr 1.0), COPD, HTN who was readmitted to CICU with AFib with RVR on 03/19. She was originally managed in CICU for medical management of acute aortic syndrome of thoracic aorta with intramural hematoma on 03/16. Plan: - IV metop - bolus amiodarone, amio gtt. Will limit total amiodarone due to significant pulmonary disease - NPO, possible cardioversion this afternoon - SQH, SCDs - holding nifedipine and hydralazine given low BPs - patient desires full code status - dispo: ICU Active Hospital Problems Diagnosis - Intramural aortic hematoma (HCC) Known TAA, 4.1 from 3.8 in a 3 years period Type B intramural hematoma Plan: Routine labs Repeat CTA Daily ECG Impulse control with BB q5min prn and NTP gtt CTS and Vascular Surgery consult Pain control - Thoracoabdominal aortic aneurysm (TAAA) (HCC) Descending measuring 3.9 cm Abdominal measuring 2.8 cm Plan: Impulse control Serial imaging - Essential hypertension On losartan, ASA and simvastatin Plan: Hold oral antihypertensives NTP gtt Convert to orals when able - 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 Martínez SIGNATURE: Benjamin Carl MD PAGER: [phone] DATE of SERVICE: 03/19/2018 TIME of SERVICE: 8:57 AM Mert Martínez MD, LOCATED WITHIN [facility], SUHAS Jaramillo and Romelia Kerr Department of Cardiovascular Medicine Heart and Vascular [facility] Desk [address] [place] [address] Office ? [phone] extension [phone] Office Appointments: [phone] extension [phone] PROGRESS Observed: 03/19/2018 Status: COMPLETED Source: [place] 8:[address] [facility] [place] REPOSITORY HNO ID: [id number] Author: Graeme Lei (Fel) Service: Vascular Surgery Author Type: Fellow Type: Progress Notes Filed: 03/19/2018 8:19 AM Note Text: [facility] [place] VASCULAR SURGERY POSTOP PROGRESS NOTE Service Date: 03/19/2018Admit Date: 03/16/2018Service Time: 8:17 am LOS: 3 day(s) Primary Service: Consult Requesting Service: Cardiology Vascular Physician: Tabatha Garcia MD Interval Events/Issues: None Subjective Current hospital medications: iv contrast (radiology procedure) INTRAVENOUS DIRECTED PRN NIFEdipine ER 90 mg tab(s) (PROCARDIA XL) 90 mg ORAL DAILY hydrALAZINE 50 mg tab(s) (APRESOLINE) 50 mg ORAL q 8 H carvedilol 12.5 mg tab(s) (COREG) 12.5 mg ORAL BID w MEALS diphenhydrAMINE 25 mg (BENADRYL) 25 mg ORAL HS PRN lidocaine 5 % 1 Patch (LIDODERM) 1 Patch TRANSDERMAL DAILY lidocaine patch - REMOVE OTHER AT BEDTIME lidocaine - VERIFY PATCH OTHER q 8 H bisacodyl 10 mg suppository (DULCOLAX) 10 mg RECTAL DAILY PRN aluminum-magnesium hydroxide-simethicone 200-200-20 mg/5 mL 30 mL (MAALOX,MYLANTA,MAG-AL PLUS) 30 mL ORAL q 6 H PRN tiotropium 18 mcg cap(s) and device for inhalation (SPIRIVA) 18 mcg INHALATION DAILY simvastatin 10 mg tab(s) (ZOCOR) 10 mg ORAL AT BEDTIME docusate sodium 100 mg cap(s) (COLACE) 100 mg ORAL BID PRN aspirin, enteric coated 81 mg tab(s) (ASPIRIN, ENTERIC COATED) 81 mg ORAL DAILY 0.9% NaCl 2-10 mL 2-10 mL INTRAVENOUS q 12 H metoprolol 5 mg injection (LOPRESSOR) 5 mg INTRAVENOUS q 5 MIN PRN ipratropium-albuterol 3 mL nebulizer solution (DUONEB) 3 mL INHALATION q 4 H PRN ALLERGIES Allergen Reactions - Ceftin [Cefuroxime] Mental Status Change - Lisinopril Cough - Voltaren [Diclofena* Other: See Comments Increased liver enzymes. Objective PHYSICAL EXAM: Patient Vitals for the past 24 hrs: BP Temp Temp src Pulse Resp SpO2 Height Weight 03/19/18 0808 102/69 - - 114 - - - - 03/19/18 0755 101/67 - - (!) 138 - - - - 03/19/18 0722 109/57 - - (!) 140 - - - - 03/19/18 0710 117/70 - - (!) 161 - - - - 03/19/18 0709 117/70 36.8 ?C (98.3 ?F) Oral (!) 133 22 97 % - - 03/19/18 0655 116/73 - - (!) 154 18 - - - 03/19/18 0644 - - - 118 20 99 % - - 03/19/18 0639 134/111 38.6 ?C (101.5 ?F) Oral (!) 130 - - - - 03/19/18 0635 - - - 98 18 98 % - - 03/19/18 0535 122/58 - - 81 - - - - 03/19/18 0500 - - - - - - - 74.1 kg (163 lb 4.8 oz) 03/19/18 0214 111/64 - Oral 84 16 97 % - - 03/18/18 2235 110/55 38.7 ?C (101.7 ?F) Oral 70 16 98 % - - 05/21/18 2135 131/67 - - 68 - - - - 03/18/182127 - - - 67 16 - - - 03/18/182116 - - - 67 16 96 % - - 03/18/182010 140/67 36.9 ?C (98.4 ?F) Oral 68 22 97 % 162.6 cm (5' 4) 75.1 kg (165 lb 8 oz) 03/18/18 1917 - - - 74 - 93 % - - 03/18/18 1840 139/74 - - 68 24 96 % - - 03/18/18 1820 145/70 - - 79 (!) 46 98 % - - 03/18/18 1800 141/69 - - 63 22 98 % - - 03/18/18 1740 120/58 - - 64 23 97 % - - 03/18/18 1700 134/61 - - 64 24 98 % - - 03/18/18 1640 117/89 - - 64 23 98 % - - 03/18/18 1610 - - - 67 - 96 % - - 03/18/18 1600 120/61 - - 63 24 96 % - - 03/18/18 1534 113/57 - - 65 (!) 32 96 % - - 03/18/18 1520 112/59 - - 75 27 92 % - - 03/18/18 1500 172/71 36.8 ?C (98.2 ?F) Oral 63 21 98 % - - 03/18/18 1437 124/67 - - 65 22 96 % - - 03/18/18 1400 128/65 - - 69 26 96 % - - 03/18/18 1320 122/61 - - 69 22 97 % - - 03/18/18 1300 133/63 - - 71 25 98 % - - 03/18/18 1230 133/63 - - 69 (!) 32 98 % - - 03/18/18 1155 129/59 - - 72 26 93 % - - 03/18/18 1120 134/62 - - 69 24 96 % - - 03/18/18 1100 134/71 36.7 ?C (98.1 ?F) Oral 63 28 96 % - - 03/18/18 1040 121/58 - - 60 21 97 % - - 03/18/18 1020 130/69 - - 62 22 97 % - - 03/18/18 1000 - - - - 24 - - - 03/18/18 0920 119/59 - - 66 24 96 % - - 03/18/18 0900 140/74 - - 70 27 97 % - - 03/18/18 0820 126/60 - - 68 24 96 % - - Intake/Output Summary (Last 24 hours) at 03/19/18 0817 Last data filed at 03/19/18 0200 Gross per 24 hour Intake 361 ml Output 2370 ml Net -2009 ml CONSTITUTIONAL: Well developed NEUROLOGIC/PSYCHIATRIC: Oriented to time, place AND person HEENT: PERRLA LUNGS: CTAB HEART: Regular rate AND rhythm ABDOMEN: Soft, non-tender INTEGUMENTARY: Wound - No SURGICAL SITES: None MUSCULOSKELETAL: No deformities Pulses/Signals: B/L femoral, DP and PT palpable DATA: Laboratory: Recent Labs 03/19/18 0333 03/18/18 0210 03/17/18 0000 WBC 8.43 11.22* 9.17 HB 12.7 13.6 12.5 HCT 37.3 39.2 36.6 PLT 117* 117* 140* Recent Labs 03/19/18 0333 03/18/18 0210 03/17/18 0000 NA 141 137 137 K 3.5* 4.2 3.9 BUN 12 12 10 CREAT 0.90 0.83 0.84 GLUC 89 114* 125* MG 2.0 2.2 2.0 Recent Labs 03/16/18 1806 APTT 27.2 INR 1.2 Assessment/Plan Impression: This is a 73 year old female with acute Type B IMH, with no evidence of malperfusion Plan: Strong HR and BP control Repeat CTA chest/abdomen/pelvis today SIGNATURE: Graeme Lei MD, MPH PATIENT NAME: Elizabeth Méndez DATE: March 19, 2018 TIME: 8:17 AM PAGER/CONTACT #: [phone] ETX#[id number] MEDICAL ALONDRA Observed: 03/19/2018 Status: COMPLETED Source: [place] 8:15 AM [facility] REPOSITORY HNO ID: [id number] Author: Jose D PattersonInternal Corrosion SpecialistJayda Aguirre RRT Service: Respiratory Therapy Author Type: Respiratory Therapist Type: Med Emergency Tm Filed: 03/19/2018 10:35 AM Note Text: CMET call to evaluate patient with chest pain. Patient received a Duoneb aerosol treatment earlier this morning and had a H.R. jump from 90 to the 130's. She was tranported to [facility] for further care. XR CHEST 1V FRONTAL Observed: 03/19/2018 Status: F Source: [facility] 6:41 AM [facility] REPOSITORY * * *Final Report* * * DATE OF EXAM: Mar 19 2018 6:41AM RENAEX [id number] - XR CHEST 1V FRONTAL PORT / PROCEDURE REASON: Chest pain, AAS suspected, hemodynamically stable, no prior aorta intervention * * * * Physician Interpretation * * * * EXAMINATION: CHEST RADIOGRAPH (PORTABLE SINGLE VIEW AP) Exam Date/Time: 03/19/2018 6:41 AM Clinical History: Chest pain, AAS suspected, hemodynamically stable, no prior aorta intervention MQ: [id number] Comparison: 1 day prior RESULT: See impression. IMPRESSION: Lines, tubes, and devices: None. Lungs and pleura: Small left and trace right pleural effusions are present. Interval mild improvement of right basilar atelectasis. Persistent left basilar atelectasis/consolidation. Lower lobe aspiration/pneumonia is not excluded. Lungs are mildly hyperinflated, suspicious for emphysema. A calcified granuloma is present in the right midlung zone. Biapical pleural thickening is likely postinflammatory in nature. No large pneumothorax is identified. Cardiomediastinal silhouette: The cardiomediastinal silhouette is unchanged. There are atherosclerotic calcifications in the aortic arch. Other: . 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: PSCB Transcribe Date/Time: Mar 19 2018 8:26A Dictated by : WARNER CARVER MD This examination was interpreted and the report reviewed and electronically signed by: WARNER CARVER MD on Mar 19 2018 8:27AM EST [id number] NURSING PROG Observed: 03/19/2018 Status: COMPLETED Source: [place] 6:31 AM [facility] REPOSITORY HNO ID: [id number] Author: Richar (Rn) BOB Vaughn Service: (none) Author Type: Registered Nurse Type: Nursing Progress Note Filed: 03/19/2018 6:35 AM Note Text: Nursing Progress Note Patient Name: Elizabeth Méndez Patient Location: [address] Pt. Converted to AFib. Dr. Nato Hampton was notified. Vitals were taken. Nurse conitue to monitor. This note was completed by: Richar Vaughn RN COMP METABOLIC PANEL Collected: 03/19/2018 Status: F Source: [place] 3:33 AM [facility] TYPE CODE TESTS RESULT OUT OF REFERENCE UNITS RANGE LAB TP 6.3-8.0 g/dL Low Protein, Total 6.1 LAB ALB 3.9-4.9 g/dL Low Albumin 3.4 LAB CA 8.5-10.2 mg/dL Calcium, Total 8.7 LAB TBIL 0.2-1.3 mg/dL Bilirubin, High Total 1.9 LAB ALKP 32-117 U/L Alkaline Phosphatase 52 LAB AST 13-35 U/L AST High 47 LAB GLU 74-99 mg/dL Glucose 89 Result Comment: The [place] [employer] (ADA) provides guidance for cutoff values for fasting glucose and random glucose. The ADA defines fasting as no caloric intake for at least 8 hours. Fas ting plasma glucose results between 100 to 125 mg/dL indicate increased risk for diabetes (prediabetes). Fasting plasma glucose results greater than or equal to 126 mg/dL meet the criteria for diagnosis of diabetes. In the absence of unequivocal hyperglycemia, results should be confirmed by repeat testing. In a patient with classic symptoms of hyperglycemia or hyperglycemic crisis, random plasma glucose results greater than or equal to 200 mg/dL meet the criteria for diagnosis of diabetes. Reference: Standards of Medical Care in Diabetes 2016, [place] [employer] Association. Diabetes Care. 2016.39(Suppl 1). LAB BUN 7-21 mg/dL BUN 12 LAB CRET 0.58-0.96 mg/dL Creatinine 0.90 LAB NA 136-144 mmol/L Sodium 141 LAB K 3.7-5.1 mmol/L Potassium Low 3.5 LAB CL 97-105 mmol/L Chloride 103 LAB CO2 22-30 mmol/L CO2 25 LAB AGAP 9-18 mmol/L Anion Gap 13 LAB ALT 7-38 U/L ALT 16 LAB GFRAA eGFR- Amer. >60 LAB GFRNAA . eGFR-All Other Races >60 Result Comment: eGFR (Estimated GFR) Units of measure: mL/min/1.73 meters squared eGFR is derived from the reexpressed MDRD Study equation using the following parameters: serum creatinine, age, gender and race. The creatinine assay has been calibrated to be traceable to IDMS. An eGFR <60 mL/min/1.73m2 for >3 months is consistent with chronic kidney disease. Refer to KDOQI guidelines for clinical interpretation. In patients with unstable renal function, e.g. those with acute kidney injury, the eGFR may not accurately reflect actual GFR. Performed By: #### CMP, MG1, PHOS, CBC #### [facility] [employer] [address] [address] MAGNESIUM Collected: 03/19/2018 Status: F Source: [place] 3:33 AM [facility] REPOSITORY TYPE CODE TESTS RESULT OUT OF REFERENCE UNITS RANGE LAB MG 1.7-2.3 mg/dL Magnesium 2.0 Performed By: #### CMP, MG1, PHOS, CBC #### [facility] [address] [address] PHOSPHORUS Collected: 03/19/2018 Status: F Source: [place] 3:33 [facility] REPOSITORY TYPE CODE TESTS RESULT OUT OF REFERENCE UNITS RANGE LAB PHOS 2.7-4.8 mg/dL Low Phosphorus 1.6 Performed By: #### CMP, MG1, PHOS, CBC #### [facility] [address] [address] CBC Collected: 03/19/2018 Status: F Source: [place] 3:33 [facility] REPOSITORY TYPE CODE TESTS RESULT OUT OF REFERENCE UNITS RANGE LAB WBC 3.70-11.00 k/uL WBC 8.43 LAB RBC 3.90-5.20 m/uL RBC 4.01 LAB HGB 11.5-15.5 g/dL Hemoglobin 12.7 LAB HCT 36.0-46.0 % Hematocrit 37.3 LAB MCV 80.0-100.0 fL MCV 93.0 LAB MCH 26.0-34.0 pG MCH 31.7 LAB MCHC 30.5-36.0 g/dL MCHC 34.0 LAB RDWCV 11.5-15.0 % RDW-CV 12.4 LAB PLTCT 150-400 k/uL Low Platelet Count 117 Result Comment: Result checked and verified No clot detected. LAB MPV 9.0-12.7 fL MPV High 14.0 LAB ABSNUC <0.01 k/uL Absolute nRBC <0.01 Performed By: #### CMP, MG1, PHOS, CBC #### [facility] [address] [place], [place] [address] PLAN OF CARE Observed: 03/18/2018 Status: COMPLETED Source: [place] 6:13 PM [facility] REPOSITORY HNO ID: [id number] Author: Erika Adair Service: Cardiovascular Medicine Author Type: Resident Type: Plan of Care Filed: 03/18/2018 6:13 PM Note Text: [facility] under Midlevel service in stable condition. Please call [place] [id number] NURSING PROG Observed: 03/18/2018 Status: COMPLETED Source: [place] 5:57 PM [facility] REPOSITORY HNO ID: [id number] Author: Anita Cruz RN Service: (none) Author Type: Registered Nurse Type: Nursing Progress Note Filed: 03/18/2018 5:59 PM Note Text: Nursing Progress Note Patient Name: Elizabeth Méndez Patient Location: [place] [address]-31 Daily Note: Report called to Sruthi URBAN at [phone]. Service Clinical Cards. PIV x 2, O2 2 L/NC, no pressure ulcers, AANDO x 3, PAUL has been up and moving around in room. Awaiting room to be cleaned and Sruthi URBAN will call and inform this RN. This note was completed by: Anita Cruz RN CONSULT PROG Observed: 03/18/2018 Status: COMPLETED Source: [place] 11:[address] [facility] [place] REPOSITORY HNO ID: [id number] Author: David Dangelo (Fel) Service: Vascular Surgery Author Type: Fellow Type: Consult Progress Note Filed: 03/18/2018 11:14 AM Note Text: [facility] CONSULT PROGRESS NOTE Service Date: 03/18/2018Admit Date: 03/16/2018Service Time: 11:13 AM LOS: 2 day(s) ? Primary Service: Consult Requesting Service: Cardiology Vascular Physician: Tabatha Garcia MD Interval Events/Issues: no chest pain or abdominal pain, on clevidipine Subjective Current hospital medications: NIFEdipine ER 60 mg tab(s) (PROCARDIA XL) 60 mg ORAL DAILY metoprolol tartrate (short acting) (LOPRESSOR) tab(s) 37.5 mg 37.5 mg ORAL q 8 H NIFEdipine ER 30 mg tab(s) (PROCARDIA XL) 30 mg ORAL DAILY lidocaine 5 % 1 Patch (LIDODERM) 1 Patch TRANSDERMAL DAILY lidocaine patch - REMOVE OTHER AT BEDTIME lidocaine - VERIFY PATCH OTHER q 8 H bisacodyl 10 mg suppository (DULCOLAX) 10 mg RECTAL DAILY PRN aluminum-magnesium hydroxide-simethicone 200-200-20 mg/5 mL 30 mL (MAALOX,MYLANTA,MAG-AL PLUS) 30 mL ORAL q 6 H PRN clevidipine 50 mg/100 mL (CLEVIPREX) 1-21 mg/hr INTRAVENOUS CONTINUOUS tiotropium 18 mcg cap(s) and device for inhalation (SPIRIVA) 18 mcg INHALATION DAILY simvastatin 10 mg tab(s) (ZOCOR) 10 mg ORAL AT BEDTIME docusate sodium 100 mg cap(s) (COLACE) 100 mg ORAL BID PRN aspirin, enteric coated 81 mg tab(s) (ASPIRIN, ENTERIC COATED) 81 mg ORAL DAILY potassium chloride ER 40-120 mEq tab(s) (K-DUR, KLOR-CON) 40-120 mEq ORAL PRN magnesium oxide 140 mg cap(s) (URO-MAG) 140 mg ORAL PRN magnesium sulfate 1 g in D5W 100 mL 1 g INTRAVENOUS PRN magnesium sulfate in water 2-8 g in sterile water 50 ml 2- 8 g INTRAVENOUS PRN 0.9% NaCl 2-10 mL 2-10 mL INTRAVENOUS q 12 H metoprolol 5 mg injection (LOPRESSOR) 5 mg INTRAVENOUS q 5 MIN PRN ipratropium-albuterol 3 mL nebulizer solution (DUONEB) 3 mL INHALATION q 4 H PRN ALLERGIES Allergen Reactions - Ceftin [Cefuroxime] Mental Status Change - Lisinopril Cough - Voltaren [Diclofena* Other: See Comments Increased liver enzymes. Objective PHYSICAL EXAM: Patient Vitals for the past 24 hrs: BP Temp Temp src Pulse Resp SpO2 Weight 03/18/18 1100 134/71 36.7 ?C (98.1 ?F) Oral 63 28 96 % - 03/18/18 1040 121/58 - - 60 21 97 % - 03/18/18 1020 130/69 - - 62 22 97 % - 03/18/18 0920 119/59 - - 66 24 96 % - 03/18/18 0900 140/74 - - 70 27 97 % - 03/18/18 0820 126/60 - - 68 24 96 % - 03/18/18 0815 - - - 65 24 97 % - 03/18/18 0800 132/62 - - 64 22 97 % - 03/18/18 0740 130/62 - - 62 23 96 % - 03/18/18 0700 119/58 36.7 ?C (98.1 ?F) Oral 68 29 96 % - 03/18/18 0630 125/69 - - 64 21 96 % 75.5 kg (166 lb 7.2 oz) 03/18/18 0600 118/64 - - 66 21 96 % - 03/18/18 0530 118/60 - - 68 23 95 % - 03/18/18 0500 124/61 - - 74 23 93 % - 03/18/18 0430 127/65 - - 70 21 93 % - 03/18/18 0400 130/66 - - 72 23 94 % - 03/18/18 0339 - - - 74 28 93 % - 03/18/18 0330 127/90 - - 71 27 96 % - 03/18/18 0300 125/66 37.1 ?C (98.7 ?F) Oral 69 21 96 % - 03/18/18 0230 122/64 - - 70 23 94 % - 05/21/18 0214 - - - 65 24 99 % - 05/21/18 0202 - - - 68 22 95 % - 05/21/18 0200 130/63 - - 71 27 95 % - 05/21/18 0130 115/61 - - 69 24 95 % - 05/21/18 0100 116/66 - - 70 24 93 % - 05/21/18 0030 125/60 - - 72 (!) 32 89 % - 05//18 0012 - - - 62 21 92 % - 05/21/18 0000 117/60 - - 65 23 90 % - 05/20/18 2330 119/56 - - 67 23 91 % - 05/20/18 2300 118/59 37.1 ?C (98.7 ?F) Oral 66 22 93 % - 05/2018 2230 122/59 - - 70 20 94 % - 05/20/18 2200 123/61 - - 71 21 93 % - 05/20/18 2144 - - - 72 23 93 % - 05/20/18 2134 - - - 73 22 95 % - 05/20/18 2130 124/65 - - 77 26 94 % - 05/20/18 2100 131/78 - - 75 30 94 % - 05/20/18 2030 123/60 - - 75 24 93 % - 05/20/18 2020 127/61 - - 71 22 94 % - 05/20/18 2000 131/63 - - 79 23 94 % - 05/20/18 1933 - - - 74 19 94 % - 05/20/18 1930 129/63 - - 73 19 94 % - 05/20/18 1900 136/63 37.1 ?C (98.7 ?F) Oral 75 22 92 % - 05/20/18 1840 138/79 - - 86 (!) 39 93 % - 05/20/18 1820 122/58 - - 77 23 92 % - 05/20/18 1800 148/66 - - 81 24 92 % - 05/20/18 1740 116/56 - - 80 25 93 % - 05/20/18 1720 112/74 - - 77 17 93 % - 05/20/18 1700 128/81 - - 75 29 95 % - 05/20/18 1640 157/72 - - 65 20 95 % - 05/20/18 1620 135/68 - - 68 22 94 % - 03/17/18 1600 167/83 - - 82 (!) 40 95 % - 03/17/18 1540 122/62 - - 77 (!) 31 96 % - 03/17/18 1523 - - - 72 (!) 32 95 % - 03/17/18 1520 120/67 - - 69 23 93 % - 03/17/18 1500 127/60 36.6 ?C (97.9 ?F) Oral 69 19 95 % - 03/17/18 1440 124/63 - - 64 19 94 % - 03/17/18 1420 145/67 - - 66 20 92 % - 03/17/18 1400 140/66 - - 63 20 95 % - 03/17/18 1340 127/60 - - 61 18 93 % - 03/17/18 1320 126/67 - - 67 22 95 % - 03/17/18 1300 149/73 - - 72 19 97 % - 03/17/18 1240 139/70 - - 64 17 94 % - 03/17/18 1220 132/71 - - 71 24 96 % - 03/17/18 1200 152/68 - - 76 26 95 % - 03/17/18 1140 134/66 - - 65 27 94 % - 03/17/18 1131 119/62 - - 66 24 93 % - 03/17/18 1121 - - - 74 (!) 32 97 % - Intake/Output Summary (Last 24 hours) at 03/18/18 1113 Last data filed at 03/18/18 1100 Gross per 24 hour Intake 902 ml Output 2285 ml Net -1383 ml CONSTITUTIONAL: Well developed NEUROLOGIC/PSYCHIATRIC: Oriented to time, place AND person HEENT: PERRLA LUNGS: Clear HEART: Regular rate AND rhythm ABDOMEN: Soft INTEGUMENTARY: Wound - No SURGICAL SITES: None MUSCULOSKELETAL: No deformities Pulses/Signals: B/L femoral, DP, radial and brachial palpable DATA: Laboratory: Recent Labs 03/18/18 0210 03/17/18 0000 03/16/18 1806 WBC 11.22* 9.17 11.49* HB 13.6 12.5 13.4 HCT 39.2 36.6 39.0 PLT 117* 140* 147* Recent Labs 03/18/18 0210 03/17/18 0000 03/16/18 1806 NA 137 137 136 K 4.2 3.9 3.9 BUN 12 10 9 CREAT 0.83 0.84 0.91 GLUC 114* 125* 232* MG 2.2 2.0 2.0 Recent Labs 03/16/18 1806 APTT 27.2 INR 1.2 Assessment/Plan Impression: This is a 73 year old female with acute type B IMH, no evidence of malperfusion ? Plan: Impulse control If creatinine remains stable, plan for repeat CTA chest, abdomen and pelvis on Sunday. ? Presentation/Indication for admission/procedure: Acute aortic syndrome PMH/PSH: -COPD on ventolin and tiotropium -HTN on losartan, ASA and simvastatin -ITP -CKD stage III per chart, last creat 1.0 Procedure/OR performed (including complications): Transition to PO BP meds, likely transfer to [facility] in afternoon Hold repeat CTA until Sunday given risk to kidneys if she is otherwise stable ?? Brief Hospital Course/Narrative: Elizabeth Méndez is a 73 year old F with a PMH of TAA, HTN and COPD who presented to an OSH with chest pain and CTA revealed intramural thrombus in descending and abdominal aorta, transferred to [facility] for further management of acute aortic syndrome. Active Issues/New Events (dated): 02/14: admitted to CICU 02/16: continuing medical mgmt ?? LVEF: NL RVF: NL Impression/Plan: see below No problems updated. SIGNATURE: David Dangelo MD PHD PATIENT NAME: Elizabeth Méndez DATE: March 18, 2018 TIME: 11:13 AM PAGER/CONTACT #: [phone] NURSING PROG Observed: 03/18/2018 Status: COMPLETED Source: [place] 10:16 AM [facility] REPOSITORY O ID: [id number] Author: Anita (Rn) BOB Cruz Service: (none) Author Type: Registered Nurse Type: Nursing Progress Note Filed: 03/18/2018 10:17 AM Note Text: Nursing Progress Note Patient Name: Elizabeth Méndez Patient Location: [place] [address]/J3-1-03 Daily Note: RN went into room to check on pt, see if she wanted to use commode or get back in bed and pt was already in bed. I asked her who helped her get back in bed and she said she did very carefully by herself. RN asked why she would do that when I have informed her not to get up by self, to call for me. She said again she was careful. RN put bed alarm now. This note was completed by: Anita Cruz RN CASE MGT INIT Observed: 03/18/2018 Status: COMPLETED Source: [place] 9:55 AM [facility] REPOSITORY HNO ID: [id number] Author: Jeny (Rn) BOB Estrella Service: Care Management Author Type: Registered Nurse Type: Care Mgt Initial Assessment Filed: 03/18/2018 10:04 AM Note Text: CARE MANAGEMENT: ASSESSMENT AND DISCHARGE PLAN SERVICE DATE: 03/18/2018 SERVICE TIME: 950 PRIMARY CARE PHYSICIAN: Davis Ronquillo MD(confirmed that pt saw this PCP approx 5 mos ago. ) ADMISSION STATUS: Inpatient MEDICAL: Patient/Crew Lead Stated Goals: To have reduction in pain Health Insurance: [employer] CHOICE PPO None Health Issues Impacting Discharge Plan: acute type B intramural hematoma on 02/14, repeat CTA, weaning Cleviperex, PMH ITP,TAA,CKD,HTN. Last Admission Date: none Is this Within the Past 30 days? No Advance Directive:AD on file w/ spouse as HCPOA. Health Literacy: 1. How often do you need to have someone help you when you read instructions, pamphlets, or other written material from your doctor or pharmacy? Never - 1 2. How confident are you filling out medical forms by yourself? Extremely - 1 If Patient scores > 3 on either question, the following interventions were put into place: Patient did not score > 3 FUNCTIONAL AND COGNITIVE/BEHAVIORAL PRIOR TO ADMISSION: Baseline Mental Status: Alert AND Oriented, Person, Place , Time and Situation Functional Status: Independent Does Patient Currently Receive Any Community Services or Home Care? None Equipment Prior to Admission: None Has the Patient Been in a Longterm Facility in the Past 30 days? No SOCIAL: Living Arrangement: Home Lives With: Alone Financial Resources: Retired Primary Contact: Extended Emergency Contact Information Primary Emergency Contact: Peña Méndez Address: [address] [place] [address] [address] [place] [address] Mobile Relation: Spouse Secondary Emergency Contact: Matthew Richmond Mobile Relation: Son Supportive: Yes Other Important Patient Contacts: None Caregiver Assessment: Caregiver is ready, willing and able to meet the patient's needs as recommended by the inter-professional team? Yes Patient's transition needs and plan for meeting these needs: CM indicated spouse able to assist as neded. Does the patient have an acute stroke diagnosis, or has the patient had a stroke during this admission? No Medication Adherence: I am convinced of the importance of my prescription medication: Agree completely - 0 I worry that my prescription medication will do more harm than good to me Disagree completely - 0 I feel financially burdened by my [id number] expenses for my prescription medication: Disagree completely - 0 Patient is categorized as low risk < 2 Are you interested in bedside delivery of your medications? No Food Concerns: In the Last Month, Have You had Trouble Getting Food? No trouble getting food During the Last Month, Have You Worried Whether Your Food Would Run Out Before You Had Enough Money to Buy More? No Is the Patient Psychosocially Complex? No ASSESSMENT AND PLAN: Medical Needs: None Psychosocial Needs: None FREEDOM OF CHOICE EXPLAINED: Yes 03/18/2018 1000 CM spoke w/ pt related to assistance w/ d/c planning if skilled needs indicated POTENTIAL TRANSITION PLANS Home 73 YOF admit w/ acute CP, development of acute type B intramural hematoma. Pt Independent CHIP TUNER, lives w/ spouse who is able to assist at d/c, no home skilled needs CHIP TUNER. CM to follow. SIGNATURE: Jeny Estrella RN PATIENT NAME: Elizabeth Méndez DATE: March 18, 2018 TIME: 9:55 AM PAGER/CONTACT #: [phone] PROGRESS Observed: 03/18/2018 Status: COMPLETED Source: [place] 7:[address] [facility] [place] REPOSITORY HNO ID: [id number] Author: Ricki Martínez Service: Cardiovascular Medicine Author Type: Physician Type: Progress Notes Filed: 03/18/2018 3:09 PM Note Text: [facility] and VASCULAR [place] ICU PROGRESS NOTE (Template ID [id number]) Elizabeth Méndez [id number] ? I have reviewed the progress note obtained and documented by the Resident and I personally participated in the mc components. I have discussed the case and management of the patient's care with the Residents and [place]. I have examined the patient, reviewed all relevant electrocardiograms, echocardiograms, cine-angiograms, as well as imaging studies. The following comments revise or confirm relevant mc components of the Resident's note. ? acute aortic syndrome: the patient developed new onset chest and back discomfort, imaging reveals a type B IMH, there is no current mal-perfusion: status quo ? Hypertension: we will optimixe BP control, on IV nipride and beta blockade: transitioning to an oral regimen ? COPD: she is a smoker, no active wheezing ? Renal failure: we will follow creatinine and hydrate as she has received significant dye exposure ? Plan: ? Continued observation ? Vascular surgery consultation Possible transfer to the floor later tonight ? I spent 35 minutes delivering critical care assesing the cause and treating hemodynamic instability. ? Mert Martínez MD, [facility], SUHAS Jaramillo and Romelia Kerr Department of Cardiovascular Medicine [facility] and Vascular [place] [facility] Desk [place] [address] Office ? [phone] extension [phone] Office Appointments: [phone] extension [phone] Admit Date: 03/16/2018 LOS: 2 PRIMARY SERVICE: Cardiology: Coronary Intensive Care Unit INTERVAL EVENTS / PERTINENT ROS: No acute events. Minimal chest pain, nausea improved TELEMETRY: normal sinus rhythm VENT SETTINGS: N/A DRIPS: clevidipine 4 mg/hr HEMODYNAMICS: Time MAP RA PA PA Mean PCWP SVO2 CO CI TPG SVR PVR Intervention 0730 75 PHYSICAL EXAM: I/O: 1899/1999 Weight: 75.5 kg Body mass index is 30.44 kg/m?. T: 37 HR: 60s BP: 120s/60s O2 sat: 94% on 2L NC Neuro: alert, oriented, PAUL General appearance: well developed and no distress Skin: warm and dry Lungs: respiratory effort: normal Heart: regular rhythm, S1, S2 normal and no murmur Abdomen: soft and non-tender Extremities: normal exam of the extremities and edema: 1+ DATA: EKG: NSR and CXR: unremarkable A/P: 73 yo female with hx of ITP, TAA, CKD (cr 1.0), HTN who p/w acute chest pain with development of acute type B intramural hematoma on 02/14. She is being managed medically in the CICU - Transition to PO BP meds, likely transfer to [facility] in afternoon - Hold repeat CTA until Sunday given risk to kidneys if she is otherwise stable Neuro: alert, pain minimal Cardiac: No JVD. wean clevidipine for goal SBP < 140. Increased nifedipine to 60 mg qd today resp: encourage OOB GI: HHD, having BMs : voiding spontaneously, good UOP. Expect rising Cr due to IV contrast Heme: hx of ITP, stable thrombocytopenia DAILY ICU CHECKLIST (For ICD-9, use PREVIOUS DIAGNOSES [PDX]) Is there a Central Line? No Is there a Urinary Catheter? No Restraints needed? No GI Prophylaxis: No Is Nutrition at target levels: Yes DVT Prophylaxis: SC Heparin and SCD Pressure Ulcers (if POA, document in Admission Navigator): No Glycemic control: Adequate Family updated within last 24 hours: Yes SIGNATURE: Benjamin Carl MD PAGER: [phone] DATE of SERVICE: 03/18/2018 TIME of SERVICE: 7:50 AM XR CHEST 1V FRONTAL Observed: 03/18/2018 Status: F Source: [facility] 6:25 AM [facility] REPOSITORY * * *Final Report* * * DATE OF EXAM: Mar 18 2018 6:25AM JIX [id number] - XR CHEST 1V FRONTAL PORT / PROCEDURE REASON: Shortness of breath * * * * Physician Interpretation * * * * EXAMINATION: CHEST RADIOGRAPH (PORTABLE SINGLE VIEW AP) Exam Date/Time: 03/18/2018 6:25 AM Indication: Shortness of breath MQ: [id number] Comparison: 1 day prior RESULT: See impression. IMPRESSION: Lines, tubes, and devices: None. Lungs and pleura: Prominence of interstitial lung markings again noted in both lungs. Lungs are otherwise hyperinflated, possibly due to background emphysematous changes. There is subsegmental atelectases in bilateral lung bases, left more than right, with possible small pleural effusions. The apices are partly clipped off [id number]. Small calcified granuloma in the right midlung. No definite pneumothorax. Cardiomediastinal silhouette: Stable cardiomediastinal silhouette. Other: . 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: [facility] Transcribe Date/Time: Mar 18 2018 7:36A Dictated by : LUIS ANTONIO VARELA MD This examination was interpreted and the report reviewed and electronically signed by: LUIS ANTONIO VARELA MD on Mar 18 2018 7:39AM EST [id number] Collected: 03/18/2018 Status: F Source: [place] 2:10 AM [facility] REPOSITORY TYPE CODE TESTS RESULT OUT OF REFERENCE UNITS RANGE LAB WBC 3.70-11.00 k/uL WBC High 11.22 LAB RBC 3.90-5.20 m/uL RBC 4.22 LAB HGB 11.5-15.5 g/dL Hemoglobin 13.6 LAB HCT 36.0-46.0 % Hematocrit 39.2 LAB MCV 80.0-100.0 fL MCV 92.9 LAB MCH 26.0-34.0 pG MCH 32.2 LAB MCHC 30.5-36.0 g/dL MCHC 34.7 LAB RDWCV 11.5-15.0 % RDW-CV 12.8 LAB PLTCT 150-400 k/uL Low Platelet Count 117 Result Comment: Result checked and verified No clot detected. LAB MPV 9.0-12.7 fL MPV High 13.5 LAB ABSNUC <0.01 k/uL Absolute nRBC <0.01 Performed By: #### CBC, CMP, MG1, PHOS #### [facility] [address] [place] [id number] COMP METABOLIC PANEL Collected: 03/18/2018 Status: F Source: [place] 2:10 AM [facility] REPOSITORY TYPE CODE TESTS RESULT OUT OF REFERENCE UNITS RANGE LAB TP 6.3-8.0 g/dL Protein, Total 6.9 LAB ALB 3.9-4.9 g/dL Low Albumin 3.7 LAB CA 8.5-10.2 mg/dL Calcium, Total 8.7 LAB TBIL 0.2-1.3 mg/dL Bilirubin, High Total 1.7 LAB ALKP 32-117 U/L Alkaline Phosphatase 57 LAB AST 13-35 U/L AST High 45 Result Comment: Results may be falsely increased due to interference by hemolysis. Suggest reorder as clinically indicated. LAB GLU 74-99 mg/dL High Glucose 114 Result Comment: The [place] [employer] Association (ADA) provides guidance for cutoff values for fasting glucose and random glucose. The ADA defines fasting as no caloric intake for at least 8 hours. Fas ting plasma glucose results between 100 to 125 mg/dL indicate increased risk for diabetes (prediabetes). Fasting plasma glucose results greater than or equal to 126 mg/dL meet the criteria for diagnosis of diabetes. In the absence of unequivocal hyperglycemia, results should be confirmed by repeat testing. In a patient with classic symptoms of hyperglycemia or hyperglycemic crisis, random plasma glucose results greater than or equal to 200 mg/dL meet the criteria for diagnosis of diabetes. Reference: Standards of Medical Care in Diabetes 2016, [place] [employer] Association. Diabetes Care. 2016.39(Suppl 1). LAB BUN 7-21 mg/dL BUN 12 LAB CRET 0.58-0.96 mg/dL Creatinine 0.83 LAB NA 136-144 mmol/L Sodium 137 LAB K 3.7-5.1 mmol/L Potassium 4.2 LAB CL 97-105 mmol/L Chloride 103 LAB CO2 22-30 mmol/L CO2 23 LAB AGAP 9-18 mmol/L Anion Gap 11 LAB ALT 7-38 U/L ALT 14 LAB GFRAA eGFR- Amer. >60 LAB GFRNAA . eGFR-All Other Races >60 Result Comment: eGFR (Estimated GFR) Units of measure: mL/min/1.73 meters squared eGFR is derived from the reexpressed MDRD Study equation using the following parameters: serum creatinine, age, gender and race. The creatinine assay has been calibrated to be traceable to IDMS. An eGFR <60 mL/min/1.73m2 for >3 months is consistent with chronic kidney disease. Refer to KDOQI guidelines for clinical interpretation. In patients with unstable renal function, e.g. those with acute kidney injury, the eGFR may not accurately reflect actual GFR. Performed By: #### CBC, CMP, MG1, PHOS #### [facility] [address] [place], [place] [address] MAGNESIUM Collected: 03/18/2018 Status: F Source: [place] 2:10 AM [facility] REPOSITORY TYPE CODE TESTS RESULT OUT OF REFERENCE UNITS RANGE LAB MG 1.7-2.3 mg/dL Magnesium 2.2 Performed By: #### CBC, CMP, MG1, PHOS #### [facility] [address] [place], [place] [address] PHOSPHORUS Collected: 03/18/2018 Status: F Source: [place] 2:10 AM [facility] REPOSITORY TYPE CODE TESTS RESULT OUT OF REFERENCE UNITS RANGE LAB PHOS 2.7-4.8 mg/dL Low Phosphorus 1.7 Performed By: #### CBC, CMP, MG1, PHOS #### [facility] [address] [place], [place] [address] NURSING PROG Observed: 03/17/2018 Status: COMPLETED Source: [place] 6:11 PM [facility] REPOSITORY HNO ID: [id number] Author: Anita (Bob) BOB Cruz Service: (none) Author Type: Registered Nurse Type: Nursing Progress Note Filed: 03/17/2018 6:15 PM Note Text: Nursing Progress Note Patient Name: Elizabeth Méndez Patient Location: [place] [address]/J3-1-03 Daily Note: Pt was on commode around 1700, gave call light , requested she call for RN and not to get up by self. RN came back into room a few minutes later to check on her and she moved herself over to her chair without help. RN informed her she should not get up without my help as she should have assistance with lines and IV Meds. Stated ok. RN went into room around 1755 and she had moved from chair to bed with the help of her son. I discussed that I had informed her that she was not to get up without me and she said, well my son was in here and he helped me. I informed her that her nurse needs to be present to assist with the lines so they do not get pulled out or tripped over. I appreciate that she wants to be independent and that her son wants to help, but that her nurse needs to be assisting with moving. She again said ok. This note was completed by: Anita Cruz RN PROGRESS Observed: 03/17/2018 Status: COMPLETED Source: [place] 8:42 AM [facility] REPOSITORY O ID: [id number] Author: Graeme Lei (Fel) Service: Vascular Surgery Author Type: Fellow Type: Progress Notes Filed: 03/17/2018 8:45 AM Note Text: [facility] CONSULT PROGRESS NOTE Service Date: 03/17/2018Admit Date: 03/16/2018Service Time: 6:15 am LOS: 1 day(s) Primary Service: Consult Requesting Service: Cardiology Vascular Physician: Tabatha Garcia MD Interval Events/Issues: No Pain abdomen Subjective Current hospital medications: lidocaine 5 % 1 Patch (LIDODERM) 1 Patch TRANSDERMAL DAILY lidocaine patch - REMOVE OTHER AT BEDTIME lidocaine - VERIFY PATCH OTHER q 8 H lactated ringers 500 mL iv bolus 500 mL INTRAVENOUS ONCE metoprolol tartrate (short acting) 25 mg tab(s) (LOPRESSOR) 25 mg ORAL q 12 H tiotropium 18 mcg cap(s) and device for inhalation (SPIRIVA) 18 mcg INHALATION DAILY simvastatin 10 mg tab(s) (ZOCOR) 10 mg ORAL AT BEDTIME docusate sodium 100 mg cap(s) (COLACE) 100 mg ORAL BID PRN aspirin, enteric coated 81 mg tab(s) (ASPIRIN, ENTERIC COATED) 81 mg ORAL DAILY potassium chloride ER 40-120 mEq tab(s) (K-DUR, KLOR-CON) 40-120 mEq ORAL PRN magnesium oxide 140 mg cap(s) (URO-MAG) 140 mg ORAL PRN magnesium sulfate 1 g in D5W 100 mL 1 g INTRAVENOUS PRN magnesium sulfate in water 2-8 g in sterile water 50 ml 2- 8 g INTRAVENOUS PRN 0.9% NaCl 2-10 mL 2-10 mL INTRAVENOUS q 12 H metoprolol 5 mg injection (LOPRESSOR) 5 mg INTRAVENOUS q 5 MIN PRN nitroprusside 50 mg in D5W 250 mL (NIPRIDE) 10-200 mcg/min INTRAVENOUS CONTINUOUS ipratropium-albuterol 3 mL nebulizer solution (DUONEB) 3 mL INHALATION q 4 H PRN iv contrast (radiology procedure) INTRAVENOUS DIRECTED PRN ALLERGIES Allergen Reactions - Ceftin [Cefuroxime] Mental Status Change - Lisinopril Cough - Voltaren [Diclofena* Other: See Comments Increased liver enzymes. Objective PHYSICAL EXAM: Patient Vitals for the past 24 hrs: BP Temp Temp src Pulse Resp SpO2 Height Weight 03/17/18 0758 - - - 70 27 95 % - - 03/17/18 0751 - - - 65 28 96 % - - 03/17/18 0730 - - - 64 27 95 % - - 03/17/18 0700 - 36.7 ?C (98.1 ?F) Oral 66 18 95 % - - 03/17/18 0630 - - - 77 25 97 % - - 03/17/18 0600 - - - 63 26 96 % - - 03/17/18 0530 - - - 67 25 95 % - - 03/17/18 0500 - - - 67 23 94 % - - 03/17/18 0430 - - - 61 18 95 % - - 03/17/18 0415 - - - 67 18 95 % - - 03/17/18 0400 - - - 70 22 95 % - - 03/17/18 0343 - - - 69 23 94 % - - 03/17/18 0330 - - - (!) 58 18 95 % - - 03/17/18 0300 - 36.6 ?C (97.9 ?F) Oral 60 24 94 % - - 03/17/18 0230 - - - 65 17 94 % - - 03/17/18 0200 - - - 70 28 95 % - - 03/17/18 0130 - - - 70 22 96 % - - 03/17/18 0120 125/57 - - 63 - - - - 03/17/18 0100 - - - 63 23 94 % - - 03/17/18 0040 - - - 71 23 91 % - - 03/17/18 0030 - - - 79 20 92 % - - 03/17/18 0000 - - - 65 17 95 % - - 03/16/18 2345 - - - 74 18 98 % - - 03/16/18 2342 - - - 70 27 98 % - - 03/16/18 2330 - - - 68 18 100 % - - 03/16/18 2306 - - - 71 18 99 % - - 03/16/182299 - 36.5 ?C (97.7 ?F) Oral (!) 58 13 99 % - - 03/16/182229 - - - 73 29 95 % - - 03/16/182204 - - - 64 22 97 % - - 03/16/182199 - - - (!) 58 (!) 31 97 % - - 03/16/182153 - - - 63 24 95 % - - 03/16/182139 - - - 65 27 93 % - - 03/16/182129 - - - 66 (!) 34 95 % - - 03/16/182114 - - - 78 29 93 % - - 03/16/182099 - - - 77 27 95 % - - 03/16/182029 - - - (!) 58 20 95 % - - 03/16/182027 - - - (!) 58 25 95 % - - 03/16/182007 - - - 66 25 95 % - - 03/16/181999 - - - (!) 58 25 95 % - - 03/16/18 193 - - - 74 21 94 % - - 03/16/18 1900 - 36.3 ?C (97.4 ?F) Oral 72 23 94 % - 75.2 kg (165 lb 12.6 oz) 03/16/18 1830 104/59 - - 73 21 94 % - - 03/16/18 1800 112/59 - - 71 - 96 % 157.5 cm (5' 2) - 03/16/18 1756 - - - (!) 58 22 96 % - - 03/16/18 1740 106/63 36.6 ?C (97.9 ?F) - 62 - - - - Intake/Output Summary (Last 24 hours) at 03/17/18 0842 Last data filed at 03/17/18 0700 Gross per 24 hour Intake 1657 ml Output 2090 ml Net -433 ml CONSTITUTIONAL: Well developed NEUROLOGIC/PSYCHIATRIC: Oriented to time, place AND person HEENT: PERRLA LUNGS: Clear HEART: Regular rate AND rhythm ABDOMEN: Soft INTEGUMENTARY: Wound - No SURGICAL SITES: None MUSCULOSKELETAL: No deformities Pulses/Signals: B/L femoral, DP, radial and brachial palpable DATA: Laboratory: Recent Labs 03/17/18 0000 03/16/18 1806 WBC 9.17 11.49* HB 12.5 13.4 HCT 36.6 39.0 PLT 140* 147* Recent Labs 03/17/18 0000 03/16/18 1806 NA 137 136 K 3.9 3.9 BUN 10 9 CREAT 0.84 0.91 GLUC 125* 232* MG 2.0 2.0 Recent Labs 03/16/18 180 APTT 27.2 INR 1.2 Assessment/Plan Impression: This is a 73 year old female with acute type B IMH, no evidence of malperfusion Plan: Recommend HR and BP control. If creatinine remains stable, plan for repeat CTA chest, abdomen and pelvis on Sunday. SIGNATURE: Graeme Lei MD, MPH PATIENT NAME: Elizabeth Méndez DATE: March 17, 2018 TIME: 8:42 AM PAGER/CONTACT #: [phone] ETX#[id number] CONSULT PROG Observed: 03/17/2018 Status: COMPLETED Source: [place] 7:59 AM [facility] REPOSITORY HNO ID: [id number] Author: Kaleb (Aydin) MD Nay Service: Vascular Surgery Author Type: Resident Type: Consult Progress Note Filed: 03/17/2018 8:46 AM Note Text: [facility] CONSULT PROGRESS NOTE Service Date: 03/17/2018Admit Date: 03/16/2018Service Time: 7:00AM LOS: 1 day(s) Vascular Physician: Tbaatha Garcia MD Interval Events/Issues: No acute events. Had nausea with 1x emesis overnight. Chest pain improved. Subjective Current hospital medications: lidocaine 5 % 1 Patch (LIDODERM) 1 Patch TRANSDERMAL DAILY lidocaine patch - REMOVE OTHER AT BEDTIME lidocaine - VERIFY PATCH OTHER q 8 H tiotropium 18 mcg cap(s) and device for inhalation (SPIRIVA) 18 mcg INHALATION DAILY simvastatin 10 mg tab(s) (ZOCOR) 10 mg ORAL AT BEDTIME docusate sodium 100 mg cap(s) (COLACE) 100 mg ORAL BID PRN aspirin, enteric coated 81 mg tab(s) (ASPIRIN, ENTERIC COATED) 81 mg ORAL DAILY potassium chloride ER 40-120 mEq tab(s) (K-DUR, KLOR-CON) 40-120 mEq ORAL PRN magnesium oxide 140 mg cap(s) (URO-MAG) 140 mg ORAL PRN magnesium sulfate 1 g in D5W 100 mL 1 g INTRAVENOUS PRN magnesium sulfate in water 2-8 g in sterile water 50 ml 2- 8 g INTRAVENOUS PRN 0.9% NaCl 2-10 mL 2-10 mL INTRAVENOUS q 12 H metoprolol 5 mg injection (LOPRESSOR) 5 mg INTRAVENOUS q 5 MIN PRN nitroprusside 50 mg in D5W 250 mL (NIPRIDE) 10-200 mcg/min INTRAVENOUS CONTINUOUS ipratropium-albuterol 3 mL nebulizer solution (DUONEB) 3 mL INHALATION q 4 H PRN iv contrast (radiology procedure) INTRAVENOUS DIRECTED PRN ALLERGIES Allergen Reactions - Ceftin [Cefuroxime] Mental Status Change - Lisinopril Cough - Voltaren [Diclofena* Other: See Comments Increased liver enzymes. Objective PHYSICAL EXAM: Patient Vitals for the past 24 hrs: BP Temp Temp src Pulse Resp SpO2 Height Weight 03/17/18 0758 - - - 70 27 95 % - - 03/17/18 0751 - - - 65 28 96 % - - 03/17/18 0730 - - - 64 27 95 % - - 03/17/18 0700 - 36.7 ?C (98.1 ?F) Oral 66 18 95 % - - 03/17/18 0630 - - - 77 25 97 % - - 03/17/18 0600 - - - 63 26 96 % - - 03/17/18 0530 - - - 67 25 95 % - - 03/17/18 0500 - - - 67 23 94 % - - 03/17/18 0430 - - - 61 18 95 % - - 03/17/18 0415 - - - 67 18 95 % - - 03/17/18 0400 - - - 70 22 95 % - - 03/17/18 0343 - - - 69 23 94 % - - 03/17/18 0330 - - - (!) 58 18 95 % - - 03/17/18 0300 - 36.6 ?C (97.9 ?F) Oral 60 24 94 % - - 03/17/18 0230 - - - 65 17 94 % - - 03/17/18 0200 - - - 70 28 95 % - - 03/17/18 0130 - - - 70 22 96 % - - 03/17/18 0120 125/57 - - 63 - - - - 03/17/18 0100 - - - 63 23 94 % - - 03/17/18 0040 - - - 71 23 91 % - - 03/17/18 0030 - - - 79 20 92 % - - 03/17/18 0000 - - - 65 17 95 % - - 03/16/18 2345 - - - 74 18 98 % - - 03/16/18 2342 - - - 70 27 98 % - - 03/16/18 2330 - - - 68 18 100 % - - 03/16/18 2306 - - - 71 18 99 % - - 03/16/182299 - 36.5 ?C (97.7 ?F) Oral (!) 58 13 99 % - - 03/16/182229 - - - 73 29 95 % - - 03/16/182204 - - - 64 22 97 % - - 03/16/182199 - - - (!) 58 (!) 31 97 % - - 03/16/182153 - - - 63 24 95 % - - 03/16/182139 - - - 65 27 93 % - - 03/16/182129 - - - 66 (!) 34 95 % - - 03/16/182114 - - - 78 29 93 % - - 03/16/182099 - - - 77 27 95 % - - 03/16/182029 - - - (!) 58 20 95 % - - 03/16/182027 - - - (!) 58 25 95 % - - 03/16/182007 - - - 66 25 95 % - - 03/16/181999 - - - (!) 58 25 95 % - - 03/16/181929 - - - 74 21 94 % - - 03/16/181899 - 36.3 ?C (97.4 ?F) Oral 72 23 94 % - 75.2 kg (165 lb 12.6 oz) 03/16/18 1830 104/59 - - 73 21 94 % - - 03/16/18 1800 112/59 - - 71 - 96 % 157.5 cm (5' 2) - 03/16/18 1756 - - - (!) 58 22 96 % - - 03/16/18 1740 106/63 36.6 ?C (97.9 ?F) - 62 - - - - Intake/Output Summary (Last 24 hours) at 03/17/18 0759 Last data filed at 03/17/18 0700 Gross per 24 hour Intake 1657 ml Output 2090 ml Net -433 ml CONSTITUTIONAL: No acute distress NEUROLOGIC/PSYCHIATRIC: Oriented to time, place AND person HEENT: No lesions LUNGS: Respiratory effort: normal HEART: Regular rate AND rhythm ABDOMEN: Non-distended INTEGUMENTARY: Wound - No SURGICAL SITES: None MUSCULOSKELETAL: No deformities Pulses/Signals: Femoral Right: Palpable +2 - Left: Palpable +2 Popliteal Right: Palpable +2 - Left: Palpable +2 Dorsalis Pedis Right: Palpable +2 - Left: Palpable +2 DATA: Laboratory: Recent Labs 03/17/18 0000 03/16/18 1806 WBC 9.17 11.49* HB 12.5 13.4 HCT 36.6 39.0 PLT 140* 147* Recent Labs 03/17/18 0000 03/16/18 1806 NA 137 136 K 3.9 3.9 BUN 10 9 CREAT 0.84 0.91 GLUC 125* 232* MG 2.0 2.0 Recent Labs 03/16/18 1806 APTT 27.2 INR 1.2 Assessment/Plan Impression: 73yoF with HTN, COPD (FEV1 0.88), CKDIII, now presenting with 8hr hx of acute onset chest pain with radiation to the back and OSH CTA suggestive of acute aortic syndrome. CTA demonstrating type B aortic intramural hematoma without dissection. Patient currently appears stable with no clinical evidence of malperfusion. Plan: -no acute surgical intervention -impulse control per primary -repeat CTA chest abd pelvis on Presentation/Indication for admission/procedure: Acute aortic syndrome PMH/PSH: -COPD on ventolin and tiotropium -HTN on losartan, ASA and simvastatin -ITP -CKD stage III per chart, last creat 1.0 Procedure/OR performed (including complications): None ?? Brief Hospital Course/Narrative: Elizabeth Méndez is a 73 year old F with a PMH of TAA, HTN and COPD who presented to an OSH with chest pain and CTA revealed intramural thrombus in descending and abdominal aorta, transferred to [facility] for further management of acute aortic syndrome. Active Issues/New Events (dated): 02/14: admitted to CICU ?? LVEF: NL RVF: NL Impression/Plan: see below No problems updated. SIGNATURE: Kaleb Tee MD PATIENT NAME: Elizabeth Méndez DATE: March 17, 2018 TIME: 7:59 AM PAGER/CONTACT #: [phone]#[phone] CK, TOTAL AND CKMB Collected: 03/17/2018 Status: F Source: [place] 7:45 AM [facility] REPOSITORY TYPE CODE TESTS RESULT OUT OF RANGE REFERENCE UNITS LAB CK 42-196 U/L CK 93 Result Comment: Please note the updated, gender-specific reference range for this test (effective 10/12/2016). LAB MB <4.3 ng/mL 1.9 MB LAB CKMBRI 0.0-4.0 % CK MB % not reported CK MB % with CK <100 U/L. Performed By: #### CKCKMB, MAYA #### [facility] [address] [id number] TROPONIN T Collected: 03/17/2018 Status: F Source: [place] 7:45 AM [facility] REPOSITORY TYPE CODE TESTS RESULT OUT OF REFERENCE UNITS RANGE LAB TROPT 0.000-0.029 ng/mL Troponin T <0.010 Performed By: #### CKCKMB, MAYA #### [facility] [address] [address] EMERGENCY DEPARTMENT Observed: 03/17/2018 Status: F Source: [place] SUMMARY 7:01 AM [facility] REPOSITORY [facility] Medical Records Department [address] [place] [address] Emergency Department Summary 03/16/18 1318 MR#: [id number] Acct: [id number] Name: ELIZABETH MÉNDEZ Rep #: [id number] : 1945 73 From: Sebastien Lane MD PCP: Chicho Ronquillo MD Status: DEP ER - ER Visit Summary Date of Service: 03/16/18 Chief Complaint: Upper back pain History of Present Illness: The patient is a [address] Giuseppe dangelo. She reports that she was taking a trash bag out to the garbage when she had the onset of a sharp upper back pain. Is 10 out of 10 at worst 910 currently. Is worsened by breathing or movement. Is relieved by nothing. She has never had anything like this before. States this is not unusual activity for her. Patient reports that she also has a sharp epigastric pain senna 10 severity that began at the same time. She denies any fever, chills, chest pain, cough. She does report that she is short of breath. Physical Examination: Vitals: Stable. Afebrile. General: Well-nourished and well-developed. Head: Normocephalic atraumatic. Neck: Supple, no lymphadenopathy. No JVD. Nontender. Cardiovascular: Regular rate and rhythm. No murmurs. Respiratory: No respiratory distress. Clear to auscultation bilaterally. Abdominal: Soft, mild epigastric tenderness to palpation, nondistended, normal bowel sounds. No guarding, rebound, or peritoneal signs. Back: Nontender. I am unable to reproduce her upper back pain with palpation. No vertebral tenderness. No paraspinous muscular tenderness. Extremities: Nontender, no edema. Skin: Normal color, no rash. Neurologic: Alert and oriented 3. Cranial nerves II through XII are intact. Normal strength and sensation. Psych: Normal affect. Test Results: EKG is sinus at [address] changes. Troponin is negative. LFTs marked total bili 1.2. Lipase normal. Chem-7 is normal. CBC is marked for hemoglobin of 15.3. Clinical Impression(s) from Imaging Studies Chest CTA 03/16/18 12:49 IMPRESSION: No evidence of aortic dissection however there is fluid around the aorta and in the superior pericardial recess. Correlation with echocardiogram is recommended. No evidence of acute extravasation of contrast. No evidence of pulmonary embolism. Emphysematous and bullous changes bilaterally. Electronically Signed: Riki Gill MD at 13:59 EDT Tel , Service support , Emergency Department Course and Treatment: Patient had an IV placed. She is given a dose of Dilaudid and Zofran IV. Her pain has improved. She was given a dose of labetalol IV. Ultimately she was placed on a nipride drip. Treatment Plan: The patient asked for transfer to [facility]. She was discussed with them and giving the fact that this is from her ascending aneurysm they asked that she be transferred to [facility]. Patient was then discussed with Dr. Hancock at [facility] who asked that we bring her systolic blood pressure down in the 120s. Due to the weather the patient cannot be flown to [place]. Disposition: Transferred in serious condition. Impression: 1. Thoracic aortic aneurysm with leak. 2. Critical care time 30 minutes. This note was generated with [employer] dictation software. It may contain incorrect words, spelling, and punctuation that were not noted in review of the chart prior to signing ED Disposition - Plan for ED Patient: Chief Complaint: Back Referrals: Chicho Ronquillo MD [Primary Care Provider] - What to do if you have Problems For any increased pain, shortness of breath, bleeding, nausea or vomiting, chest pain, or any unexpected problems, contact your Primary Care Provider. Call [facility] ([phone]) or report to the closest Emergency Room. Call 911 if necessary. 03/17/18 0701 <Electronically signed by Sebastien Lane MD> Date Sebastien Lane MD Cosigner Signature (If Indicated): Date CC: Chicho Ronquillo MD GASA + ALL Collected: 03/17/2018 Status: F Source: [place] FOR 6:55 AM [facility] ONLY REPOSITORY TYPE CODE TESTS RESULT OUT OF REFERENCE UNITS RANGE LAB PH 7.35-7.45 pH 7.42 LAB PCO2 34-46 mm Hg pCO2 36 LAB PO2 85-95 mm Hg pO2 Low 72 LAB BE mmol/L Base Excess 0 LAB HCO3 22-26 mmol/L Bicarbonate 23 LAB CO2CT 22.0-28.0 mmol/L CO2 Content 24 LAB O2HB 95-98 % Oxyhemoglobin, Low Art. 93 LAB COHB 0-5.0 % Carboxyhemoglobin,A 1.8 rt LAB MHGB 0.4-1.5 % Methemoglobin 0.8 LAB TEMP C Temperature, Body 37.0 LAB PHTC 7.35-7.45 pH, Temp Corrected 7.42 LAB PCO2T 34-46 mm Hg pCO2, Temp Correct 36 LAB PO2T mm Hg pO2, Temp Corrected 72 LAB NAB 132-148 mmol/L Sodium,Whole Bld 136 LAB KWB 3.5-5.0 mmol/L Potassium, Whole Bld 3.8 LAB HGBB 11.5-15.5 g/dL Hemoglobin,Total,AC 13.0 L LAB HCTB 36.0-46.0 % Hematocrit, ACL 40 LAB IC 1.08-1.30 mmol/L Calcium, Ion, WB 1.19 LAB GLB 60-105 mg/dL Glucose,Whole Bld High 115 LAB LACT 0.5-2.2 mmol/L Lactate 0.8 Performed By: #### ALLBG #### [facility] [address] [place], [place] [address] XR CHEST 1V FRONTAL Observed: 03/17/2018 Status: F Source: [facility] 1:00 AM [facility] REPOSITORY * * *Final Report* * * DATE OF EXAM: Mar 17 2018 1:00AM JIX [id number] - XR CHEST 1V FRONTAL PORT / PROCEDURE REASON: Chest pain, AAS suspected, hemodynamically stable, no prior aorta intervention * * * * Physician Interpretation * * * * EXAMINATION: CHEST RADIOGRAPH (PORTABLE SINGLE VIEW AP) Exam Date/Time: 03/17/2018 1:00 AM Indication: Chest pain, AAS suspected, hemodynamically stable, no prior aorta intervention MQ: [id number] Comparison: 1 day prior RESULT: See impression. IMPRESSION: Lines, tubes, and devices: None. Lungs and pleura: Lungs are hyperinflated, which may be secondary to emphysema. Patchy opacities at the lung bases are likely secondary to atelectasis. A granuloma is noted in the right midlung. Trace right pleural effusion is noted. No pneumothorax. Cardiomediastinal silhouette: Cardiomediastinal silhouette is stable in size. Calcification of the aortic arch is noted. Other: . 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: OM[facility] Transcribe Date/Time: Mar 17 2018 11:55A Dictated by : NORMAN ALLEN MD This examination was interpreted and the report reviewed and electronically signed by: NORMAN ALLEN MD on Mar 17 2018 11:56AM EST [id number] Collected: 03/17/2018 Status: F Source: [place] 12:00 [facility] REPOSITORY TYPE CODE TESTS RESULT OUT OF REFERENCE UNITS RANGE LAB WBC 3.70-11.00 k/uL WBC 9.17 LAB RBC 3.90-5.20 m/uL RBC 3.91 LAB HGB 11.5-15.5 g/dL Hemoglobin 12.5 LAB HCT 36.0-46.0 % Hematocrit 36.6 LAB MCV 80.0-100.0 fL MCV 93.6 LAB MCH 26.0-34.0 pG MCH 32.0 LAB MCHC 30.5-36.0 g/dL MCHC 34.2 LAB RDWCV 11.5-15.0 % RDW-CV 12.6 LAB PLTCT 150-400 k/uL Low Platelet Count 140 Result Comment: Result checked and verified No clot detected. LAB MPV 9.0-12.7 fL MPV High 13.0 LAB ABSNUC <0.01 k/uL Absolute nRBC <0.01 Performed By: #### CBC, DDMER, CKCKMB, CMP, MG1, PHOS, MAYA #### [facility] [address] [place], [place] [address] D DIMER Collected: 03/17/2018 Status: F Source: [place] 12:00 [facility] REPOSITORY TYPE CODE TESTS RESULT OUT OF REFERENCE UNITS RANGE LAB DDMER <500 ng/mL FEU High D dimer 1570 Result Comment: The D-dimer assay can be used to exclude pulmonary embolism (PE) and deep vein thrombosis (DVT) in conjunction with a low pre-test probability. For patients with a suspected DVT, a D-dimer level below 500 ng/mL FEU has a negative predictive value of 99.2%, a sensitivity of 98.9%, and a specificity of 36.1%. For patients with a suspected PE, a D -dimer level below 500 ng/mL FEU has a negative predictive value of 99.1%, a sensitivity of 97.8%, and a specificity of 41.7%. Performed By: #### CBC, DDMER, CKCKMB, CMP, MG1, PHOS, MAYA #### [facility] [address] [place], [place] [address] CK, TOTAL AND CKMB Collected: 03/17/2018 Status: F Source: [place] 12:00 AM [facility] REPOSITORY TYPE CODE TESTS RESULT OUT OF RANGE REFERENCE UNITS LAB CK 42-196 U/L Low CK 39 Result Comment: Please note the updated, gender-specific reference range for this test (effective 10/12/2016). LAB MB <4.3 ng/mL 1.3 MB LAB CKMBRI 0.0-4.0 % CK MB % not reported CK MB % with CK <100 U/L. Performed By: #### CBC, DDMER, CKCKMB, CMP, MG1, PHOS, MAYA #### [facility] [address] [place], [place] [address] COMP METABOLIC PANEL Collected: 03/17/2018 Status: F Source: [place] 12:00 [facility] REPOSITORY TYPE CODE TESTS RESULT OUT OF REFERENCE UNITS RANGE LAB TP 6.3-8.0 g/dL Low Protein, Total 6.1 LAB ALB 3.9-4.9 g/dL Low Albumin 3.7 LAB CA 8.5-10.2 mg/dL Low Calcium, Total 8.2 LAB TBIL 0.2-1.3 mg/dL Bilirubin, High Total 1.4 LAB ALKP 32-117 U/L Alkaline Phosphatase 60 LAB AST 13-35 U/L AST 25 LAB GLU 74-99 mg/dL Glucose High 125 Result Comment: The [place] [employer] (ADA) provides guidance for cutoff values for fasting glucose and random glucose. The ADA defines fasting as no caloric intake for at least 8 hours. Fas ting plasma glucose results between 100 to 125 mg/dL indicate increased risk for diabetes (prediabetes). Fasting plasma glucose results greater than or equal to 126 mg/dL meet the criteria for diagnosis of diabetes. In the absence of unequivocal hyperglycemia, results should be confirmed by repeat testing. In a patient with classic symptoms of hyperglycemia or hyperglycemic crisis, random plasma glucose results greater than or equal to 200 mg/dL meet the criteria for diagnosis of diabetes. Reference: Standards of Medical Care in Diabetes 2016, [place] [employer] Association. Diabetes Care. 2016.39(Suppl 1). LAB BUN 7-21 mg/dL BUN 10 LAB CRET 0.58-0.96 mg/dL Creatinine 0.84 LAB NA 136-144 mmol/L Sodium 137 LAB K 3.7-5.1 mmol/L Potassium 3.9 LAB CL 97-105 mmol/L Chloride 102 LAB CO2 22-30 mmol/L CO2 23 LAB AGAP 9-18 mmol/L Anion Gap 12 LAB ALT 7-38 U/L ALT 11 LAB GFRAA eGFR- Amer. >60 LAB GFRNAA . eGFR-All Other Races >60 Result Comment: eGFR (Estimated GFR) Units of measure: mL/min/1.73 meters squared eGFR is derived from the reexpressed MDRD Study equation using the following parameters: serum creatinine, age, gender and race. The creatinine assay has been calibrated to be traceable to IDMS. An eGFR <60 mL/min/1.73m2 for >3 months is consistent with chronic kidney disease. Refer to KDOQI guidelines for clinical interpretation. In patients with unstable renal function, e.g. those with acute kidney injury, the eGFR may not accurately reflect actual GFR. Performed By: #### CBC, DDMER, CKCKMB, CMP, MG1, PHOS, MAYA #### [facility] [employer] [address] [address] MAGNESIUM Collected: 03/17/2018 Status: F Source: [place] 12:00 [facility] REPOSITORY TYPE CODE TESTS RESULT OUT OF REFERENCE UNITS RANGE LAB MG 1.7-2.3 mg/dL Magnesium 2.0 Performed By: #### CBC, DDMER, CKCKMB, CMP, MG1, PHOS, MAYA #### [facility] [address] [place], [place] [address] PHOSPHORUS Collected: 03/17/2018 Status: F Source: [place] 12:00 AM [facility] REPOSITORY TYPE CODE TESTS RESULT OUT OF REFERENCE UNITS RANGE LAB PHOS 2.7-4.8 mg/dL Phosphorus 3.4 Performed By: #### CBC, DDMER, CKCKMB, CMP, MG1, PHOS, MAYA #### [facility] [employer] [address], [place] [address] TROPONIN T Collected: 03/17/2018 Status: F Source: [place] 12:00 AM [facility] REPOSITORY TYPE CODE TESTS RESULT OUT OF REFERENCE UNITS RANGE LAB TROPT 0.000-0.029 ng/mL Troponin T <0.010 Performed By: #### CBC, DDMER, CKCKMB, CMP, MG1, PHOS, MAYA #### [facility] [employer] [address], [place] [address] URINALYSIS WITH Collected: 03/16/2018 Status: F Source: [place] MICROSCOPIC 10:44 PM [facility] REPOSITORY TYPE CODE TESTS RESULT OUT OF REFERENCE UNITS RANGE LAB UCOL Yellow Color Yellow LAB [facility] Clear Clarity Clear LAB UGLUC Negative mg/dL Glucose, Urine Negative LAB UBIL Negative Bilirubin, Urine Negative LAB UKET Negative Ketones, Urine Negative LAB USPG 1.005-1.030 Specific High [place], Ur >1.045 LAB UHGB Negative Hemoglobin/Blood, Negative Ur LAB UPH 4.5-8.0 pH 7.0 LAB UPROT Negative mg/dL Protein, Urine Negative LAB UUROB Normal Urobilinogen Normal LAB UNITR Negative Nitrites Negative LAB ULKEST Negative Leukest Negative LAB UCOM Comments SEE COMMENT Result Comment: N/A LAB UMCOM Urine SEE Thaddeus Comment COMMENT Result Comment: N/A LAB UWBC 0-5 /HPF WBC 0-5 LAB URBC 0-3 /HPF RBC 0-3 LAB UEPI /HPF Epithelial SEE Cells COMMENT Result Comment: Few Squamous Epithelial Cells Performed By: #### UAWMIC #### [facility] [address] [place], [place] [address] PROGRESS Observed: 03/16/2018 Status: COMPLETED Source: [place] 9:12 PM [facility] REPOSITORY HNO ID: [id number] Author: Nesha Singh (Rn) BOB Zepeda Service: Radiology Author Type: Registered Nurse Type: Progress Notes Filed: 03/16/2018 9:16 PM Note Text: Radiology Service Progress Note PATIENT NAME: Elizabeth Méndez DATE OF SERVICE: March 16, 2018 TIME: 9:12 PM PATIENT WEIGHT: 165 LBS PATIENT IDENTITY VERIFICATION COMPLETED USING TWO (2) METHODS: Patient confirmed name verbally and ID band matches.. PATIENT GENDER DATA: Female. status: : No status: NO. CONTRAST INDUCED NEPHROPATHY RISK FACTORS: Patient age > 60 years CREATININE: Creatinine Date Value Ref Range Status 03/16/2018 0.91 0.58 - 0.96 mg/dL Final 09/21/2017 1.09 (H) 0.58 - 0.96 mg/dL Final 04/25/2017 1.06 (H) 0.58 - 0.96 mg/dL Final eGFR-All Other Races Date Value Ref Range Status 03/16/2018 >60 . Final Comment: eGFR (Estimated GFR) Units of measure: mL/min/1.73 meters squared eGFR is derived from the reexpressed MDRD Study equation using the following parameters: serum creatinine, age, gender and race. The creatinine assay has been calibrated to be traceable to IDMS. An eGFR <60 mL/min/1.73m2 for >3 months is consistent with chronic kidney disease. Refer to KDOQI guidelines for clinical interpretation. In patients with unstable renal function, e.g. those with acute kidney injury, the eGFR may not accurately reflect actual GFR. eGFR- Date Value Ref Range Status 03/16/2018 >60 Final P.O.C.T. RESULTS: gfr>60 though per reqest of Dr Jones request risk benefit noteas pt received contrast at osh See epic note per Dr Radha Adair March 16, 2018 TREATMENT: See epic note per Dr Adair ALLERGIES: Reviewed and unchanged CONTRAST ALLERGY: NO. IV SITE: Inpatient - refer to LDA documentation IV SITE APPEARANCE: Clean,Dry and Intact SIGNED BY: Nesha Zepeda RN March 16, 2018 9:12 PM PROGRESS Observed: 03/16/2018 Status: COMPLETED Source: [place] 8:56 PM [facility] REPOSITORY HNO ID: [id number] Author: Sandhya Koch Ct Service: (none) Author Type: (none) Type: Progress Notes Filed: 03/16/2018 8:56 PM Note Text: Radiology Service Progress Note PATIENT NAME: Elizabeth Méndez DATE OF SERVICE: March 16, 2018 TIME: 8:56 PM PATIENT IDENTITY VERIFICATION COMPLETED USING TWO (2) METHODS: Patient confirmed name verbally and ID band matches. and Patient confirmed name verbally. PATIENT GENDER DATA: Female. status: : No status: NO. PATIENT RELEVANT IMPLANT DATA REVIEWED: Yes RADIOLOGY DEPARTMENT: CT; Exam(s) Completed: Cardiac PERIPHERAL IV DATA: Inpatient: see LDA documentation SIGNED BY: Sandhya Koch Ct March 16, 2018 8:56 PM CTA C/A/P (GATED) W Observed: 03/16/2018 Status: F Source: [place] IVCON 8:55 PM [facility] REPOSITORY * * *Final Report* * * DATE OF EXAM: Mar 16 2018 8:55PM JQC [id number] - CTA C/A/P (GATED) W IVCON / PROCEDURE REASON: Chest/back pain, acute, aortic dissection suspected * * * * Physician Interpretation * * * * CTA chest, CTA abdomen and pelvis dated 03/16/2018 8:55 PM. Comparison: CT chest without contrast 08/17/2017, CT chest with contrast 04/05/2011, 08/16/2009. History: 73 years old Female with clinical concern for acute aortic syndrome. Technique: Multi-detector CT technology was employed (Rema Linkytilliance 64-slice scanner). Initially, a non ECG-gated, non-contrast spiral acquisition was performed of the chest. Subsequently, spiral imaging with retrospective gating was performed of the chest, followed by non-gated spiral imaging of the abdomen and pelvis, both following the IV administration of contrast material. A low-osmolar contrast agent was used (120 cc of Omnipaque 350). CT Dose-Length Product (DLP): [address] Dose Reduction Employed: Yes For optimization of anatomic evaluation, multiplanar reconstruction, maximum intensity projections, and advanced 3-D off-line postprocessing were performed on a dedicated stand-alone workstation by the interpreting physician. RESULT: Potential study limitations: Motion artifacts. CHEST: The chest wall, mediastinum, pericardium, and pulmonary arteries are unremarkable. No significant adenopathy is identified in the axilla, mediastinum, and larissa. Calcified mediastinal (6:156) and hilar (6:176) lymph nodes, unchanged. Lung windows reveal no acute abnormalities. Biapical scarring. Moderate to severe diffuse bilateral centrilobular and paraseptal emphysematous changes, mildly progressed as compared to recent prior. 6 cm granuloma in the right upper lobe (6:161), punctate right upper lobe calcifications (6:170) and punctate calcified granuloma in the right medial apex (6:58), unchanged and compatible with remote granulomatous disease. Bibasilar atelectasis and linear scarring (right more than left), new as compared to 03/07/2017. There is no pulmonary parenchymal mass, infiltrate, or pleural effusion. The cardiac chambers demonstrate normal atrioventricular and ventriculoarterial concordance, and systemic and pulmonary venous return. Mild left atrial enlargement, otherwise the cardiac chamber sizes are normal. The coronary arteries have normal origins and courses. There are no distinct coronary calcifications identified, though this study was not optimized for coronary artery evaluation. The aortic valve is trileaflet, and free from calcifications. VASCULAR WITH ADVANCED 3-D OFF-LINE POSTPROCESSING: Hyperattenuation within the descending aortic wall (6:94-6:263) and thickening (maximum reaching 7 mm in mid descending), compatible with intramural hematoma. It begins just beyond the left subclavian takeoff extending to mid descending aorta. No aortic dissection. The thoracic aorta is normal in course, caliber, and contour. The arch vessel branching pattern is normal . All of the arch branch vessels appear widely patent in their proximal portions. The abdominal aorta is normal in course, caliber, and contour. There is no acute aortic pathology. Crew Lead dimensions of the thoracic aorta are as follows: 2.0 cm at the aortic annulus 3.3 cm at the sinuses of Valsalva measured sinus to sinus (3.0 cm measured sinus to trigone)(the sinotubular junction is preserved) 3.6 cm at the mid ascending aorta 3.9 cm at the distal ascending aorta 3.0 cm at the mid transverse arch 2.7 cm at the proximal descending thoracic aorta 2.7 cm at the diaphragmatic hiatus The abdominal aorta measures: 2.3 cm at the supramesenteric segment 2.2 cm at the mesenteric segment 1.7 cm at the renal segment 2.8 cm at the mid infrarenal segment 1.5 cm at the aortic bifurcation The celiac axis, SMA, and OLLIE are patent. There are single renal arteries bilaterally, both of which appear patent. The pelvic arteries are tortuous, but otherwise normal in caliber and contour. ABDOMEN AND PELVIS: Liver: No mass. 3.1 x 3.9 cm left hepatic lobe cyst (6:332) and 1.7 x 1.5 cm (6:364), grossly unchanged. Biliary: No bile duct dilation. Gallbladder is absent. Spleen: No mass. No splenomegaly.Calcific granuloma noted. Pancreas: No mass or duct dilation. Adrenals: No mass. Kidneys: No mass, calculus or hydronephrosis. GI tract: No dilation or wall thickening. Diverticulosis without diverticulitis. Lymph nodes: No abdominal or pelvic lymphadenopathy. Mesentery/Peritoneum: No ascites or mass. Pelvis: No mass, ascites or fluid collection. Contrast in the urinary bladder, likely from prior CT scan. Bones/Soft Tissues: Degenerative changes. IMPRESSION: TYPE B AORTIC INTRAMURAL HEMATOMA DESCRIBED. NO ACUTE AORTIC DISSECTION. BORDERLINE DILATATION OF THE DESCENDING AORTA MEASURING UP 3.9 CM. INFRARENAL ABDOMINAL AORTIC DILATATION MEASURING UP TO 2.8 CM. BILATERAL MODERATE PARASEPTAL AND CENTRILOBULAR EMPHYSEMATOUS CHANGES WITH DIFFUSE BRONCHIECTASIS. COMMUNICATION: Communicated with: Dr. Adair on 03/16/2018 at at 9:22 PM. 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: OMID Transcribe Date/Time: Mar 16 2018 9:18P Dictated by : JESSICA SANCHEZ MD This examination was interpreted and the report reviewed and electronically signed by: MABEL COSTA MD on Mar 16 2018 10:32PM EST [id number] PLAN OF CARE Observed: 03/16/2018 Status: COMPLETED Source: [place] 8:01 PM [facility] REPOSITORY HNO ID: [id number] Author: Erika Adair Service: Cardiovascular Medicine Author Type: Resident Type: Plan of Care Filed: 03/16/2018 8:05 PM Note Text: I discussed with lEizabeth Méndez the risks and benefits of undergoing a repeat CTA given the acuity of her condition and the urgency to act on what the CTA reveals. We unfortunately did not obtain the discs from the OSH CTA so we cannot define management without this information. I explained she has a risk of having acute kidney injury with possibility of requiring dialysis from the contrast. We will try to prevent this with NSB bolus, already given. She understands the risks and benefits and agrees to proceed [place] [id number] CONFIRM BLOOD TYPE Collected: 03/16/2018 Status: F Source: [place] 7:55 PM [facility] REPOSITORY TYPE CODE TESTS RESULT OUT OF REFERENCE UNITS RANGE LAB %ABR O ABO/RH(D) POSITIVE Performed By: #### CONABO #### [facility] [address] [place], [place] [address] XR CHEST 1V FRONTAL Observed: 03/16/2018 Status: F Source: [facility] 7:08 PM [facility] REPOSITORY * * *Final Report* * * DATE OF EXAM: Mar 16 2018 7:08PM [id number] - XR CHEST 1V FRONTAL PORT / PROCEDURE REASON: Chest pain, AAS suspected, hemodynamically stable, no prior aorta intervention * * * * Physician Interpretation * * * * EXAMINATION: CHEST RADIOGRAPH (PORTABLE SINGLE VIEW AP) Exam Date/Time: 03/16/2018 7:08 PM Indication: Chest pain, AAS suspected, hemodynamically stable, no prior aorta intervention MQ: [id number] Comparison: CT dated 03/07/2017 RESULT: See impression. IMPRESSION: Lines, tubes, and devices: None. Lungs and pleura: Lungs are hyperinflated with attenuation of the pulmonary vasculature, suggestive of emphysema. Streaky opacities at the lung bases are likely related to atelectasis. A granuloma is noted in the right perihilar region. Mild biapical scarring is noted, likely post-inflammatory. No substantial pleural effusions or pneumothorax are noted. Cardiomediastinal silhouette: Cardiomediastinal silhouette is unremarkable. Calcified subcarinal lymph nodes are noted. Calcification of the aortic arch is noted with tortuosity/ectasia of the descending thoracic aorta. Other: Mild dextroscoliosis of the thoracic spine is noted with degenerative changes. 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: PSCB Transcribe Date/Time: Mar 16 2018 8:42P Dictated by : NORMAN ALLEN MD This examination was interpreted and the report reviewed and electronically signed by: NORMAN ALLEN MD on Mar 16 2018 8:44PM EST [id number] PLAN OF CARE Observed: 03/16/2018 Status: COMPLETED Source: [place] 6:45 PM [facility] REPOSITORY HNO ID: [id number] Author: Erika Adair Service: Cardiovascular Medicine Author Type: Resident Type: Plan of Care Filed: 03/16/2018 6:50 PM Note Text: I discussed code status with the patient. She reports she had a living will which states she is DNR. Her POA is her , who is in his way to CC. She reports she wants to continue being DNR, with no chest compressions, intubation, defibrillation. Ok for pressors. I explained that if there were to be a surgery, we would have to make her full code for the surgery and then change to DNR again. She agrees with that. [place] [id number] GASA + ALL Collected: 03/16/2018 Status: F Source: [place] FOR 6:42 PM [facility] RADIANCE USE ONLY REPOSITORY TYPE CODE TESTS RESULT OUT OF REFERENCE UNITS RANGE LAB PH 7.35-7.45 pH 7.35 LAB PCO2 34-46 mm Hg pCO2 44 LAB PO2 85-95 mm Hg pO2 81 Low LAB BE mmol/L Base Excess NEG 2 LAB HCO3 22-26 mmol/L Bicarbonate 24 LAB CO2CT 22.0-28.0 mmol/L CO2 Content 25 LAB O2HB 95-98 % 92 Low Oxyhemoglobin, Art. LAB COHB 0-5.0 % 2.9 Carboxyhemoglobin ,Art LAB MHGB 0.4-1.5 % 0.8 Methemoglobin LAB TEMP C 37.0 Temperature, Body LAB PHTC 7.35-7.45 pH, Temp 7.35 Corrected LAB PCO2T 34-46 mm Hg pCO2, Temp 44 Correct LAB PO2T mm Hg pO2, Temp 81 Corrected LAB NAB 132-148 mmol/L 139 Sodium,Whole Bld LAB KWB 3.5-5.0 mmol/L Potassium, 4.0 Whole Bld LAB HGBB 11.5-15.5 g/dL 13.8 Hemoglobin,Total, ACL LAB HCTB 36.0-46.0 % Hematocrit, 42 ACL LAB IC 1.08-1.30 mmol/L Calcium, 1.25 Ion, WB LAB GLB 60-105 mg/dL 166 High Glucose,Whole Bld LAB LACT 0.5-2.2 mmol/L Lactate 1.1 LAB ABGCOM Blood Gas O2 Comm, Art Administration Result Comment: 3L Performed By: #### ALLBG #### [facility] [address] [place], [place] [address] CONSULT Observed: 03/16/2018 Status: COMPLETED Source: [place] 6:[address] [facility] REPOSITORY HNO ID: [id number] Author: Tunde Shipman (Fel) Service: Vascular Surgery Author Type: Fellow Type: Consults Filed: 03/17/2018 7:16 AM Note Text: [facility] INITIAL CONSULT Service Date: 03/16/2018 Admit Date: 03/16/2018 Service Time: 6:41 PM LOS: 0 Requesting Provider: Ricki Martínez Vascular Physician: Tabatha Garcia MD Subjective Chief Complaint: Chest/back pain HPI: Elizabeth Méndez is a 73 year old White female with hx of HTN, extensive tobacco use, COPD most recent FEV1 0.88, no home O2, CKDIII (Cr 1.00), now presenting with 12hr hx of acute onset chest pain with radiation to the back. Pain began 1130am this morning and was associated with acute dyspnea. Patient denies abdominal pain at the time, nausea/vomiting, impaired urination or bowel dysfunction/melana. No LE weakness or CVA-type symptoms. Patient was taken to OSH ED where ACS workup was negative. CTA performed which demonstrated fluid likely representing clots around the descending thoracic aorta extending from the aortic arch to the upper abdomen. There is also fluid extending in the region of the superior pericardial recess No active extravasation noted on CTA. Unfortunately, these images are not currently available for review. Hgb on presentation 15.3 without metabolic evidence of malperfusion. Pain progressively improved at OSH ED and she was autolaunched to [facility] CICU. On presentation she is stable with acceptable hemodynamics and minimal supplemental O2 requirements. Pain has resolved. Abdomen is soft, non-tender with palp DP/PT bilaterally and palp radial arteries. Prior Vascular imaging (abdominal aortic US from 2010) shows no aortic dilation. Stress test 2014 with no evidence of ischemia and EF 64%. Denies family hx of aneurysm or dissection. Denies prior NE. On ASA, no plavix, no anticoagulation. Vascular surgery is now consulted for an opinion regarding management of possible acute aortic syndrome. Location: Thoracoabdominal Quality: acute Severity: moderate Duration: 8 hours PAST MEDICAL HISTORY Diagnosis Date - Benign neoplasm of colon 06/08/2008 - Cataracts, bilateral Seeing Dr. Beach - Cervical spondylosis without myelopathy Seeing Dr. jean - Chronic obstructive pulmonary disease (COPD) (HCC) mild - CKD (chronic kidney disease), stage III - Diverticulosis of colon (without mention of hemorrhage) - Epistaxis 2/2 high dose ASA - Hemorrhoids - Hypertension - Osteopenia - Other seborrheic keratosis 01/24/2007 - Snoring - Special screening for malignant neoplasms, colon 06/08/2008 - Unspecified disorder of skin and subcutaneous tissue 01/16/2007 - Varicose vein of leg PAST SURGICAL HISTORY Procedure Laterality Date - APPENDECTOMY - COLONOSCOP W/ OR W/O BRSH SPEC 06/08/2008 Colonoscopy - DANDC, DIAG AND/OR THERAPEUTIC Dilation AND curettage - LIGATE FALLOPIAN TUBE - PAST SURGICAL HISTORY OF hysterectomy - REMOVAL GALLBLADDER - REMOVAL OF TONSILS,<12 Y/O Tonsillectomy - REMV CATARACT EXTRACAP,INSERT LENS Right 09/01/15 Cataract Extraction with PC IOL - REMV CATARACT EXTRACAP,INSERT LENS Left 10/13/2015 Cataract Extraction with PC IOL/Femto/LRI - REVISE SECONDARY VARICOSITY Varicose Vein Surgery - SIGMOIDOSCOPY FLEX DIAG 1997 Sigmoidoscopy FAMILY HISTORY Problem Relation Age of Onset - Emphysema Mother smoker - Heart Mother - Emphysema Father smoker - Heart Father Social History Substance Use Topics - Smoking status: Former Smoker Packs/day: 0.50 Types: Cigarettes Start date: 1961 Quit date: 12/27/2015 - Smokeless tobacco: Never Used Comment: Parents smoked in home; patient has cheated a few times and smoked; Smoked last week - Alcohol use Yes Comment: rarely Prescriptions Prior to Admission: VENTOLIN HFA 90 mcg/actuation inhaler INHALE 2 PUFFS INSTRUCTED EVERY 6 HOURS NEEDED. Disp: 54 g Rfl: 3 Unknown at Unknown time CALCIUM CARBONATE/VITAMIN D3 (CALCIUM + D ORAL) Take 2 tablets by mouth once daily. Taking 550 + 2001 unit tablets Disp: Rfl: Unknown at Unknown time docusate sodium (COLACE) 100 mg capsule Take 1 capsule by mouth twice daily as needed for Constipation. Disp: 60 capsule Rfl: 2 Unknown at Unknown time losartan (COZAAR) 25 mg tablet TAKE 1 TABLET EVERY DAY Disp: 90 tablet Rfl: 1 Unknown at Unknown time simvastatin (ZOCOR) 10 mg tablet Take 1 tablet by mouth daily at bedtime. Disp: 90 tablet Rfl: 3 Unknown at Unknown time tiotropium (SPIRIVA WITH HANDIHALER) 18 mcg inhalation capsule Inhale 1 capsule as instructed once daily. Use with handihaler. Disp: 90 capsule Rfl: 3 Unknown at Unknown time estradiol (ESTRACE) 0.01 % (0.1 mg/gram) vaginal cream Apply small amount at vaginal opening 3 nights per week Disp: 1 Tube Rfl: 1 Unknown at Unknown time aspirin, enteric coated (ASPIR-81) 81 mg ORAL EC tablet Take 2 tablets by mouth once daily. (Patient taking differently: Take 81 mg by mouth once daily.) Disp: 1 tablet Rfl: 0 Unknown at Unknown time Current hospital medications: tiotropium 18 mcg cap(s) and device for inhalation (SPIRIVA) 18 mcg INHALATION DAILY simvastatin 10 mg tab(s) (ZOCOR) 10 mg ORAL AT BEDTIME docusate sodium 100 mg cap(s) (COLACE) 100 mg ORAL BID PRN [START ON 03/17/2018] aspirin, enteric coated 81 mg tab(s) (ASPIRIN, ENTERIC COATED) 81 mg ORAL DAILY potassium chloride ER 40-120 mEq tab(s) (K-DUR, KLOR-CON) 40-120 mEq ORAL PRN magnesium oxide 140 mg cap(s) (URO-MAG) 140 mg ORAL PRN magnesium sulfate 1 g in D5W 100 mL 1 g INTRAVENOUS PRN magnesium sulfate in water 2-8 g in sterile water 50 ml 2- 8 g INTRAVENOUS PRN 0.9% NaCl 2-10 mL 2-10 mL INTRAVENOUS q 12 H metoprolol 5 mg injection (LOPRESSOR) 5 mg INTRAVENOUS q 5 MIN PRN nitroprusside 50 mg in D5W 250 mL (NIPRIDE) 10-200 mcg/min INTRAVENOUS CONTINUOUS heparin 5,000 Units injection 5,000 Units SUBCUTANEOUS q 12 H ipratropium-albuterol 3 mL nebulizer solution (DUONEB) 3 mL INHALATION q 4 H PRN NaCl 0.9% 500 mL iv bolus 500 mL INTRAVENOUS ONCE iv contrast (radiology procedure) INTRAVENOUS DIRECTED PRN ALLERGIES Allergen Reactions - Ceftin [Cefuroxime] Mental Status Change - Lisinopril Cough - Voltaren [Diclofena* Other: See Comments Increased liver enzymes. COMPLETE REVIEW OF SYSTEMS CONSTITUTIONAL: No weight loss, malaise or fevers. HEENT: Negative for frequent or significant headaches, No changes in hearing or vision, no nose bleeds or other nasal problems. RESPIRATORY: acute dyspnea CARDIOVASCULAR: Negative for chest pain, leg swelling or palpitations, otherwise as above GI: Negative for abdominal discomfort, blood in stools or black stools or change in bowel habits. : No history of dysuria, frequency, or incontinence and No difficulty urination, nocturia >1 times per night or hematuria. MUSCULOSKELETAL: Negative for joint pain or swelling, back pain or muscle pain. ENDOCRINE: Negative for cold or heat intolerance, polyuria, polydipsia and goiter HEMATOLOGIC/LYMPHATIC: Negative for prolonged bleeding, bruising easily or swollen nodes. NEUROLOGIC: No history or headaches, syncope, paralysis, seizures or tremors. INTEGUMENTARY: Negative for lesions, rash, and itching. Objective PHYSICAL EXAM Physical Exam Performed Patient Vitals for the past 24 hrs: BP Pulse Resp SpO2 Height 03/16/18 1830 104/59 73 21 94 % - 03/16/18 1800 112/59 71 - 96 % 157.5 cm (5' 2) 03/16/18 1756 - (!) 58 22 96 % - 03/16/18 1740 106/63 - - - - Intake/Output Summary (Last 24 hours) at 03/16/18 1841 Last data filed at 03/16/18 1800 Gross per 24 hour Intake 0 ml Output 600 ml Net -600 ml CONSTITUTIONAL: mildly dyspneic NEUROLOGIC/PSYCHIATRIC: Oriented to time, place AND person and No gross focal neurologic deficits HEENT: PERRLA LUNGS: Clear, slightly labored, some retractions HEART: Regular rate AND rhythm currently ABDOMEN: Soft and Non-tender, no gaurding INTEGUMENTARY: Wound - none SURGICAL SITES: None MUSCULOSKELETAL: No deformities, well perfused Pulses/Signals: Carotid Brachial Radial Ulnar Femoral Popliteal Dorsalis Pedis Posterior Tibial Peroneal Right Palpable +2 Palpable +2 Palpable +2 Palpable +2 Palpable +1 Palpable +2 Palpable +2 Left Palpable +2 Palpable +2 Palpable +2 Palpable +2 Palpable +1 Palpable +2 Palpable +2 Does the patient have critical limb ischemia, rest pain, tissue loss or gangrene?: No DATA: Laboratory: Recent Labs 03/16/18 1806 WBC 11.49* HB 13.4 HCT 39.0 PLT 147* Radiology: CTA as above I have personally reviewed the following images/data: CT Scan Impression/Recommendations Impression: 73yoF with HTN, COPD (FEV1 0.88), CKDIII, now presenting with 8hr hx of acute onset chest pain with radiation to the back and OSH CTA suggestive of acute aortic syndrome. Patient currently appears stable with no clinical evidence of malperfusion. Plan: -impulse control per CICU -IV hydration and repeat CTA c/a/p SIGNATURE: Benjamin Whiting MD PATIENT NAME: Elizabeth Méndez DATE: March 16, 2018 TIME: 6:41 PM PAGER/CONTACT #: [id number] ETX#[id number] Vascular Surgery Fellow Addendum Repeat CTA T/A/P shows intramural hematoma extending from distal to L SCA to proximal to celiac w/ ?small intimal flap. Max thoracic aortic diameter is 38mm. No malperfusion. Patient is DNR, but would undergo surgery if necessary -impulse control -no need for surgical intervention at this time Tunde Shipman MD Vascular Surgery Fellow [id number] 03/17/2018 7:12 AM CBC Collected: 03/16/2018 Status: F Source: [place] 6:[address] [facility] [place] REPOSITORY TYPE CODE TESTS RESULT OUT OF REFERENCE UNITS RANGE LAB WBC 3.70-11.00 k/uL WBC High 11.49 LAB RBC 3.90-5.20 m/uL RBC 4.16 LAB HGB 11.5-15.5 g/dL Hemoglobin 13.4 LAB HCT 36.0-46.0 % Hematocrit 39.0 LAB MCV 80.0-100.0 fL MCV 93.8 LAB MCH 26.0-34.0 pG MCH 32.2 LAB MCHC 30.5-36.0 g/dL MCHC 34.4 LAB RDWCV 11.5-15.0 % RDW-CV 12.5 LAB PLTCT 150-400 k/uL Low Platelet Count 147 LAB MPV 9.0-12.7 fL MPV High 12.9 LAB ABSNUC <0.01 k/uL Absolute nRBC <0.01 Performed By: #### CBC, PT, PTT, CMP, LIPB, CKCKMB, MG1, NTBNP, PHOS, MAYA, TSH, HBA1C #### [facility] [employer] [address] [place], [place] [address] PROTIME Collected: 03/16/2018 Status: F Source: [place] 6:06 PM [facility] REPOSITORY TYPE CODE TESTS RESULT OUT OF RANGE REFERENCE UNITS LAB PSEC 9.7-13.0 sec PT Sec 11.9 LAB INR 0.9-1.3 PT INR 1.2 Result Comment: Vitamin K Antagonist (VKA) Therapeutic Range: INR 2 to 3 (Target INR of 2.5) Note: For patients treated with VKA drugs, such as warfarin, the [place] [employer] 2012 Guideline recommends a therapeutic INR range of 2 to 3 (target INR of 2.5). This recommendation includes high-risk patients with antiphospholipid syndrome with previous arterial or venous thromboembolism, current-generation mechanical or bioprosthetic aortic heart valve replacement. Note: Patients with mechanical aortic valve replacement and additional risk factors for thromboembolic events (atrial fibrillation, previous thromboembolism, LV dysfunction, hypercoagulable conditions) or an older generation mechanical AVR (i.e., ball in-Cage) or any mechanical MVR should have a INR therapeutic range of 2.5 to 3.5 (target INR of 3). Domo GH, et al. Chest 2012, 141:7S-47S Zoya MENEZES et al. [facility] 2017, 70: 252-289 Performed By: #### CBC, PT, PTT, CMP, LIPB, CKCKMB, MG1, NTBNP, PHOS, MAYA, TSH, HBA1C #### [facility] [employer] [address] [place], [place] [address] APTT Collected: 03/16/2018 Status: F Source: [place] 6:06 PM [facility] REPOSITORY TYPE CODE TESTS RESULT OUT OF RANGE REFERENCE UNITS LAB APTT 23.0-32.4 sec APTT 27.2 Result Comment: Unfractionated Heparin Therapeutic Ranges: Standard Heparin Nomogram: 53 to 78 seconds (anti-Xa level of 0.3 to 0.7 U/ml) Low Dose/ACS Nomogram: 49 to 67 seconds (anti-Xa level of 0.2 to 0.5 U/ml) Stroke Treatment Nomogram: 49 to 67 seconds (anti-Xa level of 0.2 to 0.5 U/ml) Note: The APTT therapeutic range has been determined for the current lot of laboratory APTT reagent in use throughout the [facility]. Performed By: #### CBC, PT, PTT, CMP, LIPB, CKCKMB, MG1, NTBNP, PHOS, MAYA, TSH, HBA1C #### [facility] [address] [place], [place] [address] COMP METABOLIC PANEL Collected: 03/16/2018 Status: F Source: [place] 6:[address] [facility] REPOSITORY TYPE CODE TESTS RESULT OUT OF REFERENCE UNITS RANGE LAB TP 6.3-8.0 g/dL Protein, Total 6.4 LAB ALB 3.9-4.9 g/dL Low Albumin 3.7 LAB CA 8.5-10.2 mg/dL Low Calcium, Total 8.1 LAB TBIL 0.2-1.3 mg/dL Bilirubin, Total 1.3 LAB ALKP 32-117 U/L Alkaline Phosphatase 60 LAB AST 13-35 U/L AST 28 LAB GLU 74-99 mg/dL Glucose High 232 Result Comment: The [place] [employer] (ADA) provides guidance for cutoff values for fasting glucose and random glucose. The ADA defines fasting as no caloric intake for at least 8 hours. Fas ting plasma glucose results between 100 to 125 mg/dL indicate increased risk for diabetes (prediabetes). Fasting plasma glucose results greater than or equal to 126 mg/dL meet the criteria for diagnosis of diabetes. In the absence of unequivocal hyperglycemia, results should be confirmed by repeat testing. In a patient with classic symptoms of hyperglycemia or hyperglycemic crisis, random plasma glucose results greater than or equal to 200 mg/dL meet the criteria for diagnosis of diabetes. Reference: Standards of Medical Care in Diabetes 2016, [place] [employer] Association. Diabetes Care. 2016.39(Suppl 1). LAB BUN 7-21 mg/dL BUN 9 LAB CRET 0.58-0.96 mg/dL Creatinine 0.91 LAB NA 136-144 mmol/L Sodium 136 LAB K 3.7-5.1 mmol/L Potassium 3.9 LAB CL 97-105 mmol/L Chloride 101 LAB CO2 22-30 mmol/L CO2 24 LAB AGAP 9-18 mmol/L Anion Gap 11 LAB ALT 7-38 U/L ALT 13 LAB GFRAA eGFR- Amer. >60 LAB GFRNAA . eGFR-All Other Races >60 Result Comment: eGFR (Estimated GFR) Units of measure: mL/min/1.73 meters squared eGFR is derived from the reexpressed MDRD Study equation using the following parameters: serum creatinine, age, gender and race. The creatinine assay has been calibrated to be traceable to IDMS. An eGFR <60 mL/min/1.73m2 for >3 months is consistent with chronic kidney disease. Refer to KDOQI guidelines for clinical interpretation. In patients with unstable renal function, e.g. those with acute kidney injury, the eGFR may not accurately reflect actual GFR. Performed By: #### CBC, PT, PTT, CMP, LIPB, CKCKMB, MG1, NTBNP, PHOS, MAYA, TSH, HBA1C #### [facility] [address] [place] [id number] LIPID PANEL, BASIC Collected: 03/16/2018 Status: F Source: [place] 6:06 PM [facility] REPOSITORY TYPE CODE TESTS RESULT OUT OF REFERENCE UNITS RANGE LAB CHOL <200 mg/dL Cholesterol 93 Result Comment: <200 mg/dL, Desirable 200-239 mg/dL, Borderline high >239 mg/dL, High LAB TRIGLY <150 mg/dL Triglyceride 50 Result Comment: <150 mg/dL, Normal 150-199 mg/dL, Borderline high 200-499 mg/dL, High >499 mg/dL, Very high LAB HDL >39 mg/dL HDL-Cholesterol 44 Result Comment: 40-59 mg/dL, Acceptable >59 mg/dL, High: Negative risk factor for coronary heart disease <40 mg/dL, Low: Positive risk factor for coronary heart disease LAB LDL <100 mg/dL LDL-Cholesterol 39 Result Comment: <100 mg/dL, Optimal 100-129 mg/dL, Near optimal/above optimal 130-159 mg/dL, Borderline high 160-189 mg/dL, High >189 mg/dL, Very high Secondary prevention optimal LDL Cholesterol levels are recommended to be < 70 mg/dL LAB NONHDL <130 mg/dL Non HDL Cholesterol 49 Result Comment: <130 mg/dL, Optimal 130-159 mg/dL, Near optimal/above optimal 160-189 mg/dL, Borderline high 190-219 mg/dL, High >219 mg/dL, Very high Secondary prevention optimal non HDL Cholesterol levels are recommended to be < 100 mg/dL LAB FT hrs Fasting Time Unknown LAB VLDL <30 mg/dL VLDL Cholesterol 10 LAB TCHDL <5.10 TC:HDL Ratio 2.11 LAB LDLHDL <2.54 LDL:HDL Ratio 0.89 Result Comment: Reference: 1. National Cholesterol Education Program ATP III Guideline At-A-Glance Quick Desk Reference: National Heart, Lung, and Blood [place]. National Institutes of Health. 2001: NIH Publication No. 01-3305. 2. An International Atherosclerosis Society position paper: global recommendations for the management of dyslipidemia: executive summary, Atherosclerosis. 2014: 232(2):410-413. Performed By: #### CBC, PT, PTT, CMP, LIPB, CKCKMB, MG1, NTBNP, PHOS, MAYA, TSH, HBA1C #### [facility] [employer] [address] [place], [place] [address] CK, TOTAL AND CKMB Collected: 03/16/2018 Status: F Source: [place] 6:06 PM [facility] REPOSITORY TYPE CODE TESTS RESULT OUT OF RANGE REFERENCE UNITS LAB CK 42-196 U/L Low CK 38 Result Comment: Please note the updated, gender-specific reference range for this test (effective 10/12/2016). LAB MB <4.3 ng/mL 1.2 MB LAB CKMBRI 0.0-4.0 % CK MB % not reported CK MB % with CK <100 U/L. Performed By: #### CBC, PT, PTT, CMP, LIPB, CKCKMB, MG1, NTBNP, PHOS, MAYA, TSH, HBA1C #### [facility] [employer] [address] [place], [place] [address] MAGNESIUM Collected: 03/16/2018 Status: F Source: [place] 6:06 PM [facility] REPOSITORY TYPE CODE TESTS RESULT OUT OF REFERENCE UNITS RANGE LAB MG 1.7-2.3 mg/dL Magnesium 2.0 Performed By: #### CBC, PT, PTT, CMP, LIPB, CKCKMB, MG1, NTBNP, PHOS, MAYA, TSH, HBA1C #### [place] [address] NT PRO BNP Collected: 03/16/2018 Status: F Source: [place] 6:06 [facility] REPOSITORY TYPE CODE TESTS RESULT OUT OF REFERENCE UNITS RANGE LAB PBNP <450 pg/mL PRO B Natr 76 Peptide Performed By: #### CBC, PT, PTT, CMP, LIPB, CKCKMB, MG1, NTBNP, PHOS, MAYA, TSH, HBA1C #### [place] [address] PHOSPHORUS Collected: 03/16/2018 Status: F Source: [place] 6:06 [facility] REPOSITORY TYPE CODE TESTS RESULT OUT OF REFERENCE UNITS RANGE LAB PHOS 2.7-4.8 mg/dL Phosphorus 3.2 Performed By: #### CBC, PT, PTT, CMP, LIPB, CKCKMB, MG1, NTBNP, PHOS, MAYA, TSH, HBA1C #### [place] [address] TROPONIN T Collected: 03/16/2018 Status: F Source: [place] 6:06 [facility] REPOSITORY TYPE CODE TESTS RESULT OUT OF REFERENCE UNITS RANGE LAB TROPT 0.000-0.029 ng/mL Troponin T <0.010 Performed By: #### CBC, PT, PTT, CMP, LIPB, CKCKMB, MG1, NTBNP, PHOS, MAYA, TSH, HBA1C #### [place] [address] TSH Collected: 03/16/2018 Status: F Source: [place] 6:06 [facility] REPOSITORY TYPE CODE TESTS RESULT OUT OF RANGE REFERENCE UNITS LAB TSH 0.400-5.500 uU/mL TSH 1.060 Performed By: #### CBC, PT, PTT, CMP, LIPB, CKCKMB, MG1, NTBNP, PHOS, MAYA, TSH, HBA1C #### [place] [id number] HEMOGLOBIN A1C Collected: 03/16/2018 Status: F Source: [place] 6:06 PM [facility] REPOSITORY TYPE CODE TESTS RESULT OUT OF REFERENCE UNITS RANGE LAB HGBA1C 4.3-5.6 % Hemoglobin A1c 4.7 LAB HBA0 mg/dL Est. Average Glucose 88 Result Comment: eAG: (Estimated average glucose) is a calculated value from HgbA1c and is employee's representative of the average blood glucose level in the last 2-3 month period. Performed By: #### CBC, PT, PTT, CMP, LIPB, CKCKMB, MG1, NTBNP, PHOS, MAYA, TSH, HBA1C #### [place] [address] STAPH AUREUS PCR Collected: 03/16/2018 Status: F Source: [place] 6:06 [facility] REPOSITORY TYPE CODE TESTS RESULT OUT OF REFERENCE UNITS RANGE LAB [facility] Nasal S aureus Spec Source LAB MRSRES Negative for MRSA MRSA by PCR. PCR LAB SARES Negative for Staph Staphylococcus aureus PCR aureus by PCR. Performed By: #### SAPCR #### [place] [address] TYPE AND SCREEN Collected: 03/16/2018 Status: F Source: [place] 6:00 [facility] REPOSITORY TYPE CODE TESTS RESULT OUT OF REFERENCE UNITS RANGE LAB %ABR O ABO/RH(D) POSITIVE LAB % Antibody NEG Screen Performed By: #### TSCR #### [place] [id number] HISTORY PHYSICAL Observed: 03/16/2018 Status: COMPLETED Source: [place] 4:50 PM [facility] REPOSITORY HNO ID: [id number] Author: Ricki Martínez Service: Cardiovascular Medicine Author Type: Physician Type: HANDP Filed: 03/17/2018 4:53 PM Note Text: [facility]ARDIOVASCULAR MEDICINE HISTORY AND PHYSICAL (Template ID [id number]) Elizabeth Méndez [id number] I have reviewed the progress note obtained and documented by the Resident and I personally participated in the mc components. I have discussed the case and management of the patient's care with the Residents and [place]. I have examined the patient, reviewed all relevant electrocardiograms, echocardiograms, cine-angiograms, as well as imaging studies. The following comments revise or confirm relevant mc components of the Resident's note. acute aortic syndrome: the patient developed new onset chest and back discomfort, imaging reveals a type B IMH, there is no current malperfusion Hypertension: we will optimixe BP control, on IV nipride and beta blockade COPD: she is a smoker, no active wheezing Renal failure: we will follow creatinine and hydrate as she has received significant dye exposure Plan: Continued observation Vascular surgery consultation I spent 35 minutes delivering critical care assesing the cause and treating hemodynamic instability. Mert Martínez MD, FACC, SUHAS Jaramillo and Romelia Kerr Department of Cardiovascular Medicine Heart and Vascular [facility] Desk [place] [address] Office ? 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 She presented there on 02/14 at noon with back pain/chest pain. She reported the pain was localized behind her shoulder blades and started after she was taking out the trash. Pain was excruciating, worse than giving labor. She initially thought she was having an anxiety as she was hyperventilating. She went to the ED, her BP on admission was SBP 190 mmHg, she was given labetalol 20 mg, dilaudid, and morphine for pain. Labs revealed troponin I <0.015, INR 1.3, PTT 38.1, lipase 211, creat 1.0, BUN 10, normal electrolytes, PLT 155, Hgb 15.3, WBC 7.5. ECG revealed no RAGHU or acute findings. CTA revealed ectasia of the ascending aorta of 4.1 cm and ?clot in the descending aorta described as fluid likely representing clots around the descending thoracic aorta extending from the aortic arch to the upper abdomen. She was transferred for further management of acute aortic syndrome. On admission to the CICU she continued having chest pain and back pain. Stable since admission. On NTP gtt with BP controlled. Complaining of nausea and emesis after given opioids for pain. Denies numbness or tingling in extremities. Denies abdominal pain. Denies melena or BRBPR. PAST MEDICAL HISTORY PAST MEDICAL HISTORY Diagnosis Date - Benign neoplasm of colon 06/08/2008 - Cataracts, bilateral Seeing Dr. Beach - Cervical spondylosis without myelopathy Seeing Dr. jean - Chronic obstructive pulmonary disease (COPD) (HCC) mild - CKD (chronic kidney disease), stage III - Diverticulosis of colon (without mention of hemorrhage) - Epistaxis 2/ high dose ASA - Hemorrhoids - Hypertension - Osteopenia - Other seborrheic keratosis 01/24/2007 - Snoring - Special screening for malignant neoplasms, colon 06/08/2008 - Unspecified disorder of skin and subcutaneous tissue 01/16/2007 - Varicose vein of leg PAST SURGICAL HISTORY Procedure Laterality Date - APPENDECTOMY - COLONOSCOP W/ OR W/O BRSH SPEC 06/08/2008 Colonoscopy - DANDC, DIAG AND/OR THERAPEUTIC Dilation AND curettage - LIGATE FALLOPIAN TUBE - PAST SURGICAL HISTORY OF hysterectomy - REMOVAL GALLBLADDER - REMOVAL OF TONSILS,<12 Y/O Tonsillectomy - REMV CATARACT EXTRACAP,INSERT LENS Right 09/01/15 Cataract Extraction with PC IOL - REMV CATARACT EXTRACAP,INSERT LENS Left 10/13/2015 Cataract Extraction with PC IOL/Femto/LRI - REVISE SECONDARY VARICOSITY Varicose Vein Surgery - SIGMOIDOSCOPY FLEX DIAG 1997 Sigmoidoscopy FAMILY HISTORY FAMILY HISTORY Problem Relation Age of Onset - Emphysema Mother smoker - Heart Mother - Emphysema Father smoker - Heart Father SOCIAL HISTORY Social History Substance Use Topics - Smoking status: Former Smoker Packs/day: 0.50 Types: Cigarettes Start date: 1963 Quit date: 12/27/2015 - Smokeless tobacco: Never Used Comment: Parents smoked in home; patient has cheated a few times and smoked; Smoked last week - Alcohol use Yes Comment: rarely HOME MEDICATIONS VENTOLIN HFA 90 mcg/actuation inhaler INHALE 2 PUFFS INSTRUCTED EVERY 6 HOURS NEEDED. CALCIUM CARBONATE/VITAMIN D3 (CALCIUM + D ORAL) Take 2 tablets by mouth once daily. Taking 550 + 2001 unit tablets docusate sodium (COLACE) 100 mg capsule Take 1 capsule by mouth twice daily as needed for Constipation. losartan (COZAAR) 25 mg tablet TAKE 1 TABLET EVERY DAY simvastatin (ZOCOR) 10 mg tablet Take 1 tablet by mouth daily at bedtime. tiotropium (SPIRIVA WITH HANDIHALER) 18 mcg inhalation capsule Inhale 1 capsule as instructed once daily. Use with handihaler. estradiol (ESTRACE) 0.01 % (0.1 mg/gram) vaginal cream Apply small amount at vaginal opening 3 nights per week aspirin, enteric coated (ASPIR-81) 81 mg ORAL EC tablet Take 2 tablets by mouth once daily. INPATIENT MEDICATIONS Current hospital medications: tiotropium 18 mcg cap(s) and device for inhalation (SPIRIVA) 18 mcg INHALATION DAILY simvastatin 10 mg tab(s) (ZOCOR) 10 mg ORAL AT BEDTIME docusate sodium 100 mg cap(s) (COLACE) 100 mg ORAL BID PRN [START ON 03/17/2018] aspirin, enteric coated 81 mg tab(s) (ASPIRIN, ENTERIC COATED) 81 mg ORAL DAILY potassium chloride ER 40-120 mEq tab(s) (K-DUR, KLOR-CON) 40-120 mEq ORAL PRN magnesium oxide 140 mg cap(s) (URO-MAG) 140 mg ORAL PRN magnesium sulfate 1 g in D5W 100 mL 1 g INTRAVENOUS PRN magnesium sulfate in water 2-8 g in sterile water 50 ml 2- 8 g INTRAVENOUS PRN 0.9% NaCl 2-10 mL 2-10 mL INTRAVENOUS q 12 H metoprolol 5 mg injection (LOPRESSOR) 5 mg INTRAVENOUS q 5 MIN PRN nitroprusside 50 mg in D5W 250 mL (NIPRIDE) 10-200 mcg/min INTRAVENOUS CONTINUOUS heparin 5,000 Units injection 5,000 Units SUBCUTANEOUS q 12 H ipratropium-albuterol 3 mL nebulizer solution (DUONEB) 3 mL INHALATION q 4 H PRN iv contrast (radiology procedure) INTRAVENOUS DIRECTED PRN ALLERGIES ALLERGIES Allergen Reactions - Ceftin [Cefuroxime] Mental Status Change - Lisinopril Cough - Voltaren [Diclofena* Other: See Comments Increased liver enzymes. REVIEW OF SYSTEMS Constitutional: No weight loss, malaise or fevers. HEENT: Negative for frequent or significant headaches Respiratory: Negative for cough, wheezing, or shortness of breath Cardiovascular: Positive for chest pain Gastrointestinal: Negative for abdominal discomfort, blood in stools or black stools or change in bowel habits Genitourinary: No history of dysuria, frequency, or incontinence Endocrine: Negative for cold or heat intolerance, polyuria, polydipsia and goiter Hematologic: Negative for prolonged bleeding, bruising easily or swollen nodes Neurologic: No history or headaches, syncope, paralysis, seizures or tremors Integumentary: Negative for lesions, rash, and itching. PHYSICAL EXAM BP 104/59 Pulse 66 Temp 36.3 ?C (97.4 ?F) (Oral) Resp 25 Ht 157.5 cm (5' 2) Wt 75.2 kg (165 lb 12.6 oz) SpO2 95% BMI 30.32 kg/m? General Appearance: Well developed, Well nourished , Overweight and No acute distress HEENT: PERRLA and EOM's intact Lungs: Clear Heart: Regular rate AND rhythm and S1, S2 normal Abdomen: Soft, Round, Non-tender, Bowel sounds present and Non-distended Skin: Warm and Dry Musculoskeletal: No deformities and pulses are hyperdynamic. Neurologic/Psychiatric: Oriented to time, place AND person DATA Laboratory: CBC: Recent Labs 03/16/181805 WBC 11.49* HB 13.4 HCT 39.0 PLT 147* MCV 93.8 RDWCV 12.5 ? COAG: Recent Labs 03/16/18 180 APTT 27.2 INR 1.2 ? BMP: Recent Labs 03/16/18 180 GLUC 232* NA 136 K 3.9 CHLOR 101 CO2 24 ANION 11 BUN 9 CREAT 0.91 ? CHEM: Recent Labs 03/16/18 180 ALB 3.7* TPROT 6.4 CA 8.1* MG 2.0 ? HEPATIC: Recent Labs 03/16/18 180 ALKPHOS 60 ALT 13 AST 28 TBILI 1.3 ? URINALYSIS: Recent Labs 03/16/18 184 PH 7.35 ? CARDIAC: Recent Labs 03/16/181805 CKMBP CK MB % not reported with CK <100 U/L. TROPT <0.010 PBNP 76 ? ABG: Recent Labs 03/16/181841 PH 7.35 PCO2 44 PO2 81* BE NEG 2 HCO3 24 CO2CT 25 O2HB 92* COHB 2.9 MHGB 0.8 TEMP 37.0 PHTC 7.35 PCO2T 44 PO2T 81 Cholesterol, Total (mg/dL) Date Value 03/16/2018 93 HDL Cholesterol (mg/dL) Date Value 03/16/2018 44 LDL Cholesterol (mg/dL) Date Value 03/16/2018 39 Triglyceride (mg/dL) Date Value 03/16/2018 50 Hemoglobin A1C (%) Date Value 04/25/2017 4.8 EKG: NSR. No RAGHU or acute T waves. No conduction abnormalities. Chest Radiograph: Insterstitial opacities, with right pleural effusion. Prominent aortic button. Echocardiogram: Bedside echo reveals no decrease in EF. No WMA. No flap seen in aorta. No aortic insufficiency. No significant valvular abnormalities. 12/2014: CONCLUSIONS: - Exam indication: Chest Pain - The left ventricle is normal in size. Left ventricular systolic function is normal. EF = 64 ? 5% (2D biplane) - The left atrial cavity is mildly dilated. - Normal stress echocardiogram - No prior echocardiographic exam available for comparison. AORTA The visualized aorta is dilated. Measurements - Sinus 3.8 cm. Mid ascending aorta 3.8 cm. AORTIC VALVE The peak gradient is 5 mmHg (peak velocity = 115.0 cm/s). Stress Testin12/2014: Conclusions: Normal near maximal treadmill stress ecg. Clinically negative for ischemia. Normal HR recovery. O2 sat 93% Echo images obtained, see separate report. Cardiac Catheterization: None Other Radiology: CTA 02/14: FINDINGS: Normal enhancement of the main pulmonary artery and right and left pulmonary arteries. Normal enhancement of the bilateral peripheral pulmonary arteries. There is no demonstrated pulmonary embolism. There is atherosclerotic calcification of the aortic arch with tortuosity. There is ectasia of the ascending thoracic aorta measuring about 4.1 cm in AP diameter. There is no demonstrated aortic dissection. There is however fluid likely representing clots around the descending thoracic aorta extending from the aortic arch to the upper abdomen. There is also fluid extending in the region of the superior pericardial recess. Normal heart and pericardium. There is no evidence of pericardial effusion. Normal mediastinum. Normal hilar regions. The trachea is somewhat tortuous. The lungs are well expanded. The lungs are emphysematous with scattered bullae bilaterally. No focal infiltrate is seen. There is mild stranding/atelectasis in the right lower lobe. There are no pleural effusions. Normal chest wall structures. There are degenerative changes of thoracic spine. The visualized portions of the upper abdomen demonstrate well-defined low-density lesion in the left lobe of the liver measuring by 3.5 cm low attenuation values system with cysts. The patient is status post cholecystectomy. IMPRESSION: No evidence of aortic dissection however there is fluid around the aorta and in the superior pericardial recess. Correlation with echocardiogram is recommended. No evidence of acute extravasation of contrast. No evidence of pulmonary embolism. Emphysematous and bullous changes bilaterally. CTA [facility] 02/14: IMPRESSION: TYPE B AORTIC INTRAMURAL HEMATOMA DESCRIBED. ?NO ACUTE AORTIC DISSECTION. BORDERLINE DILATATION OF THE DESCENDING AORTA MEASURING UP 3.9 CM. INFRARENAL ABDOMINAL AORTIC DILATATION MEASURING UP TO 2.8 CM. BILATERAL MODERATE PARASEPTAL AND CENTRILOBULAR EMPHYSEMATOUS CHANGES WITH DIFFUSE BRONCHIECTASIS. ASSESSMENT AND PLAN Presentation/Indication for admission/procedure: TAA with ?dissection PMH/PSH: -COPD on ventolin and tiotropium -HTN on losartan, ASA and simvastatin -ITP -CKD stage III per chart, last creat 1.0 Procedure/OR performed (including complications): None ?? Brief Hospital Course/Narrative: Elizabeth Méndez is a 73 year old F with a PMH of TAA, HTN and COPD who presented to an OSH with chest pain and CTA revealed intramural thrombus in descending and abdominal aorta, transferred to [facility] for further management of acute aortic syndrome. Active Issues/New Events (dated): 02/14: admitted to CICU ?? 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 Abdominal measuring 2.8 cm Plan: Impulse control Serial imaging - Essential hypertension On losartan, ASA and simvastatin Plan: Hold oral antihypertensives NTP gtt Convert to orals when able - Thrombocytopenia (HCC) Likely ITP Plan: Monitor PLT daily - COPD (chronic obstructive pulmonary disease) (HCC) On tiotropium and ventolin at home Plan: Tiotropium Duonebs prn Case to be discussed with staff Erika Adair MD Pager [phone] (please see below for after hours communication) 03/16/2018 4:50 PM CTA CHEST W/WO Observed: 03/16/2018 Status: F Source: [place] CONTR[place] 12:50 PM [facility] REPOSITORY [facility] Imaging Services [address] [place] [address] CTA Chest W/WO Contrast MR#: [id number] Acct: [id number] Name: ELIZABETH MÉNDEZ Rep #: [id number] : 1945 F 73 From: Riki Gill MD PCP: Chicho Ronquillo MD Status: REG ER Study: CTA Chest W/WO Contrast Date of Exam: 03/16/18 Exam# [id number] Ordering Dr: Sebastien Lane MD STUDY: CTA CHEST REASON FOR EXAM: Female, 73 years old. Sudden onset of severe back pain. Possible aortic dissection. RADIATION DOSAGE (If Supplied By Facility): CTDIvol = ( 11.83 ) mGy, DLP = ( 514.22 ) mGycm TECHNIQUE: The examination was performed with the intravenous administration of 100CC ml of Isovue 300 contrast material. Post-processing of the angiographic images was performed, with multiplanar reformation and 3D reconstruction. Individualized dose optimization techniques were used for this CT. COMPARISON: None. FINDINGS: Normal enhancement of the main pulmonary artery and right and left pulmonary arteries. Normal enhancement of the bilateral peripheral pulmonary arteries. There is no demonstrated pulmonary embolism. There is atherosclerotic calcification of the aortic arch with tortuosity. There is ectasia of the ascending thoracic aorta measuring about 4.1 cm in AP diameter. There is no demonstrated aortic dissection. There is however fluid likely representing clots around the descending thoracic aorta extending from the aortic arch to the upper abdomen. There is also fluid extending in the region of the superior pericardial recess. Normal heart and pericardium. There is no evidence of pericardial effusion. Normal mediastinum. Normal hilar regions. The trachea is somewhat tortuous. The lungs are well expanded. The lungs are emphysematous with scattered bullae bilaterally. No focal infiltrate is seen. There is mild stranding/atelectasis in the right lower lobe. There are no pleural effusions. Normal chest wall structures. There are degenerative changes of thoracic spine. The visualized portions of the upper abdomen demonstrate well-defined low-density lesion in the left lobe of the liver measuring by 3.5 cm low attenuation values system with cysts. The patient is status post cholecystectomy. CT/CTA Chest W/WO Contrast IMPRESSION: No evidence of aortic dissection however there is fluid around the aorta and in the superior pericardial recess. Correlation with echocardiogram is recommended. No evidence of acute extravasation of contrast. No evidence of pulmonary embolism. Emphysematous and bullous changes bilaterally. Electronically Signed: Riki Gill MD at 13:59 EDT Tel , Service support , CC: Chicho Ronquillo MD; Sebastien Lane MD 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: Signed CBC W/DIFF, AUTOMATED Collected: 03/16/2018 Status: F Source: [place] 12:35 PM [facility] REPOSITORY TYPE CODE TESTS RESULT OUT OF RANGE REFERENCE UNITS LAB L100.1000 4.4-11.0 K/mm3 Normal WBC 7.5 LAB L100.1200 4.2-5.4 M/mm3 Normal RBC 4.65 LAB L100.1300 12.0-15.0 g/dl High HGB 15.3 LAB L100.1400 37-47 % Normal HCT 43.0 LAB L100.1500 81-99 fL Normal MCV 92.5 LAB L100.1600 27.0-32.0 pg High MCH 32.9 LAB L100.1700 32-36 g/gl Normal MCHC 35.6 LAB L100.1810 11.6-14.6 % Normal RDW CV 12.6 LAB L100.1820 35.1-43.9 fl Normal RDW SD 41.9 LAB L100.1900 150-450 K/mm3 Normal PLT 155 LAB L100.2000 6.2-12.0 fl High MPV 13.1 LAB L100.2100 47-70 % Normal NEUT% 66.1 LAB L100.2200 19-41 % Normal LY% 21.9 LAB L100.2300 0-10 % Normal MONO% 9.2 LAB L100.2400 0-5 % Normal EO% 1.9 LAB L100.2500 0-1 % Normal BASO% 0.5 LAB L100.2550 0.0-0.9 % Normal IM GRAN % 0.400 Result Comment: IG% - Immature Granulocytes (promyelocytes, myelocytes and metamyelocytes) > 1% indicates that a LEFT SHIFT is Present. LAB L100.2620 2.0-7.7 X10 3/uL Normal Absolute Neut 5.0 LAB L100.2720 0.83-4.51 X10 3/ul Normal Absolute Lymph 1.65 Performed By: #### L100.0100 #### [facility] [address] [place], [address] BASIC METABOLIC Collected: 03/16/2018 Status: F Source: [place] PROFILE (BMP) 12:35 PM [facility] REPOSITORY TYPE CODE TESTS RESULT OUT OF RANGE REFERENCE UNITS LAB L501.0100 74-106 mg/dL Normal GLU 104 Result Comment: Fasting Glucose result from 100 to 125 mg/dL suggests IMPAIRED HOMEOSTASIS per A.D.A. criteria. Please note revised GLUCOSE reference range effective 2017. LAB L501.1000 7-18 mg/dL Normal BUN 10 LAB L501.1100 0.55-1.02 mg/dL Normal CREAT,SERUM 1.00 Result Comment: The validity of the calculated GFR AND GFRAA in patients over 70 years has not been determined. Clinical correlation is essential. LAB L501.1110 >60 mL/min Low EST GFR 58 Result Comment: Non- GFR Calc LAB L501.1115 >60 mL/min Normal EST GFR - AA 70 Result Comment: GFR Calc LAB L501.1255 ml/min Normal Estimated CRCL 40.21 LAB L501.1300 10-20 RATIO Normal BUN/CRE 10.0 LAB L501.2200 8.5-10 mg/dL Normal .1 CA 9.3 LAB L501.5300 136-14 mmol/L Normal 5 NA 140 LAB L501.5600 3.5-5. mmol/L Normal 1 K 3.8 LAB L501.5900 98-107 mmol/L Normal CL 107 LAB L501.6100 21.0-3 mmol/L Normal 2.0 CO2 25.0 LAB L501.6200 5-15 Normal GAP 8 Performed By: #### L500.2500, L500.3400, L501.2450, L501.4010 #### [facility] [address] [place], [place], [id number] LIVER PROFILE Collected: 03/16/2018 Status: F Source: [place] 12:35 PM [facility] REPOSITORY TYPE CODE TESTS RESULT OUT OF RANGE REFERENCE UNITS LAB L501.1500 6.4-8.2 g/dL Normal T PROT 7.5 LAB L501.1800 3.2-5.0 g/dL Normal ALB 4.1 LAB L501.1950 2.2-4.2 g/dL Normal GLOB 3.4 LAB L501.4100 15-37 U/L Normal AST 37 LAB L501.4305 45-117 U/L Normal ALK P 82 LAB L501.4405 13-56 U/L Normal ALT 18 LAB L501.4600 0.20-1.00 mg/dL High T BILI 1.20 LAB L501.4700 0.00-0.30 mg/dL Normal D BILI 0.30 Performed By: #### L500.2500, L500.3400, L501.2450, L501.4010 #### [facility] [address] [facility] [place], [address] LIPASE Collected: 03/16/2018 Status: F Source: [place] 12:35 PM [facility] REPOSITORY TYPE CODE TESTS RESULT OUT OF RANGE REFERENCE UNITS LAB L501.2450 73-393 U/L Normal LIPASE 211 Performed By: #### L500.2500, L500.3400, L501.2450, L501.4010 #### [facility] [address] [place], [address] TROPONIN-I Collected: 03/16/2018 Status: F Source: [place] 12:35 PM [facility] REPOSITORY TYPE CODE TESTS RESULT OUT OF RANGE REFERENCE UNITS LAB L501.4010 <0.045 ng/mL Normal < 0.015 TROPONIN-I Result Comment: TROPONIN-I EXPECTED VALUES <0.045 Negative 0.045 - 0.590 Consistent with Cardiac Damage > OR = 0.600 Critical Value Not every elevated troponin is indicative of NE. These values should be used with clinical judgement in examining the patient's clinical picture for diagnosis. To establish a diagnosis of NE versus myocardial injury, there must be a demonstrated rise and/or fall in the troponin values, in addition to ischemic symptoms, EKG changes, new regional wall motion abnormality, and/or angiographical evidence. PLEASE NOTE: REFERENCE RANGES EDITED 18 Performed By: #### L500.2500, L500.3400, L501.2450, L501.4010 #### [facility] [address] [place], [address] PROTHROMBIN TIME W/INR Collected: 03/16/2018 Status: F Source: [place] 12:35 PM [facility] REPOSITORY TYPE CODE TESTS RESULT OUT OF RANGE REFERENCE UNITS LAB L300.4150 11.7-14.9 SECONDS Normal PROTIME 13.8 LAB L300.4200 Normal INR 1.1 Performed By: #### L300.3900, L300.4310 #### [facility] [address] [place], [address] PARTIAL THROMBOPLAST Collected: 03/16/2018 Status: F Source: [place] TIME 12:35 PM [facility] REPOSITORY TYPE CODE TESTS RESULT OUT OF REFERENCE UNITS RANGE LAB L300.4310 24.1-36.2 Seconds High PTT 38.1 Performed By: #### L300.3900, L300.4310 #### [facility] [address] [place], [address] CT-CTA CHEST W/WO Observed: 03/16/2018 Status: F Source: [place] CONTR[place] IMPORT 12:00 AM [facility] REPOSITORY Images were obtained outside of [facility] [id number] Observed: 03/12/2018 Status: COMPLETED Source: [place] 12:00 AM [facility] REPOSITORY Patient Outreach (FAMPST) ELIZABETH MÉNDEZ ([id number]) 1945 F Date Time Provider Department 03/12/18 DAVIS RONQUILLO) [facility] During your visit today, we recorded the following information about you: Allergies As of Date: 03/12/2018 Noted Allergy Reaction CEFTIN (CEFUROXIME) 10/30/2008 1 - Mental Status Change LISINOPRIL 08/26/2009 3 - Cough VOLTAREN (DICLOFENAC) 05/17/2017 14 - Other: See Comments Comments: Increased liver enzymes. Date Reviewed: 09/24/2017 Reviewed by: Yue Duron Ma - Fully Assessed Visit Diagnosis:Medication management [Z79.899] Order(s):HGB A1C [FEBPG9E] Order #: [id number] FUTURE Prescriptions as of 03/12/2018 Sig: VENTOLIN HFA 90 MCG/ACTUATION* INHALE 2 PUFFS INSTRUCTED * CALCIUM + D ORAL Take 2 tablets by mouth once * DOCUSATE SODIUM 100 MG CAPSULE Take 1 capsule by mouth twice* X LOSARTAN 25 MG TABLET TAKE 1 TABLET EVERY DAY X SIMVASTATIN 10 MG TABLET Take 1 tablet by mouth daily * X TIOTROPIUM BROMIDE 18 MCG CAP* Inhale 1 capsule as instructe* ESTRADIOL 0.01% (0.1 MG/GRAM)* Apply small amount at vaginal* X ASPIRIN 81 MG TABLET,DELAYED * Take 2 tablets by mouth once * Patient taking differently: Take 81 mg by mouth once rich* Problem List As Of Date 03/12/2018 Noted Resolved SKIN DISORDER NOS [L98.9] INVALID FOR*01/12/2009 SEBORRHEIC KERATOSIS NOS [L82.1] INVALID FOR*01/12/2009 SCREENING MAL NEOP-COLON [Z12.11] INVALID FOR*01/12/2009 BENIGN NEOPLASM LG BOWEL [D12.6] INVALID FOR*01/12/2009 Diverticulosis of large intestine [K57.30] INVALID FOR* EXT HEMORRHOID W/O COMPL [K64.4] INVALID FOR* INT HEMORRHOID W/O COMPL [K64.8] INVALID FOR* Essential hypertension [I10] INVALID FOR* More... Mixed hyperlipidemia [E78.2] INVALID FOR* More... ATHEROSCLEROSIS NOS [I70.90] INVALID FOR* Hematoma [T14.8XXA] INVALID FOR*03/02/2014 COPD (chronic obstructive pulmonary disease) (H*INVALID FOR* More... Hyperplastic colon polyp [K63.5] INVALID FOR* More... 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*INVALID FOR* Posterior subcapsular polar senile cataract - B*INVALID FOR*11/16/2015 Growth of eyelid - Left Eye [D49.2] INVALID FOR*11/16/2015 Combined form of senile cataract of left eye [H*INVALID FOR*11/16/2015 Astigmatism of left eye [H52.202] INVALID FOR*11/16/2015 Dry eye syndrome [H04.129] INVALID FOR* Meibomian gland dysfunction [H02.889] INVALID FOR* Pseudophakia, right eye [Z96.1] INVALID FOR*11/16/2015 Pseudophakia of both eyes [Z96.1] INVALID FOR* Pseudophakia of left eye [Z96.1] INVALID FOR*11/16/2015 Postmenopausal atrophic vaginitis [N95.2] INVALID FOR* Vitreous floaters of both eyes [H43.393] INVALID FOR* After-cataract of both eyes [H26.40] INVALID FOR* DDD (degenerative disc disease), cervical [M50.*INVALID FOR* Cervical spondylosis with myelopathy [M47.12] INVALID FOR* After-cataract obscuring vision [H26.499] INVALID FOR* Thrombocytopenia (HCC) [D69.6] INVALID FOR* More... CKD (chronic kidney disease), stage III [N18.3] More... Encounter Status:Closed by KATE KIM on 08/09/18 ALLERGIES ALLERGIES DATE TYPE / CODE NAME / CODE REACTION SEVERITY SOURCE 11/17/2018 Drug cefuroxime Other Unknown Adilson Allergy/416 axetil/[id number] [facility] [id number]([facility] ED CT) Repository 05/17/2017 DRUG DICLOFENAC OTHER: SEE C [facility] INGREDI/[address] [place] [id number](SNOM Repository ED CT) 05/17/2017 DRUG DICLOFENAC OTHER: SEE [facility] INGREDI/[address] [id number](SNOM Repository ED CT) 08/26/2009 DRUG LISINOPRIL COUGH [facility] INGREDI/[address] [id number](SNOM Repository ED CT) 08/26/2009 DRUG LISINOPRIL COUGH [facility] INGREDI/[address] [id number](SNOM Repository ED CT) 10/30/2008 DRUG CEFUROXIME Mental Chg High [facility] INGREDI/[address] [id number](SNOM Repository ED CT) 10/30/2008 DRUG CEFUROXIME Mental Chg [facility] INGREDI/[address] [id number](SNOM Repository ED CT) ENCOUNTERS ENCOUNTERS ADMIT/DISCHARGE ACCOUNT ADMITTING ENCOUNTER LOCATION SOURCE NUMBER CLASS 11/20/2018/11/20/19 [id number] Ambulatory [address] [place] Repository 11/17/2018/11/17/19 [id number] Emergency [address] ing:ED Repository 11/13/2018/11/13/19 [id number] Ambulatory [address] [place] Repository 11/13/2018/11/13/19 [id number] Ambulatory [address] [place] Repository 11/07/2018/11/12/19 [id number] Ambulatory [address] [place] Repository 11/07/2018/11/12/19 [id number] Ambulatory [address] [place] Repository 11/01/2018/11/01/19 [id number] Ambulatory [address] [place] Repository 11/01/2018/11/04/19 [id number] Ambulatory [address] [place] Repository 10/24/2018/10/25/20 [id number] Ambulatory [address] [place] Repository 10/23/2018/12/27 [id number] [facility] [place] Repository 10/16/2018/10/17/20 [id number] [facility] [place] Repository 10/11/2018/10/11/20 [id number] [facility] [address] [place] Repository 10/08/2018/10/09/20 [id number] [facility] [address] [place] Repository 09/10/2018/09/11/20 [id number] [facility] [address] [place] Repository 09/05/2018/09/09/20 [id number] [facility] [address] [place] Repository 08/26/2018/08/27/20 [id number] [facility] [address] [place] Repository 08/19/2018/08/19/20 [id number] [facility] [address] [place] Repository 08/19/2018/08/20/20 [id number] [facility] [address] [place] Repository 08/19/2018 [id number] Ambulatory [facility] ing:LABSPEC Repository 08/08/2018/08/09/20 [id number] Ambulatory [facility] [address] [place] Repository 08/05/2018/08/06/20 [id number] [facility] [address] [place] Repository 07/23/2018/07/24/20 [id number] [facility] [address] [place] Repository 05/29/2018/05/30/20 [id number] Amb[facility] [address] [place] Repository 05/21/2018/05/22/20 [id number] [facility] [address] [place] Repository 05/07/2018/05/08/20 [id number] [facility] [address] [place] Repository 04/28/2018/04/30/20 [id number] Amb[facility] [address] [place] Repository 04/23/2018/04/24/20 [id number] [facility] [address] [place] Repository 04/16/2018/04/18/20 [id number] [facility] [address] [place] Repository 04/15/2018/04/16/20 [id number] Ambulatory [facility] [address] [place] Repository 04/15/2018/04/15/20 [id number] Ambulatory [facility] [address] [place] Repository 03/27/2018/03/28/20 [id number] Ambulatory [address] Repository 03/21/2018/03/21/20 [id number] Ambulatory [address] Repository 03/16/2018/03/21/20 [id number] TANYA, Inpatient [place] [address] [facility] Repository 03/16/2018/03/16/20 [id number] Emergency [address] ing:ED Repository PAYERS PAYERS ENCOUNTER GUARANTOR PAYER SUBSCRIBER SOURCE 11/17/2018 PEÑA Ramirez Primary ELIZABETH De [place] [id number] TR Insurance:HUMANA ZACHARIASDOB: [place] [address], MEDICARE PPOPolicy [id number] [place] [address]Wlb: Number: Repository [id number] (HP) Date:[id number] [address] [place] [phone]: 11/17/2018 Secondary NOT GIVENUNK Zoe Insurance:SELF PAY [facility] Number: Effective Repository Date:2018-11-17 08/19/2018 PEÑA Ramirez Primary ELIZABETH [place] [id number] TR Insurance:HUMANA ZACHARIASDOB: [place] [address], MEDICARE PPOPolicy [id number] [place] [address]Yof: Number: Repository [id number] (HP) Date:[id number] [address] [place] [phone]: 08/19/2018 Secondary NOT GIVENUNK Zoe Insurance:SELF PAY [facility] Number: Effective Repository Date:2018-08-19 03/16/2018 Peña Ramirez Primary ELIZABETH De Anda [id number] Insurance:HUMANA ZACHARIASDOB: Community [address] MEDICARE PPOPolicy [id number], Number: Repository [place] [address]Zlu: [id number] Date:2965-27-27MY BOX (GW) [address] [place] [phone]: 03/16/2018 Secondary NOT GIVENUNK Zoe Insurance:SELF PAY [facility]: Effective Repository Date:2018-03-16
== END 2018-11-17 14:12 | disposition home or self-care (01) ==
PROVIDERS: Emergency Provider Emergency Medicine; Family Provider Family Medicine; PCP Family Medicine
DX: J44.1 Chronic obstructive pulmonary disease with (acute) exacerbation (principal); J22 Unspecified acute lower respiratory infection; J44.0 Chronic obstructive pulmonary disease with (acute) lower respiratory infection; I71.9 Aortic aneurysm of unspecified site, without rupture; I10 Essential (primary) hypertension; E78.00 Pure hypercholesterolemia, unspecified; Z79.82 Long term (current) use of aspirin; Z79.01 Long term (current) use of anticoagulants; Z79.899 Other long term (current) drug therapy
CPT/HCPCS: 71046; 80048; 85025; 85610; 87804; 94640; 96374; 99283; A4216

== ENCOUNTER → 2019-11-10 12:46 | Outpatient (CLI) | payer MEDICARE, SELFPAY ==
[2018-11-17 11:31] VITALS: BMI 29.4
[2019-11-10 13:09] LABS: International Normalized Ratio 2.5; Prothrombin Time (Protime)PT. 26.8 SECONDS (11.7-14.9)
== END ==
PROVIDERS: Family Provider Family Medicine; PCP Family Medicine; Referring Provider Family Medicine; Visit Provider Family Medicine
DX: R04.2 Hemoptysis (principal)
CPT/HCPCS: 85610

== ENCOUNTER → 2021-02-28 | Outpatient (CLI) | payer MEDICARE, SELFPAY ==
[2018-11-17 11:31] VITALS: BMI 29.4
[2021-02-28 16:11] LABS: Cholesterol 113 mg/dL (200); High Density Lipoprotein 43 mg/dL; Thyroid Stim Hormone (TSH) 0.94 uIU/mL (0.358-3.74); Triglycerides 109 mg/dL; Very Low Density Lipoprotein 22 mg/dL (5-40)
[2021-02-28 17:12] LABS: International Normalized Ratio 2.3; Prothrombin Time (Protime)PT. 24.2 SECONDS (11.7-14.9)
== END | disposition home or self-care (01) ==
LOC: LABSPEC 15:15
PROVIDERS: PCP Family Medicine; Referring Provider Family Medicine; Visit Provider Family Medicine
DX: R63.4 Abnormal weight loss (principal); I48.0 Paroxysmal atrial fibrillation
CPT/HCPCS: 80061; 84443; 85610

== ENCOUNTER → 2022-06-02 | Outpatient (CLI) | payer MEDICARE, SELFPAY ==
[2022-06-02 09:03] LABS: Prothrombin Time (Protime)PT. 22.7 SECONDS (11.7-14.9)
== END | disposition home or self-care (01) ==
LOC: LABSPEC 08:49
PROVIDERS: PCP Family Medicine; Visit Provider Family Medicine
DX: I48.20 Chronic atrial fibrillation, unspecified (principal)
CPT/HCPCS: 85610

== ENCOUNTER 2022-07-22 16:09 | Inpatient (IN) | payer MEDICARE, SELFPAY ==
[2022-07-22] VITALS (10 sets, daily range): BP systolic 138–187; BP diastolic 75–93; PULSE 69–85; RESP 18–22; TEMP 35.9–36.9; O2SAT 91–96; BMI 21.6; BMI 21.9
--- NOTE | 2022-07-22 16:15 | ED.RN ---
PT PLACED ON 2L NC AT THIS TIME TO IMPROVE OXYGENATION AT THIS TIME.
--- NOTE | 2022-07-22 16:20 | EKG12_ITS ---
Test Reason : SOB Blood Pressure : / mmHG Vent. Rate : 077 BPM Atrial Rate : 078 BPM P-R Int : 000 ms QRS Dur : 086 ms QT Int : 370 ms P-R-T Axes : 000 067 082 degrees QTc Int : 418 ms Sinus vs Ectopic Atrial Rhythm Nonspecific ST abnormality Abnormal ECG Confirmed by TAL TAYLOR, TORY ([id number]), graphics editor TERESA JORDAN ([id number]) on 07/26/2022 9:18:58 AM Referred By: Confirmed By:TORY PARADA MD
--- NOTE | 2022-07-22 16:23 | EDS_ITS ---
HPI History of Present Illness Chief Complaint: Shortness of Breath Detail of Chief Complaint: Increase shortness of breath and cough Informant: patient and EMS Onset/Context/Timing Onset: Days (Started approximate 3 days ago) Context: gradual Timing: Continuous Quality: Positive for Dyspnea on exertion and Wheezing; Negative for Orthopnea or PND Current Severity: Moderate Maximum Severity: Severe Worsened by: Exertion and Coughing Relieved by: Nothing Associated Symptoms cough, post nasal drip and clear sputum; Negative for rhinorrhea, ear pain, fever, sore throat, subjective, chills, sweats, white sputum, yellow sputum or green sputum Chest Pain: Positive for None Narrative Narrative: Patient is an elderly woman who quit smoking approximately 6 months ago. She has history of COPD. She is not on oxygen. Pulse ox when squad arrived for 79%. She denies leg pain, swelling discoloration. She is on Coumadin. We will need to ask why. She states she initially had a runny nose congestion she no longer has a runny nose or congestion. She denies headache. Denies visual, ocular auditory symptoms. Denies ear pain or ear discharge. She does report shortness of breath, dyspnea on exertion. Denies orthopnea or PND. She denies chest discomfort. Does have a cough productive of clear-colored sputum. She does have history of COPD. She has not been on prednisone recently. She denies leg pain, swelling discoloration. She denies history of VTE. She is had no recent travel or surgery. PE Risk Factors: Negative for Cancer, OCP + Smoking + > 35, Prior DVT or PE, Recent immobilization, Recent surgery or Recent travel Prior similar symptoms: Yes (COPD) [facility] Medical History (Updated 07/22/22 @ 18:49 by Lobito Morton) Aortic aneurysm Atrial fibrillation COPD (chronic obstructive pulmonary disease) Medical History no medical history no medical history (COPD, hypertension and hypercholesterolemia. Long-term anticoagulant use) Home Medications albuterol sulfate 90 mcg/actuation aerosol inhaler (Ventolin HFA) 1 - 2 puff inhalation Q6H PRN PRN Sob &/Or Wheezing 01/07/16 [History Last Taken 01/07/16] aspirin 81 mg chewable tablet 81 mg PO DAILY@0800 01/07/16 [History Last Taken 01/07/16] simvastatin 10 mg tablet 10 mg PO QHS 03/11/16 [History Last Taken 01/07/16] tiotropium bromide 18 mcg capsule with inhalation device (Spiriva with HandiHaler) 1 puff inhalation DAILY 01/07/16 [History Last Taken 01/07/16] estradiol 0.01% (0.1 mg/gram) vaginal cream (Estrace) 1 dose vaginal MOWETH 02/11/17 [History Last Taken Unknown] losartan 25 mg tablet 25 mg DAILY 03/16/18 [History Last Taken Unknown] doxycycline monohydrate 100 mg tablet 100 mg PO BID ##14 11/17/18 [Rx Last Taken Unknown] prednisone 20 mg tablet (Deltasone) 40 mg PO DAILY ##10 11/17/18 [Rx Last Taken Unknown] warfarin 1 mg tablet 5 mg PO DAILY 11/17/18 [History Last Taken Unknown] Allergy/AdvReac Type Severity Reaction Status Date / Time No Known Allergies Allergy Verified 07/22/22 16:15 Surgical History unable to obtain unable to obtain Social History (Updated 07/22/22 @ 16:[address] Obinna Spaulding MD) household members: none Smoking Status: Former smoker substance use type: does not use ROS ROS ED Constitutional Constitutional ED: Denies chills, fever(s), sweats or weight loss Eyes Eyes: Denies blurry vision, change in vision or diplopia ENT ENT ED: Denies ear pain, rhinorrhea or sore throat Cardiovascular Cardiovascular: Reports racing heartbeat; Denies chest pain, orthopnea, palpitations or paroxysmal nocturnal dyspnea Respiratory/Chest Respiratory/Chest: Reports cough, dyspnea, dyspnea on exertion and sputum; Denies orthopnea or paroxysmal nocturnal dyspnea Gastrointestinal Gastrointestinal: Denies abdominal pain, constipation, diarrhea, melena, nausea or vomiting Genitourinary Genitourinary ED: Denies dysuria, hematuria or urinary frequency Musculoskeletal Musculoskeletal: Denies arthralgias, back pain, myalgias or neck pain Integumentary Denies abscess, Abrasions or rash Neurologic Neurologic: Denies headache(s) or paresthesias Endocrine Endocrinology: Denies cold intolerance or heat intolerance Hematologic/Lymphatic Hematologic/Lymphatic: Denies easy bleeding or easy bruising EXAM Physical Exam Const Vital Signs: 07/22/22 16:10 07/22/22 16:21 07/22/22 16:22 Temperature 98.4 F Temperature Source Temporal Pulse Rate 84 80 Respiratory Rate 22 H 22 H Respiratory Effort Short of Breath Respiratory Pattern Blood Pressure 179/93 H 187/90 H Blood Pressure Mean 121 122 Pulse Ox 91 94 Oxygen Delivery Method Room Air Nasal Cannula Nasal Cannula Oxygen Flow Rate (L/min) 2 2 07/22/22 16:30 07/22/22 18:29 Temperature Temperature Source Pulse Rate 85 69 Respiratory Rate 18 18 Respiratory Effort Respiratory Pattern Normal Blood Pressure 140/75 H Blood Pressure Mean 96 Pulse Ox 95 Oxygen Delivery Method Room Air Oxygen Flow Rate (L/min) Positive well nourished, well developed and cachectic Constitutional Narrative: Patient is tachypneic with minimal use of accessory muscles. She is presently on 3 L of oxygen with a 94% saturation. General Appearance ED: well developed and cachectic; Negative for NAD or pallor Nutritional Appearance: cachectic HEENT Reports moist mucous membranes and dry mucous membranes HEENT Narrative: Normocephalic. Ears normal. External auditory canal normal. Nares patent. Posterior Prantal erythema or exudate. Uvula midline. No deviation with protrusion. atraumatic Mouth ED: Yes dry mucous membranes Mouth: dry mucous membranes Eyes PERRL and EOMs intact bilaterally General Eye ED: Negative for pale conjunctiva or scleral icterus Neck no lymphadenopathy, supple, no meningeal signs and no JVD Resp No normal respiratory effort and No clear to auscultation bilaterally Auscultation: wheezes expiratory wheezes (There is minimal movement of air. High-pitched wheezing noted.) Cardio regular rate, regular rhythm, S1 normal heart sound, S2 normal heart sound and no murmurs GI non-tender, non-distended and no masses Auscultation: normoactive bowel sounds Palpation: soft Back/Spine no CVA tenderness Extremity normal to inspection Extremity Narrative: There is no asymmetry, swelling, discoloration, leg vein distention, palpable cords or tenderness along the distribution of the deep venous system. Neuro oriented x3, CN's II-XII intact bilaterally and no sensory deficits noted Edin Coma Scale: document GCS findings Spontaneous Obeys Commands Oriented 15 Sensorium / Orientation: alert Psych mental status grossly normal Skin no wounds General Skin Exam: Negative for jaundice or pallor MDM MDM MDM Narrative Medical decision making narrative: Suspect exacerbated COPD. Chest x-ray was obtained to rule out pneumothorax and infiltrate. Patient was treated with DuoNeb, albuterol, methylprednisolone. Appropriate blood work was obtained assess white count rule out anemia. Basic metabolic panel was obtained to assess renal function and electrolytes. EKG to rule out cardiac ischemia. Patient was reassessed at 1837. She looks much better. She is no longer using accessory muscles. There is still slight wheezing noted. Patient is still on 3 L of oxygen. Will contact hospitalist for admission. Patient is now coughing up yellow-colored sputum. We will treat with antibiotics. Lab Data Attestation: I reviewed the patient's lab results. Lab results narrative: CBC is unremarkable. Basic metabolic panels marked for glucose of 152. Lactate is normal. Transaminases are normal patient is subtherapeutic on her INR, 1.9 VBG was obtained to rule out CO2 retention. There is no CO2 retention. pH is 7.43, PCO2 is 43, PO2 is 50, bicarb is 20.9 with a base excess of 4.7. Saturation is 85%. Labs: Laboratory Results - last 24 hr 07/22/22 07/22/22 07/22/22 16:15 16:15 16:15 WBC 7.7 RBC 4.50 Hgb 14.4 Hct 41.8 MCV 92.9 MCH 32.0 MCHC 34.4 RDW Std Deviation 43.0 RDW Coeff of Andrea 12.6 Plt Count 156 MPV 12.9 H Immature Gran % (Auto) 0.400 Neut % (Auto) 75.2 H Lymph % (Auto) 13.2 L Russell % (Auto) 10.1 H Eos % (Auto) 0.6 Baso % (Auto) 0.5 Absolute Neuts (auto) 5.8 Absolute Lymphs (auto) 1.02 Nucleated RBC % 0 PT INR Sodium 143 Potassium 3.8 Chloride 105 Carbon Dioxide 30.0 Anion Gap 8 BUN 12 Creatinine 0.86 Estim Creat Clear Calc 45.80 Est GFR (MDRD) Af Amer 82 Est GFR (MDRD) Non-Af 68 BUN/Creatinine Ratio 14.0 Glucose 152 H Lactic Acid 0.9 Calcium 9.2 Total Bilirubin 1.00 AST 33 ALT 16 Alkaline Phosphatase 80 Total Protein 7.4 Albumin 3.5 Globulin 3.9 Albumin/Globulin Ratio 0.9 07/22/22 16:15 WBC RBC Hgb Hct MCV MCH MCHC RDW Std Deviation RDW Coeff of Andrea Plt Count MPV Immature Gran % (Auto) Neut % (Auto) Lymph % (Auto) Russell % (Auto) Eos % (Auto) Baso % (Auto) Absolute Neuts (auto) Absolute Lymphs (auto) Nucleated RBC % PT 21.5 H INR 1.9 Sodium Potassium Chloride Carbon Dioxide Anion Gap BUN Creatinine Estim Creat Clear Calc Est GFR (MDRD) Af Amer Est GFR (MDRD) Non-Af BUN/Creatinine Ratio Glucose Lactic Acid Calcium Total Bilirubin AST ALT Alkaline Phosphatase Total Protein Albumin Globulin Albumin/Globulin Ratio ABG Data ABG results: ABG 07/22/22 16:38 Specimen Type KARSON VBG pH 7.43 H VBG pO2 50 H VBG HCO3 29 H VBG Total CO2 30 VBG O2 Sat (Calc) 86 H VBG Base Excess 5 H POC Mix VBG pCO2 Pt Tmp 43.4 Liter Flow 2.5 Radiography Chest X-Ray - ED: 1 View and Read by ED Physician (Hyperaeration with chronic changes and changes consistent with fibrosis. Cardiac silhouette and size normal. Lung parenchyma normal. Osseous structures are unremarkable. This was independently reviewed and interpreted by pa [id number]) Diagnostic Testing: Clinical Impression(s) from Imaging Studies Chest X-Ray 07/22/22 16:30 IMPRESSION: 1. No cardiomegaly or heart failure. 2. Mild emphysema. 3. Mild fibrotic changes in both lower lobes. 4. No new pneumonia, pneumonitis, bronchitis, or pulmonary mass lesions. 5. No significant interval change since the previous study 11/17/2018 Electronically Signed: Mitchel Dorantes MD at 16:49 EDT , EKG Initial EKG: Attestation: I personally reviewed and interpreted this EKG as follows: Interpretation: Sinus Rhythm (Ventricular rate is 77. [place] intervals normal. QRS duration 86 ms. QT duration 170 ms. Seaman is normal. There is artifact due to her respiratory distress) Discharge Plan Dx/Rx/DC Orders Clinical Impression: Acute exacerbation of chronic obstructive pulmonary disease, Acute respiratory failure with hypoxia, Acute purulent bronchitis, Acute bronchospasm Disposition Disposition: [facility] Care [facility]
[2022-07-22] MEDS: Albuterol 2.5 MG/3 ML VIAL.NEB. INHALATION ×3 (16:27)
[2022-07-22] MEDS: Ipratropium/Albuterol Sulfate 3 ML AMPUL.NEB INHALATION ×2 (16:29→23:23)
--- NOTE | 2022-07-22 16:30 | RAD_ITS ---
STUDY: PORTABLE AP UPRIGHT CHEST X-RAY OF 1635 HOURS ON 07/22/2022 REASON FOR EXAM: 68-year-old female with respiratory distress and hypoxia. TECHNIQUE: A single view portable AP upright chest x-ray was performed per protocol. COMPARISON: 11/17/2018. FINDINGS: Mild demineralization. Mild thoracic dextroscoliosis. No cardiomegaly. Tortuous thoracic aorta. Mild emphysema. Mild hyperinflation. Calcified granuloma in the mid right lung. Mild fibrotic changes in both lower lobes. No pulmonary infiltrates, atelectasis, effusion, or pulmonary mass lesions. No interval change since the previous study of 11/17/2018. RAD/Chest 1 View (Portable) IMPRESSION: 1. No cardiomegaly or heart failure. 2. Mild emphysema. 3. Mild fibrotic changes in both lower lobes. 4. No new pneumonia, pneumonitis, bronchitis, or pulmonary mass lesions. 5. No significant interval change since the previous study 11/17/2018 Electronically Signed: Mitchel Dorantes MD at 16:49 EDT ,
[2022-07-22 16:40] LABS: Absolute Lymphocyte Count 1.02 X10^3/uL (0.83-4.51); Absolute Neutrophil Count 5.8 X10^3/uL (2.0-7.7); Basophil# 0.04 X10^3/uL; Basophil% 0.5 % (0-1); Eosinophil# 0.05 X10^3/uL; Eosinophils% 0.6 % (0-5); Hematocrit 41.8 % (37-47); Hemoglobin 14.4 g/dL (12.0-15.0); Lymphocyte # 1.02 X10^3/ul (0.83-4.51); Lymphocyte % 13.2 % (19-41); Mean Corp Hgb Conc 34.4 g/dL (32-36); Mean Corpuscular Volume 92.9 fL (81-99); Mean Platelet Vol. 12.9 fl (6.2-12.0); Monocyte# 0.78 X10^3/uL; Monocyte% 10.1 % (0-10); NRBC Flagged by Analyzer 0 % (0-5); Neutrophil % 75.2 % (47-70); Platelet Count 156 K/mm3 (150-450); RBC Distribution Width CV 12.6 % (11.6-14.6); White Blood Count 7.7 K/mm3 (4.4-11.0)
[2022-07-22 16:45] LABS: Blood Gas Specimen Type VEN; LPM 2.5 /min; VBG BASE EXCESS 5 mmol/L (-1.0-3.5); VBG Bicarbonate 29 mmol/L (22-26); VBG PO2 50 mmHg (25-40); VBG SO2 86 % (50-70); VBG TCO2 30 mmol/L (23-33); VBG pCO2 43.4 mmHg (41-51); VBG pH 7.43 (7.32-7.42)
[2022-07-22 16:49] LABS: International Normalized Ratio 1.9; Prothrombin Time (Protime)PT. 21.5 SECONDS (11.7-14.9)
[2022-07-22] MEDS: MethylPREDNISolone 125 MG/2 ML Vial IV (16:55)
[2022-07-22 16:57] LABS: ALB/GLOB Ratio 0.9 RATIO (0.9-2.4); AST(SGOT) 33 U/L (15-37); Alanine Aminotransfer ALT/SGPT 16 U/L (13-56); Albumin, Serum 3.5 g/dL (3.2-5.0); Alkaline Phosphatase 80 U/L (45-117); Anion Gap 8 (5-15); BUN 12 mg/dL (7-18); Calcium,Total 9.2 mg/dL (8.5-10.1); Chloride 105 mmol/L (98-107); Creatinine, Serum 0.86 mg/dL (0.55-1.02); EST Glomerular Filtration Rate 68 mL/min (>60); Est Glom Filt Rate - Afr Amer 82 mL/min (>60); Globulin 3.9 g/dL (2.2-4.2); Glucose 152 mg/dL (74-106); Potassium 3.8 mmol/L (3.5-5.1); Protein, Total 7.4 g/dL (6.4-8.2); Sodium Level 143 mmol/L (136-145)
[2022-07-22 17:34] LABS: Lactic Acid 0.9 mmol/L (0.4-1.9)
[2022-07-22] MEDS: levoFLOXacin IV 500 MG/100 ML BAG 100 MG IV (19:06)
--- NOTE | 2022-07-22 19:10 | PCM.HP.STD ---
HPI - General General Date of Admission: 07/22/22 Date of Service: 07/22/22 Chief Complaint: Dyspnea. HPI Narrative The patient is a 77 y/o F w/ PMHx: COPD, HLD, HTN, PAF on coumadin, Former tobacco use, Hx Aortic aneurysm who presents to the [facility] ED on 07/22/22 with history of several days of persistently worsening dyspnea as well as cough, worse with exertion with associated wheezing with postnasal drip and a clear sputum reporting that she did quit smoking approximately 6 months prior and she is not on any chronic oxygen set therapy however given her significant dyspnea prompted EMS call reporting that she was 79% upon their initial evaluation prompting ED transition for evaluation. She notes feeling improved since initial ED arrival following treatments including aerosols. In the ED she still is fatigued and with attempted conversation does have increased work of breathing and some accessory muscle usage. Work-up in the ED included T98.4, heart rate 84, BP initially 179/93 with most recent repeat 140/75, respiratory rate 22, initially 91% on room air with improvement to 94% on 2 L nasal cannula, CBC with WBC 7.7, hemoglobin 14.4, platelet 156 without marked shift, coags with INR 1.9, VBG with pH 7.43, PO2 50, bicarb 29, O2 saturation 86% on 2.5 L, CMP with glucose 152, lactic acid 0.9 otherwise hepatic profile unremarkable, chest x-ray with mild fibrotic changes in both lower lobes with no other acute cardiopulmonary findings, EKG with SR without acute evidence of ischemia. In the ED patient administered Solu-Medrol, DuoNeb therapy and eventually Levaquin secondary to concerns for mild yellow sputum noted in the ED. FORMERLY [facility], [facility] Medical History (Updated 07/22/22 @ 20:[address] Cande Lagos MD) Aortic aneurysm Atrial fibrillation COPD (chronic obstructive pulmonary disease) Former tobacco use HLD (hyperlipidemia) HTN (hypertension) Medical History no medical history Home Medications albuterol sulfate 90 mcg/actuation aerosol inhaler (Ventolin HFA) 1 - 2 puff inhalation Q6H PRN PRN Sob &/Or Wheezing 01/07/16 [History Last Taken 01/07/16] simvastatin 10 mg tablet 10 mg PO QHS Check with primary doctor 01/07/16 [History Last Taken 01/07/16] estradiol 0.01% (0.1 mg/gram) vaginal cream (Estrace) 1 dose vaginal MOWETH 02/11/17 [History Last Taken Unknown] warfarin 1 mg tablet 5 mg PO DAILY Check with primary doctor 11/17/18 [History Last Taken Unknown] carvedilol 25 mg tablet 25 mg PO BID Check with primary doctor 07/22/22 [History Last Taken Unknown] fluticasone furoate 100 mcg-vilanterol 25 mcg/dose inhalation powder (Breo Ellipta) inhalation Check with primary doctor 07/22/22 [History Last Taken Unknown] Allergy/AdvReac Type Severity Reaction Status Date / Time No Known Allergies Allergy Verified 07/22/22 16:15 Family History (Updated 07/22/22 @ 20:[address] Cande Lagos MD) Mother Heart disease Father Heart disease Surgical History (Updated 07/22/22 @ 20:[address] Cande Lagos MD) History of appendectomy History of hysterectomy History of tonsillectomy and adenoidectomy S/P cholecystectomy Surgical History unable to obtain Social History (Updated 07/22/22 @ 20:[address] Cande Lagos MD) household members: other details: Notes her son currently lives with her. She is . Smoking Status: Former smoker how long ago did patient quit smoking: Quit cigarette tobacco ~ 6 months prior, smoked 1 ppd since teen until quit alcohol intake: never substance use type: does not use ROS ROS Narrative Admission Review of Systems: CONSTITUTIONAL: No weight loss, fever, chills, + weakness or fatigue. HEENT: Eyes: No visual loss, blurred vision, double vision or yellow sclerae. Ears, Nose, Throat: No hearing loss, sneezing, congestion, runny nose or sore throat. SKIN: No rash or itching, lesions, wounds. CARDIOVASCULAR: No chest pain, chest pressure or chest discomfort, palpitations, edema, orthopnea, syncopal events. RESPIRATORY: + shortness of breath, cough with clear sputum initially, noted light green in ED, wheezing, No hemoptysis. GASTROINTESTINAL: No anorexia, nausea, vomiting or diarrhea, abdominal pain, melena, BRBPR. GENITOURINARY: No dysuria, frequency, urgency or retention. NEUROLOGICAL: No headache, dizziness, syncope, paralysis, ataxia, numbness or tingling in the extremities, focal weakness, change in bowel or bladder control, seizure. MUSCULOSKELETAL: + muscle, back pain, joint pain or stiffness. HEMATOLOGIC: No anemia, bleeding or bruising. LYMPHATICS: No enlarged nodes. No history of splenectomy. PSYCHIATRIC: No history of depression or anxiety. ENDOCRINOLOGIC: No reports of sweating, cold or heat intolerance. No polyuria or polydipsia. ALLERGIES: + history of rhinitis. Vital Signs Vital Signs Vital Signs: 07/22/22 16:10 07/22/22 16:21 07/22/22 16:22 Temperature 98.4 F Temperature Source Temporal Pulse Rate 84 80 Respiratory Rate 22 H 22 H Respiratory Effort Short of Breath Respiratory Pattern Blood Pressure 179/93 H 187/90 H Blood Pressure Mean 121 122 Pulse Ox 91 94 Oxygen Delivery Method Room Air Nasal Cannula Nasal Cannula Oxygen Flow Rate (L/min) 2 2 07/22/22 16:30 07/22/22 18:29 Temperature Temperature Source Pulse Rate 85 69 Respiratory Rate 18 18 Respiratory Effort Respiratory Pattern Normal Blood Pressure 140/75 H Blood Pressure Mean 96 Pulse Ox 95 Oxygen Delivery Method Room Air Oxygen Flow Rate (L/min) Weight Weight: 125 lb 14.143 oz Body Mass Index (BMI) 21.6 Physical Exam Narrative Physical Examination: General: Awake, alert, oriented x 3 and cooperative, seated upright in the ED bed, fatigued, notes feeling improved, still some increased work of breathing, some accessory muscle usage. Skin: Normal color, normal turgor, no icterus, no cyanosis. HEENT: AT/NC, EOMI, PERRLA, mildly dry MM, no carotid bruits or JVD noted. Lungs: Diminished, > bases, mildly increased work of breathing, some accessory usage with attempted discussions, expiratory wheezing, no rales or ronchi. Heart: Regular rate and rhythm; no gallop, rub audible. Abdomen: Soft, thin habitus, NTTP, ND, mildly hyperactive BS, no HSM. Extremities: No cyanosis, clubbing, or edema. Neurological: Patient awake, alert, oriented as noted, cognitive function intact; pupils equally reactive to light and accommodation, cranial nerves II-XII grossly normal, moving all 4 extremities, no focal deficits, strength moderately to severely globally decreased secondary to acute presentation. Psychiatric: Affect appears fatigued, respiratory effort improving, no acute evidence of depressive or anxiety feelings. Results Lab / Micro Data Result Diagrams: 07/22/22 16:15 07/22/22 16:15 Labs: Laboratory Results - last 24 hr 07/22/22 16:15: WBC 7.7, RBC 4.50, Hgb 14.4, Hct 41.8, MCV 92.9, MCH 32.0, MCHC 34.4, RDW Std Deviation 43.0, RDW Coeff of Andrea 12.6, Plt Count 156, MPV 12.9 H, Immature Gran % (Auto) 0.400, Neut % (Auto) 75.2 H, Lymph % (Auto) 13.2 L, [place] % (Auto) 10.1 H, Eos % (Auto) 0.6, Baso % (Auto) 0.5, Absolute Neuts (auto) 5.8, Absolute Lymphs (auto) 1.02, Nucleated RBC % 0 07/22/22 16:15: Sodium 143, Potassium 3.8, Chloride 105, Carbon Dioxide 30.0, Anion Gap 8, BUN 12, Creatinine 0.86, Estim Creat Clear Calc 45.80, Est GFR (MDRD) Af Amer 82, Est GFR (MDRD) Non-Af 68, BUN/Creatinine Ratio 14.0, Glucose 152 H, Calcium 9.2, Total Bilirubin 1.00, AST 33, ALT 16, Alkaline Phosphatase 80, Total Protein 7.4, Albumin 3.5, Globulin 3.9, Albumin/Globulin Ratio 0.9 07/22/22 16:15: Lactic Acid 0.9 07/22/22 16:15: PT 21.5 H, INR 1.9 ABG Data ABG results: ABG 07/22/22 16:38 Specimen Type KARSON VBG pH 7.43 H VBG pO2 50 H VBG HCO3 29 H VBG Total CO2 30 VBG O2 Sat (Calc) 86 H VBG Base Excess 5 H POC Mix VBG pCO2 Pt Tmp 43.4 Liter Flow 2.5 Radiology Impression Chest X-Ray 07/22/22 16:30 IMPRESSION: 1. No cardiomegaly or heart failure. 2. Mild emphysema. 3. Mild fibrotic changes in both lower lobes. 4. No new pneumonia, pneumonitis, bronchitis, or pulmonary mass lesions. 5. No significant interval change since the previous study 11/17/2018 Electronically Signed: Mitchel Dorantes MD at 16:49 EDT , Assessment & Plan Assessment/Plan (1) Acute exacerbation of chronic obstructive pulmonary disease: PLAN: Plan The patient is a 77 y/o F w/ PMHx: COPD, HLD, HTN, PAF on coumadin, Former tobacco use, Hx Aortic aneurysm who presents to the [facility] ED on 07/22/22 with history of several days of persistently worsening dyspnea as well as cough, worse with exertion with associated wheezing with postnasal drip and a clear sputum reporting that she did quit smoking approximately 6 months prior and she is not on any chronic oxygen set therapy however given her significant dyspnea prompted EMS call reporting that she was 79% upon their initial evaluation prompting ED transition for evaluation. She notes feeling improved since initial ED arrival following treatments including aerosols. #1. Acute on chronic COPD exacerbation with associated Hypoxia, RULED OUT Acute Hypoxic Respiratory Failure noted per ED Physician: CXR w/ chronic changes and CBC with no marked WC elevation or shift, afebrile. Will admit to medical surgical floor, maintain on oxygen with wean as tolerated to room air, continue ATC duonebs, PRN albuterol, IV methylprednisolone, HOB, IS parameters, administered IV Levaquin in the ED secondary to mildly yellow sputum noted however will defer immediate usage pending sputum culture, procalcitonin and if concern for bacterial etiology will add as already received a dose of antibiotic therapy as noted upon ED evaluation. #2. Hyperglycemia: Admission glucose 152, possibly stress response, hemoglobin A1c requested. #3. PAF: Continue home Coreg as well as home Coumadin with INR trending. #4. Hypertension: Continue home regimen including Coreg with hold parameters as needed, PRN hydralazine. #5. Hyperlipidemia: We will continue patient on statin therapy. #6. Former tobacco use: Encourage continued tobacco cessation. #7. Hx Aortic aneurysm: Noted in the history, last imaging 03/16/2018, no evidence of aortic dissection, encourage outpatient follow-up. #8. DVT prophylaxis: SCDs, continue Coumadin with INR trending. #9. CODE status: Patient OSMAN is her son and living will is currently in place. Discussed CODE status at length including difference between FULL code, DNR-CCA and DNR-CC status. Following discussions about the differences in these status, requested Full Code status. Advanced Care Planning Face to Face Time: 16 minutes. Charges/Coding Visit Charges Inpatient E&M: 85924 Init Hosp L3 Procedures Hospitalists Procedures: 92185 Advncd Care Plan 30 Min
[2022-07-22] MEDS: Atorvastatin Calcium 10 MG Tablet 5 MG PO (22:32)
[2022-07-22] MEDS: guaiFENesin 1,200 MG Tablet 1200 MG PO (22:32)
[2022-07-22] MEDS: Carvedilol 25 MG Tablet PO (22:32)
[2022-07-22] MEDS: 0.9% Saline Lock 10 ML Syringe IV ×2 (22:39→22:46)
[2022-07-22] MEDS: 0.9% Normal Saline 1,000 ML 100 ML IV (22:39)
[2022-07-22] MEDS: hydrALAZINE 20 MG/ML Vial 10 MG IV (22:46)
[2022-07-23] VITALS (13 sets, daily range): BP systolic 127–159; BP diastolic 64–90; PULSE 76–90; RESP 18–20; TEMP 36.6–36.9; O2SAT 92–96
[2022-07-23] MEDS: 0.9% Saline Lock 10 ML Syringe IV ×3 (05:20→21:39)
[2022-07-23 05:56] LABS: Absolute Lymphocyte Count 0.56 X10^3/uL (0.83-4.51); Basophil# 0.01 X10^3/uL; Basophil% 0.1 % (0-1); Hematocrit 42.7 % (37-47); Hemoglobin 14.7 g/dL (12.0-15.0); Lymphocyte # 0.56 X10^3/ul (0.83-4.51); Lymphocyte % 8.4 % (19-41); Mean Corp Hgb Conc 34.4 g/dL (32-36); Mean Corpuscular Hgb 31.3 pg (27.0-32.0); Mean Corpuscular Volume 90.9 fL (81-99); Mean Platelet Vol. 12.5 fl (6.2-12.0); Monocyte# 0.11 X10^3/uL; Monocyte% 1.6 % (0-10); NRBC Flagged by Analyzer 0 % (0-5); Neutrophil # 5.99 X10^3/uL (2.7-7.7); Neutrophil % 89.5 % (47-70); POSITIVE DIFFERENTIAL YES; Platelet Count 161 K/mm3 (150-450); RBC Distribution Width CV 12.4 % (11.6-14.6); RBC Distribution Width SD 40.9 fl (35.1-43.9); White Blood Count 6.7 K/mm3 (4.4-11.0)
[2022-07-23 06:24] LABS: Differential Indicated SCAN CRITERIA MET
[2022-07-23 06:26] LABS: International Normalized Ratio 1.8; Prothrombin Time (Protime)PT. 20.8 SECONDS (11.7-14.9)
[2022-07-23 06:38] LABS: ALB/GLOB Ratio 0.9 RATIO (0.9-2.4); AST(SGOT) 33 U/L (15-37); Alanine Aminotransfer ALT/SGPT 19 U/L (13-56); Albumin, Serum 3.5 g/dL (3.2-5.0); Alkaline Phosphatase 84 U/L (45-117); Anion Gap 10 (5-15); BUN 12 mg/dL (7-18); BUN/Creat Ratio 14.2 RATIO (10-20); Calcium,Total 9.6 mg/dL (8.5-10.1); Chloride 105 mmol/L (98-107); Creatinine, Serum 0.85 mg/dL (0.55-1.02); EST Glomerular Filtration Rate 69 mL/min (>60); Est Glom Filt Rate - Afr Amer 83 mL/min (>60); Estimated Creatinine Clearance 44.39 ml/min; Glucose 145 mg/dL (74-106); Potassium 3.8 mmol/L (3.5-5.1); Protein, Total 7.5 g/dL (6.4-8.2); Sodium Level 140 mmol/L (136-145)
[2022-07-23 06:54] LABS: Differential Comment SCANNED
[2022-07-23] MEDS: Ipratropium/Albuterol Sulfate 3 ML AMPUL.NEB INHALATION ×3 (07:14→19:15)
[2022-07-23 09:08] LABS: Hemoglobin A1c 4.9 % (3.8-5.6)
[2022-07-23] MEDS: guaiFENesin 1,200 MG Tablet 1200 MG PO ×2 (09:43→21:34)
[2022-07-23] MEDS: Carvedilol 25 MG Tablet PO ×2 (09:43→21:35)
[2022-07-23] MEDS: FLU VACC QS2022-23(6MOS UP)/PF 60 MCG/0.5 ML SYRINGE IM (09:49)
--- NOTE | 2022-07-23 09:50 | PN.HOSP_ITS ---
Subjective Subjective Last evening with exacerbation of COPD requiring supplemental oxygen. She is not on any oxygen at baseline. She currently is on 2 L however we will try to wean this. She states she is feeling much better and indicates that she is likely 80-90% better since coming in. She would like to go home however I think is little premature given the fact that she just got here last evening and she still on supplemental oxygen and getting IV steroids. She is having a cough productive of sputum and we will go ahead and try to obtain a sample and culture. Objective Data Objective Data Vital Signs: Vital Signs Temp Pulse Resp BP Pulse Ox O2 Del Method O2 Flow Rate 98 F 90 18 151/80 H 94 Room Air 2 07/23/22 09:30 07/23/22 09:30 07/23/22 09:30 07/23/22 09:30 07/23/22 09:30 07/23/22 09:30 07/23/22 07:14 Oxygen Flow Rate (L/min) 2 Oxygen Delivery Method Room Air Weight: 56.9 kg Body Mass Index (BMI) 21.9 Intake & Output: Intake and Output for Last 24 Hours 07/21/22 07/22/22 07/23/22 23:59 23:59 23:59 Intake Total 100 / 100 1200 / 1200 Balance 100 / 100 1200 / 1200 Lab / Micro Data Result Diagrams: 07/23/22 05:46 07/23/22 05:46 Labs: Laboratory Results - last 24 hr 07/22/22 16:15: WBC 7.7, RBC 4.50, Hgb 14.4, Hct 41.8, MCV 92.9, MCH 32.0, MCHC 34.4, RDW Std Deviation 43.0, RDW Coeff of Andrea 12.6, Plt Count 156, MPV 12.9 H, Immature Gran % (Auto) 0.400, Neut % (Auto) 75.2 H, Lymph % (Auto) 13.2 L, [place] % (Auto) 10.1 H, Eos % (Auto) 0.6, Baso % (Auto) 0.5, Absolute Neuts (auto) 5.8, Absolute Lymphs (auto) 1.02, Nucleated RBC % 0 07/22/22 16:15: Sodium 143, Potassium 3.8, Chloride 105, Carbon Dioxide 30.0, Anion Gap 8, BUN 12, Creatinine 0.86, Estim Creat Clear Calc 45.80, Est GFR (MDRD) Af Amer 82, Est GFR (MDRD) Non-Af 68, BUN/Creatinine Ratio 14.0, Glucose 152 H, Calcium 9.2, Total Bilirubin 1.00, AST 33, ALT 16, Alkaline Phosphatase 80, Total Protein 7.4, Albumin 3.5, Globulin 3.9, Albumin/Globulin Ratio 0.9 07/22/22 16:15: Lactic Acid 0.9 07/22/22 16:15: PT 21.5 H, INR 1.9 07/23/22 05:46: WBC 6.7, RBC 4.70, Hgb 14.7, Hct 42.7, MCV 90.9, MCH 31.3, MCHC 34.4, RDW Std Deviation 40.9, RDW Coeff of Andrea 12.4, Plt Count 161, MPV 12.5 H, Immature Gran % (Auto) 0.400, Neut % (Auto) 89.5 H, Lymph % (Auto) 8.4 L, [place] % (Auto) 1.6, Eos % (Auto) 0.0, Baso % (Auto) 0.1, Absolute Neuts (auto) 6.0, Absolute Lymphs (auto) 0.56 L, Nucleated RBC % 0, Differential Comment SCANNED 07/23/22 05:46: PT 20.8 H, INR 1.8 07/23/22 05:46: Sodium 140, Potassium 3.8, Chloride 105, Carbon Dioxide 25.0, Anion Gap 10, BUN 12, Creatinine 0.85, Estim Creat Clear Calc 44.39, Est GFR (MDRD) Af Amer 83, Est GFR (MDRD) Non-Af 69, BUN/Creatinine Ratio 14.2, Glucose 145 H, Calcium 9.6, Total Bilirubin 1.10 H, AST 33, ALT 19, Alkaline Phosphatase 84, Total Protein 7.5, Albumin 3.5, Globulin 4.0, Albumin/Globulin Ratio 0.9 07/23/22 05:46: Hemoglobin A1c 4.9 Micro: Microbiology 07/22/22 23:16 Interface Orders Respiratory Panel (PCR) - Final 07/22/22 20:45 Nasal Secretion SARS-CoV-2 Antigen (Rapid) - Final ABG Data ABG results: ABG 07/22/22 16:38 Specimen Type KARSON VBG pH 7.43 H VBG pO2 50 H VBG HCO3 29 H VBG Total CO2 30 VBG O2 Sat (Calc) 86 H VBG Base Excess 5 H POC Mix VBG pCO2 Pt Tmp 43.4 Liter Flow 2.5 Radiography Diagnostic Testing: Radiology Impression Chest X-Ray 07/22/22 16:30 IMPRESSION: 1. No cardiomegaly or heart failure. 2. Mild emphysema. 3. Mild fibrotic changes in both lower lobes. 4. No new pneumonia, pneumonitis, bronchitis, or pulmonary mass lesions. 5. No significant interval change since the previous study 11/17/2018 Electronically Signed: Mitchel Dorantes MD at 16:49 EDT , Physical Exam Const alert, oriented x3, no apparent distress, average body habitus and well nourished Constitutional Narrative: Older white female sitting up in bed, appears comfortable nontoxic, watching television and eating breakfast HEENT head/scalp atraumatic and moist oral mucous membranes HEENT Narrative: Dentures in place, Mallampati 2, no thrush Resp normal respiratory effort, no retractions and no use of accessory muscles Resp Narrative: Markedly diminished diffusely but no adventitious sounds noted at this time Auscultation: Negative for crackles, rales, rhonchi or wheezes Cardio regular rate, regular rhythm, S1 normal heart sound, S2 normal heart sound, no murmurs, no rub, no gallops and no clicks GI normal to inspection, nondistended, normoactive bowel sounds, soft to palpation and non-tender Extremity no clubbing, cyanosis or edema Neuro oriented x3, moves all extremities and no focal motor deficits Speech: speech normal Psych affect normal Psych Narrative: Very pleasant Assessment & Plan Assessment/Plan (1) Acute exacerbation of chronic obstructive pulmonary disease: PLAN: Plan Acute exacerbation of COPD with hypoxia -Patient does not meet criteria for acute hypoxic respiratory failure -X-ray with chronic changes but having cough with sputum production -Currently on 2 L nasal cannula -Wean as able -She is not on baseline oxygen -Continue aggressive pulmonary toilet -I-S -Add Acapella -Continue Levaquin with productive sputum -Continue IV steroids with probable transition to p.o. and discharge tomorrow if she continues to improve -Sputum culture ordered and since has been collected with pending result -Respiratory viral panel negative -Flu and COVID-negative -Home inhalers on hold but will restart on discharge PAF -Continue home Coreg -Continue Coumadin INR is slightly subtherapeutic but with antibiotics will not make any adjustments at this time and recheck INR in a.m. Hypertension -Continue home Coreg at 25 mg p.o. twice daily D Hyperlipidemia -Continue home simvastatin Hyperglycemia -Patient was hyperglycemic on presentation again this morning however has had steroids -He will A1c was obtained and found to be 4.9 -Suspect related to stress response and steroid use Ascending thoracic aortic aneurysm -4.1 cm on last documented CTA here -No current chest pain -Continued outpatient monitoring History of tobacco abuse -Patient has since quit -Encourage continued cessation DVT prophylaxis -Continue home Coumadin CODE STATUS -Full code Charges/Coding Visit Charges Inpatient E&M: 64066 Subs Hosp L2
[2022-07-23] MEDS: Ensure Plus High Protein 120 ML LIQUID PO ×2 (14:39→21:40)
[2022-07-23] MEDS: levoFLOXacin IV 250 MG/50 ML BAG 50 MG IV (21:34)
[2022-07-23] MEDS: Atorvastatin Calcium 10 MG Tablet 5 MG PO (21:35)
[2022-07-24 02:51] VITALS: BP 164/81; PULSE 74; RESP 18; TEMP 36.9; O2SAT 94
[2022-07-24 02:52] VITALS: BP 164/81; PULSE 74; RESP 18; TEMP 36.9; O2SAT 94
[2022-07-24 05:32] LABS: Prothrombin Time (Protime)PT. 22.5 SECONDS (11.7-14.9)
[2022-07-24] MEDS: 0.9% Saline Lock 10 ML Syringe IV (05:58)
[2022-07-24 07:25] VITALS: O2SAT 90; O2SAT 91
[2022-07-24 07:32] VITALS: PULSE 71; RESP 18; O2SAT 94
[2022-07-24] MEDS: Ipratropium/Albuterol Sulfate 3 ML AMPUL.NEB INHALATION (07:32)
[2022-07-24 08:51] VITALS: BP 152/80; PULSE 74; RESP 18; TEMP 36.4; O2SAT 91
--- NOTE | 2022-07-24 10:03 | PCM.DC.SUM ---
Providers Date of Admission: 07/22/22 Date of Discharge: 07/24/22 Primary Care Physician: Dr. Chicho Ronquillo MD Reason For Visit: COPD EXACERBATION, HYPOXIA Diagnosis Discharge Diagnosis (1) Acute exacerbation of chronic obstructive pulmonary disease: Status: Chronic Code(s): J44.1 - Chronic obstructive pulmonary disease with (acute) exacerbation Plan Acute exacerbation of COPD with hypoxia -Patient does not meet criteria for acute hypoxic respiratory failure -X-ray with chronic changes but having cough with sputum production -Currently on 2 L nasal cannula -Wean as able -She is not on baseline oxygen -Continue aggressive pulmonary toilet -I-S -Add Acapella -Continue Levaquin with productive sputum -Continue IV steroids with probable transition to p.o. and discharge tomorrow if she continues to improve -Sputum culture ordered and since has been collected with pending result -Respiratory viral panel negative -Flu and COVID-negative -Home inhalers on hold but will restart on discharge PAF -Continue home Coreg -Continue Coumadin INR is slightly subtherapeutic but with antibiotics will not make any adjustments at this time and recheck INR in a.m. Hypertension -Continue home Coreg at 25 mg p.o. twice daily D Hyperlipidemia -Continue home simvastatin Hyperglycemia -Patient was hyperglycemic on presentation again this morning however has had steroids -He will A1c was obtained and found to be 4.9 -Suspect related to stress response and steroid use Ascending thoracic aortic aneurysm -4.1 cm on last documented CTA here -No current chest pain -Continued outpatient monitoring History of tobacco abuse -Patient has since quit -Encourage continued cessation DVT prophylaxis -Continue home Coumadin CODE STATUS -Full code Medications at Discharge Home Medications albuterol sulfate 90 mcg/actuation aerosol inhaler (Ventolin HFA) 1 - 2 puff inhalation Q4H PRN PRN Sob &/Or Wheezing 01/07/16 simvastatin 10 mg tablet 10 mg PO QHS Check with primary doctor 01/07/16 warfarin 1 mg tablet 5 mg PO DAILY Check with primary doctor 11/17/18 albuterol sulfate 2.5 mg/3 mL (0.083 %) solution for nebulization 2.5 mg inhalation Q4H PRN Shortness Of Breath Or Wheezing 07/22/22 carvedilol 25 mg tablet 25 mg PO BID Check with primary doctor 07/22/22 fluticasone furoate 100 mcg-vilanterol 25 mcg/dose inhalation powder (Breo Ellipta) 1 ea inhalation DAILY Check with primary doctor 07/22/22 multivitamin 1 tab PO DAILY Check with primary doctor 07/22/22 prednisone 10 mg tablet 10 mg PO DAILY #40 tabs 07/24/22 Hospital Course Operations None Procedures None Summary of Care Provided Minutes Spent on Discharge: 37 Hospital Course: Mrs. Méndez is a 77-year-old white female who presented to the emergency department was coming hospital on 07/22/2022 with a chief complaint of dyspnea. She is a known history of COPD and tobacco abuse remotely but was not on chronic oxygen at baseline. She evidently had persistently worsening dyspnea as well as a cough and associated wheezing and postnasal drip with clear sputum upon presentation. Upon arrival to the emergency department her oxygen saturation was 79%. In the ED she was treated with aerosols and steroids and did have an improvement in her subjective complaints however she was still fatigued with conversational dyspnea and some accessory muscle use. ?Work-up in the ED included T98.4, heart rate 84, BP initially 179/93 with most recent repeat 140/75, respiratory rate 22, initially 91% on room air with improvement to 94% on 2 L nasal cannula, CBC with WBC 7.7, hemoglobin 14.4, platelet 156 without marked shift, coags with INR 1.9, VBG with pH 7.43, PO2 50, bicarb 29, O2 saturation 86% on 2.5 L, CMP with glucose 152, lactic acid 0.9 otherwise hepatic profile unremarkable, chest x-ray with mild fibrotic changes in both lower lobes with no other acute cardiopulmonary findings, EKG with SR without acute evidence of ischemia.? In the ED patient administered Solu-Medrol, DuoNeb therapy and eventually Levaquin secondary to concerns for mild yellow sputum noted in the ED. she was admitted to the medical floor and maintained on IV steroids, aggressive pulmonary toilet with bronchodilators and incentive spirometry as well as antibiotics. Sputum culture was obtained and per discussion with microbiology lab growth was mixed gram-positive's on the day of discharge. Given the unimpressive notes of her sputum culture at the time of discharge we discharged her without antibiotics and placed her on a slow taper of prednisone with 40 mg x 4 days, 30 mg x 4 days, 20 mg x 4 days, and 10 mg x 4 days. An ambulatory pulse oximetry was performed and she was able to ambulate on room air without having any desaturations that would require oxygen. She was discharged home in stable condition on 07/24/2022. Discharge diagnoses: Acute exacerbation of COPD with hypoxia PAF Hypertension Hyperlipidemia Hyperglycemia Ascending thoracic aortic aneurysm History of tobacco abuse Weight / BMI Weight Weight: 62.4 kg Body Mass Index (BMI) 21.9 ABG / Lab / Microbiology Data Result Diagrams: 07/23/22 05:46 07/23/22 05:46 Laboratory: Laboratory Results - last 24 hr 07/24/22 04:30: PT 22.5 H, INR 2.0 Microbiology: Microbiology 07/22/22 23:16 Interface Orders Respiratory Panel (PCR) - Final 07/22/22 20:45 Nasal Secretion SARS-CoV-2 Antigen (Rapid) - Final D/C Instructions Discharge Diet: No restrictions Discharge Activity: Return to Normal Activity Meaningful Use Info Meaningful Use Diagnoses (Choose all that apply): None applicable Discharge Plan Admission Admit Date/Time: 07/22/22 19:14 Primary Reason for Your Visit: Shortness of breath Attending Provider: Colleen Mendez Primary Care Provider: Chicho Ronquillo Consulting Providers: Cande Lagos Discharge Orders/Prescriptions Prescriptions: New prednisone 10 mg tablet 10 mg PO DAILY Qty: 40 0RF Rx Instructions: 4 tablets x 4 days, 3 tablets x 4 days, 2 tablets x 4 days, 1 tablets x 4 days Continued simvastatin 10 MG tablet 10 mg PO QHS albuterol sulfate [Ventolin HFA] 1 INHALER inhaler 1 - 2 puff inhalation Q4H PRN PRN (Reason: Sob &/Or Wheezing) warfarin 1 MG tablet 5 mg PO DAILY Label Comments: 5mg Sun, Tue, Thur, Sat 1/2 tab Mon, Wed, Fri carvedilol 25 mg Tablet 25 mg PO BID Rx Instructions: must administer with a meal/food fluticasone furoate-vilanterol [Breo Ellipta] 100-25 mcg/dose Blister With Device 1 ea INHALATION DAILY albuterol sulfate 2.5 mg /3 mL (0.083 %) solution for nebulization 2.5 mg inhalation Q4H PRN (Reason: Shortness Of Breath Or Wheezing) multivitamin Tablet,Chewable 1 tab PO DAILY Referrals / Follow Up: Bursley,Chicho, MD [Primary Care Provider] - Within 2 Weeks Disposition Disposition (needs filled in before D/C Order can be placed): Home, Self Care Charges/Coding Visit Charges Inpatient E&M: 82738 Disch Hosp
[2022-07-24] MEDS: guaiFENesin 1,200 MG Tablet 1200 MG PO (10:12)
[2022-07-24] MEDS: Carvedilol 25 MG Tablet PO (10:12)
[2022-07-24] MEDS: Ensure Plus High Protein 120 ML LIQUID PO (10:12)
--- NOTE | 2022-07-24 10:12 | CASEMGMT ---
Social Work SW spoke with pt regarding advance directives. Pt states she has a living will and a health care POA naming her son Francisco Richmond. SW informed pt that documents are not on file at [facility] and requested they be brought in for scanning into the medical record. Pt expresses understanding. KYREE Duran
--- NOTE | 2022-07-24 10:20 | CASEMGMT ---
RN CM Face to Face with patient for initial transition planning/care coordination assessment. RN CM introduced self and role at [facility]. Patient lying in bed, alert and oriented. Patient willing to participate in assessment and is able to answer all questions appropriately. Care providers, pharmacy, and demographics verified. Patient wishes to discharge home, denies need for home health at this time. Patient states she has no further needs or concerns at this time. CM to follow for discharge planning needs that may arise. PCP: Yg Specialists: none Preferred Pharmacy: [facility] Insurance: Anne BENNETT Prescription Benefit: yes Living Will/HPOA: yes, son Francisco Richmond, HPOA LNOK: sons, DIL Living Arrangements: Patient lives with son in a single story home with 2 steps and railing to enter the home. Patient states she is independent at home. Transportation: self, son DME/HHC: Patient states she has raised toilet, cane, walker, wheelchair, nebuilzer, and pulse ox at home. Patient denies previous HHC or SNF. Disposition Plan: Patient to discharge home with family support and follow-up plans in place. Nesha SUE, RN, CM
--- NOTE | 2022-07-24 10:43 | CASEMGMT ---
Addendum entered by Cat Levi 07/24/22 10:44: Patient Link referral made. Original Note: Pt did not qualify for home oxygen.
[2022-07-24 11:00] VITALS: O2SAT 92
--- NOTE | 2022-07-24 11:23 | PHA.DC.MC ---
Pharmacy Service has performed discharge medication reconciliation and counseling for this patient. 1. PREDNISONE 40MG PO DAILY X 4 DAYS, THEN 30MG X 4 DAYS, THEN 20MG X 4 DAYS, THEN 10MG X 4 DAYS The patient's discharge medication list was reviewed for discrepancies and discrepancies were resolved. Home Medications albuterol sulfate 90 mcg/actuation aerosol inhaler (Ventolin HFA) 1 - 2 puff inhalation Q4H PRN PRN Sob &/Or Wheezing 01/07/16 simvastatin 10 mg tablet 10 mg PO QHS Check with primary doctor 01/07/16 warfarin 1 mg tablet 5 mg PO DAILY Check with primary doctor 11/17/18 albuterol sulfate 2.5 mg/3 mL (0.083 %) solution for nebulization 2.5 mg inhalation Q4H PRN Shortness Of Breath Or Wheezing 07/22/22 carvedilol 25 mg tablet 25 mg PO BID Check with primary doctor 07/22/22 fluticasone furoate 100 mcg-vilanterol 25 mcg/dose inhalation powder (Breo Ellipta) 1 ea inhalation DAILY Check with primary doctor 07/22/22 multivitamin 1 tab PO DAILY Check with primary doctor 07/22/22 prednisone 10 mg tablet 10 mg PO DAILY #40 tabs 07/24/22 The patient was counseled on the following discharge medications and changes in medications for homegoing were reviewed. The Reason for Use, instructions for use, and potential side effects were reviewed for all new medications. The patient's questions regarding all of their medications were answered. The patient was able to verbally demonstrate an understanding of their discharge medications. Patient counseled by senior pharmacy technicianNoemí.
== END 2022-07-24 11:48 | disposition home or self-care (01) | DRG 192 ==
LOC: ED 18:44 → MS3 19:27
PROVIDERS: Admitting Provider Family Medicine; Emergency Provider Emergency Medicine; PCP Family Medicine; Visit Provider Internal Medicine
DX: J44.1 Chronic obstructive pulmonary disease with (acute) exacerbation (principal); E78.5 Hyperlipidemia, unspecified; I71.2 Thoracic aortic aneurysm, without rupture; I48.0 Paroxysmal atrial fibrillation; J44.0 Chronic obstructive pulmonary disease with (acute) lower respiratory infection; J20.9 Acute bronchitis, unspecified; I10 Essential (primary) hypertension; Z79.82 Long term (current) use of aspirin; Z79.899 Other long term (current) drug therapy; Z79.01 Long term (current) use of anticoagulants; Z87.891 Personal history of nicotine dependence; R73.9 Hyperglycemia, unspecified; R09.02 Hypoxemia; Z23 Encounter for immunization
CPT/HCPCS: 36415; 71045; 80053; 82803; 83036; 83605; 85025; 85610; 87070; 87205; 87426; 87633; 93005; 94640; 97802; 99285; G0008; J7030; 90686; A4216

== ENCOUNTER 2025-03-15 07:11 | Emergency (ER) | payer MEDICARE, SELFPAY ==
[2025-03-15 07:12] VITALS: BP 167/146; PULSE 71; RESP 16; TEMP 36.8; O2SAT 96
--- NOTE | 2025-03-15 07:26 | CT_ITS ---
EXAM: CT Chest, Abdomen and Pelvis With Intravenous Contrast CLINICAL INDICATION: BACK PAIN, HX OF AAA TECHNIQUE: Axial computed tomography images of the chest, abdomen and pelvis with intravenous contrast. This CT exam was performed using one or more of the following dose reduction techniques: automated exposure control, adjustment of the mA and/or kV according to patient size, and/or use of iterative reconstruction technique. COMPARISON: No relevant prior studies available. FINDINGS: CHEST: LUNGS AND PLEURAL SPACES: Lung emphysema/COPD. Calcified granuloma of the right middle lobe. No consolidation. No significant effusion. No pneumothorax. HEART: Unremarkable. No cardiomegaly. No significant pericardial effusion. No significant coronary artery calcifications. ABDOMEN: LIVER: Hepatic cysts. GALLBLADDER AND BILE DUCTS: Unremarkable. No calcified stones. No ductal dilation. PANCREAS: Unremarkable. No ductal dilation. No mass. SPLEEN: Unremarkable. No splenomegaly. ADRENALS: Unremarkable. No mass. KIDNEYS AND URETERS: Punctate right nephrolithiasis without hydronephrosis. No solid mass. STOMACH AND BOWEL: Fecal retention in the colon consistent with constipation. No obstruction. No mucosal thickening. PELVIS: APPENDIX: No findings to suggest acute appendicitis. BLADDER: Unremarkable. No mass. REPRODUCTIVE: Unremarkable as visualized. CHEST, ABDOMEN and PELVIS: INTRAPERITONEAL SPACE: Unremarkable. No significant fluid collection. No free air. BONES/JOINTS: Multilevel endplate degenerative change and disc disease of the visualized spine. No acute fracture. No dislocation. SOFT TISSUES: Unremarkable. VASCULATURE: Scattered calcified atherosclerotic disease of the aorta measuring up to 4.8 cm in the thoracic segment and measuring up to 5.9 cm in the infrarenal segment. There is heterogeneous enhancement and turbulent flow of contrast, which is more likely related to its size. No aortic aneurysm. LYMPH NODES: Unremarkable. No enlarged lymph nodes. CT/CT Chest, Abd, Pel w/Contrast IMPRESSION: 1. Scattered calcified atherosclerotic disease of the aorta measuring up to 4. 8 cm in the thoracic segment and measuring up to 5.9 cm in the infrarenal segment. There is heterogeneous enhancement and turb ulent flow of contrast, which is more likely related to its size. 2. Fecal retention in the colon consistent with constipation. 3. Punctate right nephrolithiasis without hydronephrosis. Reading Location: [id number]
--- NOTE | 2025-03-15 07:28 | ED.VIS.GI ---
HPI HPI - GI History of Present Illness Chief Complaint: Flank Pain Detail of Chief Complaint: Back pain Informant: patient and family Narrative Narrative: Patient presents to the emergency room with complaint of back pain. Patient states her pain started yesterday morning when she woke up. Pain has been continuous. Rates it about an 8 or 9 out of 10. This morning she had 1 episode of vomiting. She denies dysuria urgency or frequency. She states her pain is in her low back across the entire back. She denies falls or injuries. She denies lifting anything heavy. She denies fever or recent illness. Patient also states that she has been constipated and has not had a good bowel movement in over a week. Patient states she took some cranberry juice this morning and then had 1 episode of emesis. Patient has history of an aneurysm in her chest per son. No repair has been undertaken. Patient also with history of A-fib and is currently on warfarin. She denies blood in her urine. Patient states the pain does not radiate down her legs. She denies weakness to the extremities. She denies paresthesias in the extremities. [facility] Medical History (Updated 03/15/25 @ 09:[address] Carley Crooks, DO) Wears hearing aid in both ears Former tobacco use HLD (hyperlipidemia) HTN (hypertension) Aortic aneurysm Atrial fibrillation COPD (chronic obstructive pulmonary disease) Home Medications ?Medication ?Instructions ?Recorded ?Last Taken ?Type albuterol sulfate 90 mcg/actuation 1 - 2 puff inhalation Q4H PRN Sob 01/07/16 03/15/25 History aerosol inhaler (Ventolin HFA) &/Or Wheezing simvastatin 10 mg tablet 10 mg PO QHS Check with primary 01/07/16 03/14/25 History doctor albuterol sulfate 2.5 mg/3 mL 2.5 mg inhalation Q4H PRN 07/22/22 03/15/25 History (0.083 %) solution for nebulization Shortness Of Breath Or Wheezing carvedilol 25 mg tablet 25 mg PO BID Check with primary 07/22/22 03/15/25 History doctor fluticasone furoate 100 1 ea inhalation DAILY Check with 07/22/22 03/14/25 History mcg-vilanterol 25 mcg/dose primary doctor inhalation powder (Breo Ellipta) cephalexin 500 mg capsule 500 mg PO 3XD #30 CAPSULES 03/15/25 Unknown Rx multivitamin (Daily Multi-Vitamin 1 tab PO DAILY 03/15/25 03/15/25 History tablet) tiotropium bromide 18 mcg capsule 1 cap inhalation DAILY 03/15/25 03/14/25 History with inhalation device warfarin 5 mg tablet 2.5 mg PO SUMOWETHFR 03/15/25 03/15/25 History warfarin 5 mg tablet 5 mg PO TUSA 03/15/25 03/14/25 History Allergy/AdvReac Type Severity Reaction Status Date / Time No Known Allergies Allergy Verified 03/15/25 07:12 Family History (Updated 07/22/22 @ 20:[address] Cande Lagos MD) Mother Heart disease Father Heart disease Surgical History History of hysterectomy History of appendectomy S/P cholecystectomy History of tonsillectomy and adenoidectomy Social History (Updated 07/22/22 @ 20:[address] Cande Lagos MD) household members: other details: Notes her son currently lives with her. She is . Smoking Status: Former smoker how long ago did patient quit smoking: Quit cigarette tobacco ~ 6 months prior, smoked 1 ppd since teen until quit alcohol intake: never substance use type: does not use ROS ROS ED Review of Systems ROS Unobtainable: other Constitutional Constitutional ED: Reports lethargy; Denies chills, fever(s), sweats or weight loss Eyes Eyes: Denies blurry vision, change in vision or diplopia ENT ENT ED: Denies rhinorrhea or sore throat Cardiovascular Cardiovascular: Denies chest pain, orthopnea or racing heartbeat Respiratory/Chest Respiratory/Chest: Denies cough, dyspnea, dyspnea on exertion, orthopnea or sputum Gastrointestinal Gastrointestinal: Reports nausea and vomiting; Denies abdominal pain or diarrhea Genitourinary Genitourinary ED: Denies dysuria, hematuria or urinary frequency Musculoskeletal Musculoskeletal: Reports back pain; Denies arthralgias, myalgias or neck pain Integumentary Denies abscess, Abrasions or rash Neurologic Neurologic: Denies headache(s) or weakness Psychiatric Psychiatric: Denies anxiety, depression or suicidal thoughts Endocrine Endocrinology: Denies polydipsia, polyphagia or polyuria Hematologic/Lymphatic Hematologic/Lymphatic: Denies easy bleeding, easy bruising or lymphadenopathy Allergic/Immunologic Allergic/Immunologic ED: Denies mouth swelling, tongue swelling or urticaria EXAM Physical Exam Const Vital Signs: 03/15/25 07:12 03/15/25 07:30 03/15/25 08:24 Temperature 98.3 F 98.3 F 97.8 F Temperature Source Temporal Temporal Temporal Pulse Rate 71 70 65 Respiratory Rate 16 18 18 Blood Pressure 167/146 H 159/83 H 159/83 H Blood Pressure Mean 153 108 108 Pulse Ox 96 95 97 Oxygen Delivery Method Room Air Room Air Room Air Positive well nourished and well developed General Appearance ED: well developed and NAD HEENT Reports TM's clear and moist mucous membranes normocephalic and atraumatic; Negative for trauma or tenderness Tympanic Membrane ED: Yes TM's clear Eyes PERRL and EOMs intact bilaterally General Eye ED: Negative for pale conjunctiva or scleral icterus Neck no lymphadenopathy, supple and no JVD General: Negative for tenderness Chest Wall inspection of chest normal and palpation of chest normal Chest: Negative for tenderness Resp normal respiratory effort and clear to auscultation bilaterally Effort and Inspection: Negative for respiratory distress or pain with movement Auscultation: Negative for rhonchi, wheezes or diminished lung sounds Cardio regular rate, regular rhythm, S1 normal heart sound, S2 normal heart sound and no murmurs Peripheral Pulses: pulses 2+ throughout GI normal to inspection, nondistended, normoactive bowel sounds, soft to palpation, non-tender, non-distended and no masses GI Narrative: No pulsatile masses noted in the abdomen. Rectal exam-no masses palpated in the rectal vault. There is no impaction. There was some soft stool that was brown. Back/Spine no thoracic nor lumbar tenderness Back/Spine Narrative: Mild CVA tenderness bilaterally. No bony tenderness over the thoracic or lumbar spine. There is no erythema or warmth noted to the back. Negative straight leg raises. Deep tendon reflexes plus 2 out of 4 bilaterally at the patella and Achilles. She has normal L5 extension bilaterally. She has normal sensation to light touch. Extremity normal to inspection Extremity Narrative: Normal strength and pulses in upper and lower extremities. General Extremety ED: Negative for edema General Extremity: Negative for edema Neuro oriented x3, CN's II-XII intact bilaterally, no sensory deficits noted and gait normal Sensorium / Orientation: awake, alert, oriented to person, oriented to place and oriented to time Motor Exam: strength 5/5 throughout and strength abnormal Psych mental status grossly normal Skin no rashes or lesions noted and no wounds MDM MDM MDM Narrative Medical decision making narrative: Patient presents with back pain without trauma. No radiculopathy type symptoms. No significant urinary symptoms. Patient anticoagulated with Coumadin. Clinically she looks well. IV line established. CBC with differential obtained showed white count 7.6 hemoglobin 13.6 and platelet count of 123. Chemistries unremarkable. BUN 9 creatinine 1.11. Urinalysis positive for 100 leukocyte esterase as well as 10-25 WBCs and +1 bacteria. Urine culture sent. Patient had a CT scan of the chest and abdomen pelvis with IV contrast given her history of aortic aneurysm. CT does show a thoracic aortic aneurysm measuring 4.8 cm as well as an infrarenal AAA measuring about 5.9 cm with turbulent flow through. No extravasation. Patient had fecal retention. Discussed results with patient and her son. I also discussed case with Dr. Taylor who is on-call for vascular. Given her other symptoms of constipation and possible UTI on urinalysis it was not felt her symptoms were due to her AAA. His office would like to follow-up with her next week. I discussed findings with patient and her son and she does not think she would want to have a surgical intervention at the age of 80 and the fact that she is still smoking. Prior to discharge patient tells me that she had an episode of difficulty finding words 3 to 4 days ago and 2 days prior to that had a similar episode as well. She was wondering if she had had a TIA. This is the first time they have mention these issues as I was attempting to discharge patient to home. I did offer to perform further workup including CT imaging of the brain and possible admission for TIA/stroke workup. Patient states that she has a primary care physician appointment next week and would prefer to follow-up as an outpatient. She is already anticoagulated. She states that she had her carotids looked at about 10 years ago and there was no issues with blockages. She does not want me to have any further testing done today as she would like to go home. Patient advised to return if strokelike symptoms or severe back or abdomen pain, syncope, or condition should worsen anyway. She will be started on Keflex and be given magnesium citrate for home. Lab Data Attestation: I reviewed the patient's lab results. Labs: Laboratory Results - last 24 hr 03/15/25 03/15/25 07:28 07:44 WBC 7.6 RBC 4.43 Hgb 13.6 Hct 39.7 MCV 89.6 MCH 30.7 MCHC 34.3 RDW Std Deviation 44.1 H RDW Coeff of Andrea 13.4 Plt Count 123 L MPV 12.2 H Immature Gran % (Auto) 0.300 Neut % (Auto) 73.1 H Lymph % (Auto) 13.7 L Dickey % (Auto) 10.3 H Eos % (Auto) 1.7 Baso % (Auto) 0.9 Absolute Neuts (auto) 5.6 Absolute Lymphs (auto) 1.04 Nucleated RBC % 0 PT 26.6 H INR 2.4 Sodium 137 Potassium 4.2 Chloride 102 Carbon Dioxide 24.0 Anion Gap 11 BUN 9 Creatinine 1.11 Estim Creat Clear Calc 32.32 L Est GFR (MDRD) Non-Af 50 L BUN/Creatinine Ratio 8.5 L Glucose 121 H Calcium 9.3 Urine Color Yellow Urine Clarity Sl. Cloudy Urine pH 7.0 Ur Specific [place] 1.010 Urine Protein 30 H Urine Glucose (UA) Normal Urine Ketones Negative Urine Occult Blood 25 H Urine Nitrite Negative Urine Bilirubin Negative Urine Urobilinogen Normal Ur Leukocyte Esterase 100 H Urine RBC 0-5 SEEN Urine WBC 10-25 SEEN Ur Squamous Epith Cells 5-10 SEEN Urine Bacteria 1+ Hyaline Casts 0-5 SEEN Urine Mucus 0 SEEN Radiography Diagnostic Testing: Clinical Impression(s) from Imaging Studies Chest/Abdomen/Pelvis CT 03/15/25 07:26 IMPRESSION: 1. Scattered calcified atherosclerotic disease of the aorta measuring up to 4.8 cm in the thoracic segment and measuring up to 5.9 cm in the infrarenal segment. There is heterogeneous enhancement and turbulent flow of contrast, which is more likely related to its size. 2. Fecal retention in the colon consistent with constipation. 3. Punctate right nephrolithiasis without hydronephrosis. Reading Location: [facility] Discharge Plan Triage Chief Complaint: Flank Pain ED Provider: Carley Crooks Dx/Rx/DC Orders Clinical Impression: Back pain, Constipation, Acute UTI, AAA (abdominal aortic aneurysm) Instructions: AAA, UTIs, ED Back Pain (Acute or Chronic), ED Constipation (Adult), ED AAA Stable Prescriptions: New cephalexin 500 mg capsule 500 mg PO 3XD Qty: 30 0RF No Action simvastatin 10 MG tablet 10 mg PO QHS albuterol sulfate [Ventolin HFA] 1 INHALER inhaler 1 - 2 puff inhalation Q4H PRN (Reason: Sob &/Or Wheezing) carvedilol 25 mg Tablet 25 mg PO BID Rx Instructions: must administer with a meal/food fluticasone furoate-vilanterol [Breo Ellipta] 100-25 mcg/dose Blister With Device 1 ea INHALATION DAILY albuterol sulfate 2.5 mg /3 mL (0.083 %) solution for nebulization 2.5 mg inhalation Q4H PRN (Reason: Shortness Of Breath Or Wheezing) warfarin 5 mg tablet 5 mg PO Patient Comments: 5MG TU, SAT 2.5MG SUN, MON, WED, THURS, FRI warfarin 5 mg tablet 2.5 mg PO SUMOWETHFR tiotropium bromide 18 mcg capsule, w/inhalation device 1 cap inhalation DAILY multivitamin [Daily Multi-Vitamin] Tablet 1 tab PO DAILY Primary Care Provider: Chicho Ronquillo Referrals: Chicho Ronquillo MD [Primary Care Provider] - Justin Taylor MD [Med Staff - Active Staff] - 2 Days Print Language: Paraguayan Disposition Disposition: Home, Self Care
[2025-03-15 07:30] VITALS: BP 159/83; PULSE 70; RESP 18; TEMP 36.8; O2SAT 95; BMI 23.2
[2025-03-15] MEDS: Morphine 4 MG/ML Syringe IV (07:40)
[2025-03-15] MEDS: Ondansetron 4 MG/2 ML Vial IV (07:40)
[2025-03-15 07:43] LABS: Absolute Lymphocyte Count 1.04 X10^3/uL (0.83-4.51); Absolute Neutrophil Count 5.6 X10^3/uL (2.0-7.7); Basophil# 0.07 X10^3/uL; Basophil% 0.9 % (0-1); Eosinophil# 0.13 X10^3/uL; Eosinophils% 1.7 % (0-5); Hematocrit 39.7 % (37-47); Hemoglobin 13.6 g/dL (12.0-15.0); Lymphocyte # 1.04 X10^3/ul (0.83-4.51); Lymphocyte % 13.7 % (19-41); Mean Corp Hgb Conc 34.3 g/dL (32-36); Mean Corpuscular Hgb 30.7 pg (27.0-32.0); Mean Corpuscular Volume 89.6 fL (81-99); Mean Platelet Vol. 12.2 fl (6.2-12.0); Monocyte# 0.78 X10^3/uL; Monocyte% 10.3 % (0-10); NRBC Flagged by Analyzer 0 % (0-5); Neutrophil # 5.55 X10^3/uL (2.7-7.7); Neutrophil % 73.1 % (47-70); Platelet Count 123 K/mm3 (150-450); RBC Distribution Width CV 13.4 % (11.6-14.6); RBC Distribution Width SD 44.1 fl (35.1-43.9); Red Blood Count 4.43 M/mm3 (4.2-5.4); White Blood Count 7.6 K/mm3 (4.4-11.0)
[2025-03-15 07:51] LABS: Mucous, Urine 0 SEEN /hpf (<or=2+)
[2025-03-15 07:58] LABS: Anion Gap 11 (5-15); BUN 9 mg/dL (4-19); BUN/Creat Ratio 8.5 RATIO (10-20); Calcium,Total 9.3 mg/dL (7.6-11.0); Chloride 102 mmol/L (98-108); Creatinine, Serum 1.11 mg/dL (0.70-1.20); EST Glomerular Filtration Rate 50 (>60); Estimated Creatinine Clearance 32.32 ml/min (50-250); Glucose 121 mg/dL (70-99); Potassium 4.2 mmol/L (3.3-5.1); Sodium Level 137 mmol/L (133-145)
[2025-03-15 08:09] LABS: Color, Urine Yellow (Yellow); Glucose, Dipstick Normal (Normal); Ketone-Dipstick Negative (Negative); Leukocyte Esterase-Dipstick 100 /ul (Negative); Nitrite-Dipstick Negative (Negative); Occult Blood-Urine 25 /ul (Negative); Protein-Dipstick 30 mg/dl (Negative); Urine Bilirubin Dipstick Negative (Negative); Urine Clarity Sl. Cloudy (Clear); Urine Urobilinogen Normal (Normal)
[2025-03-15 08:24] VITALS: BP 159/83; PULSE 65; RESP 18; TEMP 36.6; O2SAT 97
[2025-03-15 08:36] LABS: Red Blood Cells-Urine 0-5 SEEN /hpf (0-5); Squamous Epithelial Cells - UA 5-10 SEEN /hpf (5-10); White Blood Cells 10-25 SEEN /hpf (0-5)
[2025-03-15 08:37] LABS: Bacteria 1+ /hpf (None Seen); Hyaline Cast 0-5 SEEN /lpf (0-5)
[2025-03-15 08:46] LABS: International Normalized Ratio 2.4; Prothrombin Time (Protime)PT. 26.6 SECONDS (11.7-14.9)
[2025-03-15] MEDS: Cephalexin 250 MG Capsule 500 MG PO (09:44)
[2025-03-15] MEDS: Magnesium Citrate 300 ML PO (09:44)
[2025-03-15 09:57] VITALS: BP 139/74; PULSE 58; RESP 18; TEMP 36.6; O2SAT 92
== END 2025-03-15 09:58 | disposition home or self-care (01) ==
PROVIDERS: Emergency Provider Emergency Medicine; PCP Family Medicine; Visit Provider Emergency Medicine
DX: M54.9 Dorsalgia, unspecified (principal); J44.9 Chronic obstructive pulmonary disease, unspecified; I48.91 Unspecified atrial fibrillation; N39.0 Urinary tract infection, site not specified; I10 Essential (primary) hypertension; K59.00 Constipation, unspecified; Z87.891 Personal history of nicotine dependence; I71.40 Abdominal aortic aneurysm, without rupture, unspecified; E78.5 Hyperlipidemia, unspecified; Z90.710 Acquired absence of both cervix and uterus; Z79.01 Long term (current) use of anticoagulants; Z79.51 Long term (current) use of inhaled steroids; Z90.49 Acquired absence of other specified parts of digestive tract
CPT/HCPCS: 71260; 74177; 80048; 81001; 85025; 85610; 96374; 96375; 99283; Q9967; J2405

== ENCOUNTER 2025-03-18 17:01 | Emergency (ER) | payer MEDICARE, SELFPAY ==
--- NOTE | 2025-03-18 17:04 | EX.ED.CRITCA ---
HPI History of Present Illness Chief Complaint: CPR Informant: EMS Narrative Narrative: Arrived by EMS from home reported patient known aortic aneurysm, patient had complaints of severe abdominal pain when unresponsive EMS arrived, they reported had episode of V-fib which they cardioverted in asystole since then. Status post 3 rounds of epinephrine. Pulseless. She was intubated in the field. Brought in stating family requests of resuscitation. No additional information at this time. [facility] Medical History Wears hearing aid in both ears Former tobacco use HLD (hyperlipidemia) HTN (hypertension) Aortic aneurysm Atrial fibrillation COPD (chronic obstructive pulmonary disease) Home Medications ?Medication ?Instructions ?Recorded ?Last Taken ?Type albuterol sulfate 90 mcg/actuation 1 - 2 puff inhalation Q4H PRN Sob 01/07/16 03/15/25 History aerosol inhaler (Ventolin HFA) &/Or Wheezing simvastatin 10 mg tablet 10 mg PO QHS Check with primary 01/07/16 03/14/25 History doctor albuterol sulfate 2.5 mg/3 mL 2.5 mg inhalation Q4H PRN 07/22/22 03/15/25 History (0.083 %) solution for nebulization Shortness Of Breath Or Wheezing carvedilol 25 mg tablet 25 mg PO BID Check with primary 07/22/22 03/15/25 History doctor fluticasone furoate 100 1 ea inhalation DAILY Check with 07/22/22 03/14/25 History mcg-vilanterol 25 mcg/dose primary doctor inhalation powder (Breo Ellipta) cephalexin 500 mg capsule 500 mg PO 3XD #30 CAPSULES 03/15/25 Unknown Rx multivitamin (Daily Multi-Vitamin 1 tab PO DAILY 03/15/25 03/15/25 History tablet) tiotropium bromide 18 mcg capsule 1 cap inhalation DAILY 03/15/25 03/14/25 History with inhalation device warfarin 5 mg tablet 2.5 mg PO SUMOWETHFR 03/15/25 03/15/25 History warfarin 5 mg tablet 5 mg PO TUSA 03/15/25 03/14/25 History Allergy/AdvReac Type Severity Reaction Status Date / Time No Known Allergies Allergy Verified 03/15/25 07:12 Family History Mother Heart disease Father Heart disease Surgical History History of hysterectomy History of appendectomy S/P cholecystectomy History of tonsillectomy and adenoidectomy Social History household members: other details: Notes her son currently lives with her. She is . Smoking Status: Former smoker how long ago did patient quit smoking: Quit cigarette tobacco ~ 6 months prior, smoked 1 ppd since teen until quit alcohol intake: never substance use type: does not use EXAM Physical Exam Const Vital Signs: 03/18/25 17:12 03/18/25 17:51 Temperature 0 F L Temperature Source Temporal Pulse Rate [3] 0 L Oxygen Delivery Method Ambu-Bag MDM MDM MDM Narrative Medical decision making narrative: Interventions / MDM: Differential diagnosis: Cardiopulmonary arrest, history of abdominal aneurysm Diagnosis considered but do not suspect: N/A My EKG interpretation: N/A Imaging independently reviewed and interpreted by myself: N/A External documents reviewed: CTA chest abdomen pelvis from March 15, 2025 notes 4.8 cm thoracic aneurysm up to 5.8 cm infrarenal. Test considered but not ordered:N/A ED course: Prior EMS with ETT [id number], no resistance with [id number]. Aron device running. Additional epinephrine was given. Shortly right after son came to the department stating he is the DPOA, he states patient did not want resuscitation. He wanted this to stop. 1703: Aron device stopped bag valve stopped, no pulse no spontaneous respiration fixed dilated pupils, patient started to become cyanotic. Time of was pronounced. From reported history sounds like for aortic aneurysm with pain likely ruptured. 1745: Nursing spoke with furniture arranger along with PCP. Patient has been cleared. PCP will sign certificate. Re-evaluation: stable Disposition discussed with patient/family/significant other: Son Case discussed with consulting clinician: N/A This note was generated with [employer] dictation software. It may contain incorrect words, spelling, and punctuation that were not noted in checking the note before signing. Critical Care Time Critical Care Time: Yes Critical care time (excluding procedures): Discussing w/Patient &/or Family/Tile Grinder, Performing Direct Patient Care at Bedside and - (15 minutes) Discharge Plan Triage Chief Complaint: CPR ED Provider: Camacho Dooley Dx/Rx/DC Orders Clinical Impression: Cardiopulmonary arrest, History of aortic aneurysm Prescriptions: No Action simvastatin 10 MG tablet 10 mg PO QHS albuterol sulfate [Ventolin HFA] 1 INHALER inhaler 1 - 2 puff inhalation Q4H PRN (Reason: Sob &/Or Wheezing) carvedilol 25 mg Tablet 25 mg PO BID Rx Instructions: must administer with a meal/food fluticasone furoate-vilanterol [Breo Ellipta] 100-25 mcg/dose Blister With Device 1 ea INHALATION DAILY albuterol sulfate 2.5 mg /3 mL (0.083 %) solution for nebulization 2.5 mg inhalation Q4H PRN (Reason: Shortness Of Breath Or Wheezing) warfarin 5 mg tablet 5 mg PO Patient Comments: 5MG , SAT 2.5MG SUN, MON, WED, THURS, FRI warfarin 5 mg tablet 2.5 mg PO SUMOWETH tiotropium bromide 18 mcg capsule, w/inhalation device 1 cap inhalation DAILY multivitamin [Daily Multi-Vitamin] Tablet 1 tab PO DAILY cephalexin 500 mg capsule 500 mg PO 3XD Qty: 30 0RF Primary Care Provider: Chicho Ronquillo Referrals: Chicho Ronquillo MD [Primary Care Provider] - Print Language: Macanese Disposition Disposition: Discharge Date/Time: 03/18/25 18:24 Date/Time: 03/18/25 17:03
[2025-03-18 17:12] VITALS: PULSE 0
[2025-03-18 17:51] VITALS: TEMP -17.7; TEMP 0; BMI 24.3
== END 2025-03-18 18:24 ==
PROVIDERS: Emergency Provider Emergency Medicine; PCP Family Medicine; Visit Provider Emergency Medicine
DX: I46.9 Cardiac arrest, cause unspecified (principal); J44.9 Chronic obstructive pulmonary disease, unspecified; I48.91 Unspecified atrial fibrillation; I10 Essential (primary) hypertension; Z87.891 Personal history of nicotine dependence; E78.5 Hyperlipidemia, unspecified; Z90.710 Acquired absence of both cervix and uterus; Z79.899 Other long term (current) drug therapy; Z79.51 Long term (current) use of inhaled steroids; Z79.01 Long term (current) use of anticoagulants; Z90.49 Acquired absence of other specified parts of digestive tract; I71.9 Aortic aneurysm of unspecified site, without rupture
CPT/HCPCS: 92950; 99282